=== PATIENT | female | born 1985 | race Caucasian/White ===

== ENCOUNTER 2023-04-14 07:24 | Emergency (ER) | payer OTHER, SELFPAY ==
[2023-04-14 07:25] VITALS: BP 137/91; PULSE 116; RESP 18; TEMP 36.6; O2SAT 97; BMI 34.7
[2023-04-14] MEDS: Acetaminophen 500 MG Tablet 1000 MG PO (07:58)
[2023-04-14] MEDS: dexAMETHasone 10 MG/ML Vial PO.IVFORM (07:58)
--- NOTE | 2023-04-14 15:05 | EDS_ITS ---
HPI HPI - URI History of Present Illness Chief Complaint: Sore Throat Narrative Narrative: 37-year-old female presenting with sore throat. She states that her children had sore throat since last week and she is developed one. She denies coughing. She has not a fever. Does not have congestion or shortness of breath. No abdominal pain. No nausea or vomiting. No urinary or vaginal complaints. ROS ROS ED Review of Systems ROS Unobtainable: Denies due to encephalopathy Constitutional Constitutional ED: Denies chills or fever(s) Eyes Eyes: Denies change in vision or diplopia ENT ENT ED: Reports sore throat; Denies rhinorrhea Cardiovascular Cardiovascular: Denies chest pain or palpitations Respiratory/Chest Respiratory/Chest: Denies cough or dyspnea Gastrointestinal Gastrointestinal: Denies abdominal pain Genitourinary Genitourinary ED: Denies dysuria or hematuria Musculoskeletal Musculoskeletal: Denies arthralgias or back pain Integumentary Denies abscess or Abrasions Neurologic Neurologic: Denies headache(s) or paresthesias PFSH PFSH Allergy/AdvReac Type Severity Reaction Status Date / Time Penicillins Allergy Hives Verified 04/14/23 07:27 Social History Smoking Status: Never smoker EXAM Physical Exam Const Vital Signs: 04/14/23 07:25 Temperature 97.8 F Temperature Source Temporal Pulse Rate 116 H Respiratory Rate 18 Blood Pressure 137/91 H Blood Pressure Mean 106 Pulse Ox 97 Oxygen Delivery Method Room Air Positive well nourished General Appearance ED: NAD and pallor HEENT Reports moist mucous membranes HEENT Narrative: Oropharynx with mild erythema. No tonsillar exudates. Airway patent without stridor. normocephalic and atraumatic Throat: posterior oropharynx normal Eyes PERRL and EOMs intact bilaterally Neck no lymphadenopathy and supple General: Negative for anterior neck swelling Resp normal respiratory effort Neuro oriented x3 Sensorium / Orientation: alert Motor Exam: strength 5/5 throughout Psych mental status grossly normal Skin General Skin Exam: jaundice and pallor MDM MDM MDM Narrative Medical decision making narrative: Patient presenting with sore throat. Other than the erythema in her throat her HEENT exam is unremarkable. Rapid strep was performed and was negative. She was given Decadron 10 mg p.o. and Tylenol 1 g. She was counseled this is likely viral. Return precautions discussed. Impression: 1. Pharyngitis Lab Data Attestation: I reviewed the patient's lab results. Discharge Plan Triage Chief Complaint: Sore Throat ED Provider: Luis Armando Keene Dx/Rx/DC Orders Instructions: ED Pharyngitis, Viral Stand Alone Forms: ED Work / School Excuse Primary Care Provider: Alisha Betancur ACCOUNT MAINTENANCE REPRESENTATIVE Referrals: Alisha Betancur ACCOUNT MAINTENANCE REPRESENTATIVE, ACCOUNT MAINTENANCE REPRESENTATIVE-C [Primary Care Provider] - Disposition Disposition: Home, Self Care Discharge Date/Time: 04/14/23 09:15
== END 2023-04-14 09:15 | disposition home or self-care (01) ==
PROVIDERS: Emergency Provider Student in an Organized Health Care Education/Training Program; PCP Nurse Practitioner Family; Visit Provider Student in an Organized Health Care Education/Training Program
DX: J02.9 Acute pharyngitis, unspecified (principal)
CPT/HCPCS: 87077; 87880; 99283

== ENCOUNTER 2025-05-03 00:17 | Emergency (ER) | payer SELFPAY ==
[2025-05-03 00:18] VITALS: BP 151/93; PULSE 74; RESP 16; TEMP 36.5; O2SAT 98; BMI 36.8
[2025-05-03 00:47] LABS: Mucous, Urine 0 SEEN /hpf (<or=2+); Squamous Epithelial Cells - UA 0 SEEN /hpf (5-10)
[2025-05-03 00:50] LABS: Color, Urine Yellow (Yellow); Glucose, Dipstick Normal (Normal); Ketone-Dipstick Negative (Negative); Leukocyte Esterase-Dipstick 25 /ul (Negative); Nitrite-Dipstick Negative (Negative); Occult Blood-Urine 10 /ul (Negative); Protein-Dipstick 30 mg/dl (Negative); Specific Gravity, Urine 1.015 (1.002-1.030); Urine Bilirubin Dipstick Negative (Negative)
--- NOTE | 2025-05-03 01:00 | ED.VIS.FEGU ---
HPI HPI - Female History of Present Illness Chief Complaint: Complaint Narrative Narrative: Chief complaint and HPI: Dysuria and urinary frequency. 40-year-old female with past medical history of tubal ligation presents for evaluation of dysuria and urinary frequency. The onset of symptoms approximately 1 hour. Associated symptom is suprapubic pressure and nausea. Denies any fever, chills, shortness of breath, chest pain, diarrhea, constipation, back pain. Review of systems: See HPI Medications: As listed on the chart Allergies: As listed on the chart PFSH: Per chart Vital signs: As listed on the chart. Reviewed. Physical exam: Gen: A&O x3, NAD Head: Normocephalic, atraumatic Eyes: No sclera icterus, conjunctiva clear ENT: Moist mucous membranes Neck: Trachea midline, No JVD CV: RRR, no murmurs, no peripheral edema Resp: Lungs CTA BL, no w/r/c GI: Abd soft, non-distended, non-tender, no r/r/g : No CVA tenderness Musc: Full ROM, no deformity Skin: Warm, dry Neuro: Alert, oriented, grossly intact, sensation intact Psych: Cooperative, appropriate mood and affect [facility] Medical History (Updated 05/03/25 @ 02:[address] Jean Hamilton, DO) Pancreatitis Home Medications ?Medication ?Instructions ?Recorded ?Last Taken ?Type cephalexin 500 mg capsule 500 mg PO Q12 7 days #14 CAPSULES 05/03/25 Unknown Rx Allergy/AdvReac Type Severity Reaction Status Date / Time Penicillins Allergy Hives Verified 05/03/25 00:18 Social History Smoking Status: Never smoker EXAM Physical Exam Const Vital Signs: 05/03/25 00:18 05/03/25 02:59 Temperature 97.7 F L 98.0 F Temperature Source Oral Pulse Rate 74 87 Respiratory Rate 16 18 Blood Pressure 151/93 H 137/93 H Blood Pressure Mean 112 107 Pulse Ox 98 97 MDM MDM MDM Narrative Medical decision making narrative: 40-year-old female with past medical history of tubal ligation presents for evaluation of dysuria and urinary frequency. The onset of symptoms approximately 1 hour. Associated symptom is suprapubic pressure and nausea. Protocol labs were placed in triage however I canceled this as I suspect UTI. I do not think any labs are needed at this time. Will get UA and urine . Although low suspicion for . UA positive for UTI. Urine culture sent. First dose of Keflex given here. Patient will be given a prescription for home. test negative. Follow-up with primary care physician. She confirmed understand the plan. Patient will discharge home. Impression: 1. UTI Lab Data Labs: Laboratory Results - last 24 hr 05/03/25 05/03/25 00:40 00:44 Urine Color Yellow Urine Clarity Sl. Cloudy Urine pH 7.0 Ur Specific [place] 1.015 Urine Protein 30 H Urine Glucose (UA) Normal Urine Ketones Negative Urine Occult Blood 10 H Urine Nitrite Negative Urine Bilirubin Negative Urine Urobilinogen Normal Ur Leukocyte Esterase 25 H Urine RBC 0-5 SEEN Urine WBC 5-10 SEEN Ur Squamous Epith Cells 0 SEEN Amorphous Sediment 1+ Urine Bacteria 2+ Urine Mucus 0 SEEN Urine Test Negative Discharge Plan Triage Chief Complaint: Complaint ED Provider: Jean Hamilton Dx/Rx/DC Orders Clinical Impression: UTI (urinary tract infection) Instructions: Urinary Tract Infections in Women Prescriptions: New cephalexin 500 mg capsule 500 mg PO Q12 7 Days Qty: 14 0RF Primary Care Provider: Alisha Betancur NP Referrals: Alisha Betancur NP, FLEET ADMINISTRATOR-C [Primary Care Provider] - 3-5 Days Activity Restrictions/Additional Instructions: Follow-up with your primary care physician. Return back to the ED if symptoms change or worsen. Take all of your antibiotics, you received your first dose here in the emergency department. Print Language: [place] Disposition Disposition: Home, Self Care Discharge Date/Time: 05/03/25 03:01
[2025-05-03 01:03] LABS: Red Blood Cells-Urine 0-5 SEEN /hpf (0-5)
[2025-05-03 01:43] LABS: Internal QC Validated? YES +Cl - CLEAR BKGD; Pregnancy, Urine Negative Negative; Record Kit Lot#,Urine Preg 0000947241
--- OUTSIDE RECORDS SUMMARY | 2025-05-03 01:43 | XMS RPT_ITS | CCD ---
Author Organization [facility] Care Team Providers Care Associate Professor Of Library Media Name Role Phone Unavailable Primary Care Provider UnavailDR RHIANNA Martines MD Primary Care Physician Unavailable Primary Care Provider Unavailabl e Pcp, No Primary Care Provider Unavailabl e Pcp, No Primary Care Provider Unavailabl e Queden ROOF FIXER.MATTHEW Alisha A Primary Care Provider Rhianna Cardenas Unavailable Luis Armando Keene Attending Unavailable Queden OUTPATIENT COORDINATOR, Alisha Primary Care Unavailable Rhianna Cardenas MD Unavailable [phone] VALLECILLO, RHONDA Referring Unavailable SOPHIA, GILES Attending Unavailable QUEDEN, ALISHA A Primary Care Unavailable QUEDEN, ALISHA A Primary Care Unavailable VALLECILLO, RHONDA Referring Unavailable OVIEDO, ANU Attending Unavailable VALLECILLO, RHONDA Attending Unavailable QUEDEN, ALISHA A Primary Care Unavailable VALLECILLO, RHONDA Referring Unavailable EL-KHIDER, ROSE Attending Unavailable QUEDEN, ALISHA A Primary Care Unavailable VALLECILLO, RHONDA Referring Unavailable VALLECILLO, RHONDA Attending Unavailable QUEDEN, ALISHA A Primary Care Unavailable Queden ROOF FIXER.MINUTE CLERK Alisha A Primary Care Provider Rhianna Cardenas MD Unavailable [phone] QUEDEN, ALISHA A Attending Unavailable QUEDEN, ALISHA A Primary Care Unavailable QUEDEN, ALISHA A Referring Unavailable QUEDEN, ALISHA A Primary Care Unavailable MIKULSKI, KHUSHI Attending Unavailable MIKULSKI, KHUSHI Referring Unavailable QUEDEN, ALISHA A Primary Care Unavailable QUEDEN, ALISHA A Referring Unavailable QUEDEN, ALISHA A Primary Care Unavailable QUEDEN, ALISHA A Attending Unavailable QUEDEN, ALISHA A Primary Care Unavailable ALISHA BETANCUR Referring Unavailable ALISHA BETANCUR Primary Care Unavailable Allergies Allergy Classification Reported Allergen(s) Allergy Type Date of Onset Reaction(s) Facility (3 sources) Penicillins; Translations: [PENICILLINS] Propensity to adverse reactions to drug 8 [place] (1 source) Penicillins Drug Allergy 2 [facility] (1 source) Penicillin; Translations: [penicillin] Drug Allergy [facility] (20 sources) Penicillins Drug Allergy 0 [facility] (1 source) Penicillins Allergy to substance 3 [facility] (1 source) Penicillins Drug allergy (disorder) 3 [facility] (2 sources) Penicillins Drug Allergy 2 [facility] Medications Current Medications Medication Drug Class(es) Dates Sig (Normalized) Sig (Original) Percocet (1 source) Opioid Agonist Start: 07-20-2020 Percocet 325/5 Dose = 1 tab(s), Oral, q4h, PRN Pain, scale 4-6, 0 Refill(s), 98 Start Date: 07/20/20 Status: Ordered cholecalciferol 0.05 mg oral tablet (2 sources) Vitamin D Start: 02-09-2025 End: 02-09-2026 take 1 tablet by mouth once daily cholecalciferol (VITAMIN D-3) 50 mcg (2,000 unit) tablet Take 1 tablet by mouth once daily. 90 tablet 3 02/09/2025 02/09/2026 Active ciprofloxacin 500 mg oral tablet (2 sources) Quinolone Antimicrobial Start: 06-22-2019 End: 07-02-2019 take 1 tablet by mouth twice daily ciprofloxacin (CIPRO) 500 MG tablet Take 1 tablet by mouth 2 times daily for 10 days 20 tablet 0 06/22/2019 07/02/2019 Active fluconazole 150 mg oral tablet (1 source) Azole Antifungal Start: 06-22-2019 End: 06-22-2019 take 1 tablet by mouth once fluconazole (DIFLUCAN) 150 MG tablet Take 1 tablet by mouth once for 1 dose Take after antibiotics finished 1 tablet 0 06/22/2019 06/22/2019 Active hydrocortisone 10 mg/ml / neomycin 3.5 mg/ml / polymyxin b 89420 unt/ml otic suspension (1 source) Aminoglycoside Antibacterial, Polymyxin-class Antibacterial, Corticosteroid Start: 03-08-2022 End: 03-15-2022 hydrocortisone/neom ycin/polymyxin B 1%-0.35%-10,000 units/mL otic suspension Dose = 4 drop(s), Ear, left, QID, X 7 day(s), # 10 mL, 0 Refill(s) Start Date: 03/08/22 Stop Date: 03/15/22 Status: Ordered ibuprofen 600 mg oral tablet (1 source) Nonsteroidal Anti-inflammatory Drug Start: 07-20-2020 Motrin Dose : 600 mg = 1 tab(s), Oral, q6h, PRN as needed for pain, 0 Refill(s) Start Date: 07/20/20 Status: Ordered iv contrast (will be provided with radiology test) (3 sources) Start: 12-06-2023 End: 12-07-2023 iv contrast (will be provided with radiology test) CT ABD/PEL -Inject, intravenously, once for 1 dose.No IV access, insert saline lock prior to the beginning of sedation, infusion, injection of imaging exam. Discontinue saline lock post exam. If Pt. has a central line or IVAD, may access for administration according to line specific nursing protocol. Once exam is complete flush line and de-access according to line specific nursing protocol in the CT contrast administration guidelines link. 1 Each 0 12/06/2023 12/07/2023 Active Start: 11-22-2022 End: 11-23-2022 iv contrast (will be provide d with radiology test) Indications: Pancreatitis, necrotizing CT ABD/PEL -Inject, intravenously, once for 1 dose.No IV access, insert saline lock prior to the beginning of sedation, infusion, injection of imaging exam. Discontinue saline lock post exam. If Pt. has a central line or IVAD, may access for administration according to line specific nursing protocol. Once exam is complete flush line and de-access according to line specific nursing protocol in the CT contrast administration guidelines link. 1 Each 0 11/22/2022 11/23/2022 Comment on above: CT ABD/PEL -Inject, intravenously, once for 1 dose.No IV access, insert saline lock prior to the beginning of sedation, infusion, injection of imaging exam. Discontinue saline lock post exam. If Pt. has a central line or IVAD, may access for administration according to line specific nursing protocol. Once exam is complete flush line and de-access according to line specific nursing protocol in the CT contrast administration guidelines link. phenazopyridine hydrochloride 200 mg oral tablet (1 source) Start: End: take 1 tablet by mouth three times daily as needed for pain phenazopyridine (PYRIDIUM) 200 MG tablet Take 1 tablet by mouth 3 times daily as needed for Pain 6 tablet 0 06/22/2019 06/25/2019 Active Completed/Discontinued Medications Medication Drug Class(es) Dates Sig (Normalized) Sig (Original) meclizine hydrochloride 12.5 mg oral tablet (9 sources) Antiemetic Start: 3 End: 4 take 1 tablet by mouth every six hours as needed for dizziness and dizziness meclizine (ANTIVERT) 12.5 mg tab Indications: Dizziness Take 1 tablet by mouth every 6 hours as needed (for dizziness). 30 tablet 0 05/10/2023 12/18/2023 Discontinued Comment on above: Take 1 tablet by shaq th every 6 hours as needed (for dizziness). methylPREDNISolone (8 sources) Corticosteroid Start: 5 End: 5 methylPREDNISolone (MEDROL, LILIANA,) 4 mg Dose-Pack Indications: Lateral epicondylitis of left elbow , Chronic elbow pain, left As Instructed per package 21 tablet 11/05/2024 02/06/2025 Discontinued (Course of therapy completed) Start: 11-05-2024 methylPREDNISo lone (MEDROL, LILIANA,) 4 mg Dose-Pack Indications: Lateral epicondylitis of left elbow , Chronic elbow pain, left As Instructed per package 21 tablet 11/05/2024 Active Start: 10-30-2024 End: 11-05-2024 methylPREDNISolone (MEDROL, LILIANA,) 4 mg Dose-Pack Indications: Chronic elbow pain, left As Instructed per package 21 tablet 10/30/2024 11/05/2024 Discontinued Start: 10-30-2024 methylPREDNISo lone (MEDROL, LILIANA,) 4 mg Dose-Pack Indications: Chronic elbow pain, left As Instructed per package 21 tablet 10/30/2024 Active pantoprazole 40 mg delayed release oral tablet (20 sources) Proton Pump Inhibitor Start: 06-01-2020 End: 02-06-2025 take 1 tablet by mouth once daily pantoprazole DR (PROTONIX) 40 mg tablet Indications: Left upper quadrant abdominal pain , Peptic ulcer disease Take 1 tablet by mouth once daily. 30 minutes before eating. 30 tablet 2 12/06/2023 02/06/2025 Discontinued (Discontinued by Patient) Comment on above: Take 1 tablet by shaq th once daily. 40 mg. Take 1 tablet by shaq th once daily. 30 minutes before eating. Problems Active Problems Problem Classification Problem Date Documented Da te Episodic/Chronic Abdominal pain (7 sources) Epigastric pain; Translations: [Epigastric pain] Onset: 3 Episodic Adjustment disorders (1 source) Grief finding; Translations: [Adjustment disorder with depressed mood] 02-06-2025 Chronic Anxiety disorders (1 source) Acute stress disorder; Translations: [Acute stress reaction] 02-06-2025 Chronic Conditions associated with dizziness or vertigo (2 sources) Dizziness; Translations: [Dizziness and giddiness] 05-10-2023 Episodic Esophageal disorders (3 sources) Gastroesophageal reflux disease; Translations: [Gastro-esophageal reflux disease without esophagitis] Onset: 3 Chronic Gastroduodenal ulcer (except hemorrhage) (4 sources) Peptic ulcer; Translations: [Peptic ulcer, site unspecified, unspecified as acute or chronic, without hemorrhage or perforation] Onset: 5 Chronic Headache; including migraine (1 source) Headache; Translations: [Headaches] 02-06-2025 Episodic Nutritional deficiencies (2 sources) Vitamin D deficiency; Translations: [Vitamin D deficiency, unspecified] Onset: 5 02-06-2025 Chronic Nutritional deficiencies (1 source) Serum vitamin B12 low; Translations: [Deficiency of other specified B group vitamins] 05-29-2023 Episodic Other connective tissue disease (1 source) Lateral epicondylitis of left humerus; Translations: [Lateral epicondylitis, left elbow] 11-05-2024 Episodic Other gastrointestinal disorders (2 sources) Abdominal distension, gaseous; Translations: [Abdominal distension (gaseous)] 12-06-2023 Episodic Other gastrointestinal disorders (2 sources) History of pancreatitis; Translations: [Personal history of other diseases of the digestive system] 12-06-2023 Episodic Other gastrointestinal disorders (1 source) Diarrhea; Translations: [Diarrhea, unspecified] 12-18-2023 Episodic Other gastrointestinal disorders (1 source) Diarrhea, unspecified; Translations: [Diarrhea, unspecified type] Onset: 4 Episodic Other gastrointestinal disorders (1 source) Personal history of other diseases of the digestive system; Translations: [History of pancreatitis] Onset: 5 Episodic Other nervous system disorders (1 source) Other chronic pain; Translations: [Chronic elbow pain, left] Onset: 5 Chronic Other nervous system disorders (1 source) Postoperative pain 07-19-2020 Episodic Other non-traumatic joint disorders (3 sources) Chronic pain of left upper limb; Translations: [Pain in left elbow] 10-30-2024 Episodic Other non-traumatic joint disorders (1 source) Pain in elbow; Translations: [Pain in left elbow] 11-10-2024 Episodic Other non-traumatic joint disorders (2 sources) Pain in left elbow; Translations: [Pain in left elbow] Onset: 5 Episodic Other nutritional; endocrine; and metabolic disorders (20 sources) Obese class II; Translations: [Obesity, unspecified] Onset: 2 12-15-2021 Chronic Other nutritional; endocrine; and metabolic disorders (20 sources) Obese class I; Translations: [Obesity, unspecified] Onset: 3 10-27-2022 Chronic Other nutritional; endocrine; and metabolic disorders (1 source) Obesity; Translations: [Obesity, unspecified] Chronic Other screening for suspected conditions (not mental disorders or infectious disease) (2 sources) Imaging of gastrointestinal tract abnormal; Translations: [Abnormal findings on diagnostic imaging of other parts of digestive tract] Onset: 4 12-18-2023 Episodic Other upper respiratory infections (1 source) Acute pharyngitis, unspecified; Translations: [Acute pharyngitis, unspecified] Onset: 3 Episodic Previous (1 source) Vaginal delivery following previous section 07-19-2020 Episodic Residual codes; unclassified (1 source) Early satiety; Translations: [Early satiety] Episodic Screening and history of mental health and substance abuse codes (1 source) Patient encounter status; Translations: [Encounter for screening for depression] Episodic Unclassified (1 source) Breast feeding (infant) (observable entity) 06-20-2017 Comment on above: System added from do cumentation. Breast feeding Status documented as Yes on Admission Unclassified (1 source) Headaches; Translations: [Headaches] Onset: Past or Other Problems Problem Classification Problem Date Documented Date Episodic/Chronic Biliary tract disease (20 sources) Biliary calculus; Translations: [Calculus of gallbladder without cholecystitis without obstruction] Onset: 12-14-2021 12-14-2021 Episodic Other connective tissue disease (1 source) Lateral epicondylitis, left elbow; Translations: [Lateral epicondylitis of left elbow] Onset: 11-05-2024 Episodic Pancreatic disorders (not diabetes) (20 sources) Acute pancreatitis; Translations: [Acute pancreatitis with uninfected necrosis, unspecified] Onset: 10-24-2022 10-24-2022 Episodic Urinary tract infections (1 source) Acute cystitis; Translations: [Acute cystitis without hematuria] Episodic Results Test Name Value Interpretation Reference Range Facility 25(OH)D3 [facility] 2024 25-hydroxyvitamin D3 [Mass/Vol] 22.1 ng/mL Low >=30.0 [facility] Comment on above: Order Comment: Speci men Type: BLOOD SPECIMEN Ordering Facility: [facility] Address: [address] [place] [address] Result Comment: Clas sification of 25 [place] Vitamin D status: Deficiency: <= 20.0 ng/ml. Insufficiency: 21.0-29.0 ng/ml. Sufficiency: >= 30.0 ng/ml. Performed By: #### 1 989-3 #### [facility] CLIA [id number] [address] [place] [address] [place] CBC W Auto Differential pane l (Bld)on 02-06-2025 Basophils (Bld) [#/Vol] 0.04 10*3/uL NINF [facility] Basophils/100 WBC (Bld) 0.7 % [facility] Differential cell count method Nom (Bld) Auto [facility] Eosinophils (Bld) [#/Vol] 0.12 10*3/uL [facility] Eosinophils/100 WBC (Bld) 2.1 % [facility] Erythrocyte distribution width (RBC) [Ratio] 13.1 % 11.5 - 15.0 % [facility] Hematocrit (Bld) [Volume fraction] 44.1 % 36.0 - 46.0 % [facility] Hemoglobin (Bld) [Mass/Vol] 14.4 g/dL 11.5 - 15.5 g/dL [facility] Immature granulocytes (Bld) [#/Vol] [facility] Immature granulocytes/100 WBC (Bld) 0.2 % [facility] Lymphocytes (Bld) [#/Vol] 1.54 10*3/uL [facility] Lymphocytes/100 WBC (Bld) 27.1 % [facility] MCH (RBC) [Entitic mass] 28.6 pg 26.0 - 34.0 pg [facility] MCHC (RBC) [Mass/Vol] 32.7 g/dL 30.5 - 36.0 g/dL [facility] MCV (RBC) [Entitic vol] 87.5 fL 80.0 - 100.0 fL [facility] Monocytes (Bld) [#/Vol] 0.43 10*3/uL [facility] Monocytes/100 WBC (Bld) 7.6 % [facility] Neutrophils (Bld) [#/Vol] 3.55 10*3/uL [facility] Neutrophils/100 WBC (Bld) 62.3 % [facility] Nucleated RBC (Bld) [#/Vol] [facility] Nucleated RBC/100 WBC (Bld) [Ratio] [facility] Platelet mean volume (Bld) [Entitic vol] 11.3 fL 9.0 - 12.7 fL [facility] Platelets (Bld) [#/Vol] 268 10*3/uL [facility] RBC (Bld) [#/Vol] 5.04 10*6/uL 3.90 - 5.2 0 m/uL [facility] WBC (Bld) [#/Vol] 5.69 10*3/uL [facility] Basophils (Bld) [#/Vol] 0.04 10*3/uL Normal <0.11 [facility] Comment on above: Order Comment: Speci men Type: BLOOD SPECIMENOrdering Facility: [facility] Address: [address] [place] [address] Performed By: #### 5 7021-8 ####[facility] [place] [facility] [id number] [facility] [place] [address] [place] [facility] Basophils/100 WBC (Bld) 0.7 % Normal [facility] Comment on above: Order Comment: Speci men Type: BLOOD SPECIMENOrdering Facility: [facility] Address: [address] [place] [address] Performed By: #### 5 7021-8 ####[facility] [place] [facility] [id number] [place] [address] [facility] Differential cell count method Nom (Bld) Auto Normal [facility] Comment on above: Order Comment: Speci men Type: BLOOD SPECIMENOrdering Facility: [facility] Address: [address] [place] [address] Performed By: #### 5 7021-8 ####[facility] [place] [facility] [id number] [place] [address] [place] Eosinophils (Bld) [#/Vol] 0.12 10*3/uL Normal <0.46 [facility] Comment on above: Order Comment: Speci men Type: BLOOD SPECIMENOrdering Facility: [facility] Address: [address] [place] [address] Performed By: #### 5 7021-8 ####[facility] [place] [facility] [id number] [place] [address] [place] [facility] Eosinophils/100 WBC (Bld) 2.1 % Normal [facility] Comment on above: Order Comment: Speci men Type: BLOOD SPECIMENOrdering Facility: [facility] Address: [address] [place] [address] Performed By: #### 5 7021-8 ####[facility] [place] [facility] [id number] [place] [address] [place] [facility] Erythrocyte distribution width (RBC) [Ratio] 13.1 % Normal 11.5-15.0 [facility] Comment on above: Order Comment: Speci men Type: BLOOD SPECIMENOrdering Facility: [facility] Address: [address] [place] [address] Performed By: #### 5 7021-8 ####[facility] [place] [facility] [id number] [place] [address] [place] Hematocrit (Bld) [Volume fraction] 44.1 % Normal 36.0-46.0 [facility] Comment on above: Order Comment: Speci men Type: BLOOD SPECIMENOrdering Facility: [facility] Address: [address] [place] [address] Performed By: #### 5 7021-8 ####[facility] [facility] [id number] [place] [address] [place] Hemoglobin (Bld) [Mass/Vol] 14.4 g/dL Normal 11.5-15.5 [facility] Comment on above: Order Comment: Speci men Type: BLOOD SPECIMENOrdering Facility: [facility] Address: [address] [place] [address] Performed By: #### 5 7021-8 ####[facility] [facility] [id number] [place] [address] [facility] [place] Immature granulocytes (Bld) [#/Vol] 10*3/uL Normal <0.10 [facility] Comment on above: Order Comment: Speci men Type: BLOOD SPECIMENOrdering Facility: [facility] Address: [address] [place] [address] Performed By: #### 5 7021-8 ####[facility] [facility] [id number] [place] [address] [facility] [place] Immature granulocytes/100 WBC (Bld) 0.2 % Normal [facility] Comment on above: Order Comment: Speci men Type: BLOOD SPECIMENOrdering Facility: [facility] Address: [address] [place] [address] Performed By: #### 5 7021-8 ####[facility] [facility]IA [id number] [facility] [address] [place] Lymphocytes (Bld) [#/Vol] 1.54 10*3/uL Normal 1.00-4.00 [facility] Comment on above: Order Comment: Speci men Type: BLOOD SPECIMENOrdering Facility: [facility] Address: [address] [place] [address] Performed By: #### 5 7021-8 ####[facility]CLIA [id number] [place] [address] [facility] Lymphocytes/100 WBC (Bld) 27.1 % Normal [facility] Comment on above: Order Comment: Speci men Type: BLOOD SPECIMENOrdering Facility: [facility] Address: [address] [place] [address] Performed By: #### 5 7021-8 ####[facility] LABCLIA [id number] [place] [address] [place] [facility] MCH (RBC) [Entitic mass] 28.6 pg Normal 26.0-34.0 [facility] Comment on above: Order Comment: Speci men Type: BLOOD SPECIMENOrdering Facility: [facility] Address: [address] [place] [address] Performed By: #### 5 7021-8 ####[facility]IA [id number] [place] [address] [place] MCHC (RBC) [Mass/Vol] 32.7 g/dL Normal 30.5-36.0 [facility] Comment on above: Order Comment: Speci men Type: BLOOD SPECIMENOrdering Facility: [facility] Address: [address] [place] [address] Performed By: #### 5 7021-8 ####[facility]CLIA [id number] [place] [address] [place] MCV (RBC) [Entitic vol] 87.5 fL Normal 80.0-100.0 [facility] Comment on above: Order Comment: Speci men Type: BLOOD SPECIMENOrdering Facility: [facility] Address: [address] [place] [address] Performed By: #### 5 7021-8 ####[facility] [place] LABCLIA [id number] [place] [address] [place] Monocytes (Bld) [#/Vol] 0.43 10*3/uL Normal <0.87 [facility] Comment on above: Order Comment: Speci men Type: BLOOD SPECIMENOrdering Facility: [facility] Address: [address] [place] [address] Performed By: #### 5 7021-8 ####[facility] [facility]CLIA [id number] [place] [address] [facility] [place] Monocytes/100 WBC (Bld) 7.6 % Normal [facility] Comment on above: Order Comment: Speci men Type: BLOOD SPECIMENOrdering Facility: [facility] Address: [address] [place] [address] Performed By: #### 5 7021-8 ####[facility] [facility]CLIA [id number] [place] [address] [place] Neutrophils (Bld) [#/Vol] 3.55 10*3/uL Normal 1.45-7.50 [facility] Comment on above: Order Comment: Speci men Type: BLOOD SPECIMENOrdering Facility: [facility] Address: [address] [place] [address] Performed By: #### 5 7021-8 ####[facility] [place] [facility]IA [id number] [place] [address] [place] Neutrophils/100 WBC (Bld) 62.3 % Normal [facility] Comment on above: Order Comment: Speci men Type: BLOOD SPECIMENOrdering Facility: [facility] Address: [address] [place] [address] Performed By: #### 5 7021-8 ####[facility] [place] LABCLIA [id number] [place] [address] [place] Nucleated RBC (Bld) [#/Vol] Normal [facility] Comment on above: Order Comment: Speci men Type: BLOOD SPECIMENOrdering Facility: [facility] Address: [address] [place] [address] Performed By: #### 5 7021-8 ####[facility] LABCLIA [id number] [place] [address] [facility] [place] Nucleated RBC/100 WBC (Bld) [Ratio] Normal [facility] Comment on above: Order Comment: Speci men Type: BLOOD SPECIMENOrdering Facility: [facility] Address: [address] [place] [address] Performed By: #### 5 7021-8 ####[facility] [id number] [place] [address] [place] Platelet mean volume (Bld) [Entitic vol] 11.3 fL Normal 9.0-12.7 [facility] Comment on above: Order Comment: Speci men Type: BLOOD SPECIMENOrdering Facility: [facility] Address: [address] [place] [address] Performed By: #### 5 7021-8 ####[facility] [id number] [place] [address] [place] Platelets (Bld) [#/Vol] 268 10*3/uL Normal 150-400 [facility] Comment on above: Order Comment: Speci men Type: BLOOD SPECIMENOrdering Facility: [facility] Address: [address] [place] [address] Performed By: #### 5 7021-8 ####[facility] LABCLIA [id number] [place] [address] [place] RBC (Bld) [#/Vol] 5.04 10*6/uL Normal 3.90-5.20 [facility] Comment on above: Order Comment: Speci men Type: BLOOD SPECIMENOrdering Facility: [facility] Address: [address] [place] [address] Performed By: #### 5 7021-8 ####[facility] LABCLIA [id number] [place] [address] [place] WBC (Bld) [#/Vol] 5.69 10*3/uL Normal 3.70-11.00 [facility] Comment on above: Order Comment: Speci men Type: BLOOD SPECIMENOrdering Facility: [facility] Address: [facility] [place] [address] Performed By: #### 5 7021-8 ####[facility] LABCLIA [id number] [place] [address] [facility] CNOVon 02-06-2025 CNOV Office Visit (AGFAMPLE) ARIELA BELL ([id number]) 1985 F T Date Time Provider Department 02/06/25 9:00 AM ALISHA BETANCUR During your visit today, we recorded the following information about you: Temperature Pulse Respiration Blood pressure 98.6 degrees 77/minute 16/minute 120/76 Weight Height 88.5 kg 1.6 m Alisha Betancur, ROOF FIXER.MINUTE CLERK 02/06/2025 10:57 AM Signed CHIEF COMPLAINT: Ariela is a 39-year-old female presenting with left-sided headaches and left-sided abdominal pain. I reviewed past medical, surgical, social, and family histories today and updated chart. Allergies, chronic medications, and supplements were also reviewed. Recording using [employer] software for draft documentation of the visit was discussed with the patient/authorized commercial sales representative; all questions welcomed and answered. Patient/authorized commercial sales representative agreed to proceed Headaches: - Onset: Approximately one week ago. - Timing: Occur upon waking and again in the late afternoon. - Location: Primarily on the left side, around the scientology area. - Alleviating Factors: Motrin provides relief. - Denies pain in the back of the head, vision changes, fever, sinus pain, nasal drainage, sore throat, or ear pain. - Reports normal sleep patterns, though going to bed later due to stress. Left-Sided Abdominal Pain: - Recent episode of left-sided abdominal pain radiating to the back and then downwards. - Describes pain as different from previous episodes that required hospitalization for pancreatitis - Associated with nausea and vomiting. - Pain lasted approximately three hours and was alleviated by laying down and using a heating pad/warm bath - Denies constipation or urinary symptoms. - History of non-obstructive kidney stones on the left side. Stress: - Reports significant stress due to family issues and the recent loss of her mother in August. - Mother had been battling frontotemporal dementia for four years before passing away. 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 - Expresses concerns about the impact of stress on her health, including fears about her pancreas. - Has not sought counseling but has considered it. Diet and Weight Changes: - Previously on a strict diet, lost weight from 200 lbs to 160 lbs. - Has since regained some weight and resumed drinking soda. - Concerned about dry skin and hair loss, wondering if it could be related to dehydration or other factors. - Does not take multivitamins or biotin currently. PAST MEDICAL HISTORY Diagnosis Date Left elbow pain Motion sickness When a passenger Pancreatitis (HCC) PAST SURGICAL HISTORY Procedure Laterality Date SECTION HX N/A 2016 Jean Pierre BroussardSvitlana Hope SECTION HX EGD W/O BRSH SPEC VARICIES INJ 04/09/2023 LAPAROSCOPIC CHOLECYSTECTOMY 2021 LIGATE FALLOPIAN TUBE TUBAL LIGATION HX Social History Tobacco Use Smoking status: Former Types: Cigarettes Smokeless tobacco: Never Vaping Use Vaping status: Never Used Substance Use Topics Alcohol use: Not Currently Drug use: Never ALLERGIES Allergen Reactions Penicillins Hives Plus throat swelling Family History Problem Relation Age of Onset Cancer Maternal Grandfather Diabetes Paternal Grandmother Glaucoma Paternal Grandfather Diabetes Paternal Grandfather Colon Cancer No Family History No current outpatient medications on file. No current facility-administered medications for this visit. Review of Systems Constitutional: Positive for fatigue. Negative for appetite change, chills, diaphoresis and fever. Head: (+) headaches (left-sided) Eyes: (-) blurred vision, (-) diplopia Ears/Nose/Mouth/Throat : (-) ear pain, (-) sore throat, (-) sinus pain, (-) nasal drainage Neck: (No specific current symptoms mentioned) Cardiovascular: (No specific current symptoms mentioned) Respiratory: (No specific current symptoms mentioned) Gastrointestinal: (+) left-sided abdominal pain radiating to the back, (+) nausea, (+) vomiting, (-) constipation Genitourinary: (-) dysuria, (-) hematuria Musculoskeletal: (No specific current symptoms mentioned) Skin: (+) dry skin on scalp, (+) hair loss Neurological: (+) headaches (left-sided) Psychiatric: (+) stress, (+) grief Endocrine: (No specific current symptoms mentioned) Hematologic/Lymphatic: (No specific current symptoms mentioned) BP 120/76 Pulse 77 Temp (Src) 98.6 (Oral) Resp 16 Ht 5' 3 (1.60m) Wt 195 lb (88.5kg) SpO2 98% LMP 10/09/2022 BMI 34.55 kg/(m2). Physical Exam GENERAL: NAD, alert and oriented. Tearful. SKIN: unremarkable, no rash or skin lesions. HEAD: normocephalic EYES: PERRLA, EOMI, conjunctiva clear EARS: external ears normal, canals clear, TM's normal. NOSE/SINUSES: Nares normal. Septum midline. OROPHARY (more content not included)... Normal [facility] Comprehensive metabolic 2000 panelon 02-06-2025 Albumin [Mass/Vol] 4.4 g/dL 3.9 - 4.9 g/dL [facility] ALP [Catalytic activity/Vol] 68 U/L 34 - 123 U/L [facility] ALT With P-5'-P [Catalytic activity/Vol] 17 U/L 7 - 38 U/L [facility] Anion gap [Moles/Vol] 10 mmol/L 8 - 15 mmol/L [facility] AST With P-5'-P [Catalytic activity/Vol] 18 U/L 13 - 35 U/L [facility] Bilirubin [Mass/Vol] 0.4 mg/dL 0.2 - 1 .3 mg/dL [facility] Calcium [Mass/Vol] 9.5 mg/dL 8.5 - 10. 2 mg/dL [facility] Chloride [Moles/Vol] 105 mmol/L 98 - 10 7 mmol/L [facility] CO2 [Moles/Vol] 25 mmol/L 22 - 30 mmol/L [facility] Creatinine [Mass/Vol] 0.79 mg/dL 0.58 - 0.96 mg/dL [facility] GFR/1.73 sq M.predicted among non-blacks MDRD (S/P/Bld) [Vol rate/Area] 98 mL/min/{1.73_m2} - PINF [facility] Comment on above: Estimated Glomerular Filtration Rate (eGFR) is calculated using the 2020 CKD-EPI creatinine equation. This equation utilizes serum creatinine, sex, and age as parameters. The creatinine assay has traceable calibration to isotope dilution-mass spectrometry. Refer to KDIGO guidelines for clinical interpretation. In patients with unstable renal function, e.g. those with acute kidney injury, the eGFR may not accurately reflect actual GFR. Glucose [Mass/Vol] 99 mg/dL 74 - 99 mg/dL [facility] Comment on above: The [place] Diabete s Association (ADA) provides guidance for cutoff values for fasting glucose and random glucose. The ADA defines fasting as no caloric intake for at least 8 hours. Fasting plasma glucose results between 100 to 125 mg/dL indicate increased risk for diabetes (prediabetes). Fasting plasma glucose results greater than or equal to 126 mg/dL meet the criteria for diagnosis of diabetes. In the absence of unequivocal hyperglycemia, results should be confirmed by repeat testing. In a patient with classic symptoms of hyperglycemia or hyperglycemic crisis, random plasma glucose results greater than or equal to 200 mg/dL meet the criteria for diagnosis of diabetes. Reference: Standards of Medical Care in Diabetes 2016, [place] Diabetes Association. Diabetes Care. 2016.39(Suppl 1). Potassium [Moles/Vol] 4.2 mmol/L 3.7 - 5.1 mmol/L [facility] Protein [Mass/Vol] 7.4 g/dL 6.3 - 8.0 g/dL [facility] Sodium [Moles/Vol] 140 mmol/L 136 - 144 mmol/L [facility] Urea nitrogen [Mass/Vol] 12 mg/dL 7 - 21 mg/dL [facility] Albumin [Mass/Vol] 4.4 g/dL Normal 3.9-4.9 [facility] Comment on above: Order Comment: Speci men Type: BLOOD SPECIMEN Ordering Facility: [facility] Address: [address] [place], [place] [address] Performed By: #### 3 040-3, 59408-1, , TSHRF #### [facility] CLIA [id number] [address] [place] [address] [place] ALP [Catalytic activity/Vol] 68 U/L Normal 34-123 [facility] Comment on above: Order Comment: Speci men Type: BLOOD SPECIMEN Ordering Facility: [facility] Address: [address] [place] [address] Performed By: #### 3 040-3, 30148-1, , TSHRF #### [facility] CLIA [id number] [address] [place] [address] [place] [facility] ALT With P-5'-P [Catalytic activity/Vol] 17 U/L Normal 7-38 [facility] Comment on above: Order Comment: Speci men Type: BLOOD SPECIMEN Ordering Facility: [facility] Address: [address] [place] [address] Performed By: #### 3 040-3, 72557-8, , TSHRF #### [facility] CLIA [id number] [address] [place] [address] [facility] Anion gap [Moles/Vol] 10 mmol/L Normal 8-15 [facility] Comment on above: Order Comment: Speci men Type: BLOOD SPECIMEN Ordering Facility: [facility] Address: [address] [place] [address] Performed By: #### 3 040-3, 73023-3, , TSHRF #### [facility] CLIA [id number] [address] [place] [address] [facility] AST With P-5'-P [Catalytic activity/Vol] 18 U/L Normal 13-35 [facility] Comment on above: Order Comment: Speci men Type: BLOOD SPECIMEN Ordering Facility: [facility] Address: [address] [place] [address] Performed By: #### 3 040-3, , , TSHRF #### [facility] CLIA [id number] [address] [place] [address] [place] Bilirubin [Mass/Vol] 0.4 mg/dL Normal 0.2-1.3 [facility] Comment on above: Order Comment: Speci men Type: BLOOD SPECIMEN Ordering Facility: [facility] Address: [address] [place] [address] Performed By: #### 3 040-3, , , TSHRF #### [facility] CLIA [id number] [address] [place] [address] [place] Calcium [Mass/Vol] 9.5 mg/dL Normal 8.5-10.2 [facility] Comment on above: Order Comment: Speci men Type: BLOOD SPECIMEN Ordering Facility: [facility] Address: [address] [place] [address] Performed By: #### 3 040-3, , , TSHRF #### [facility] CLIA [id number] [address] [place] [address] [place] Chloride [Moles/Vol] 105 mmol/L Normal 98-107 [facility] Comment on above: Order Comment: Speci men Type: BLOOD SPECIMEN Ordering Facility: [facility] Address: [address] [place] [address] Performed By: #### 3 040-3, , , TSHRF #### [facility] CLIA [id number] [address] [place] [address] [place] CO2 [Moles/Vol] 25 mmol/L Normal 22-30 [facility] Comment on above: Order Comment: Speci men Type: BLOOD SPECIMEN Ordering Facility: [facility] Address: [address] [place] [address] Performed By: #### 3 040-3, 69706-6, , TSHRF #### [facility] CLIA [id number] [address] [place] [address] [place] Creatinine [Mass/Vol] 0.79 mg/dL Normal 0.58-0.96 [facility] Comment on above: Order Comment: Yecenia machuca Type: BLOOD SPECIMEN Ordering Facility: [facility] Address: [address] [place] [address] Performed By: #### 3 040-3, 13520-9, , [facility] #### [facility] CLIA [id number] [address] [place] [address] [facility] [place] Creatinine and Glomerular filtration rate.predicted panel (S/P/Bld) 98 mL/min/1.73m??? Normal >=60 [facility] Comment on above: Order Comment: Yecenia machuca Type: BLOOD SPECIMEN Ordering Facility: [facility] Address: [address] [place] [address] Result Comment: Sue mated Glomerular Filtration Rate (eGFR) is calculated using the 2020 CKD-EPI creatinine equation. This equation utilizes serum creatinine, sex, and age as parameters. The creatinine assay has traceable calibration to isotope dilution-mass spectrometry. Refer to KDIGO guidelines for clinical interpretation. In patients with unstable renal function, e.g. those with acute kidney injury, the eGFR may not accurately reflect actual GFR. Performed By: #### 3 040-3, 22182-8, , [facility] #### [facility] CLIA [id number] [address] [place] [address] [place] Glucose [Mass/Vol] 99 mg/dL Normal 74-99 [facility] Comment on above: Order Comment: Yecenia machuca Type: BLOOD SPECIMEN Ordering Facility: [facility] Address: [address] [place] [address] Result Comment: The [place] Diabetes Association (ADA) provides guidance for cutoff values for fasting glucose and random glucose. The ADA defines fasting as no caloric intake for at least 8 hours. Fasting plasma glucose results between 100 to 125 mg/dL indicate increased risk for diabetes (prediabetes). Fasting plasma glucose results greater than or equal to 126 mg/dL meet the criteria for diagnosis of diabetes. In the absence of unequivocal hyperglycemia, results should be confirmed by repeat testing. In a patient with classic symptoms of hyperglycemia or hyperglycemic crisis, random plasma glucose results greater than or equal to 200 mg/dL meet the criteria for diagnosis of diabetes. Reference: Standards of Medical Care in Diabetes 2016, [place] Diabetes Association. Diabetes Care. 2016.39(Suppl 1). Performed By: #### 3 040-3, 62783-9, , TSHRF #### [facility] CLIA [id number] [address] [place] [address] [place] Potassium [Moles/Vol] 4.2 mmol/L Normal 3.7-5.1 [facility] Comment on above: Order Comment: Speci men Type: BLOOD SPECIMEN Ordering Facility: [facility] Address: [address] [place] [address] Performed By: #### 3 040-3, 77523-2, , TSHRF #### [facility] CLIA [id number] [address] [place] [address] [place] Protein [Mass/Vol] 7.4 g/dL Normal 6.3-8.0 [facility] Comment on above: Order Comment: Speci men Type: BLOOD SPECIMEN Ordering Facility: [facility] Address: [address] [place] [address] Performed By: #### 3 040-3, 81097-8, , TSHRF #### [facility] CLIA [id number] [address] [place] [address] [place] Sodium [Moles/Vol] 140 mmol/L Normal 136-144 [facility] Comment on above: Order Comment: Speci men Type: BLOOD SPECIMEN Ordering Facility: [facility] Address: [address] [place] [address] Performed By: #### 3 040-3, , , TSHRF #### [facility] CLIA [id number] [address] [place] [address] [place] Urea nitrogen [Mass/Vol] 12 mg/dL Normal 7-21 [facility] Comment on above: Order Comment: Speci men Type: BLOOD SPECIMEN Ordering Facility: [facility] Address: [address] [place], [place] [address] Performed By: #### 3 040-3, 19870-1, , TSHRF #### [facility] CLIA [id number] [address] [place] [address] [facility] LIPASEon 02-06-2025 Lipase [Catalytic activity/Vol] 47 U/L 16 - 61 U/L [facility] Lipase SerPl-cCncon 02-07-20 25 Lipase [Catalytic activity/Vol] 47 U/L Normal 16-61 [facility] Comment on above: Order Comment: Speci men Type: BLOOD SPECIMENOrdering Facility: [facility] Address: [address] [place] [address] Performed By: #### 3 040-3, 26584-7, , TSHRF ####[facility] LABCLIA [id number] [place] [address] [facility] MAGNESIUMon 02-06-2025 Magnesium [Mass/Vol] 2 mg/dL 1.7 - 2 .3 mg/dL [facility] Magnesium SerPl-mCncon 02-06 Magnesium [Mass/Vol] 2.0 mg/dL Normal 1.7-2.3 [facility] Comment on above: Order Comment: Speci men Type: BLOOD SPECIMENOrdering Facility: [facility] Address: [address] [place] [address] Performed By: #### 3 040-3, 11554-1, , TSHRF ####[facility] LABCLIA [id number] [place] [address] [facility] No Panel Informationon 02-06 Interpretation and review of laboratory results Normal [facility] TSH W/REFLEX FT4on 5 TSH Qn 1.93 m[IU]/L [facility] Comment on above: If the patient is pr egnant, TSH reference range varies by gestational period: First Trimester (weeks 9-12): 0.180-2.990 mIU/L Second Trimester: 0.110-3.980 mIU/L Third Trimester: 0.480-4.710 mIU/L Aubrey Cruz et al. A Practical Approach for the Verifications and Determination of Site- and Trimester-Specific Reference Intervals for Thyroid Function tests in . Thyroid, 2019:29:3:412-420. Noe Alvarado et al. 2017 Guidelines of the [place] Thyroid Association for the Diagnosis and Management of Thyroid Disease during and the . Thyroid, 2017:27:3:315-389. TSH Qn 1.930 m[IU]/L Normal 0.270-4.200 [facility] Comment on above: Order Comment: Speci men Type: BLOOD SPECIMENOrdering Facility: [facility] Address: [facility] [place] [address] Result Comment: If t he patient is , TSH reference range varies by gestational period: First Trimester (weeks 9-12): 0.180-2.990 mIU/L Second Trimester: 0.110-3.980 mIU/L Third Trimester: 0.480-4.710 mIU/L Aubrey Cruz et al. A Practical Approach for the Verifications and Determination of Site- and Trimester-Specific Reference Intervals for Thyroid Function tests in . Thyroid, 2019:29:3:412-420. Noe Alvarado et al. 2017 Guidelines of the [place] Thyroid Association for the Diagnosis and Management of Thyroid Disease during and the . Thyroid, 2017:27:3:315-389. Performed By: #### 3 040-3, 89607-1, 15133-5, [facility] ####[facility] [id number] [place] [address] [place] UA DIP, URINE (POC)on 2024 BILIRUBIN UA (POCT) Negative Negative [facility] CLARITY UA (POCT) Clear [facility] COLOR UA (POCT) Yellow [facility] GLUCOSE UA (POCT) Negative Negative mg/dL [facility] Hemoglobin Ql (U) Trace-intact Abnormal Negative [facility] Interpretation and review of laboratory results Abnormal [facility] KETONE UA (POCT) Negative Negative mg/dL [facility] LEUKOCYTES UA (POCT) Negative Negative [facility] NITRITE UA (POCT) Negative Negative [facility] PH UA (POCT) 6 4.5 - 8.0 [facility] Protein Ql (U) Negative Negative mg/dL [facility] SPECIFIC GRAVITY UA (POCT) 1.02 1.005 - 1.030 [facility] UROBILINOGEN UA (POCT) 0.2 Normal E.U./dL [facility] Location:[facility], [address] [place] [address], [address] [place] [address] POINT OF CARE [facility] [id number] 11-10-2024 [id number] HNO ID: [id number] Author: EDILBERTO MCNEAL OT/L Service: ? Author Type: Occupational Therapist Type: [id number] Filed: 11/10/2024 13:23 Note Text: [facility] Occupational Therapy Plan of Care Certification Patient Name: Ariela Bell : 1985 CCF #: [id number] Date: 11/10/2024 To: Khushi Buckley PA-C From Therapist: PITO Padilla RE: Patient Certification/ Recertification Your review, approval and electronic signature are required in order to comply with Payor: MEDICAID [place] / Plan: [place] MEDICAID / Product Type: Medicaid / regulations. The identified Occupational Therapy PLAN OF CARE for the patient is as follows: M25.522 Pain in left elbow (primary encounter diagnosis) PLAN OF CARE: Assessment: Ariela Bell presents with chief complaint of LUE elbow pain that interferes with lifting, physical activities, recreational activities . The patient presents with impairments in ADL's, overall function, and strength. PROMIS? (Patient-Reported Outcomes Measurement Information System) scores were reviewed and identified as a rehabilitation concern. Prognosis for therapy is Good due to: current objective clinical presentation, acuteness of condition . The patient will benefit from skilled therapy services to meet the goals established for this plan of care as noted below. Goals for Episode of Care: established 11/10/24 Patient reported outcome of pain Interference will decrease T -score by a minimum of 5 points. Patient will report a good understanding of diagnosis and OT recommendations for progression of program. Patient will demonstrate independence with ongoing home recommendations/exerci se program throughout therapy plan of care. Patient will improve function in Left elbow in order to be able to perform basic self-care tasks and prior functional tasks. Patient will report a decrease in pain in Left elbow to 0/10 with basic self-care tasks and prior functional tasks. Patient Goals: Increased functional hand use Time Frame for Goals and Treatment : 01/09/25 Planned Interventions, Frequency, and Duration: Current Frequency: 1x/week Duration: 12 weeks Total Number of Visits Planned: 12 Planned Treatment Interventions: Custom orthosis fabrication, Therapeutic exercise (68074), Self-penitentiary management (76303), Orthotics management and training ([id number],75931) PLAN FOR NEXT VISIT:Monitor pain Patient demonstrates good understanding of plan of care and treatment. The above goals and plan of care were discussed and agreed upon by patient/family. For further details regarding this patient refer to the Occupational Therapy electronically documented visit dated 11/10/2024. Provider Attestation I have reviewed the treatment plan for Ariela Bell, CC# [id number] for the period of 11/10/24 -- 01/09/25, established on 11/10/2024. Signature certifies the need for therapy services. Normal [facility] CNTHERAPYon 11-10-2024 CNTHERAPY OT/PT/Speech Visit (AKOTB) ARIELA BELL ([id number]) 1985 F CHT Date Time Provider Department 11/10/24 12:45 PM EDILBERTO MCNEAL Date Time Provider Department Center 11/10/2024 12:45 PM [id number] MCNEAL [facility] Reason for Visit: OT EVAL [748] OT Discharge [750] Primary Visit Diagnosis:Pain in left elbow [M25.522] Allergies As of Date: 11/10/2024 Noted Allergy Reaction PENICILLINS 12/14/2021 4 - Hives Comments: Plus throat swelling Date Reviewed: 11/05/2024 Reviewed by: Khushi Buckley PA-C - Fully Assessed Prescriptions as of 01/23/2025 - methylPREDNISolone (MEDROL, LILIANA,) 4 mg Dose-Pack As Instructed per package - pantoprazole DR (PROTONIX) 40 mg tablet Take 1 tablet by mouth once daily. 30 minutes before eating. Aquaculture Worker: Therapy (PT/OT/Speech/Resp) ID: [id number] 11/10/2024 1:07 PM Author: EDILBERTO MCNEAL Signed by EDILBERTO MCNEAL OTR/L on 11/10/2024 at 1:07 PM Document text: Program_ID:[id number] Access Code: [email or web address] URL: [email or web address] Date: 11-10-2024 Prepared By: Edilberto Mcneal Program Notes Exercises - Doorway Pec Stretch at 120 Elevation with Arm Straight - 1 x daily - 7 x weekly - 3 sets - 10 reps - Anterior Shoulder and Biceps Stretch - 1 x daily - 7 x weekly - 3 sets - 10 reps -- Normal [facility] THERAPY NTon 11-10-2024 THERAPY NT HNO ID: [id number] Author: EDILBERTO MCNEAL OT/Nancy Service: ? Author Type: Occupational Therapist Type: Therapy (PT/OT/Speech/Resp) Filed: 11/10/2024 13:07 Note Text: Program_ID:[id number] Access Code: [email or web address] URL: [email or web address] Date: 11-10-2024 Prepared By: Edilberto Mcneal Program Notes Exercises - Doorway Pec Stretch at 120 Elevation with Arm Straight - 1 x daily - 7 x weekly - 3 sets - 10 reps - Anterior Shoulder and Biceps Stretch - 1 x daily - 7 x weekly - 3 sets - 10 reps Normal [facility] CNOVon 11-05-2024 CNOV Office Visit (AGHWW1 ) ARIELA BELL ([id number]) [address] [facility] Date Time Provider Department 11/05/24 1:30 PM KHUSHI BUCKLEY AGHWW1 During your visit today, we recorded the following information about you: Respiration Weight Height 18/minute 86.2 kg 1.6 m Khushi Buckley PA-C 11/05/2024 1:53 PM Signed ORTHOPAEDIC OFFICE NOTE CHIEF COMPLAINT: New, Pain, and Swelling of the Left Elbow (Done with Prednisone therapy with slight improvement) HISTORY OF PRESENT ILLNESS Ariela Bell is a 39 year old female right hand dominant who presents for evaluation of left tennis elbow symptoms. Patient states that her symptoms have been significantly worsening over the past 3 weeks. She states she has decreased extension of her left elbow due to her pain. She localizes pain to the medial and lateral aspects of her left elbow. She admits pain will radiate from her elbow down into her forearm and wrist, and will also at times radiate proximally up into her upper arm and shoulder. Patient states she has been babying her arm and holding it in flexion because it is more comfortable, which she is unsure if this is also relating to some of the lack of extension she has in her elbow. Denies any history of injury, fall, or trauma. Denies having any numbness or tingling. States she recently completed a Medrol Dosepak which helped improve her symptoms by about 30%. Admits to taking ibuprofen only as needed. Patient states she has tried wearing a forearm brace without relief. Admits to wearing a compression sleeve at times with some mild relief. Location: left elbow Severity: 4 on a scale of 0-10 Duration of symptoms: >3 weeks Date of injury: None Symptoms have Worsened Previous treatment: Medrol Dosepak, forearm brace, compression sleeve, ibuprofen Numbness/tingling: No Nocturnal symptoms: Yes Radiating: Yes Injections: No Therapy: No Context worse with Activity/Motion and Gripping Smoking status: Tobacco Use: Types: Cigarettes Reviewed nursing note and current pain scale. PAIN EVALUATION 11/03/2024202711/05/2024 1320 Pain Level: 7 4 Pain Location: Elbow-Left Elbow-Left Description: Radiating;Sore;Stiffne ss Sharp;Radiating Duration Amount of Time: -- 1 Duration Units: -- Years Frequency: Continuous Continuous Intervention/Comfort measure: Medication;Relaxation; Cold;Heat;Massage;Spli nting Reposition;Relaxation; Positioning;Medication Comments: Cant open all fully without pain -- PAST MEDICAL HISTORY Past medical, surgical, family, and social histories have been reviewed and updated with the patient today and are located elsewhere in the medical record. Diabetes:No ALLERGIES ALLERGIES Allergen Reactions Penicillins Hives Plus throat swelling PHYSICAL EXAMINATION Resp 18 Ht 160 cm (5' 3) Wt 86.2 kg (190 lb) LMP 10/09/2022 (Approximate) BMI 33.66 kg/m? Body mass index is 33.66 kg/m?. General Appearance: Well appearing, alert, in no acute distress, well-hydrated, well nourished. Psyche: she is alert and oriented and cooperative to our examination. Neuro: she alert and oriented times: 3. Normal affect times: 3. Gait and station: normal. Pulmonary: she has non labored breathing. There is no evidence of cyanosis. There is no clubbing of fingernails. she has no pursed lips. Head: Normocephalic and atraumatic Neck: Supple with no JVD Lymph: There is no palpable epitrochlear Musculoskeletal- Left Hand/Wrist/Upper Extremity Exam: Skin: There is mild swelling noted to left lateral elbow. No ecchymosis. There are no skin lacerations or abrasions. Inspection: There are no Heberden's or Graciela's nodes. There is no boutonniere or swan-neck deformity of the fingers. There is no ulnar drift of the fingers. There is no intrinsic muscular atrophy. There is a negative shoulder sign over the thumb CMC joint. There is no dorsal subluxation of the ulnar head. Cardiovascular: <3 sec capillary refill, +2 radial pulse palpated. Tenderness to palpation: Significantly tender over lateral aspect of left elbow, common extensor origin, and antecubital fossa. Mild tenderness on palpation of lateral epicondyle. No TTP noted to medial epicondyle or common flexor origin. No TTP noted to ulnar nerve groove. No TTP noted to distal biceps tendon. ROM: Slightly decreased left elbow extension due to pain and stiffness. Full flexion of left elbow. Pain with supination and pronation of left elbow. Instability: none Sensation: Normal sensation Atrophy: None Special tests: - Pradip's test: Negative - Eichhoff's test: Negative - Tinel at elbow: Negative REVIEW OF STUDIES DATE OF EXAM: Oct 30 2024 10:50AM LDX 5322 - XR ELBOW 2V AP/LAT LT / PROCEDURE REASON: multiple diagnoses * * * * Physician Interpretation * * * * XR ELBOW 2V AP/LAT LT HISTORY: 39 years (more content not included)... Normal [facility] CNOVon 10-30-2024 CNOV Office Visit (AGFAMPLE) ARIELA BELL ([id number]) 1985 F T Date Time Provider Department 10/30/24 9:00 AM ALISHA BETANCUR During your visit today, we recorded the following information about you: Temperature Pulse Blood pressure Weight 98.6 degrees 78/minute 110/76 86.2 kg Height 1.6 m Alisha Betancur, ROOF FIXER.MINUTE CLERK 10/30/2024 12:55 PM Signed CHIEF COMPLAINT: Ariela Bell is a 39 year old female who presents for left elbow pain for the last year. Getting worse for the past 2 weeks. Pain is at a 1 when she doesn't move it and increases to a 9/10 when moving. Pain goes down arm. Can't bend elbow. Shooting pain. I reviewed past medical, surgical, social, and family histories today and updated chart. Allergies, chronic medications, and supplements were also reviewed. Tried a sling Pressure sleeve helped some Right or left elbow: left Location: medial and lateral Onset: 1 years Trauma or injury:No Repetitive actvity at work or home:No Recent unusual activity (raking leaves, moving boxes etc): No Numbness or tingling in arm (if so, state location): No Weakness in arm: Yes Better with: when not moving Worse with: with movement Has tried: Ice: Yes no relief Ibuprofen, Advil, Motrin, Aleve: Yes no relief Tylenol, acetaminophen: Yes no relief Tennis elbow band: Yes no relief Topical medication like ICY Hot , Bengay: Yes relief Previous problems: No Previous treatment (medication, injections): No Previous xrays / imaging: No The history is provided by the patient. PAST MEDICAL HISTORY Diagnosis Date Motion sickness When a passenger Pancreatitis PAST SURGICAL HISTORY Procedure Laterality Date SECTION HX N/A 2016 [facility]ardS[facility] SECTION HX EGD W/O [facility] SPEC VARICIES INJ 04/09/2023 LAPAROSCOPIC CHOLECYSTECTOMY 2021 LIGATE FALLOPIAN TUBE TUBAL LIGATION HX Social History Tobacco Use Smoking status: Former Types: Cigarettes Smokeless tobacco: Never Tobacco comments: socially Vaping Use Vaping status: Never Used Substance Use Topics Alcohol use: Not Currently Drug use: Never ALLERGIES Allergen Reactions Penicillins Hives Plus throat swelling Family History Problem Relation Age of Onset Cancer Maternal Grandfather Diabetes Paternal Grandmother Glaucoma Paternal Grandfather Diabetes Paternal Grandfather Colon Cancer No Family History Current Outpatient Medications Medication Sig Dispense Refill pantoprazole DR (PROTONIX) 40 mg tablet Take 1 tablet by mouth once daily. 30 minutes before eating. (Patient not taking: Reported on 10/30/2024) 30 tablet 2 No current facility-administered medications for this visit. Review of Systems Constitutional: Negative. Respiratory: Negative. Cardiovascular: Negative. Gastrointestinal: Negative. Musculoskeletal: Positive for arthralgias (left elbow). Negative for neck pain and neck stiffness. Skin: Negative. Neurological: Positive for weakness (left arm). Negative for numbness. BP 110/76 Pulse 78 Temp 98.6 Ht 5' 3 (1.60m) Wt 190 lb (86.2kg) SpO2 98% LMP 10/09/2022 BMI 33.67 kg/(m2). Physical Exam Vitals and nursing note reviewed. Cardiovascular: Pulses: Normal pulses. Pulmonary: Effort: Pulmonary effort is normal. Musculoskeletal: Left elbow: No swelling, deformity or effusion. Decreased range of motion (difficulty with flexion). Tenderness present in medial epicondyle and lateral epicondyle. No radial head or olecranon process tenderness. Cervical back: Neck supple. Skin: General: Skin is warm and dry. Findings: No erythema or rash. Neurological: Mental Status: She is alert and oriented to person, place, and time. Sensory: Sensation is intact. Motor: Motor function is intact. ASSESSMENT/PLAN: 1. Chronic elbow pain, left - ICD9: 719.42, 338.29, ICD10: M25.522, G89.29 - CONSULT TO ORTHOPAEDIC SURGERY - XR ELBOW GENERAL 2V AP/LAT LEFT - METHYLPREDNISOLONE 4 MG TABLETS IN A DOSE PACK New medication(s) prescribed today: Yes: Medrol dose liliana. Discussed new medication dosage, usage, goals of therapy, and side effects. Patient has been apprised of any potential drug interactions to be aware of. Patient expresses understanding. Counseling completed in adopting health behaviors such as avoiding excessive alcohol use, avoid tobacco use, improve nutrition, and engage in physical activities. Copy of written care plan, clinical summary, treatment plan, new medications, goals, and self management requirements were given to patient. Alisha Betancur APRN.[facility] Allergies As of Date: 10/30/2024 Noted Allergy Reaction PENICILLINS 12/14/2021 4 - Hives Comments: Plus throat swelling Date Reviewed: 10/30/2024 Reviewed by: Alisha Betancur APRN.MINUTE CLERK - Fully Assessed Reason for Visit: Pain (Elbow Pain) [1344] Cmt: Left elbow pain x (more content not included)... Normal [facility] CNPNon 10-30-2024 ABILIO Telephone (RAMAKRISHNA) ARIELA BELL ([id number]) 1985 F T Date Time Provider Department 10/30/24 ALISHA BETANCUR During your visit today, we recorded the following information about you: Marilin Gagnon MA 10/30/2024 5:00 PM Signed ----- Message from Alisha Betancur APRN.MINUTE CLERK sent at 10/30/2024 4:55 PM EST ----- Please let patient know their XR results are WNL. F/U with Dr. Dockery. Thank you. Marilin Gagnon MA 10/30/2024 5:01 PM Signed Lm on pt. Vm with all information. Marilin Gagnon MA Allergies As of Date: 10/30/2024 Noted Allergy Reaction PENICILLINS 12/14/2021 4 - Hives Comments: Plus throat swelling Date Reviewed: 10/30/2024 Reviewed by: Alisha Betancur APRN.MINUTE CLERK - Fully Assessed Reason for Visit: Results [95] Prescriptions as of 10/30/2024 - methylPREDNISolone (MEDROL, LILIANA,) 4 mg Dose-Pack As Instructed per package - pantoprazole DR (PROTONIX) 40 mg tablet Take 1 tablet by mouth once daily. 30 minutes before eating. Problem List As Of Date 10/30/2024 Noted Resolved Symptomatic cholelithiasis [K80.20] 12/14/2021 Obesity, Class II, BMI 35-39.9 [E66.812] 12/15/2021 Acute pancreatitis with uninfected necrosis, un*10/24/2022 Obesity, Class I, BMI 30-34.9 [E66.811] 10/27/2022 Encounter Status:Closed by MARILIN GAGNON on 10/30/24 [facility] XR ELBOW 2V AP/LAT LTon XR ELBOW 2V AP/LAT LT * * *Final Report* * * DATE OF EXAM: Oct 30 2024 10:50AM LDX 5322 - XR ELBOW 2V AP/LAT LT / PROCEDURE REASON: multiple diagnoses * * * * Physician Interpretation * * * * XR ELBOW 2V AP/LAT LT HISTORY: 39 years old Clinical information: . Chronic elbow pain, left no known injury. Left elbow pain x 1 year. Pt. states she can hardly pick things up anymore. TECHNIQUE: Images: XR ELBOW 2V AP/LAT LT Comparison: None. RESULT: No abnormal fat pad sign Joint space is well-preserved without abnormal narrowing. No pathologic calcifications No fractures or dislocations are seen. IMPRESSION: No acute osseous abnormality. Hop Farmer: [facility] Transcribe Date/Time: Oct 30 2024 3:51P Dictated by : FRANCISCO MORENO MD This examination was interpreted and the report reviewed and electronically signed by: FRANCISCO MORENO MD on Oct 30 2024 3:52PM EST [id number] Normal [facility] XR Elbow - left AP and Later yesi 10-30-2024 IMPRESSION: No acute osseous abnormality. Hop Farmer: [facility] Transcribe Date/Time: Oct 30 2024 3:51P Dictated by : FRANCISCO MORENO MD This examination was interpreted and the report reviewed and electronically signed by: FRANCISCO MORENO MD on Oct 30 2024 3:52PM EST [facility] * * *Final Report* * * DATE OF EXAM: Oct 30 2024 10:50AM LDX 5322 - XR ELBOW 2V AP/LAT LT / PROCEDURE REASON: multiple diagnoses * * * * Physician Interpretation * * * * XR ELBOW 2V AP/LAT LT HISTORY: 39 years old Clinical information: . Chronic elbow pain, left no known injury. Left elbow pain x 1 year. Pt. states she can hardly pick things up anymore. TECHNIQUE: Images: XR ELBOW 2V AP/LAT LT Comparison: None. RESULT: No abnormal fat pad sign Joint space is well-preserved without abnormal narrowing. No pathologic calcifications No fractures or dislocations are seen. [facility] Provider, [facility] - 10/30/2024 * * *Final Report* * * DATE OF EXAM: Oct 30 2024 10:50AM LDX 5322 - XR ELBOW 2V AP/LAT LT / PROCEDURE REASON: multiple diagnoses * * * * Physician Interpretation * * * * XR ELBOW 2V AP/LAT LT HISTORY: 39 years old Clinical information: . Chronic elbow pain, left no known injury. Left elbow pain x 1 year. Pt. states she can hardly pick things up anymore. TECHNIQUE: Images: XR ELBOW 2V AP/LAT LT Comparison: None. RESULT: No abnormal fat pad sign Joint space is well-preserved without abnormal narrowing. No pathologic calcifications No fractures or dislocations are seen. IMPRESSION IMPRESSION: No acute osseous abnormality. Hop Farmer: [facility] Transcribe Date/Time: Oct 30 2024 3:51P Dictated by : FRANCISCO MORENO MD This examination was interpreted and the report reviewed and electronically signed by: FRANCISCO MORENO MD on Oct 30 2024 3:52PM EST [facility] Radiology Study observation (narrative) [facility] XR Elbow - left AP and Later alOrdered By: [facility] Provider on 10-30-2024 [facility] SURGICAL PATHOLOGYOrdered By : Felicia Robles on 01-10-2024 Case Report Surgical Pathology Report Case: [id number] Authorizing Provider: Anu Oviedo MD Collected: 01/04/2024 02:39 PM Ordering Location: Ambulatory Surgery Received: 01/04/2024 11:20 PM Pathologist: Felicia Robles MD Specimen: RECTAL POLYP [facility] Work Phone: FINAL DIAGNOSIS e3wtqEFySQIzhYAwVGKn NV smvhGtHESozFMkX0Hldpcd APmxYM5aFW2iuGmigHJewL ZcRTWjKpFyu2eiz687aWXm s3srXRQKcgjujUm8eQffG3 0ll3C6SnrwJ80snURxYST2 PTVoGJLgyUWrQSNoDYH3YP GpiBUxM5abBUBmRV8tqxai EIacWGkmJHUlvIY9XKFupI GkI0AdXKRlFXndXBCbahw3 QvXoWf2fwFFdsWbeJNfsAY JkXHBsYWluXGZzMjAgUmVj kMGtVNNybAchUZHbyA1yp1 v2JEYzwqDpOGo9jDRznZic n7QlStZlq3a7bB5viEWqbG == [facility] Work Phone: Gross Description h3nanPJeTJHapBIZTDG0 YcWO9lzHbjwUw1cSibKGHn anO1mTVkRLdxd3cpVOJ5w4 fptcHWKusdIKFdAZ2nPFdw OMDhVE3dNvZgKCGhFaChPJ BhcGVydzEyMjQwXHBhcGVy oWK2LUFkFN6egffjJFubXE hfMDRgarP6KORmpBKmN4Nq PGNeAB7bluzmWSZ9RKZYCe gqLk2knXVvyElsMlTzGnVh JSCnBXKuDLFbw3rjrtMYtj kplLu7kL6FRXQxY8FpBP3G a7vmPXMoxCVwUZO1CWhox0 rsHIxhZTP0TXSkASVyGQPn GO9UYfXhETY8GSD7IlutLx M6WFg0ICFDMZGlKFIrSRLc GQroTYl8GJnnNTabtOVbQK BjTYQsFGGhQXyjjiR4c8ev DXJzlIFvYJY1MAdtu9vsKM ncGUJ0YARuYaGaXWXtRF8T MkKoDSW8ZNG7RuwgXtI1WF t7ENHDMkYfQeXvNWxlDfWs GbQnMNv1HWy1BWsZCyAyEv RhAZN4DQC2OdU7OGPbIdIa XHQgMiBcXHNzIDMgXFxmbC LzOD2zoQhsTHTsPR4YBLYz CSmhCYEcJrBjJF8dQvHXMN SLSMOXQQgWWPa5yhSsTWVi pqIKFtwuKPRzTP7BEJJeHC jpHBv8srFiVGOnIqPgIAGp A65rc5TLo4CnGN3PYIt3gu YnzpBCSldxzcCoFETtO0Kq wuEgLLoqCRDqah7ksRxlSL rlIB9lJAFzaITuAWYqUbZ3 VX2kIZLvKmCleYpub8RqGQ 7oSDK1lbmcApDvCdGeaYAw EaQgwCEeIuSlU35tBVEwdU ZluAdau5PwsVf2oEDpZPuu CY0mGUArPOTrYBJ8IE5tVZ BhciANClxwYXIgDQpEQiBN YXJjaCAxNiwgMjAyNCAxOj F9TOFVCTIqnvVNXytqMRWl NXqpi0RkKOummIaoLZAeEp ZbXHfXxu1ixhIwwUBrhS7y lPxqsuMjUANkp0BtTEAsUF UsO3prsoXjHY3hZUDphA2a YywgOTUwMCBFdWNsaWQgQX UxXrcqX1zcqkHwBE8hDCFW WNR7TAU6WQ9ERFOteENUZX B1DV8cKGllUPNeR2LpD0Ng fpS7u5vcnJisc9NdpGLoEO 1ikEGnKT7BAZRfdiQtHVfk ZnMyMiANCn0= [facility] Work Phone: Performing Lab x1nylCYlXNSqzCZoCnFu MD ZkTDAmt7jsHDPuiLHrWqRo MzNcZnRuYmpcdWMxXGRlZm Qgo0szo056qISmp6wrAQGc WcH1zXOwNKAtdNOdM529XP DdRHhqn3oqk1IxSBSawCNo h9P0HURGgremoEb7vFmbW2 9nc2Z8GxyxN3pgUMKpFCAe U3NxKF7bQJDqIvl8BJF1HY X8VGLfTXFhD0RhSK4jQMPa qUUhTRo1n8qmaRkhKGOpMP Z0a6mmYRlsbdUqPS1bnn0b eFi1h5hfxnYnHIKhVPEobC NKWTUnW6CwgWouHl2kpTa5 iIqfIdkkAVE8Dtt6PV5wfg 71xxn2fCmhIRVbctbvSiI9 HYixNINughdbKQe7RWelVV CtrXG2MWPiaWLuK1GiJTey PH2pzsf2KIF3MAawPZYrFe B8UXEhsOGnLZNthSnbDHmy n001GDV4JaOnOP8eS9Qoj9 J2hN0alBNcREDxcGXsPzRi NZEyey5idYMxRDmzz7OhJG O2bcO4dIBgjIXdTEMrVH35 Qaooz5VmTxqml2NmD19klO P0IKscv0poKX8gEmZ8rbWf ZQvog2agzW1wOcT2CHkfQV 3jMY5iCRRrxZ9ezqkxQCCd YnJkcmhlYWRccGdicmRyZm 2fgAloUDU8HYwzW9ddrF3p AhG7PQzkC9qfjR0cINi3YX abmUU8SHOfqO7hPM9xhncq q7ucFAyxJZzaBQErpfO9mq AeNMBhoQAfN6VynM6fQTBt HS0hzdieu3pmBSD5NUooUX QoXKT0CySaWRFhy3Ipcsp1 ZrWld7GcgMGgRHxtF88iw8 82MFVjrvFuH6gvsYOiztya zONvagzzLRuzniD8EWQdOB BsYWluXGYxXGZzMjJcbGFu ZzEwMzNcaGljaFxmMVxkYm IkWQKwJNuzQ1ebCaHqNrJh JdVRgTKfhs9rjLtuTGzpxU VwaVVhbOB1vT1vMRBcbuZk fc6dBOPcpPGTzIF2RLpxtd LqQ7oljvrhRUZ3NOXcZPT2 U6mqOYPYepPhXWOdZYAixN VwLBGDVMZ3GYW2DLYvCIXL BDTzZLI8AZX5DHXcDDKgdE FyXHBhclxwYXJkXHBsYWlu FDTcLHPsCcPczTioxB2dRy KnVsDiKasiRX6hNAMeQ5qs mAWvRANtAPDvY6vaKdLsbN 9jaFxmMVxjZjJcZnMyMlxs sGBbbBMMBVEdikX9q2D4FF xwbGFpblxmMVxmczIyXGxh ytsiAZYrFAmkJ4rgKkYeCV PqkLxlKLxwe4BzEFMlZPMb FaFrERhpNTU5e9W4EZtqnG EbtfLRPeVUBJ8kqLQsxcjb CP9PLlqjMOT5 [facility] Work Phone: [facility] Work Phone: [phone] 01-04-2024 [id number] HNO ID: [id number] Author: CELIA CUMMINS RN Service: ? Author Type: Registered Nurse Type: [id number] Filed: 01/04/2024 15:03 Note Text: The patient received a copy of Colonoscopy discharge instructions that contain information for how to contact the physician who performed the procedure and when to seek medical care. Normal [facility] ANES POSTPROC EVALon 024 ANES POSTPROC EVAL HNO ID: [id number] Author: VIRIDIANA COONEY APRN.CRNA Service: ? Author Type: Nurse Airborne Electronics Analyst Type: Anesthesia Postprocedure Evaluation Filed: 01/04/2024 14:53 Note Text: POST ANESTHESIA EVALUATION NOTE : 1985 Procedure Summary Date: 01/04/24 Room / Location: Ambulatory Surgery Anesthesia Start: 1423 Anesthesia Stop: 1453 Procedure: COLONOSCOPY DIAGNOSTIC Diagnosis: Diarrhea, unspecified type Abnormal CT scan, colon Scheduled Providers: Anu Oviedo MD Responsible Provider: Viridiana Cooney APRN.CRNA Anesthesia Type: MAC ASA Status: 2 Anesthesia Type: MAC Last Vitals Vitals Value Taken Time BP 103/66 01/04/24 1449 Temp 36.6 ?C (97.8 ?F) 01/04/24 1449 Pulse 98 01/04/24 1449 Resp 16 01/04/24 1449 SpO2 98 % 01/04/24 1449 Post Anesthesia Patient Status Patient Evaluation: PACU. PACU/ICU Patient Condition: stable. Anticipated Disposition: phase 2 then home. Neurological Status: aware and responsive. Pulmonary Status: breathing comfortably on room air Airway Control: returned to baseline unsupported. Cardiovascular Status: stable. Pain Management: clinically adequate - multimodal analgesia pain management approach Postoperative Hydration: acceptable. Intraoperative Events: no significant anesthesia events Post Operative Nausea/Vomiting Status: no significant post operative nausea or vomiting Recommendation: continue current plan of care. Anesthesia Observations No Documentation SIGNATURE: Viridiana Cooney APRN.CRNA PATIENT NAME: Ariela Bell DATE: January 04, 2024 TIME: 2:53 PM CSN: [id number] Normal [facility] Colonoscopyon 01-04-2024 Colonoscopy [facility] Patient Name: Ariela Bell Procedure Date: 01/04/2024 2:15 PM Date of : 1985 Admit Type: Outpatient Age: 38 Room: [place] [address] Gender: Female Note Status: Finalized Attending MD: Anu Oviedo MD, [id number] Procedure: Colonoscopy Indications: Abnormal CT of the GI tract Providers: Anu Oviedo MD Patient Profile: This is a 38 year old female. Refer to note in patient chart for documentation of history and physical. Last Colonoscopy: none. The patient's first colonoscopy is today. Referring Physician: Rhonda Bocanegra (Referring MD) Medicines: Monitored Anesthesia Care Complications: No immediate complications. Requesting Provider: Procedure: Pre-Anesthesia Assessment: - Prior to the procedure, a History and Physical was performed, and patient medications and allergies were reviewed. The patient's tolerance of previous anesthesia was also reviewed. The risks and benefits of the procedure and the sedation options and risks were discussed with the patient. All questions were answered, and informed consent was obtained. Prior Anticoagulants: The patient has taken no anticoagulant or antiplatelet agents. ASA Grade Assessment: II - A patient with mild systemic disease. After reviewing the risks and benefits, the patient was deemed in satisfactory condition to undergo the procedure. After I obtained informed consent, the scope was passed under direct vision. Throughout the procedure, the patient's blood pressure, pulse, and oxygen saturations were monitored continuously. The Colonoscope was introduced through the anus and advanced to the terminal ileum. I was present and participated during the entire procedure, including non-wolf portions, and during the administration and monitoring of Moderate Sedation. The colonoscopy was performed without difficulty. The patient tolerated the procedure well. The quality of the bowel preparation was good. The terminal ileum, ileocecal valve, appendiceal orifice, and rectum were photographed. Moderate Sedation: MAC anesthesia was administered by the anesthesia team. Findings: The perianal and digital rectal examinations were normal. A 7 mm polyp was found in the rectum. The polyp was sessile. The polyp was removed with a cold snare. Resection and retrieval were complete. Verification of patient identification for the specimen was done. Estimated blood loss was minimal. The exam was otherwise without abnormality on direct and retroflexion views. Impression: - One 7 mm polyp in the rectum, removed with a cold snare. Resected and retrieved. - The examination was otherwise normal on direct and retroflexion views. Recommendation: - Discharge patient to home. - Resume previous diet. - Continue present medications. - Await pathology results. - Repeat colonoscopy in 7-10 years for surveillance. - Patient has a contact number available for emergencies. The signs and symptoms of potential delayed complications were discussed with the patient. Return to normal activities tomorrow. Written discharge instructions were provided to the patient. Procedure Code(s): --- Professional --- 15298, Colonoscopy, flexible; with removal of tumor(s), polyp(s), or other lesion(s) by snare technique CPT copyright 2020 [employer]. All rights reserved. The codes documented in this report are preliminary and upon general operations manager review may be revised to meet current compliance requirements. Attending Participation: I personally performed the entire procedure. Scope In: 2:28:43 PM Scope Out: 2:42:52 PM MD Anu Johnson MD 01/04/2024 2:46:34 PM This report has been signed electronically by Anu Oviedo MD Number of Addenda: 0 Note Initiated On: 01/04/2024 2:15 PM Estimated Blood Loss: Estimated blood loss: none. Normal [facility] Colonoscopy studyon 01-04-20 [facility] Gastrointestinal Endoscopy Patient Name: Ariela Bell Procedure Date: 01/04/2024 2:15 PM Date of : 1985 Admit Type: Outpatient Age: 38 Room: [place] [address] Gender: Female Note Status: Finalized Attending MD: Anu Oviedo MD, [id number] Procedure: Colonoscopy Indications: Abnormal CT of the GI tract Providers: Anu Oviedo MD Patient Profile: This is a 38 year old female. Refer to note in patient chart for documentation of history and physical. Last Colonoscopy: none. The patient's first colonoscopy is today. Referring Physician: Rhonda Bocanegra (Referring MD) Medicines: Monitored Anesthesia Care Complications: No immediate complications. Requesting Provider: Procedure: Pre-Anesthesia Assessment: - Prior to the procedure, a History and Physical was performed, and patient medications and allergies were reviewed. The patient's tolerance of previous anesthesia was also reviewed. The risks and benefits of the procedure and the sedation options and risks were discussed with the patient. All questions were answered, and informed consent was obtained. Prior Anticoagulants: The patient has taken no anticoagulant or antiplatelet agents. ASA Grade Assessment: II - A patient with mild systemic disease. After reviewing the risks and benefits, the patient was deemed in satisfactory condition to undergo the procedure. After I obtained informed consent, the scope was passed under direct vision. Throughout the procedure, the patient's blood pressure, pulse, and oxygen saturations were monitored continuously. The Colonoscope was introduced through the anus and advanced to the terminal ileum. I was present and participated during the entire procedure, including non-wolf portions, and during the administration and monitoring of Moderate Sedation. The colonoscopy was performed without difficulty. The patient tolerated the procedure well. The quality of the bowel preparation was good. The terminal ileum, ileocecal valve, appendiceal orifice, and rectum were photographed. Moderate Sedation: MAC anesthesia was administered by the anesthesia team. Findings: The perianal and digital rectal examinations were normal. A 7 mm polyp was found in the rectum. The polyp was sessile. The polyp was removed with a cold snare. Resection and retrieval were complete. Verification of patient identification for the specimen was done. Estimated blood loss was minimal. The exam was otherwise without abnormality on direct and retroflexion views. Impression: - One 7 mm polyp in the rectum, removed with a cold snare. Resected and retrieved. - The examination was otherwise normal on direct and retroflexion views. Recommendation: - Discharge patient to home. - Resume previous diet. - Continue present medications. - Await pathology results. - Repeat colonoscopy in 7-10 years for surveillance. - Patient has a contact number available for emergencies. The signs and symptoms of potential delayed complications were discussed with the patient. Return to normal activities tomorrow. Written discharge instructions were provided to the patient. Procedure Code(s): --- Professional --- 18766, Colonoscopy, flexible; with removal of tumor(s), polyp(s), or other lesion(s) by snare technique CPT copyright 2020 [employer]. All rights reserved. The codes documented in this report are preliminary and upon general operations manager review may be revised to meet current compliance requirements. Attending Participation: I pers (more content not included)... PROVATION [facility] Radiology Study observation (narrative) [facility] SURGICAL PATHOLOGYon 024 CASE REPORT Normal [facility] Comment on above: Order Comment: Speci men Type: TISSUE SPECIMENOrdering Facility: [facility] Address: [address] [place] [address] Result Comment: [facility] Pathology Report Case: [id number] Authorizing Provider: Anu Oviedo MD Collected: 01/04/2024 02:39 PM Ordering Location: Ambulatory Surgery Received: 01/04/2024 11:20 PM Pathologist: Felicia Robles MD Specimen: RECTAL POLYP Performed By: #### S ####[facility] LABCLIA [id number] [place] [address] [place] FINAL DIAGNOSIS Normal [facility] Comment on above: Order Comment: Speci men Type: TISSUE SPECIMENOrdering Facility: [facility] Address: [address] [place] [address] Result Comment: Rect al polyp, biopsy: - Hyperplastic polyp. Performed By: #### S ####[facility] LABCLIA [id number] [place] [address] [place] FINAL PERFORMING LAB Normal [facility] Comment on above: Order Comment: Speci men Type: TISSUE SPECIMENOrdering Facility: [facility] Address: [address] [place] [address] Result Comment: Diag nostic interpretation performed at [facility], [address] [place] [address] CLIA# [id number] Telemarketing Manager: Marc Godwin M.D. Performed By: #### S ####[facility] LABCLIA [id number] [place] [address] [place] GROSS DESCRIPTION A. RECTAL POLYP Normal [facility] Comment on above: Order Comment: Speci men Type: TISSUE SPECIMENOrdering Facility: [facility] Address: [address] [place] [address] Result Comment: Rece ived in formalin is one piece of loya, soft tissue measuring 0.5 x 0.3 x 0.2 cm. Totally submitted in one cassette. DB January 05, 2024 1:57 [place] [address] Performed By: #### S ####[facility] LABCLIA [id number] [address] [place] ANES PRE-OPon 12-19-2023 ANES PRE-OP HNO ID: [id number] Author: VIRIDIANA COONEY APRN.HOUSEHOLD PERSONAL ASSISTANT Service: ? Author Type: Nurse Airborne Electronics Analyst Type: Anesthesia Preprocedure Evaluation Filed: 01/04/2024 14:18 Note Text: ANESTHESIOLOGY DAY OF SURGERY NOTE : 1985 Procedure Information Date/Time: 01/03/24 1030 Scheduled providers: Giles Koenig MD Procedure: COLONOSCOPY DIAGNOSTIC Location: Ambulatory Surgery Estimated body mass index is 35.04 kg/m? as calculated from the following: Height as of 12/18/23: 160 cm (5' 3). Weight as of 12/18/23: 89.7 kg (197 lb 12.8 oz). Most recent hematocrit and potassium results: Hematocrit 41.3 12/06/2023 Potassium 4.3 12/06/2023 Relevant Problems No relevant active problems I - PHYSICAL EVALUATION AIRWAY Patient intubated: No. Tracheostomy tube not present Mallampati: II. TM distance: >3 FB. Neck ROM: full ROM without neurological symptoms. Mouth opening: adequate. Short neck: no. Thick neck: no Schmid present: no Microretrognathia/Micr onagthia/Recessed Chin: No DENTAL Dental findings: teeth intact. Additional exam findings: no II - ANESTHESIA PLAN ASA Score: 2 Anesthetic Plan: MAC The patient is not a current smoker. NPO Status: adequate Beta Fiona Monitoring Plan Monitoring plan: standard ASA. Post Procedure Analgesic Plan Postoperative analgesic plan: parenteral or oral opioids and multimodal analgesia. Informed Consent Anesthetic risks, benefits, alternatives, personnel and consent discussed: yes. Patient / Responsible Democrat agrees to proceed: yes Patient / Surrogate agrees to blood products: blood products not planned Significant changes in the patient condition since the History and Physical, not otherwise documented in primary service progress note: no. No vitals data found for the desired time range. Outpatient Medications as of 01/03/2024 Medication Sig - pantoprazole DR (PROTONIX) 40 mg tablet Take 1 tablet by mouth once daily. 30 minutes before eating. Facility-Administered Medications as of 01/03/2024 Medication Dose Route Frequency - lidocaine (PF) 10 mg/mL (1 %) 1-2 mg injection (XYLOCAINE) 0.1-0.2 mL INTRADERMAL PRN - lactated ringers iv infusion 30 mL/hr INTRAVENOUS CONTINUOUS I have interviewed and examined the patient. I have reviewed the medical record and/or the pre-anesthesia evaluation, pertinent labs, and test results. This contains updated information obtained within 48 hours of Surgery/Procedure. SIGNATURE: Viridiana Cooney APRN.CRNA PATIENT NAME: Ariela Bell DATE: December 19, 2023 TIME: 3:39 PM CSN: [id number] Normal [facility] C diff Tox gens Stl Ql DEVYN+p robeon 12-18-2023 C. difficile toxin genes DEVYN+probe Ql (Stl) Negative Normal Negative for C. difficile toxin by PCR [facility] Comment on above: Order Comment: Speci men Type: STOOL SPECIMENOrdering Facility: [facility] Address: [address] [place] [address] Performed By: #### 5 4067-4 ####[facility] LABORATORYCLIA [id number] [place] [address] [place] CNOVon 12-18-2023 CNOV Office Visit (GSTNOR ) ARIELA BELL ([id number]) 1985 F CHT Date Time Provider Department 12/18/23 10:30 AM RHONDA VALLECILLO During your visit today, we recorded the following information about you: Pulse Blood pressure Weight Height 85/minute 114/80 89.7 kg 1.6 m Rhonda Vallecillo PA-C 12/18/2023 10:52 AM Signed CHIEF COMPLAINT: Patient presents with: Recent CT Scan- needs Colonoscopy : Was having abdominal pain, acid reflux. Went on a clear liquid diet and it helped. Then a few days later started having diarrhea. Tender on the left side HPI Ariela Bell is a 38 year old female here today for Recent CT Scan- needs Colonoscopy (Was having abdominal pain, acid reflux. Went on a clear liquid diet and it helped. Then a few days later started having diarrhea. Tender on the left side ) Patient tells me that she developed epigastric and left sided abdominal pain with bloat. Had a CT scan scan. Went on a clear diet that subsided her pain and bloat. She then developed diarrhea. She moving her bowels every 30 minutes at this time. It is waking her up at night time as well. Notes her stools are not formed but not water. Stools are yellow. No red blood in her stools. Appetite is poor. Weight is increased some. 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 Nonobstructive left nephrolithiasis. Subjective thickening ascending colon and hepatic flexure, correlate for infectious or inflammatory colitis. Component Latest Ref Rng AND Units 12/06/2023 WBC 3.70 - 11.00 k/uL 7.91 RBC 3.90 - 5.20 m/uL 4.71 Hemoglobin 11.5 - 15.5 g/dL 13.4 Hematocrit 36.0 - 46.0 % 41.3 MCV 80.0 - 100.0 fL 87.7 MCH 26.0 - 34.0 pg 28.5 MCHC 30.5 - 36.0 g/dL 32.4 RDW-CV 11.5 - 15.0 % 13.2 Platelet Count 150 - 400 k/uL 245 MPV 9.0 - 12.7 fL 11.5 Neut% % 61.9 Abs Neut (ANC) 1.45 - 7.50 k/uL 4.90 Lymph% % 26.7 Abs Lymph 1.00 - 4.00 k/uL 2.11 Curry% % 8.5 Abs Curry <0.87 k/uL 0.67 Eosin% % 2.1 Abs Eosin <0.46 k/uL 0.17 Baso% % 0.5 Abs Baso <0.11 k/uL 0.04 Immature Gran % % 0.3 IMMATURE GRANS (ABS) <0.10 k/uL <0.03 DTYPE Auto Protein, Total 6.3 - 8.0 g/dL 6.8 Albumin 3.9 - 4.9 g/dL 4.2 Calcium 8.5 - 10.2 mg/dL 9.3 Bilirubin, Total 0.2 - 1.3 mg/dL 0.3 Alkaline Phosphatase 34 - 123 U/L 62 AST 13 - 35 U/L 17 ALT 7 - 38 U/L 15 Glucose 74 - 99 mg/dL 87 BUN 7 - 21 mg/dL 11 Creatinine 0.58 - 0.96 mg/dL 0.78 Sodium 136 - 144 mmol/L 142 Potassium 3.7 - 5.1 mmol/L 4.3 Chloride 97 - 105 mmol/L 108 (H) CO2 22 - 30 mmol/L 25 Anion Gap 9 - 18 mmol/L 9 eGFR >=60 mL/min/1.73mA? 100 Lipase 16 - 61 U/L 48 CRP <0.9 mg/dL <0.3 Current Outpatient Medications Medication Sig pantoprazole DR (PROTONIX) 40 mg tablet Take 1 tablet by mouth once daily. 30 minutes before eating. No current facility-administered medications for this visit. Facility-Administered Medications Ordered in Other Visits Medication Dose Route Frequency lidocaine (PF) 10 mg/mL (1 %) 1-2 mg injection (XYLOCAINE) 0.1-0.2 mL INTRADERMAL PRN lactated ringers iv infusion 30 mL/hr INTRAVENOUS CONTINUOUS ALLERGIES Allergen Reactions Penicillins Hives Plus throat swelling Social History Tobacco Use Smoking status: Never Smokeless tobacco: Never Vaping Use Vaping Use: Never used Substance Use Topics Alcohol use: Not Currently Drug use: Never PAST MEDICAL HISTORY Diagnosis Date Motion sickness When a passenger Pancreatitis PAST SURGICAL HISTORY Procedure Laterality Date SECTION HX N/A 2016 [place] SECTION HX EGD W/O BRSH SPEC VARICIES INJ 04/09/2023 LAPAROSCOPIC CHOLECYSTECTOMY 2021 LIGATE FALLOPIAN TUBE TUBAL LIGATION HX FAMILY HISTORY Problem Relation Age of Onset Cancer Maternal Grandfather Diabetes Paternal Grandmother Glaucoma Paternal Grandfather Diabetes Paternal Grandfather Colon Cancer No Family History REVIEW OF SYSTEMS Review of Systems Constitutional: Positive for appetite change and fatigue. Gastrointestinal: Positive for abdominal distention, abdominal pain and diarrhea. Gas, Change in Bowel Habits All other systems reviewed and are negative. PHYSICAL EXAM BP 114/80 Pulse 85 Ht 5' 3 (1.60m) Wt 197 lb 12.8 oz (89.7kg) LMP 10/09/2022 BMI 35.05 kg/(m2). Physical Exam Constitutional: Appearance: Normal appearance. She is obese. HENT: Head: Normocephalic and atraumatic. Eyes: General: No scleral icterus. Extraocular Movements: Extraocular movements intact. Conjunctiva/sclera: Conjunctivae normal. Pupils: Pupils are equal, round, and reactive to light. Cardiovascular: Rate and Rhythm: Normal rate and regular rhythm. Pulses: Normal pulses. Heart sounds: Normal heart sounds. Pulmonary: Effort: Pulmonary effort (more content not included)... Normal [facility] Calprotectin (Stl) [Mass/Mas s]on 12-18-2023 CALPROTECTIN, FECAL INTERP Normal Normal Normal [facility] Comment on above: Order Comment: Speci men Type: STOOL SPECIMENOrdering Facility: [facility] Address: [address] [place] [address] Result Comment: On 2022, [facility] implemented a new fecal calprotectin method, the D[employer] Liaison Calprotectin assay. For assistance with interpretation of results in patients undergoing serial monitoring, contact Client Services at [phone] or [phone] to discuss options, preferably within 7 days of issuing this report. Interpretation: <50.0 ug/g: Normal 50.0 ug/g - 120.0 ug/g: Borderline elevated. Re-evaluation in 4-6 weeks is recommended if clinically indicated. >120.0 ug/g: Elevated Performed By: #### 3 8445-3 ####[facility] LABIA [id number] [place] [address] [place] CALPROTECTIN, FECAL QUANTITATIVE 23.5 ug/g Normal <50 [facility] Comment on above: Order Comment: Speci men Type: STOOL SPECIMENOrdering Facility: [facility] Address: [address] [place] [address] Performed By: #### 3 8445-3 ####[facility] LABIA [id number] [place] [address] [place] G lamblia+Cryptosp Ag Stl Ql IAon 12-18-2023 G. lamblia+Cryptosporidi um sp Ag IA Ql (Stl) CRYPTOSPORIDIUM ANTIGEN BY EIA: Negative for Cryptosporidium by EIA. GIARDIA ANTIGEN BY EIA: Negative for Giardia lamblia by EIA. Normal [facility] Comment on above: Performed By: #### 4 8059-0 ####[facility] [id number] [place] [address] [place] Gastrointestinal pathogens i dentified DEVYN+probe Nom (Stl)on 12-18-2023 Campylobacter sp DNA DEVYN+probe Nom (Unsp spec) Not detected Normal Not Detected [facility] Comment on above: Order Comment: Speci men Type: STOOL SPECIMENOrdering Facility: [facility] Address: [address] [place] [address] Performed By: #### 7 9390-1 ####[facility] [id number] [place] [address] [place] Salmonella sp DNA DEVYN+probe Ql (Unsp spec) Not detected Normal Not Detected [facility] Comment on above: Order Comment: Speci men Type: STOOL SPECIMENOrdering Facility: [facility] Address: [address] [place] [address] Performed By: #### 7 9390-1 ####[facility] LABCLIA [id number] [place] [address] [place] Shiga toxin stx gene DEVYN+probe Nom (Unsp spec) Not detected Normal Not Detected [facility] Comment on above: Order Comment: Speci men Type: STOOL SPECIMENOrdering Facility: [facility] Address: [address] [place] [address] Performed By: #### 7 9390-1 ####[facility] LABCLIA [id number] [place] [address] [place] Shigella sp DNA DEVYN+probe Ql (Unsp spec) Not detected Normal Not Detected [facility] Comment on above: Order Comment: Speci men Type: STOOL SPECIMENOrdering Facility: [facility] Address: [address] [place] [address] Performed By: #### 7 9390-1 ####[facility] LABCLIA [id number] [place] [address] [place] C-REACTIVE PROTEIN (CRP)on 0 12-06-2023 CRP [Mass/Vol] <0.9 mg/dL [facility] CBC W Auto Differential pane l (Bld)on 12-06-2023 Basophils (Bld) [#/Vol] 0.04 10*3/uL <0.11 k/uL [facility] Basophils/100 WBC (Bld) 0.5 % [facility] Differential cell count method Nom (Bld) Auto [facility] Eosinophils (Bld) [#/Vol] 0.17 10*3/uL <0.46 k/uL [facility] Eosinophils/100 WBC (Bld) 2.1 % [facility] Erythrocyte distribution width (RBC) [Ratio] 13.2 % 11.5 - 15.0 % [facility] Hematocrit (Bld) [Volume fraction] 41.3 % 36.0 - 46.0 % [facility] Hemoglobin (Bld) [Mass/Vol] 13.4 g/dL 11.5 - 15.5 g/dL [facility] Immature granulocytes (Bld) [#/Vol] <0.10 k/uL [facility] Immature granulocytes/100 WBC (Bld) 0.3 % [facility] Lymphocytes (Bld) [#/Vol] 2.11 10*3/uL 1.00 - 4.00 k/uL [facility] Lymphocytes/100 WBC (Bld) 26.7 % [facility] MCH (RBC) [Entitic mass] 28.5 pg 26.0 - 34.0 pg [facility] MCHC (RBC) [Mass/Vol] 32.4 g/dL 30.5 - 36.0 g/dL [facility] MCV (RBC) [Entitic vol] 87.7 fL 80.0 - 100.0 fL [facility] Monocytes (Bld) [#/Vol] 0.67 10*3/uL <0.87 k/uL [facility] Monocytes/100 WBC (Bld) 8.5 % [facility] Neutrophils (Bld) [#/Vol] 4.90 10*3/uL 1.45 - 7.50 k/uL [facility] Neutrophils/100 WBC (Bld) 61.9 % [facility] Nucleated RBC (Bld) [#/Vol] [facility] Nucleated RBC/100 WBC (Bld) [Ratio] [facility] Platelet mean volume (Bld) [Entitic vol] 11.5 fL 9.0 - 12.7 fL [facility] Platelets (Bld) [#/Vol] 245 10*3/uL 150 - 400 k/uL [facility] RBC (Bld) [#/Vol] 4.71 10*6/uL 3.90 - 5.2 0 m/uL [facility] WBC (Bld) [#/Vol] 7.91 10*3/uL 3.70 - 11. 00 k/uL [facility] CT Abdomen and Pelvis W cont rast Margaux 12-06-2023 [facility] Comprehensive metabolic 2000 panelon 12-06-2023 Albumin [Mass/Vol] 4.2 g/dL 3.9 - 4.9 g/dL [facility] ALP [Catalytic activity/Vol] 62 U/L 34 - 123 U/L [facility] ALT With P-5'-P [Catalytic activity/Vol] 15 U/L 7 - 38 U/L [facility] Anion gap [Moles/Vol] 9 mmol/L 9 - 18 mmol/L [facility] AST With P-5'-P [Catalytic activity/Vol] 17 U/L 13 - 35 U/L [facility] Bilirubin [Mass/Vol] 0.3 mg/dL 0.2 - 1 .3 mg/dL [facility] Calcium [Mass/Vol] 9.3 mg/dL 8.5 - 10. 2 mg/dL [facility] Chloride [Moles/Vol] 108 mmol/L High 97 - 10 5 mmol/L [facility] CO2 [Moles/Vol] 25 mmol/L 22 - 30 mmol/L [facility] Creatinine [Mass/Vol] 0.78 mg/dL 0.58 - 0.96 mg/dL [facility] Estimated Glomerular Filtration Rate 100 mL/min/1.73m >=60 mL/min/1.73m [facility] Glucose [Mass/Vol] 87 mg/dL 74 - 99 mg/dL [facility] Potassium [Moles/Vol] 4.3 mmol/L 3.7 - 5.1 mmol/L [facility] Protein [Mass/Vol] 6.8 g/dL 6.3 - 8.0 g/dL [facility] Sodium [Moles/Vol] 142 mmol/L 136 - 144 mmol/L [facility] Urea nitrogen [Mass/Vol] 11 mg/dL 7 - 21 mg/dL [facility] LIPASE BLDon 12-06-2023 Lipase [Catalytic activity/Vol] 48 U/L 16 - 61 U/L [facility] Strep A (Throat Rapid OZZY)on 04-16-2023 S. pyogenes Ag IA Ql (Unsp spec) All negative screens will be confirmed with a culture. S pyo Ag Throat Ql IF Normal Reference Range: Negative Loly, OZZY method A Disk (Conf. Cult) Beta Hemolytic Strep NOT Group A Rapid Strep A Screen NEGATIVE Streptococcus group F Normal [facility] Comment on above: Performed By: #### M 100.676 #### [facility] [address] [facility] [place], [place], [id number] Emergency Department Summary on 04-14-2023 Emergency Department Summary [facility] Records Department [address] [place] [address] Emergency Department Summary 04/14/23 MR#: [id number] Acct: [id number] Name: ARIELA BELL Rep #: [id number] : 1985 37 From: Luis Armando Keene DO PCP: JACLYN OwensC Status:DEP ER Location: ED HPI HPI - URI History of Present Illness Chief Complaint: Sore Throat Narrative Narrative: 37-year-old female presenting with sore throat. She states that her children had sore throat since last week and she is developed one. She denies coughing. She has not a fever. Does not have congestion or shortness of breath. No abdominal pain. No nausea or vomiting. No urinary or vaginal complaints. ROS ROS ED Review of Systems ROS Unobtainable: Denies due to encephalopathy Constitutional Constitutional ED: Denies chills or fever(s) Eyes Eyes: Denies change in vision or diplopia ENT ENT ED: Reports sore throat; Denies rhinorrhea Cardiovascular Cardiovascular: Denies chest pain or palpitations Respiratory/Chest Respiratory/Chest: Denies cough or dyspnea Gastrointestinal Gastrointestinal: Denies abdominal pain Genitourinary Genitourinary ED: Denies dysuria or hematuria Musculoskeletal Musculoskeletal: Denies arthralgias or back pain Integumentary Denies abscess or Abrasions Neurologic Neurologic: Denies headache(s) or paresthesias PFSH PFSH Allergy/AdvReac Type Severity Reaction Status Date / Time Penicillins Allergy Hives Verified 04/14/23 07:27 Social History Smoking Status: Never smoker EXAM Physical Exam Const Vital Signs: 04/14/23 07:25 Temperature 97.8 F Temperature Source Temporal Pulse Rate 116 H Respiratory Rate 18 Blood Pressure 137/91 H Blood Pressure Mean 106 Pulse Ox 97 Oxygen Delivery Method Room Air Positive well nourished General Appearance ED: NAD and pallor HEENT Reports moist mucous membranes HEENT Narrative: Oropharynx with mild erythema. No tonsillar exudates. Airway patent without stridor. normocephalic and atraumatic Throat: posterior oropharynx normal Eyes PERRL and EOMs intact bilaterally Neck no lymphadenopathy and supple General: Negative for anterior neck swelling Resp normal respiratory effort Neuro oriented x3 Sensorium / Orientation: alert Motor Exam: strength 5/5 throughout Psych mental status grossly normal Skin General Skin Exam: jaundice and pallor MDM MDM MDM Narrative Medical decision making narrative: Patient presenting with sore throat. Other than the erythema in her throat her HEENT exam is unremarkable. Rapid strep was performed and was negative. She was given Decadron 10 mg p.o. and Tylenol 1 g. She was counseled this is likely viral. Return precautions discussed. Impression: 1. Pharyngitis Lab Data Attestation: I reviewed the patient's lab results. Discharge Plan Triage Chief Complaint: Sore Throat ED Provider: Luis Armando Keene Dx/Rx/DC Orders Instructions: ED Pharyngitis, Viral Stand Alone Forms: ED Work / School Excuse Primary Care Provider: Alisha Betancur NP Referrals: Alisha Betancur OUTPATIENT COORDINATOR, OUTPATIENT COORDINATOR-C [Primary Care Provider] - Disposition Disposition: Home, Self Care Discharge Date/Time: 04/14/23 09:15 What to do if you have Problems For any increased pain, shortness of breath, bleeding, nausea or vomiting, chest pain, or any unexpected problems, contact your Primary Care Provider. Call [facility] ([phone]) or report to the closest Emergency Room. Call 911 if necessary. 04/14/23 1508 Cosigner Signature (if applicable): CC: OUTPATIENT COORDINATOR-C Alisha Betancur Signed Normal [facility] ANES POSTPROC EVALon 023 ANES POSTPROC EVAL HNO ID: [id number] Author: Miladys Weinstein APRN.J CARLOS Service: Anesthesiology Author Type: Nurse Airborne Electronics Analyst Type: Anesthesia Postprocedure Evaluation Filed: 04/09/2023 11:39 AM Note Text: POST ANESTHESIA EVALUATION NOTE : 1985 Procedure Summary Date: 04/09/23 Room / Location: Ambulatory Surgery Anesthesia Start: 1126 Anesthesia Stop: 1138 Procedure: EGD DIAGNOSTIC Diagnosis: Gastroesophageal reflux disease, unspecified whether esophagitis present Epigastric pain (Established esophageal reflux) Scheduled Providers: Rose Douglas MD Responsible Provider: Miladys Weinstein APRN.HOUSEHOLD PERSONAL ASSISTANT Anesthesia Type: MAC ASA Status: 2 Anesthesia Type: MAC Last Vitals Vitals Value Taken Time BP 102/64 04/09/23 1138 Temp 97.9 04/09/23 1138 Pulse 83 04/09/23 1131 Resp 9 04/09/23 1131 SpO2 91 % 04/09/23 1131 Post Anesthesia Patient Status Patient Evaluation: PACU. PACU/ICU Patient Condition: stable. Anticipated Disposition: phase 2 then home. Neurological Status: aware and responsive. Pulmonary Status: breathing comfortably on room air Airway Control: returned to baseline unsupported. Cardiovascular Status: stable. Pain Management: clinically adequate - multimodal analgesia pain management approach Postoperative Hydration: acceptable. Intraoperative Events: no significant anesthesia events Post Operative Nausea/Vomiting Status: no significant post operative nausea or vomiting Recommendation: continue current plan of care. Anesthesia Observations No Documentation SIGNATURE: Miladys Weinstein APRN.CRNA PATIENT NAME: Ariela Bell DATE: April 09, 2023 TIME: 11:38 AM CSN: [id number] Normal [facility] ANES PRE-OPon 04-09-2023 ANES PRE-OP HNO ID: [id number] Author: Miladys Weinstein APRN.CRNA Service: Anesthesiology Author Type: Nurse Airborne Electronics Analyst Type: Anesthesia Preprocedure Evaluation Filed: 04/09/2023 11:26 AM Note Text: ANESTHESIOLOGY DAY OF SURGERY NOTE : 1985 Procedure Information Date/Time: 04/09/23 1015 Scheduled providers: Rose Douglas MD Procedure: EGD DIAGNOSTIC Location: Ambulatory Surgery Estimated body mass index is 33.83 kg/m? as calculated from the following: Height as of this encounter: 160 cm (5' 3). Weight as of this encounter: 86.6 kg (191 lb). Most recent hematocrit and potassium results: Hematocrit 41.5 01/26/2023 Potassium 4.2 01/26/2023 Relevant Problems No relevant active problems I - PHYSICAL EVALUATION AIRWAY Patient intubated: No. Tracheostomy tube not present Mallampati: II. TM distance: >3 FB. Neck ROM: full ROM without neurological symptoms. Mouth opening: adequate. Short neck: no. Thick neck: no DENTAL Dental findings: teeth intact. Additional exam findings: no II - ANESTHESIA PLAN ASA Score: 2 Anesthetic Plan: MAC The patient is not a current smoker. NPO Status: adequate Beta Fiona Monitoring Plan Monitoring plan: standard ASA. Post Procedure Analgesic Plan Postoperative analgesic plan: parenteral or oral opioids and multimodal analgesia. Informed Consent Anesthetic risks, benefits, alternatives, personnel and consent discussed: yes. Patient / Responsible Democrat agrees to proceed: yes Patient / Surrogate agrees to blood products: blood products not planned Significant changes in the patient condition since the History and Physical, not otherwise documented in primary service progress note: no. Potential Anesthesia issues that may suggest increased risk of complications or contraindication to planned procedure: none. Vitals Value Taken Time BP 117/89 04/09/23 1025 Pulse 74 04/09/23 1025 Resp 16 04/09/23 1025 Temp 36.9 ?C (98.4 ?F) 04/09/23 1025 SpO2 96 % 04/09/23 1025 Outpatient Medications as of 04/09/2023 Medication Sig - pantoprazole DR (PROTONIX) 40 mg tablet Take 1 tablet by mouth once daily. Facility-Administered Medications as of 04/09/2023 Medication Dose Route Frequency - lidocaine (PF) 10 mg/mL (1 %) 1-2 mg injection (XYLOCAINE) 0.1-0.2 mL INTRADERMAL PRN - lactated ringers iv infusion 30 mL/hr INTRAVENOUS CONTINUOUS I have interviewed and examined the patient. I have reviewed the medical record and/or the pre-anesthesia evaluation, pertinent labs, and test results. This contains updated information obtained within 48 hours of Surgery/Procedure. SIGNATURE: Miladys Weinstein APRN.CRNA PATIENT NAME: Ariela Bell DATE: April 09, 2023 TIME: 11:25 AM CSN: [id number] Normal [facility] EGD Study observation Narrkarina hitchcock 04-09-2023 [facility] Gastrointestinal Endoscopy Patient Name: Ariela Bell Procedure Date: 04/09/2023 11:19 AM Date of : 1985 Admit Type: Outpatient Age: 37 Room: [place] [address] Gender: Female Note Status: Finalized Attending MD: Rose Douglas MD Procedure: Upper GI endoscopy Indications: Esophageal reflux Providers: Rose Douglas MD Patient Profile: Refer to note in patient chart for documentation of history and physical. Referring Physician: Rhonda Bocanegra (Referring MD) Medicines: Monitored Anesthesia Care Complications: No immediate complications. Estimated blood loss: Minimal. Requesting Provider: Procedure: Pre-Anesthesia Assessment: - Prior to the procedure, a History and Physical was performed, and patient medications and allergies were reviewed. The patient's tolerance of previous anesthesia was also reviewed. The risks and benefits of the procedure and the sedation options and risks were discussed with the patient. All questions were answered, and informed consent was obtained. Prior Anticoagulants: The patient has taken no anticoagulant or antiplatelet agents. ASA Grade Assessment: II - A patient with mild systemic disease. After reviewing the risks and benefits, the patient was deemed in satisfactory condition to undergo the procedure. After obtaining informed consent, the endoscope was passed under direct vision. Throughout the procedure, the patient's blood pressure, pulse, and oxygen saturations were monitored continuously. The Endoscope was introduced through the mouth, and advanced to the second part of duodenum. I was present and participated during the entire procedure, including non-wolf portions, and during the administration and monitoring of Moderate Sedation. The upper GI endoscopy was accomplished without difficulty. The patient tolerated the procedure well. Moderate Sedation: MAC anesthesia was administered by the anesthesia team. Findings: The Z-line was regular and was found 35 cm from the incisors. The examined esophagus was normal. The entire examined stomach was normal. The examined duodenum was normal. Impression: - Z-line regular, 35 cm from the incisors. - Normal esophagus. - Normal stomach. - Normal examined duodenum. - No specimens collected. Recommendation: - Patient has a contact number available for emergencies. The signs and symptoms of potential delayed complications were discussed with the patient. Return to normal activities tomorrow. Written discharge instructions were provided to the patient. - Resume previous diet. - Continue present medications. Procedure Code(s): --- Professional --- 02417, Esophagogastroduodenos copy, flexible, transoral; diagnostic, including collection of specimen(s) by brushing or washing, when performed (separate procedure) CPT copyright 2020 [employer]. All rights reserved. The codes documented in this report are preliminary and upon general operations manager review may be revised to meet current compliance requirements. Attending Participation: I was present and participated during the entire procedure from insertion to removal of the endoscope. Scope In: 11:28:55 AM Scope Out: 11:30:32 AM MD Rose Mccarthy MD 04/09/2023 11:32:08 AM This report has been signed electronically by Rose Douglas MD Number of Addenda: 0 Note Initiated On: 04/09/2023 11:19 AM Estimated Blood Loss: Estimated blood loss: none. PROVATION [facility] Radiology Study observation (narrative) [facility] HISTORY PHYSICALon HISTORY PHYSICAL HNO ID: [id number] Author: Rose Douglas MD Service: Gastroenterology Author Type: Physician Type: HANDP Filed: 04/09/2023 11:17 AM Note Text: Endoscopy pre-operative HANDP IMPRESSION AND PLAN Ok to proceed with endoscopy HPI: This is a 37 year old female. GERD for EGD. Pertinent Review of Systems: GI: See HPI All other reviewed and negative other than HPI. PAST MEDICAL HISTORY: PAST MEDICAL HISTORY Diagnosis Date Motion sickness When a passenger Pancreatitis PAST SURGICAL HISTORY: PAST SURGICAL HISTORY Procedure Laterality Date SECTION HX N/A 2016 Jean Pierre Coffey Claudia SECTION HX LAPAROSCOPIC CHOLECYSTECTOMY 2021 LIGATE FALLOPIAN TUBE TUBAL LIGATION HX OBJECTIVE: PHYSICAL EXAM: VITALS: BP 117/89 Pulse 74 Temp 36.9 ?C (98.4 ?F) Resp 16 Ht 160 cm (5' 3) Wt 86.6 kg (191 lb) LMP 10/09/2022 (Approximate) SpO2 96% BMI 33.83 kg/m? General appearance: AANDOx3 Abdomen: Soft, non-tender. Not distended. SIGNATURE: Rose Douglas MD PATIENT NAME: Ariela Bell Pager: Normal [facility] Upper GI endoscopyon 023 Upper GI endoscopy [facility] Gastrointestinal Endoscopy Patient Name: Ariela Bell Procedure Date: 04/09/2023 11:19 AM Date of : 1985 Admit Type: Outpatient Age: 37 Room: [facility] 1 Gender: Female Note Status: Finalized Attending MD: Rose Douglas MD Procedure: Upper GI endoscopy Indications: Esophageal reflux Providers: Rose Douglas MD Patient Profile: Refer to note in patient chart for documentation of history and physical. Referring Physician: Rhonda Bocanegra (Referring MD) Medicines: Monitored Anesthesia Care Complications: No immediate complications. Estimated blood loss: Minimal. Requesting Provider: Procedure: Pre-Anesthesia Assessment: - Prior to the procedure, a History and Physical was performed, and patient medications and allergies were reviewed. The patient's tolerance of previous anesthesia was also reviewed. The risks and benefits of the procedure and the sedation options and risks were discussed with the patient. All questions were answered, and informed consent was obtained. Prior Anticoagulants: The patient has taken no anticoagulant or antiplatelet agents. ASA Grade Assessment: II - A patient with mild systemic disease. After reviewing the risks and benefits, the patient was deemed in satisfactory condition to undergo the procedure. After obtaining informed consent, the endoscope was passed under direct vision. Throughout the procedure, the patient's blood pressure, pulse, and oxygen saturations were monitored continuously. The Endoscope was introduced through the mouth, and advanced to the second part of duodenum. I was present and participated during the entire procedure, including non-wolf portions, and during the administration and monitoring of Moderate Sedation. The upper GI endoscopy was accomplished without difficulty. The patient tolerated the procedure well. Moderate Sedation: MAC anesthesia was administered by the anesthesia team. Findings: The Z-line was regular and was found 35 cm from the incisors. The examined esophagus was normal. The entire examined stomach was normal. The examined duodenum was normal. Impression: - Z-line regular, 35 cm from the incisors. - Normal esophagus. - Normal stomach. - Normal examined duodenum. - No specimens collected. Recommendation: - Patient has a contact number available for emergencies. The signs and symptoms of potential delayed complications were discussed with the patient. Return to normal activities tomorrow. Written discharge instructions were provided to the patient. - Resume previous diet. - Continue present medications. Procedure Code(s): --- Professional --- 60420, Esophagogastroduodenos copy, flexible, transoral; diagnostic, including collection of specimen(s) by brushing or washing, when performed (separate procedure) CPT copyright 2020 [employer]. All rights reserved. The codes documented in this report are preliminary and upon general operations manager review may be revised to meet current compliance requirements. Attending Participation: I was present and participated during the entire procedure from insertion to removal of the endoscope. Scope In: 11:28:55 AM Scope Out: 11:30:32 AM MD Rose Mccarthy MD 04/09/2023 11:32:08 AM This report has been signed electronically by Rose Douglas MD Number of Addenda: 0 Note Initiated On: 04/09/2023 11:19 AM Estimated Blood Loss: Estimated blood loss: none. Normal [facility] CNCOon 02-20-2023 CNCO Letter Text Normal [facility] CNOVon 02-20-2023 CNOV Office Visit (GSTNOR ) ARIELA BELL ([id number]) [address] [facility] Date Time Provider Department 02/20/23 11:00 AM RHONDA BOCANEGRA During your visit today, we recorded the following information about you: Pulse Blood pressure Weight Height 84/minute 112/70 86.8 kg 1.6 m Rhonda Bocanegra PA-C 02/20/2023 11:20 AM Signed CHIEF COMPLAINT: Patient presents with: Hospital F/U: Pancreatitis This consult was requested by No ref. provider found for an opinion regarding pancreatitis. My final recommendations will be communicated to the requesting health care provider by way of the shared medical record for internal providers or letter via the [employer] for external providers. HPI: Ariela Bell is a 37 year old female who presents for Hospital F/U (Pancreatitis ). Patient tells me that she is feeling well today. Denies any residual abdominal pain. Notes GERD, has been on Protonix for a while. Denies nausea, vomiting. Appetite is good. Weight is stable. Bowel movements are regular. No rectal bleeding. No smoking or alcohol. Unsure of family hx. Record Review: [facility] / Outside records reviewed. PAST MEDICAL HISTORY Diagnosis Date Motion sickness When a passenger Pancreatitis PAST SURGICAL HISTORY Procedure Laterality Date SECTION HX N/A 2016 Jean Pierre Hope SECTION HX LAPAROSCOPIC CHOLECYSTECTOMY 2021 LIGATE FALLOPIAN TUBE TUBAL LIGATION HX Allergies: ALLERGIES Allergen Reactions Penicillins Hives Plus throat swelling Penicillins Hives Medications: pantoprazole DR (PROTONIX) 40 mg tablet Take 1 tablet by mouth once daily. FAMILY HISTORY Problem Relation Age of Onset Cancer Maternal Grandfather Diabetes Paternal Grandmother Glaucoma Paternal Grandfather Diabetes Paternal Grandfather Colon Cancer No Family History Employer And Job Title: None on file Years Of Education Completed: Not specified Marital Status: Social History Tobacco Use Smoking status: Never Smokeless tobacco: Never Vaping Use Vaping Use: Never used Substance Use Topics Alcohol use: Not Currently Drug use: Never Review of Systems: Review of Systems Constitutional: Positive for fatigue. All other systems reviewed and are negative. Are you taking any blood thinners? No Physical Examination: BP 112/70 Pulse 84 Ht 5' 3 (1.60m) Wt 191 lb 4.8 oz (86.8kg) LMP 10/09/2022 BMI 33.90 kg/(m2). Physical Exam Constitutional: Appearance: Normal appearance. She is obese. HENT: Head: Normocephalic and atraumatic. Eyes: General: No scleral icterus. Extraocular Movements: Extraocular movements intact. Conjunctiva/sclera: Conjunctivae normal. Pupils: Pupils are equal, round, and reactive to light. Cardiovascular: Rate and Rhythm: Normal rate and regular rhythm. Pulses: Normal pulses. Heart sounds: Normal heart sounds. Pulmonary: Effort: Pulmonary effort is normal. Breath sounds: Normal breath sounds. Abdominal: General: Abdomen is flat. Bowel sounds are normal. Palpations: Abdomen is soft. Tenderness: There is no abdominal tenderness. Musculoskeletal: General: Normal range of motion. Cervical back: Normal range of motion and neck supple. Skin: General: Skin is warm and dry. Coloration: Skin is not jaundiced. Neurological: General: No focal deficit present. Mental Status: She is alert and oriented to person, place, and time. Psychiatric: Mood and Affect: Mood normal. Behavior: Behavior normal. Thought Content: Thought content normal. Judgment: Judgment normal. Assessment/Plan (K85.91) Acute pancreatitis with uninfected necrosis, unspecified pancreatitis type (primary encounter diagnosis) (K21.9) Gastroesophageal reflux disease, unspecified whether esophagitis present (R10.13) Epigastric pain 1. Acute pancreatitis with uninfected necrosis, unspecified pancreatitis type -- Patient overall recovering well. Denies any residual abdominal pain today. -- She is going to reach out to Dr. Gill in regards to updated imaging. 2. Gastroesophageal reflux disease, unspecified whether esophagitis present -- Notes long hx of GERD, on Protonix 40 mg daily with some break through. -- Can add OTC Pepcid PRN -- EGD for further evaluation - EGD DIAGNOSTIC; Future 3. Epigastric pain -- This has improved since her hospital stay -- Continue on Protonix as prescribed. -- EGD for further evaluation - EGD DIAGNOSTIC; Future Follow up in office PRN. Recommended to please call office/go to ER if fever, chills, chest pain, SOB, diarrhea, nausea, emesis, worsening abdominal pain, dehydration occurs I spent a total of 20 minutes on the date of the service which included preparing to see the patient, [id number] patient care, completing clinical documentation, obtaining and/or reviewing separately obtained history, (more content not included)... Normal [facility] CT ABD/PEL W IVCONon 023 [facility] CNOVon 12-08-2021 CNOV Office Visit (EAMNUEL 7) WALTARIELA Aden ([id number]) 1985 F Date Time Provider Department 12/08/21 3:30 PM JEAN PIERRE HOPE During your visit today, we recorded the following information about you: Weight Height 90.7 kg 1.6 m Jean Pierre Hope MD 12/08/2021 4:52 PM Signed Ariela Bell is a 36 year old, White female who presents with complaints of Epigastric abdominal pain. Patient states that about a year and a half ago she had had occasional episodes of epigastric pain that would last for about 2 or 3 minutes. It would occasionally go through to her back as well as the right side of her abdomen. She was placed on a proton pump inhibitor and the pain improved. She got off the proton pump inhibitor and was doing well until about the last 2 weeks when she had a recurrence of her abdominal pain. Once again the pain is in the epigastric region as well as the right upper quadrant. She did have one episode of vomiting but denies significant nausea. The pain became progressive and she was seen in the emergency room. At that time she did have an ultrasound that showed gallstones. Her laboratory work was normal except for a mildly elevated lipase of 74 with a top maximum being 61. Her ultrasound did not show any wall thickening or pericholecystic fluid. Her common duct was 3 mm in size. She is here for evaluation of her gallstones. Since she left the emergency room she is back on a proton pump inhibitor and her symptoms have appeared to resolve. No past medical history on file. PAST SURGICAL HISTORY Procedure Laterality Date - TUBAL LIGATION HX Social History Tobacco Use - Smoking status: Not on file - Smokeless tobacco: Not on file Substance Use Topics - Alcohol use: Not on file - Drug use: Not on file No family history on file. ALLERGIES Allergen Reactions - Penicillins Hives Current Outpatient Medications Medication Sig - pantoprazole DR (PROTONIX) 40 mg tablet 40 mg. No current facility-administered medications for this visit. REVIEW OF SYSTEMS PAIN ASSESSMENT: Negative for pain, history of chronic pain, or current treatment for a chronic pain condition. GENERAL: No weight loss, malaise or fevers NECK: Negative for lumps, goiter, pain and significant neck swelling RESPIRATORY: Negative for cough, hemoptysis, wheezing, COPD, dyspnea or shortness of breath CARDIOVASCULAR: Negative for chest pain, leg swelling, hypertension, CHF or palpitations GI: No nausea, vomiting, or diarrhea : No history of dysuria, frequency or incontinence MUSCULOSKELETAL: back pain HEMATOLOGY/LYMPHOLOGY: Negative for prolonged bleeding, bruising easily or swollen nodes ENDOCRINE: Negative for cold or heat intolerance, polyuria, polydipsia and goiter PHYSICAL EXAM: There were no vitals taken for this visit. General Appearance: Well appearing, alert, in no acute distress, well-hydrated, well nourished.. Eyes: Normal sclera Skin: Skin texture and turgor normal, no suspicious rashes or lesions, Negative for jaundice or pallor. Neck: Supple, trachea midline Lungs: Lungs clear to auscultation. No wheezing, rhonchi, rales.. Heart: RRR without murmur, gallop, or rubs. No ectopy. Abdomen: Normal abdominal exam, Abdomen soft, non-tender. Bowel sounds normal. No masses, organomegaly. Musculoskeletal: No joint swelling, deformity, or tenderness. Lymph Nodes: No cervical lymphadenopathy and No supraclavicular lymphadenopathy. I spent a total of 34 minutes on the date of the service which included preparing to see the patient, [id number] patient care, completing clinical documentation, obtaining and/or reviewing separately obtained history, performing a medically appropriate examination, counseling and educating the patient/family/caregiv er, ordering medications, tests, or procedures and communicating with other HCPs (not separately reported). Assessment and plan: The patient does have multiple gallstones. It is difficult to tell if she is having symptoms from her gallstones or it may be gastric irritation or ulceration. The fact that her symptoms have completely resolved on a proton pump inhibitor suggest that it is not her gallstones bladder. However the mildly elevated lipase may suggest it came from gallstones. I did discuss the significance against of gallstones and the difference between a symptomatic and asymptomatic patient. We talked about dissolution therapy versus surgery and I talked about surgical procedures risk complications and need for conversion. I did give him an information sheet in regards to gallstones as well as the surgery. Because she has improved on the PPH I would recommend just holding off on surgery at the present time. If she develops symptoms on the PPH then I think we need to revisit the possibility of symptoms from her gallstones. She may also need (more content not included)... Normal [facility] US KIDNEY/BLADDERon 09-14-20 US KIDNEY/BLADDER Final Report DATE OF EXAM: Sep 14 2020 11:11AM [facility] 1055 - KIDNEY/BLADDER / PROCEDURE REASON: Flank pain, stone disease suspected Physician Interpretation EXAMINATION: RENAL ULTRASOUND CLINICAL HISTORY: Nephrolithiasis. Abdominal pain TECHNIQUE: Sonography of the kidneys and urinary bladder was performed. Images were obtained and stored in a permanent archive. MQ: UR_1 COMPARISON: None RESULT: Right Kidney: -Renal length: 14.3 cm -Parenchyma: Normal parenchymal echogenicity. Normal parenchymal thickness. The average thickness is 1.2 cm. -Collecting system: Moderate hydronephrosis -Calculus: No echogenic, shadowing calculus. -Lesion: None. Left Kidney: -Renal length: 12.6 cm -Parenchyma: Normal parenchymal echogenicity. Normal parenchymal thickness. The average thickness is 1 cm. -Collecting system: No hydronephrosis. -Calculus: No echogenic, shadowing calculus. -Lesion: There are 2 cysts which measure 1 cm and 1.9 cm respectively. Bladder: Normal sonographic appearance. The prevoid bladder volume is 31 cc. IMPRESSION: Right-sided moderate hydronephrosis. Left renal cysts. Hop Farmer: MARION Transcribe Date/Time: Sep 14 2020 11:15A Dictated by : ARCHANA ELISE MD This examination was interpreted and the report reviewed and electronically signed by: ARCHANA ELISE MD on Sep 14 2020 11:17AM EST Normal [facility] XR ABDOMEN 1V SUPINEon 09-14 XR ABDOMEN 1V SUPINE Final Report DATE OF EXAM: Sep 14 2020 10:39AM [id number] [id number] - XR ABDOMEN 1V SUPINE / PROCEDURE REASON: Abd pain, unspecified Physician Interpretation EXAM TITLE: XR ABDOMEN 1V SUPINE DATE: 09/14/2020 10:55 AM INDICATION: Right-sided abdominal pain COMPARISON: None. FINDINGS: The bowel gas pattern is normal. There are no abnormal calcifications. No masses are seen. Bony structures are intact. IMPRESSION: Within normal limits. Hop Farmer: MARION Transcribe Date/Time: Sep 14 2020 10:55A Dictated by : ARCHANA ELISE MD This examination was interpreted and the report reviewed and electronically signed by: ARCHANA ELISE MD on Sep 14 2020 10:56AM EST Normal [facility] Final Surgical Pathology Rep royer 07-21-2020 Final Surgical Pathology Report . Pathology Reports Accession: Collected Date/Time: Received Date/Time: Pathologist: [id number] 07/19/2020 13:07 EDT 07/20/2020 09:45 EDT DO ZEKE BADILLO Final Surgical Pathology Report DIAGNOSIS: TWO TRANSECTED SEGMENTS OF FALLOPIAN TUBE, CLINICALLY BILATERAL SALPINGECTOMY. COMMENT: [facility] - D# [id number] CLINICAL INFORMATION: Procedure: BILATERAL SALPINGECTOMY Preoperative diagnosis: UNDESIRED FERTILITY Postoperative diagnosis: SAME SPECIMEN: BILATERAL FALLOPIAN TUBES GROSS DESCRIPTION: Received in formalin, labeled with the patients name, Case #[id number], and bilateral fallopian tubes are 2 fimbriated designated fallopian tube segments. The right tube is designated with a suture and measures 2.6 cm in length, 0.5 cm in diameter and is inked black. The longer segment of fallopian tube measures 4.1 cm in length, 0.6 cm in diameter. RS-1. Dictated by JEAN PIERRE BUTLER MICROSCOPIC DESCRIPTION: Slides reviewed. Electronically Signed by Pathology Report verified by [facility] Electronically signed by ZEKE BADILLO DO Sign out Date: 07/21/2020 13:21 Performing Lab: [facility], [address] [place] [address] Normal [facility] ([place]) Comment on above: Performed By: #### ROCIO Frausto #### [place] [id number] HHon 07-20-2020 Hematocrit (Bld) [Volume fraction] 32.7 % Low 37.0-47.0 [facility] ([place]) Comment on above: Performed By: #### ROCIO Frausto #### [place] [address] Hemoglobin (Bld) [Mass/Vol] 11.0 G/dL Low 12.0-16.0 [facility] ([place]) Comment on above: Performed By: #### ROCIO Frausto #### [place] [address] Gel ABOon 07-19-2020 ABO/Rh Interp Positive [facility] ([place]) Comment on above: Performed By: #### ROCIO Frausto #### [place] [address] Gel ABSon 07-19-2020 Antibody Screen Gel Negative Normal [facility] ([place]) Comment on above: Performed By: #### ROCIO Frausto #### [place] [address] .Auto Diffon 07-18-2020 Ammonia (P) [Mass/Vol] 0.70 10 3/mcL Normal 0.15-1.00 [facility] ([place]) Comment on above: Performed By: #### ROCIO Frausto #### [place] [id number] Basophils (Bld) [#/Vol] 0.00 10 3/mcL Normal 0.00-0.19 [facility] ([place]) Comment on above: Performed By: #### U A, UAMICAO #### [address] [address] Basophils/100 WBC (Bld) 0.3 % Normal 0.0-2.5 [facility] ([place]) Comment on above: Performed By: #### U A UAMICAO #### [address] [address] Eosinophils (Bld) [#/Vol] 0.10 10 3/mcL Normal 0.00-0.40 [facility] ([place]) Comment on above: Performed By: #### U A UAMICAO #### [address] [address] Eosinophils/100 WBC (Bld) 1.2 % Normal 0.0-7.0 [facility] ([place]) Comment on above: Performed By: #### U Aarti UAMICAO #### [address] [address] Lymphocytes (Bld) [#/Vol] 1.60 10 3/mcL Normal 0.77-3.85 [facility] ([place]) Comment on above: Performed By: #### U Aarti UAMICAO #### [address] [address] Lymphocytes/100 WBC (Bld) 16.0 % Normal 10.0-50.0 [facility] ([place]) Comment on above: Performed By: #### U A UAMICAO #### [address] [address] Monocytes/100 WBC (Bld) 7.6 % Normal 1.7-13.0 [facility] ([place]) Comment on above: Performed By: #### U A UAMICAO #### [address] [address] Neutrophils/100 WBC (Bld) 74.9 % Normal 37.0-80.0 [facility] ([place]) Comment on above: Performed By: #### U A UAMICAO #### [address] [address] .NEUABSon 07-18-2020 Neutrophils (Bld) [#/Vol] 7.30 10 3/mcL High 2.85-6.16 [facility] ([place]) Comment on above: Performed By: #### ROCIO Frausto #### [address] [address] CBCon 07-18-2020 Erythrocyte distribution width (RBC) [Ratio] 15.9 % High 11.5-14.5 [facility] ([place]) Comment on above: Performed By: #### ROCIO Frausto #### [place] [id number] Hematocrit (Bld) [Volume fraction] 35.9 % Low 37.0-47.0 [facility] ([place]) Comment on above: Performed By: #### ROCIO Frausto #### [place] [id number] Hemoglobin (Bld) [Mass/Vol] 12.2 G/dL Normal 12.0-16.0 [facility] ([place]) Comment on above: Performed By: #### ROCIO Frausto #### [place] [id number] MCH (RBC) [Entitic mass] 29.0 pg Normal 27.0-31.2 [facility] ([place]) Comment on above: Performed By: #### ROCIO Frausto #### [place] [id number] MCHC (RBC) [Mass/Vol] 34.0 G/dL Normal 33.0-37.0 [facility] ([place]) Comment on above: Performed By: #### ROCIO Frausto #### [place] [id number] MCV (RBC) [Entitic vol] 85.3 fL Normal 80.0-94.0 [facility] ([place]) Comment on above: Performed By: #### ROCIO Frausto #### [place] [id number] Platelet mean volume (Bld) [Entitic vol] 11.0 fL High 7.4-10.4 [facility] ([place]) Comment on above: Performed By: #### U A, UAMICAO #### [address] [address] Platelets (Bld) [#/Vol] 147 10 3/mcL Normal 130-400 [facility] ([place]) Comment on above: Performed By: #### U A, UAMICAO #### [address] [address] RBC (Bld) [#/Vol] 4.21 10 6/mcL Normal 4.20-5.40 [facility] ([place]) Comment on above: Performed By: #### U A, UAMICAO #### [address] [address] WBC (Bld) [#/Vol] 9.70 10 3/mcL Normal 4.60-10.80 [facility] ([place]) Comment on above: Performed By: #### U A, UAMICAO #### [place] [id number] AMNIon 07-12-2020 Amnisure Negative Normal Negative [facility] ([place]) Comment on above: Performed By: #### U A, UAMICAO #### [address] [address] CURon 07-08-2020 CUR . MICRO - Microbiology PROCEDURE: Urine Culture [*1] SOURCE: Urine BODY SITE: COLLECTED DATE/TIME: 07/06/2020 15:14 EDT RECEIVED DATE/TIME: 07/06/2020 20:51 EDT START DATE/TIME: 07/06/2020 20:51 EDT FREE TEXT SOURCE: FINAL REPORTS Final Report [] Verified Date/Time/Personnel: 07/08/2020 08:20 EDT 10,000 - 50,000 cfu/ml Multiple bacterial morphotypes present. Probable Contamination. Suggest recollection if clinically indicated. PRELIMINARY REPORTS Preliminary Report [] Verified Date/Time/Personnel: 07/07/2020 12:04 EDT Culture results pending. Performing Locations *1: This test was performed at: [address], [address] , [facility] ([place]) Comment on above: Performed By: #### U A, UAMICAO #### [address] [address] .GFRon 07-06-2020 GFR 126 ml/min/1.73sqm Normal [facility] ([place]) Comment on above: Result Comment: GFR Population mean for , Non- Americans Ages 20-29 = 116 mL/min/1.73 sq.m. Ages 30-39 = 107 mL/min/1.73 sq.m. Ages 40-49 = 99 mL/min/1.73 sq.m. Ages 50-59 = 93 mL/min/1.73 sq.m. Ages 60-69 = 85 mL/min/1.73 sq.m. Ages 70+ = 75 mL/min/1.73 sq.m. Chronic Kidney Disease: Less than 60 mL/min/1.73 square meters End Stage Renal Disease: Less than 15 mL/min/1.73 square meters Performed By: #### C UR #### [place] [address] GFR Non- 104 ml/min/1.73sqm Normal [facility] ([place]) Comment on above: Result Comment: GFR Population mean for , Non- Americans Ages 20-29 = 116 mL/min/1.73 sq.m. Ages 30-39 = 107 mL/min/1.73 sq.m. Ages 40-49 = 99 mL/min/1.73 sq.m. Ages 50-59 = 93 mL/min/1.73 sq.m. Ages 60-69 = 85 mL/min/1.73 sq.m. Ages 70+ = 75 mL/min/1.73 sq.m. Chronic Kidney Disease: Less than 60 mL/min/1.73 square meters End Stage Renal Disease: Less than 15 mL/min/1.73 square meters Performed By: #### C UR #### [address] [address] CMPon 07-06-2020 Albumin [Mass/Vol] 2.8 G/dL Low 3.5-5.0 [facility] ([place]) Comment on above: Performed By: #### C UR #### [address] [address] Albumin/Globulin [Mass ratio] 0.8 {ratio} Low 1.1-2.5 [facility] ([place]) Comment on above: Performed By: #### C UR #### [address] [address] ALP [Catalytic activity/Vol] 201 U/L High 40-135 [facility] ([place]) Comment on above: Performed By: #### C UR #### [address] [address] ALT [Catalytic activity/Vol] 38 U/L Normal 14-59 [facility] ([place]) Comment on above: Performed By: #### C UR #### [address] [address] AST [Catalytic activity/Vol] 21 U/L Normal 10-40 [facility] ([place]) Comment on above: Performed By: #### C UR #### [address] [address] Bili Total 0.2 mg/dL Normal 0.2-1.0 [facility] ([place]) Comment on above: Result Comment: Use of this assay is not recommended for patients undergoing treatment with eltrombopag due to the potential for falsely elevated results. Performed By: #### C UR #### [address] [address] Calcium [Mass/Vol] 8.9 mg/dL Normal 8.4-10.2 [facility] ([place]) Comment on above: Performed By: #### C UR #### [address] [address] Chloride [Moles/Vol] 104 mmol/L Normal 98-107 [facility] ([place]) Comment on above: Performed By: #### C UR #### [address] [address] CO2 [Moles/Vol] 25 mmol/L Normal 22-29 [facility] ([place]) Comment on above: Performed By: #### C UR #### [address] [address] Creatinine [Mass/Vol] 0.65 mg/dL Normal 0.55-1.02 [facility] ([place]) Comment on above: Performed By: #### C UR #### [address] [address] Electrolyte Balance 9.0 mEq/L Normal [facility] ([place]) Comment on above: Performed By: #### C UR #### [address] [address] Globulin (S) [Mass/Vol] 3.5 G/dL Normal [facility] ([place]) Comment on above: Performed By: #### C UR #### [address] [address] Glucose [Mass/Vol] 83 mg/dL Normal 70-105 [facility] ([place]) Comment on above: Performed By: #### C UR #### [address] [address] Potassium [Moles/Vol] 4.0 mmol/L Normal 3.5-5.1 [facility] ([place]) Comment on above: Performed By: #### C UR #### [address] [address] Protein [Mass/Vol] 6.3 G/dL Low 6.4-8.2 [facility] ([place]) Comment on above: Performed By: #### C UR #### [address] [address] Sodium [Moles/Vol] 138 mmol/L Normal 136-145 [facility] ([place]) Comment on above: Performed By: #### C UR #### [address] [address] Urea nitrogen [Mass/Vol] 8 mg/dL Normal 7-18 [facility] ([place]) Comment on above: Performed By: #### C UR #### [address] [address] Urea nitrogen/Creatinine [Mass ratio] 12 ratio Normal 7-27 [facility] ([place]) Comment on above: Performed By: #### C UR #### [address] [address] CRURon 07-06-2020 U Creatinine 117.5 mg/dL High 28.0-117.0 [facility] ([place]) Comment on above: Performed By: #### C UR #### [address] [address] HGMPon 07-06-2020 Erythrocyte distribution width (RBC) [Ratio] 15.9 % High 11.5-14.5 [facility] ([place]) Comment on above: Performed By: #### C UR #### [address] [address] Hematocrit (Bld) [Volume fraction] 35.7 % Low 37.0-47.0 [facility] ([place]) Comment on above: Performed By: #### C UR #### [place] [id number] Hemoglobin (Bld) [Mass/Vol] 12.2 G/dL Normal 12.0-16.0 [facility] ([place]) Comment on above: Performed By: #### C UR #### [place] [id number] MCH (RBC) [Entitic mass] 29.1 pg Normal 27.0-31.2 [facility] ([place]) Comment on above: Performed By: #### C UR #### [address] [address] MCHC (RBC) [Mass/Vol] 34.1 G/dL Normal 33.0-37.0 [facility] ([place]) Comment on above: Performed By: #### C UR #### [address] [address] MCV (RBC) [Entitic vol] 85.3 fL Normal 80.0-94.0 [facility] ([place]) Comment on above: Performed By: #### C UR #### [address] [address] Platelet mean volume (Bld) [Entitic vol] 11.2 fL High 7.4-10.4 [facility] ([place]) Comment on above: Performed By: #### C UR #### [address] [address] Platelets (Bld) [#/Vol] 162 10 3/mcL Normal 130-400 [facility] ([place]) Comment on above: Performed By: #### C UR #### [address] [address] RBC (Bld) [#/Vol] 4.19 10 6/mcL Low 4.20-5.40 [facility] ([place]) Comment on above: Performed By: #### C UR #### [address] [address] WBC (Bld) [#/Vol] 9.10 10 3/mcL Normal 4.60-10.80 [facility] ([place]) Comment on above: Performed By: #### C UR #### [address] [address] PRURon 07-06-2020 Protein [Mass/Vol] 23 mg/dL High 0-11 [facility] ([place]) Comment on above: Performed By: #### C UR #### [address] [address] HGMPon 06-22-2020 Erythrocyte distribution width (RBC) [Ratio] 15.4 % High 11.5-14.5 [facility] ([place]) Comment on above: Performed By: #### C UR #### [address] [address] Hematocrit (Bld) [Volume fraction] 36.0 % Low 37.0-47.0 [facility] ([place]) Comment on above: Performed By: #### C UR #### [address] [address] Hemoglobin (Bld) [Mass/Vol] 12.1 G/dL Normal 12.0-16.0 [facility] ([place]) Comment on above: Performed By: #### C UR #### [address] [address] MCH (RBC) [Entitic mass] 28.7 pg Normal 27.0-31.2 [facility] ([place]) Comment on above: Performed By: #### C UR #### [address] [address] MCHC (RBC) [Mass/Vol] 33.6 G/dL Normal 33.0-37.0 [facility] ([place]) Comment on above: Performed By: #### C UR #### [address] [address] MCV (RBC) [Entitic vol] 85.4 fL Normal 80.0-94.0 [facility] ([place]) Comment on above: Performed By: #### C UR #### [address] [address] Platelet mean volume (Bld) [Entitic vol] 11.4 fL High 7.4-10.4 [facility] ([place]) Comment on above: Performed By: #### C UR #### [address] [address] Platelets (Bld) [#/Vol] 165 10 3/mcL Normal 130-400 [facility] ([place]) Comment on above: Performed By: #### C UR #### [address] [address] RBC (Bld) [#/Vol] 4.22 10 6/mcL Normal 4.20-5.40 [facility] ([place]) Comment on above: Performed By: #### C UR #### [address] [address] WBC (Bld) [#/Vol] 8.60 10 3/mcL Normal 4.60-10.80 [facility] ([place]) Comment on above: Performed By: #### C UR #### [address] [address] GBPCRon 06-16-2020 GBPCR . MICRO - Microbiology PROCEDURE: Group B Strep PCR [*1] SOURCE: Vaginal Rectal BODY SITE: COLLECTED DATE/TIME: 06/14/2020 12:31 EDT RECEIVED DATE/TIME: 06/14/2020 20:15 EDT START DATE/TIME: 06/14/2020 20:15 EDT FREE TEXT SOURCE: FINAL REPORTS Final Report [] Verified Date/Time/Personnel: 06/16/2020 12:02 EDT GBS NEGATIVE. Group B Streptococcus DNA not detected by Real-Time. Polymerase Chain Reaction (PCR). A negative result does not rule out the possibility of Group B Streptococcus False negative results may occur when Group B Streptococcus concentration is below the level of detection of 200 CFU/mL of sample preparation reagent. If the patient has signs or symptoms of infection, other laboratory tests and clinical information should be used to confirm the negative result. This test is not intended to differentiate carriers of Group B Streptococcus from those with Streptococcus disease. Performing Locations *1: This test was performed at: [address], [address] [place] [address] ([place]) Comment on above: Performed By: #### C UR #### [place] [address] .Auto Diffon 06-01-2020 Ammonia (P) [Mass/Vol] 0.60 10 3/mcL Normal 0.15-1.00 [facility] ([place]) Comment on above: Performed By: #### H CGQ #### [address] [address] Basophils (Bld) [#/Vol] 0.00 10 3/mcL Normal 0.00-0.19 [facility] ([place]) Comment on above: Performed By: #### H CGQ #### [address] [address] Basophils/100 WBC (Bld) 0.4 % Normal 0.0-2.5 [facility] ([place]) Comment on above: Performed By: #### H CGQ #### [address] [address] Eosinophils (Bld) [#/Vol] 0.10 10 3/mcL Normal 0.00-0.40 [facility] ([place]) Comment on above: Performed By: #### H CGQ #### [address] [address] Eosinophils/100 WBC (Bld) 1.1 % Normal 0.0-7.0 [facility] ([place]) Comment on above: Performed By: #### H CGQ #### [address] [address] Lymphocytes (Bld) [#/Vol] 0.90 10 3/mcL Normal 0.77-3.85 [facility] ([place]) Comment on above: Performed By: #### H CGQ #### [address] [address] Lymphocytes/100 WBC (Bld) 9.7 % Low 10.0-50.0 [facility] ([place]) Comment on above: Performed By: #### H CGQ #### [address] [address] Monocytes/100 WBC (Bld) 6.3 % Normal 1.7-13.0 [facility] ([place]) Comment on above: Performed By: #### H CGQ #### [address] [address] Neutrophils/100 WBC (Bld) 82.5 % High 37.0-80.0 [facility] ([place]) Comment on above: Performed By: #### H CGQ #### [address] [address] .GFRon 06-01-2020 GFR Non- 99 ml/min/1.73sqm Normal [facility] ([place]) Comment on above: Result Comment: GFR Population mean for , Non- Americans Ages 20-29 = 116 mL/min/1.73 sq.m. Ages 30-39 = 107 mL/min/1.73 sq.m. Ages 40-49 = 99 mL/min/1.73 sq.m. Ages 50-59 = 93 mL/min/1.73 sq.m. Ages 60-69 = 85 mL/min/1.73 sq.m. Ages 70+ = 75 mL/min/1.73 sq.m. Chronic Kidney Disease: Less than 60 mL/min/1.73 square meters End Stage Renal Disease: Less than 15 mL/min/1.73 square meters Performed By: #### H CGQ #### [place] [address] GFR 120 ml/min/1.73sqm Normal [facility] ([place]) Comment on above: Result Comment: GFR Population mean for , Non- Americans Ages 20-29 = 116 mL/min/1.73 sq.m. Ages 30-39 = 107 mL/min/1.73 sq.m. Ages 40-49 = 99 mL/min/1.73 sq.m. Ages 50-59 = 93 mL/min/1.73 sq.m. Ages 60-69 = 85 mL/min/1.73 sq.m. Ages 70+ = 75 mL/min/1.73 sq.m. Chronic Kidney Disease: Less than 60 mL/min/1.73 square meters End Stage Renal Disease: Less than 15 mL/min/1.73 square meters Performed By: #### H CGQ #### [place] [address] .NEUABSon 06-01-2020 Neutrophils (Bld) [#/Vol] 7.60 10 3/mcL High 2.85-6.16 [facility] ([place]) Comment on above: Performed By: #### H CGQ #### [place] [address] .Urinalysis Microscopic (AO) on 06-01-2020 RBC (U) [#/Vol] 0-5 Abnormal None Seen [facility] ([place]) Comment on above: Performed By: #### C UR #### [place] [address] UA Amorphus 1+ /hpf Normal [facility] ([place]) Comment on above: Performed By: #### C UR #### [place] [address] UA Bacteria 1+ /hpf Abnormal [facility] ([place]) Comment on above: Performed By: #### C UR #### [place] [address] UA CA Ox Crystal 2+ /hpf Normal [facility] ([place]) Comment on above: Performed By: #### C UR #### [address] [address] UA Squam Epithelial LOADED Abnormal None Seen [facility] ([place]) Comment on above: Performed By: #### C UR #### [place] [id number] UA WBC 10-15 Abnormal None Seen [facility] ([place]) Comment on above: Performed By: #### C UR #### [place] [id number] CBCon 06-01-2020 Erythrocyte distribution width (RBC) [Ratio] 14.6 % High 11.5-14.5 [facility] ([place]) Comment on above: Performed By: #### H CGQ #### [place] [id number] Hematocrit (Bld) [Volume fraction] 33.9 % Low 37.0-47.0 [facility] ([place]) Comment on above: Performed By: #### H CGQ #### [place] [id number] Hemoglobin (Bld) [Mass/Vol] 11.5 G/dL Low 12.0-16.0 [facility] ([place]) Comment on above: Performed By: #### H CGQ #### [place] [id number] MCH (RBC) [Entitic mass] 28.5 pg Normal 27.0-31.2 [facility] ([place]) Comment on above: Performed By: #### H CGQ #### [place] [id number] MCHC (RBC) [Mass/Vol] 33.8 G/dL Normal 33.0-37.0 [facility] ([place]) Comment on above: Performed By: #### H CGQ #### [place] [id number] MCV (RBC) [Entitic vol] 84.3 fL Normal 80.0-94.0 [facility] ([place]) Comment on above: Performed By: #### H CGQ #### [place] [id number] Platelet mean volume (Bld) [Entitic vol] 11.0 fL High 7.4-10.4 [facility] ([place]) Comment on above: Performed By: #### H CGQ #### [place] [id number] Platelets (Bld) [#/Vol] 170 10 3/mcL Normal 130-400 [facility] ([place]) Comment on above: Performed By: #### H CGQ #### [place] [id number] RBC (Bld) [#/Vol] 4.02 10 6/mcL Low 4.20-5.40 [facility] ([place]) Comment on above: Performed By: #### H CGQ #### [place] [id number] WBC (Bld) [#/Vol] 9.20 10 3/mcL Normal 4.60-10.80 [facility] ([place]) Comment on above: Performed By: #### H CGQ #### [place] [id number] CMPon 06-01-2020 Albumin [Mass/Vol] 2.7 G/dL Low 3.5-5.0 [facility] ([place]) Comment on above: Performed By: #### H CGQ #### [place] [id number] Albumin/Globulin [Mass ratio] 0.8 {ratio} Low 1.1-2.5 [facility] ([place]) Comment on above: Performed By: #### H CGQ #### [place] [id number] ALP [Catalytic activity/Vol] 136 U/L High 40-135 [facility] ([place]) Comment on above: Performed By: #### H CGQ #### [place] [id number] ALT [Catalytic activity/Vol] 19 U/L Normal 10-35 [facility] ([place]) Comment on above: Performed By: #### H CGQ #### [place] [id number] AST [Catalytic activity/Vol] 33 U/L Normal 10-40 [facility] ([place]) Comment on above: Performed By: #### H CGQ #### [address] [address] Bili Total 0.5 mg/dL Normal 0.2-1.0 [facility] ([place]) Comment on above: Result Comment: Use of this assay is not recommended for patients undergoing treatment with eltrombopag due to the potential for falsely elevated results. Performed By: #### H CGQ #### [place] [id number] Calcium [Mass/Vol] 8.9 mg/dL Normal 8.4-10.2 [facility] ([place]) Comment on above: Performed By: #### H CGQ #### [place] [id number] Chloride [Moles/Vol] 106 mmol/L Normal 98-107 [facility] ([place]) Comment on above: Performed By: #### H CGQ #### [place] [id number] CO2 [Moles/Vol] 23 mmol/L Normal 22-29 [facility] ([place]) Comment on above: Performed By: #### H CGQ #### [place] [id number] Creatinine [Mass/Vol] 0.68 mg/dL Normal 0.55-1.02 [facility] ([place]) Comment on above: Performed By: #### H CGQ #### [place] [id number] Electrolyte Balance 11.0 mEq/L Normal [facility] ([place]) Comment on above: Performed By: #### H CGQ #### [address] [address] Globulin (S) [Mass/Vol] 3.2 G/dL Normal [facility] ([place]) Comment on above: Performed By: #### H CGQ #### [place] [id number] Glucose [Mass/Vol] 95 mg/dL Normal 70-105 [facility] ([place]) Comment on above: Performed By: #### H CGQ #### [address] [address] Potassium [Moles/Vol] 3.6 mmol/L Normal 3.5-5.1 [facility] ([place]) Comment on above: Performed By: #### H CGQ #### [address] [address] Protein [Mass/Vol] 5.9 G/dL Low 6.4-8.2 [facility] ([place]) Comment on above: Performed By: #### H CGQ #### [address] [address] Sodium [Moles/Vol] 140 mmol/L Normal 136-145 [facility] ([place]) Comment on above: Performed By: #### H CGQ #### [address] [address] Urea nitrogen [Mass/Vol] 8 mg/dL Normal 7-18 [facility] ([place]) Comment on above: Performed By: #### H CGQ #### [address] [address] Urea nitrogen/Creatinine [Mass ratio] 12 ratio Normal 7-27 [facility] ([place]) Comment on above: Performed By: #### H CGQ #### [address] [address] RPCURon 06-01-2020 Protein [Mass/Vol] 44 mg/dL High 0-11 [facility] [facility] ([place] Comment on above: Performed By: #### C UR #### [address] [address] U Creatinine 179.4 mg/dL High 28.0-117.0 [facility] ([place]) Comment on above: Performed By: #### C UR #### [address] [address] U Ratio Prot/Creat 0.2 ratio Normal [facility] ([place]) Comment on above: Result Comment: resu lt calculated by rule GL_UR_PROT_NOTCALC_OLD (U Protein/U Creatinine) Performed By: #### C UR #### [address] [address] UAon 06-01-2020 Color (U) Dark yellow Normal [facility] ([place]) Comment on above: Performed By: #### C UR #### [address] [address] Glucose (U) [Mass/Vol] Negative Normal Negative [facility] ([place]) Comment on above: Performed By: #### C UR #### [address] [address] Ketones Ql (U) Negative Normal Negative [facility] ([place]) Comment on above: Performed By: #### C UR #### [address] [address] UA Appear Cloudy Abnormal Clear [facility] ([place]) Comment on above: Performed By: #### C UR #### [address] [address] UA Blood Trace Abnormal Negative [facility] ([place]) Comment on above: Performed By: #### C UR #### [address] [address] UA Leuk Est Moderate Abnormal Negative [facility] ([place]) Comment on above: Performed By: #### C UR #### [address] [address] UA Nitrite Negative Normal Negative [facility] ([place]) Comment on above: Performed By: #### C UR #### [address] [address] UA pH 6.5 Normal 5.0 - 8.0 [facility] ([place]) Comment on above: Performed By: #### C UR #### [address] [address] UA Protein Trace Normal Negative [facility] ([place]) Comment on above: Performed By: #### C UR #### [address] [address] UA Spec Grav 1.025 Normal 1.015-1.025 [facility] ([place]) Comment on above: Performed By: #### C UR #### [place] [address] UA Specimen Type Clean Catch Normal [facility] ([place]) Comment on above: Performed By: #### C UR #### [place] [address] UA Urobilinogen 0.2 E.U./dL Normal 0.2-1.0 [facility] ([place]) Comment on above: Performed By: #### C UR #### [place] [address] Urobilinogen Qn (U) Negative Normal Negative [facility] ([place]) Comment on above: Performed By: #### C UR #### [place] [address] URICon 06-01-2020 Uric Acid Lvl 3.7 mg/dL Normal 2.6-6.2 [facility] ([place]) Comment on above: Performed By: #### H CGQ #### [place] [address] .Auto Diffon 05-11-2020 Ammonia (P) [Mass/Vol] 0.40 10 3/mcL Normal 0.15-1.00 [facility] ([place]) Comment on above: Performed By: #### H CGQ #### [place] [address] Basophils (Bld) [#/Vol] 0.00 10 3/mcL Normal 0.00-0.19 [facility] ([place]) Comment on above: Performed By: #### H CGQ #### [place] [address] Basophils/100 WBC (Bld) 0.4 % Normal 0.0-2.5 [facility] ([place]) Comment on above: Performed By: #### H CGQ #### [place] [id number] Eosinophils (Bld) [#/Vol] 0.10 10 3/mcL Normal 0.00-0.40 [facility] ([place]) Comment on above: Performed By: #### H CGQ #### [address] [address] Eosinophils/100 WBC (Bld) 1.4 % Normal 0.0-7.0 [facility] ([place]) Comment on above: Performed By: #### H CGQ #### [address] [address] Lymphocytes (Bld) [#/Vol] 1.20 10 3/mcL Normal 0.77-3.85 [facility] ([place]) Comment on above: Performed By: #### H CGQ #### [address] [address] Lymphocytes/100 WBC (Bld) 17.5 % Normal 10.0-50.0 [facility] ([place]) Comment on above: Performed By: #### H CGQ #### [address] [address] Monocytes/100 WBC (Bld) 6.3 % Normal 1.7-13.0 [facility] ([place]) Comment on above: Performed By: #### H CGQ #### [address] [address] Neutrophils/100 WBC (Bld) 74.4 % Normal 37.0-80.0 [facility] ([place]) Comment on above: Performed By: #### H CGQ #### [address] [address] .NEUABSon 05-11-2020 Neutrophils (Bld) [#/Vol] 4.90 10 3/mcL Normal 2.85-6.16 [facility] ([place]) Comment on above: Performed By: #### H CGQ #### [address] [address] CBCon 05-11-2020 Erythrocyte distribution width (RBC) [Ratio] 14.1 % Normal 11.5-14.5 [facility] ([place]) Comment on above: Performed By: #### H CGQ #### [address] [address] Hematocrit (Bld) [Volume fraction] 32.8 % Low 37.0-47.0 [facility] ([place]) Comment on above: Performed By: #### H CGQ #### [address] [address] Hemoglobin (Bld) [Mass/Vol] 11.3 G/dL Low 12.0-16.0 [facility] ([place]) Comment on above: Performed By: #### H CGQ #### [address] [address] MCH (RBC) [Entitic mass] 29.2 pg Normal 27.0-31.2 [facility] ([place]) Comment on above: Performed By: #### H CGQ #### [address] [address] MCHC (RBC) [Mass/Vol] 34.5 G/dL Normal 33.0-37.0 [facility] ([place]) Comment on above: Performed By: #### H CGQ #### [place] [id number] MCV (RBC) [Entitic vol] 84.5 fL Normal 80.0-94.0 [facility] ([place]) Comment on above: Performed By: #### H CGQ #### [address] [address] Platelet mean volume (Bld) [Entitic vol] 11.4 fL High 7.4-10.4 [facility] ([place]) Comment on above: Performed By: #### H CGQ #### [address] [address] Platelets (Bld) [#/Vol] 158 10 3/mcL Normal 130-400 [facility] ([place]) Comment on above: Performed By: #### H CGQ #### [address] [address] RBC (Bld) [#/Vol] 3.88 10 6/mcL Low 4.20-5.40 [facility] ([place]) Comment on above: Performed By: #### H CGQ #### [address] [address] WBC (Bld) [#/Vol] 6.60 10 3/mcL Normal 4.60-10.80 [facility] ([place]) Comment on above: Performed By: #### H CGQ #### [address] [address] IGD2Vzb 05-11-2020 Glucose [Mass/Vol] 127 mg/dL Normal 70-140 [facility] ([place]) Comment on above: Performed By: #### H CGQ #### [address] [address] CFVARon 01-01-2020 Cystic Fibrosis Variant Report (NOTE) Normal [facility] ([place]) Comment on above: Result Comment: Perf orming Pathologist: Paddy Akbar, PhD, [facility] Interpretation: Cystic Fibrosis Variant Testing Analysis RESULT: Negative INTERPRETATION: This individual is negative for all 142 pathogenic variants analyzed in the CFTR gene. A negative test result reduces the possibility that this individual has cystic fibrosis (CF) and also reduces the CF carrier risk. This test does not detect all variants in the CFTR gene and it is possible that this individual could have a CFTR variant not included in this test. Residual CF carrier risk is based on ethnicity and personal/family history (see table below). For questions about this result, genetic consultation and clinical correlation are recommended. Residual Cystic Fibrosis Carrier Risk after Negative Carrier Screen and with Negative Family History (Residual risk for unlisted ethnicities is unknown) Ethnicity: Carrier rate (Detection rate), Residual carrier risk : 1 in 61 (74%), Residual risk = 1 in 231 Ashkenazi Judaism: 1 in 24 (97%), Residual risk = 1 in 768 : 1 in 94 (49%), Residual risk = 1 in 183 : 1 in 25 (91%), Residual risk = 1 in 267 : 1 in 58 (77%), Residual risk = 1 in 248 LIMITATIONS: DNA studies do not provide a definitive genetic risk in all individuals. While results of this testing are highly accurate, infrequent errors may be due to unusual DNA sequences in the DNA analyzed. Rare polymorphisms or large deletions may affect primer binding resulting in a false negative result. A negative cystic fibrosis carrier screening test result does not remove all risk of having a child with one of these disorders because rare variants may influence the risk of developing disease. METHODOLOGY: Purified genomic DNA is subjected to polymerase chain reaction-based amplification. The CFTR gene is interrogated for known clinically relevant variants (see list below). Primer extension products are analyzed using matrix-assisted laser desorption/ionization mass spectrometry, and specific genotypes assigned. The reference genome used is GRCh38/hg38. Cystic fibrosis (CFTR, RefSeq# [id number]) Legacy names of 142 pathogenic variants: 1078delT,1154insTC, 1213delT, 1248+1G>A, 1259insA, 1341+1G>A, 7082zpf2, 1525-1G>A, 1548delG, 1677delTA, 1717-1G>A, 1717-8G>A, 1811+1.6kbA>G, 1812-1G>A, 1898+1G>A, 1898+3A>G, 1898+5G>A, 1898+5G>T, 0481tst6>A, 2143delT, 2183AAtoG, 2184delA, 2184insA, 2307insA, 2347delG, 2585delT, 2622+1G>A, 2711delT, 2789+5G>A, 394delTT, 3007delG, 3120+1G>A, 3120G>A, 3121-1G>A, 9410zcb0, 3272-26A>G, 3659delC, 3791delC, 3849+10KbC>T, 3876delA, 3905insT, 405+1G>A, 406-1G>A, 4005+1G>A, 4016insT, 4209TGTT>AA, 4382delA, 457TAT>G, 574delA, 621+1G>T, 663delT, 711+1G>T, 711+3A>G, 711+5G>A, 712-1G>T, 625wzz19, 935delA, A455E, A559T, CFTRdele2,3, ZYQQvfrg15,23, D110H, A8290D, npdogZ986, tvjkkW239, Z8087C, E585X, E60X, E822X, E831X, E92K, E92X, F508C, L1728V, O4841D, G178R, G330X, G542X, G551D, G85E, G970R, H199Y, I336K, K710X, B9887A, Q9710B, L206W, L467P, L732X, L927P, A4044Y, M1V, E0479U, P205S, P67L, K7935D, Q220X, Q39X, Q493X, Q525X, Q552X, Q890X, Q98X, D3182S, B2063Q, W1036G, D9222N, R117C, R117H, R334W, R347H, R347P, R352Q, R553X, R560K, R560T, R709X, R75X, R764X, R851X, M9148V, K3741R, E9163B, S341P, S466X, S489X, S492F, S549N, S793A-NAI, N136T-IMB, S945L, T338I, V520F, Q7606S, L9503W, F8608Q, N3033Q, W401X, W846X, X7924Y, L5630V, Y122X (conditionally reported variants: Poly T, I506V, I507V). This test was developed and its performance characteristics determined by [facility]'s [facility] [place] ([facility]). It has not been cleared or approved by the FDA. [facility] is regulated under CLIA as qualified to perform high-complexity testing. This test is used for clinical purposes. It should not be regarded as investigational or for research. REFERENCES 1. Carrier screening for genetic conditions. Committee Opinion No. 691. [place] [employer]. Obstet Gynecol. 2017;129:e41???55. 2. The Clinical and Functional Translation of CFTR (CFTR2); available at http://[email or web address].org. 3. Matt KING, Niurka EM, Awa GROVES, et al. CFTR mutation distribution among [place] and individuals: Evaluation in cystic fibrosis patient and carrier screening populations. Tuyet Med. 2004;6(5):392-99. 4. For more information about CF consult [email or web address]. Performed By: [facility] [address] [place] [address] Dairy Equipment Mechanic: Gregory Augustin III#: [id number] Phone#: Performed By: #### U A, UAMICAO #### [place] [address] Dietary Aide Cytology Reporton 2019 Dietary Aide Cytology Report . Pathology Reports Accession: Collected Date/Time: Received Date/Time: Pathologist: [id number] 12/16/2019 11:05 EST 12/16/2019 18:00 EST Dietary Aide Cytology Report SPECIMEN: Specimen Description: Liquid Prep Reflex ASCUS Specimen: Cervical Screening or Diagnostic: Screening RELEVANT HISTORY: LMP: 10-08-19 [id number] SPECIMEN ADEQUACY: SATISFACTORY FOR EVALUATION ENDOCERVICAL/TRANSFORM ATIONAL ZONE COMPONENT ABSENT/INSUFFICIENT INTERPRETATION/RESULTS : NEGATIVE FOR INTRAEPITHELIAL LESION OR MALIGNANCY COMMENT: This Pap Test was successfully processed and evaluated with the assistance of the [employer] ThinPrep Test Imaging System. Electronically Signed by Pathology report verified by [facility] Screened by: KK Electronically signed by Tammy LOPEZ (ASCP) Sign-Out Date: 12/19/2019 11:13 Performing Lab: [address] States Disclaimer The Pap test is a screening test for cervical cancer. As evidenced by published data, it is subject to both inherent false negative and false positive results. Your patient's results should be interpreted in context with pertinent clinical history including gynecological examination. Normal [facility] ([place]) Comment on above: Performed By: #### U A, UAMICAO #### [place] [address] CTPCRon 12-17-2019 C. trachomatis Interp Normal See CT Interp N [facility] ([place]) Comment on above: Result Comment: C. t rachomatis DNA not detected. Specimen is presumptive negative for C. trachomatis. A negative result does not preclude C. trachomatis infection because results depend on adequate specimen collection, absence of inhibitors, and sufficient DNA to be detected. See CT Interp N Performed By: #### Zain Broussard UAMICAO #### [address] [address] C.trachomatis PCR Negative Normal Negative [facility] ([place]) Comment on above: Result Comment: Mole cular (PCR) assay performed on the [place] [employer]00 system. Performed By: #### Zain Broussard UAMICAO #### [address] [address] Chlam Source Cervix Normal [facility] ([place]) Comment on above: Performed By: #### U Aarti UAMICAO #### [place] [address] CURon 12-17-2019 CUR . MICRO - Microbiology PROCEDURE: Urine Culture [*1] SOURCE: Urine, Clean Catch BODY SITE: COLLECTED DATE/TIME: 12/16/2019 11:19 EST RECEIVED DATE/TIME: 12/16/2019 20:25 EST START DATE/TIME: 12/16/2019 20:26 EST FREE TEXT SOURCE: FINAL REPORTS Final Report [] Verified Date/Time/Personnel: 12/17/2019 13:31 EST 10,000 - 50,000 cfu/ml Multiple bacterial morphotypes present. Probable Contamination. Suggest recollection if clinically indicated. Performing Locations *1: This test was performed at: [address], [facility] , [facility] ([place]) Comment on above: Performed By: #### Zain Broussard UAMICAO #### [place] [address] HBSAGon 12-17-2019 Hep B Surf Ag Negative Normal Negative [facility] ([place]) Comment on above: Performed By: #### Zain Broussard UAMICAO #### [address] [address] NGPCRon 12-17-2019 GC PCR Source Cervix Normal [facility] ([place]) Comment on above: Performed By: #### U Aarti UAMICAO #### [place] [address] N. gonorrhoeae (PCR) Negative Normal Negative [facility] ([place]) Comment on above: Result Comment: Janna de los santos (PCR) assay performed on the [place] 4800 System. Performed By: #### ROCIO Frausto #### [place] [address] N. gonorrhoeae Interp Normal See NG Interp N [facility] ([place]) Comment on above: Result Comment: N. g onorrhoeae DNA not detected. Specimen is presumptive negative for N. gonorrhoeae. A negative result does not preclude Neisseria gonorrhoeae infection because results depend on adequate specimen collection, absence of inhibitors, and sufficient DNA to be detected. See NG Interp N Performed By: #### U ROCIO Broussard #### [place] [address] RPRon 12-17-2019 Reagin Ab RPR Ql (S) Non-Reactive Normal Non-Reactive [facility] ([place]) Comment on above: Result Comment: The RPR test is a non-treponemal assay useful as an aid in the diagnosis of primary and secondary syphilis. It converts to positive generally within 2 weeks after the appearance of a lesion. This test is also useful for monitoring response to antibiotic therapy. A positive RPR screening test will be followed by the FTA ABS test. False positive RPR tests may occur in 1) patients with underlying autoimmune disorders, 2) elderly patients, 3) , and 4) other conditions with abnormal serum globulins. Performed By: #### ROCIO Frausto #### [place] [address] RUBISon 12-17-[address] Positive Normal Positive [facility] ([place]) Comment on above: Result Comment: This immune status assay detects IgM and/or IgG antibody to Rubella. Interpret results in conjunction with clinical history. POS: Antibody detected; exposure at undetermined recent or distant time. If clinically indicated, order Rubella IGM to rule out recent infection. NEG: No antibody detected. Performed By: #### U Aarti, ROCIO #### [address] [address] .Auto Diffon 12-16-2019 Ammonia (P) [Mass/Vol] 0.50 10 3/mcL Normal 0.15-1.00 [facility] ([place]) Comment on above: Performed By: #### ROCIO Frausto #### [address] [address] Basophils (Bld) [#/Vol] 0.00 10 3/mcL Normal 0.00-0.19 [facility] ([place]) Comment on above: Performed By: #### ROCIO Frausto #### [address] [address] Basophils/100 WBC (Bld) 0.5 % Normal 0.0-2.5 [facility] ([place]) Comment on above: Performed By: #### ROCIO Frausto #### [address] [address] Eosinophils (Bld) [#/Vol] 0.20 10 3/mcL Normal 0.00-0.40 [facility] ([place]) Comment on above: Performed By: #### ROCIO Frausto #### [address] [address] Eosinophils/100 WBC (Bld) 2.1 % Normal 0.0-7.0 [facility] ([place]) Comment on above: Performed By: #### ROCIO Frausto #### [address] [address] Lymphocytes (Bld) [#/Vol] 1.90 10 3/mcL Normal 0.77-3.85 [facility] ([place]) Comment on above: Performed By: #### ROCIO Frausto #### [address] [address] Lymphocytes/100 WBC (Bld) 22.7 % Normal 10.0-50.0 [facility] ([place]) Comment on above: Performed By: #### ROCIO Frausto #### [address] [address] Monocytes/100 WBC (Bld) 6.3 % Normal 1.7-13.0 [facility] ([place]) Comment on above: Performed By: #### ROCIO Frausto #### [place] [address] Neutrophils/100 WBC (Bld) 68.4 % Normal 37.0-80.0 [facility] ([place]) Comment on above: Performed By: #### U A, UAMICAO #### [place] [address] .NEUABSon 12-16-2019 Neutrophils (Bld) [#/Vol] 5.70 10 3/mcL Normal 2.85-6.16 [facility] ([place]) Comment on above: Performed By: #### U A, UAMICAO #### [place] [address] .Urinalysis Microscopic (AO) on 12-16-2019 RBC (U) [#/Vol] 0-5 Abnormal None Seen [facility] ([place]) Comment on above: Performed By: #### U A, UAMICAO #### [place] [address] UA Bacteria 2+ /hpf Abnormal [facility] ([place]) Comment on above: Performed By: #### U A, UAMICAO #### [place] [address] UA Squam Epithelial 5-10 Abnormal None Seen [facility] ([place]) Comment on above: Performed By: #### U A, UAMICAO #### [place] [address] UA WBC 0-5 Abnormal None Seen [facility] ([place]) Comment on above: Performed By: #### U A, UAMICAO #### [place] [address] UA Yeast Trace Abnormal [facility] ([place]) Comment on above: Performed By: #### U A, UAMICAO #### [place] [address] CBCon 12-16-2019 Erythrocyte distribution width (RBC) [Ratio] 14.1 % Normal 11.5-14.5 [facility] ([place]) Comment on above: Performed By: #### C BC, ADIFF, ANEU, CFMDX, HIVRP, ABOG, ANSG #### [place] [address] #### HBSAG, RUBIS, RPR #### [address] [address] Hematocrit (Bld) [Volume fraction] 38.6 % Normal 37.0-47.0 [facility] ([place]) Comment on above: Performed By: #### C BC, ADIFF, ANEU, CFMDX, HIVRP, ABOG, ANSG #### [place] [address] #### HBSAG, RUBIS, RPR #### [place] [id number] Hemoglobin (Bld) [Mass/Vol] 13.1 G/dL Normal 12.0-16.0 [facility] ([place]) Comment on above: Performed By: #### C BC, ADIFF, ANEU, CFMDX, HIVRP, ABOG, ANSG #### [place] [address] #### HBSAG, RUBIS, RPR #### [address] [address] MCH (RBC) [Entitic mass] 28.7 pg Normal 27.0-31.2 [facility] ([place]) Comment on above: Performed By: #### C BC, ADIFF, ANEU, CFMDX, HIVRP, ABOG, ANSG #### [place] [address] #### HBSAG, RUBIS, RPR #### [place] [address] MCHC (RBC) [Mass/Vol] 33.8 G/dL Normal 33.0-37.0 [facility] ([place]) Comment on above: Performed By: #### C BC, ADIFF, ANEU, CFMDX, HIVRP, ABOG, ANSG #### [place] [address] #### HBSAG, RUBIS, RPR #### [address] [address] MCV (RBC) [Entitic vol] 84.9 fL Normal 80.0-94.0 [facility] ([place]) Comment on above: Performed By: #### C BC, ADIFF, ANEU, CFMDX, HIVRP, ABOG, ANSG #### [address] [address] #### HBSAG, RUBIS, RPR #### [address] [address] Platelet mean volume (Bld) [Entitic vol] 10.4 fL Normal 7.4-10.4 [facility] ([place]) Comment on above: Performed By: #### C BC, ADIFF, ANEU, CFMDX, HIVRP, ABOG, ANSG #### [address] [address] #### HBSAG, RUBIS, RPR #### [address] [address] Platelets (Bld) [#/Vol] 205 10 3/mcL Normal 130-400 [facility] ([place]) Comment on above: Performed By: #### C BC, ADIFF, ANEU, CFMDX, HIVRP, ABOG, ANSG #### [address] [address] #### HBSAG, RUBIS, RPR #### [address] [address] RBC (Bld) [#/Vol] 4.55 10 6/mcL Normal 4.20-5.40 [facility] ([place]) Comment on above: Performed By: #### C BC, ADIFF, ANEU, CFMDX, HIVRP, ABOG, ANSG #### [place] [address] #### HBSAG, RUBIS, RPR #### [address] [address] WBC (Bld) [#/Vol] 8.50 10 3/mcL Normal 4.60-10.80 [facility] ([place]) Comment on above: Performed By: #### C BC, ADIFF, ANEU, CFMDX, HIVRP, ABOG, ANSG #### [address] [address] #### HBSAG, RUBIS, RPR #### [address] [address] Gel ABOon 12-16-2019 ABO/Rh Interp Positive [facility] ([place]) Comment on above: Performed By: #### C BC, ADIFF, ANEU, CFMDX, HIVRP, ABOG, ANSG #### [place] [address] #### HBSAG, RUBIS, RPR #### [place] [address] Gel ABSon 12-16-2019 Antibody Screen Gel Negative Normal [facility] ([place]) Comment on above: Performed By: #### C BC, ADIFF, ANEU, CFMDX, HIVRP, ABOG, ANSG #### [place] [address] #### HBSAG, RUBIS, RPR #### [place] [address] HIVRPon 12-16-2019 HIV p24 Antigen Non-Reactive Normal Non-Reactive [facility] ([place]) Comment on above: Performed By: #### C BC, ADIFF, ANEU, CFMDX, HIVRP, ABOG, ANSG #### [place] [address] #### HBSAG, RUBIS, RPR #### [place] [address] HIV P24 Int Non-reactive [facility] ([place]) Comment on above: Performed By: #### C BC, ADIFF, ANEU, CFMDX, HIVRP, ABOG, ANSG #### [place] [address] #### HBSAG, RUBIS, RPR #### [place] [address] Rapid HIV 1/2 Antibody Non-Reactive Normal Non-Reactive [facility] ([place]) Comment on above: Performed By: #### C BC, ADIFF, ANEU, CFMDX, HIVRP, ABOG, ANSG #### [address] [address] #### HBSAG, RUBIS, RPR #### [place] [address] RHIV 1/2 Ab Int Non-Reactive [facility] ([place]) Comment on above: Performed By: #### C BC, ADIFF, ANEU, CFMDX, HIVRP, ABOG, ANSG #### [place] [address] #### HBSAG, RUBIS, RPR #### [place] [address] UAon 12-16-2019 Color (U) Yellow Normal [facility] ([place]) Comment on above: Performed By: #### U A, UAMICAO #### [place] [address] Glucose (U) [Mass/Vol] Negative Normal Negative [facility] ([place]) Comment on above: Performed By: #### U A, UAMICAO #### [place] [address] Ketones Ql (U) Negative Normal Negative [facility] ([place]) Comment on above: Performed By: #### U A, UAMICAO #### [place] [address] UA Appear Slightly Cloudy Abnormal Clear [facility] ([place]) Comment on above: Performed By: #### U A, UAMICAO #### [place] [address] UA Blood Moderate Abnormal Negative [facility] ([place]) Comment on above: Performed By: #### U A, UAMICAO #### [place] [address] UA Leuk Est Negative Normal Negative [facility] ([place]) Comment on above: Performed By: #### U A, UAMICAO #### [facility] [address] [place], [place] [address] UA Nitrite Negative Normal Negative [facility] ([place]) Comment on above: Performed By: #### U A, UAMICAO #### [place] [address] UA pH 6.0 Normal 5.0 - 8.0 [facility] ([place]) Comment on above: Performed By: #### U A, UAMICAO #### [place] [address] UA Protein Negative Normal Negative [facility] ([place]) Comment on above: Performed By: #### U A, UAMICAO #### [place] [address] UA Spec Grav 1.025 Normal 1.015-1.025 [facility] ([place]) Comment on above: Performed By: #### U A, UAMICAO #### [place] [address] UA Specimen Type Clean Catch Normal [facility] ([place]) Comment on above: Performed By: #### U A, UAMICAO #### [place] [address] UA Urobilinogen 0.2 E.U./dL Normal 0.2-1.0 [facility] ([place]) Comment on above: Performed By: #### U A, UAMICAO #### [place] [address] Urobilinogen Qn (U) Negative Normal Negative [facility] ([place]) Comment on above: Performed By: #### U A, UAMICAO #### [place] [address] CURon 11-21-2019 CUR . MICRO - Microbiology PROCEDURE: Urine Culture [*1] SOURCE: Urine BODY SITE: COLLECTED DATE/TIME: 11/19/2019 10:54 EST RECEIVED DATE/TIME: 11/19/2019 20:47 EST START DATE/TIME: 11/19/2019 20:47 EST FREE TEXT SOURCE: FINAL REPORTS Final Report [] Verified Date/Time/Personnel: 11/21/2019 07:25 EST 50,000 - 100,000 cfu/ml Multiple bacterial morphotypes present. Probable Contamination. Suggest recollection if clinically indicated. PRELIMINARY REPORTS Preliminary Report [] Verified Date/Time/Personnel: 11/20/2019 11:42 EST Culture results pending. Performing Locations *1: This test was performed at: [facility], [address] [place] [address], [address] [place] [address] ([place]) Comment on above: Performed By: #### C UR #### [address] [address] .Urinalysis Microscopic (AO) on 11-19-2019 RBC (U) [#/Vol] 15-25 Abnormal None Seen [facility] ([place]) Comment on above: Performed By: #### U A, UAMICAO #### [place] [address] UA Bacteria 1+ /hpf Abnormal [facility] ([place]) Comment on above: Performed By: #### U A, UAMICAO #### [address] [address] UA Squam Epithelial 5-10 Abnormal None Seen [facility] ([place]) Comment on above: Performed By: #### U A, UAMICAO #### [place] [address] UA WBC 0-5 Abnormal None Seen [facility] ([place]) Comment on above: Performed By: #### U A, UAMICAO #### [address] [address] HCGQon 11-19-2019 hCG, quantitative [address]2853.0 mIU/mL Normal [facility] ([place]) Comment on above: Result Comment: HCG Quantitative 3 Weeks Gestation mIU/mL 5.0 to 12.0 HCG Quantitative 4 Weeks Gestation mIU/mL 10.0 to 708.0 HCG Quantitative 5 Weeks Gestation mIU/mL 217.0 to 8245.0 HCG Quantitative 6 Weeks Gestation mIU/mL 152.0 to 32,177.0 HCG Quantitative 7 Weeks Gestation mIU/mL 4059.0 to 153,767.0 HCG Quantitative 8 Weeks Gestation mIU/mL 31,366.0 to 149,094.0 HCG Quantitative 9 Weeks Gestation mIU/mL 59,109.0 to 135,901.0 HCG Quantitative 10 Weeks Gestation mIU/mL 44,186.0 to 170,409.0 HCG Quantitative 12 Weeks Gestation mIU/mL 27,107.0 to 201,615.0 HCG Quantitative 14 Weeks Gestation mIU/mL 24,302.0 to 93,646.0 Performed By: #### H CGQ #### [address] [address] UAon 11-19-2019 Color (U) Yellow Normal [facility] ([place]) Comment on above: Performed By: #### U A, UAMICAO #### [place] [id number] Glucose (U) [Mass/Vol] Negative Normal Negative [facility] ([place]) Comment on above: Performed By: #### U A, UAMICAO #### [place] [address] Ketones Ql (U) Negative Normal Negative [facility] ([place]) Comment on above: Performed By: #### U A, UAMICAO #### [place] [address] UA Appear Clear Normal Clear [facility] ([place]) Comment on above: Performed By: #### U A, UAMICAO #### [place] [id number] UA Blood Large Abnormal Negative [facility] ([place]) Comment on above: Performed By: #### U A, UAMICAO #### [address] [address] UA Leuk Est Negative Normal Negative [facility] ([place]) Comment on above: Performed By: #### U A, UAMICAO #### [address] [address] UA Nitrite Negative Normal Negative [facility] ([place]) Comment on above: Performed By: #### U A, UAMICAO #### [address] [address] UA pH 6.0 Normal 5.0 - 8.0 [facility] ([place]) Comment on above: Performed By: #### U A, UAMICAO #### [address] [address] UA Protein Negative Normal Negative [facility] ([place]) Comment on above: Performed By: #### U A, UAMICAO #### [place] [address] UA Spec Grav >=1.030 Abnormal 1.015-1.025 [facility] ([place]) Comment on above: Performed By: #### U A, UAMICAO #### [place] [address] UA Specimen Type Not Given Normal [facility] ([place]) Comment on above: Performed By: #### U A, UAMICAO #### [place] [address] UA Urobilinogen 0.2 E.U./dL Normal 0.2-1.0 [facility] ([place]) Comment on above: Performed By: #### U A, UAMICAO #### [place] [address] Urobilinogen Qn (U) Negative Normal Negative [facility] ([place]) Comment on above: Performed By: #### U A, UAMICAO #### [place] [address] CULTURE URINEon 06-24-2019 CULTURE URINE CULTURE URINE --> Status: F Normal urogenital cory present. 1 Organism Staphylococcus aureus 10,000-50,000 CFU/ml 1 Organism Antibiotic Result Intrp Daptomycin(REYNALDO) = 0.25 S Gentamicin(REYNALDO) <= 0.5 S Linezolid(REYNALDO) = 2 S Nafcillin/Oxacillin(NH C) <= 0.25 S Nitrofurantoin(REYNALDO) <= 16 S Rifampin(REYNALDO) <= 0.5 S Tigecycline(REYNALDO) <= 0.12 S Trimeth/Sulfa(REYNALDO) <= 10 S Vancomycin(REYNALDO) = 1 S Normal [facility] Comment on above: Order Comment: Speci men Source Comment:Urine, clean catch Performed By: #### C /UR #### [address] [id number] [id number] Basic Metabolic Panelon 09-0 Anion gap [Moles/Vol] 7 Normal [facility] Comment on above: Performed By: #### B MP3, HEMDF, LIPA4, QWAL #### [facility] [address] [place] [address] Calcium [Mass/Vol] 9.5 mg/dL Normal 8.4-10.4 [facility] Comment on above: Performed By: #### B MP3, HEMDF, LIPA4, QWAL #### [facility] [address] [place] [address] CO2 [Moles/Vol] 25 mmol/L Normal 22-30 [facility] Comment on above: Performed By: #### B MP3, HEMDF, LIPA4, QWAL #### [facility] [address] [place] [address] Creatinine [Mass/Vol] 0.75 mg/dL Normal 0.52-1.25 [facility] Comment on above: Performed By: #### B MP3, HEMDF, LIPA4, QWAL #### [facility] [address] [place] [address] GFR/1.73 sq M predicted among blacks MDRD (S/P/Bld) [Vol rate/Area] mL/min/{1.73_m2} Normal >60 [facility] Comment on above: Performed By: #### B MP3, HEMDF, LIPA4, QWAL #### [facility] [address] [place] [address] GFR/1.73 sq M predicted among non-blacks MDRD (S/P/Bld) [Vol rate/Area] mL/min/{1.73_m2} Normal >60 [facility] Comment on above: Result Comment: Sour ce- MDRD equation with creatinine calibration to IDMS(NKDEP) eGFR not recommended for drug dose adjustment Performed By: #### B MP3, HEMDF, LIPA4, QWAL #### [facility] [address] [place] [address] Glucose [Mass/Vol] 96 mg/dL Normal 70-100 [facility] Comment on above: Performed By: #### B MP3, HEMDF, LIPA4, QWAL #### [facility] [address] [place] [address] Urea nitrogen [Mass/Vol] 12 mg/dL Normal 7-20 [facility] Comment on above: Performed By: #### B MP3, HEMDF, LIPA4, QWAL #### [facility] [address] [place] [address] Chloride [Moles/Vol] 106 mmol/L Normal 98-107 [facility] Comment on above: Performed By: #### B MP3, HEMDF, LIPA4, QWAL #### [facility] [address] [place] [address] Potassium [Moles/Vol] 4.0 mmol/L Normal 3.5-5.1 [facility] Comment on above: Performed By: #### B MP3, HEMDF, LIPA4, QWAL #### [facility] [address] [place] [address] Sodium [Moles/Vol] 138 mmol/L Normal 135-145 [facility] Comment on above: Performed By: #### B MP3, HEMDF, LIPA4, QWAL #### [facility] [address] [place] [address] Anion gap [Moles/Vol] 7 mmol/L [place] Calcium [Mass/Vol] 9.5 mg/dL 8.4 - 10. 4 mg/dL [place] Chloride [Moles/Vol] 106 mmol/L 98 - 10 7 mmol/L [place] CO2 [Moles/Vol] 25 mmol/L 22 - 30 mmol/L [place] Creatinine [Mass/Vol] 0.75 mg/dL 0.52 - 1.25 mg/dL [place] EGFR IF NonAfrican [place] >60.0 >60 mL/min [place] Comment on above: Source- MDRD equatio n with creatinine calibration to IDMS(NKDEP) eGFR not recommended for drug dose adjustment GFR/1.73 sq M predicted among blacks MDRD (S/P/Bld) [Vol rate/Area] mL/min/{1.73_m2} >60 mL/min [place] Glucose [Mass/Vol] 96 mg/dL 70 - 100 mg/dL [place] Potassium [Moles/Vol] 4.0 mmol/L 3.5 - 5.1 mmol/L [place] Sodium [Moles/Vol] 138 mmol/L 135 - 145 mmol/L [place] Urea nitrogen [Mass/Vol] 12 mg/dL 7 - 20 mg/dL [place] Complete Urinalysison 2018 Appearance (U) Ex.Turbid Normal [facility] Comment on above: Result Comment: Refe rence Range: Clear Performed By: #### C UA2 #### [facility] [address] [place] [address] Bilirubin,Urine Negative Normal [facility] Comment on above: Result Comment: Refe rence Range: Negative Performed By: #### C UA2 #### [facility] [address] [place] [address] Color (U) Yellow Normal [facility] Comment on above: Result Comment: Refe rence Range: Lt. Yellow Performed By: #### C UA2 #### [facility] [address] [place] [address] Glucose Ql (U) Normal Normal [facility] Comment on above: Result Comment: Refe rence Range: Normal (<70) Performed By: #### C UA2 #### [facility] [address] [place] [address] Ketone,Urine Negative Normal [facility] Comment on above: Result Comment: Refe rence Range: Negative Performed By: #### C UA2 #### [facility] [address] [place] [address] Leukocytes,Urine 500 Jose/uL Normal [facility] Comment on above: Result Comment: Refe rence Range: Negative Performed By: #### C UA2 #### [facility] [address] [place] [address] Mucous Threads Few Normal [facility] Comment on above: Result Comment: Refe rence Range: Negative Performed By: #### C UA2 #### [facility] [address] [place] [address] Nitrites,Urine Negative Normal [facility] Comment on above: Result Comment: Refe rence Range: Negative Performed By: #### C UA2 #### [facility] [address] [place] [address] Non-Squamous Epithelial 4 /[HPF] Normal [facility] Comment on above: Result Comment: Refe rence Range: Negative Performed By: #### C UA2 #### [facility] [address] [place] [address] Occult Blood,Urine 0.5 mg/dL Normal [facility] Comment on above: Result Comment: Refe rence Range: Negative Performed By: #### C UA2 #### [facility] [address] [place] [address] pH (U) 6.0 Normal 5.0-8.0 [facility] Comment on above: Performed By: #### C UA2 #### [facility] [address] [place] [address] Protein (U) [Mass/Vol] 300 mg/dL Normal [facility] Comment on above: Result Comment: Refe rence Range: Negative Performed By: #### C UA2 #### [facility] [address] [place] [address] RBC LM.HPF (Urine sed) [#/Area] /[HPF] Normal [facility] Comment on above: Result Comment: Refe rence Range: 0-2 Performed By: #### C UA2 #### [facility] [address] [place] [address] Specific [place],Urine 1.020 Normal 1.005-1.030 [facility] Comment on above: Performed By: #### C UA2 #### [facility] [address] [place] [address] Squamous Epithelial 11 - 25 Normal [facility] Comment on above: Result Comment: Refe rence Range: 3-5 Performed By: #### C UA2 #### [facility] [address] [place] [address] Urobilinogen,Urine Normal Normal [facility] Comment on above: Result Comment: Refe rence Range: Normal (0-1) Performed By: #### C UA2 #### [facility] [address] [place] [address] WBC LM.HPF (Urine sed) [#/Area] /[HPF] Normal [facility] Comment on above: Result Comment: Refe rence Range: 0-5 Performed By: #### C UA2 #### [facility] [address] [place] [address] White Blood Cell Clump Many Normal [facility] Comment on above: Result Comment: Refe rence Range: Negative Performed By: #### C UA2 #### [facility] [address] [place] [address] HCG Qualitative, Serumon hCG Qual Negative m[IU]/mL [place] Comment on above: REF RANGE: Negative .... < 3 Questionable Rpt 48-72 Hr Positive ..... > 10 Test Performed by [facility], [facility] [address] [place] [address] [place] Hemogram (CBC) w/Auto Diffon 06-22-2019 Absolute Baso # 0.0 10*3/uL 0 - 0.2 10*3/uL [place] Absolute Neut # 7.9 10*3/uL High 1.8 - 7 10*3/uL [place] Basophils/100 WBC (Bld) 0.5 % 0 - 2 % [place] Eosinophils (Bld) [#/Vol] 0.2 10*3/uL 0 - 0.5 10*3/uL [place] Eosinophils/100 WBC (Bld) 2.0 % 1 - 6 % [place] Erythrocyte distribution width (RBC) [Ratio] 14.0 % 11.5 - 14.5 % [place] Granulocytes/100 WBC (Bld) 74.9 % 40 - 80 % [place] Hematocrit (Bld) [Volume fraction] 44.8 % 35 - 47 % [place] Hemoglobin (Bld) [Mass/Vol] 14.9 g/dL 11.7 - 16 g/dL [place] Interpretation and review of laboratory results Abnormal [place] Lymphocytes (Bld) [#/Vol] 1.7 10*3/uL 1 - 4.3 10*3/uL [place] Lymphocytes/100 WBC (Bld) 16.2 % Low 20 - 40 % [place] MCH (RBC) [Entitic mass] 28.3 pg 26 - 34 pg [place] MCHC (RBC) [Mass/Vol] 33.3 % 32 - 36 % [place] MCV (RBC) [Entitic vol] 85.0 fL 79 - 98 fL [place] Monocytes (Bld) [#/Vol] 0.7 10*3/uL 0 - 0.8 10*3/uL [place] Monocytes/100 WBC (Bld) 6.4 % 2 - 10 % [place] Platelet mean volume (Bld) [Entitic vol] 9.7 fL 7.4 - 10.4 fL [place] Platelets (Bld) [#/Vol] 227 10*3/uL 140 - 440 10*3/uL [place] RBC (Bld) [#/Vol] 5.27 10*6/uL High 3.8 - 5.2 10*6/uL [place] WBC (Bld) [#/Vol] 10.5 10*3/uL 3.6 - 10.7 10*3/uL [place] Test Performed by [facility], [address] [place] [address] [place] Hemogram w/ Autodiffon 06-22 Abs Baso Cnt 0.0 10*3/uL Normal 0.0-0.2 [facility] Comment on above: Performed By: #### B MP3, HEMDF, LIPA4, QWAL #### [facility] [address] [place] [address] Abs Neutrophile Cnt 7.9 10*3/uL High 1.8-7.0 [facility] Comment on above: Performed By: #### B MP3, HEMDF, LIPA4, QWAL #### [facility] [address] [place] [address] Basophils/100 WBC (Bld) 0.5 % Normal 0.0-2.0 [facility] Comment on above: Performed By: #### B MP3, HEMDF, LIPA4, QWAL #### [facility] [address] [place] [address] Eosinophils (Bld) [#/Vol] 0.2 10*3/uL Normal 0.0-0.5 [facility] Comment on above: Performed By: #### B MP3, HEMDF, LIPA4, QWAL #### [facility] [address] [place] [address] Eosinophils/100 WBC (Bld) 2.0 % Normal 1.0-6.0 [facility] Comment on above: Performed By: #### B MP3, HEMDF, LIPA4, QWAL #### [facility] [address] [place] [address] Erythrocyte distribution width (RBC) [Ratio] 14.0 % Normal 11.5-14.5 [facility] Comment on above: Performed By: #### B MP3, HEMDF, LIPA4, QWAL #### [facility] [address] [place] [address] Granulocytes/100 WBC (Bld) 74.9 % Normal 40.0-80.0 [facility] Comment on above: Performed By: #### B MP3, HEMDF, LIPA4, QWAL #### [facility] [address] [place] [address] Hematocrit (Bld) [Volume fraction] 44.8 % Normal 35.0-47.0 [facility] Comment on above: Performed By: #### B MP3, HEMDF, LIPA4, QWAL #### [facility] [address] [place] [address] Hemoglobin (Bld) [Mass/Vol] 14.9 g/dL Normal 11.7-16.0 [facility] Comment on above: Performed By: #### B MP3, HEMDF, LIPA4, QWAL #### [facility] [address] [place] [address] Lymphocytes (Bld) [#/Vol] 1.7 10*3/uL Normal 1.0-4.3 [facility] Comment on above: Performed By: #### B MP3, HEMDF, LIPA4, QWAL #### [facility] [address] [place] [address] Lymphocytes/100 WBC (Bld) 16.2 % Low 20.0-40.0 [facility] Comment on above: Performed By: #### B MP3, HEMDF, LIPA4, QWAL #### [facility] [address] [place] [address] MCH (RBC) [Entitic mass] 28.3 pg Normal 26.0-34.0 [facility] Comment on above: Performed By: #### B MP3, HEMDF, LIPA4, QWAL #### [facility] [address] [place] [address] MCHC (RBC) [Mass/Vol] 33.3 % Normal 32.0-36.0 [facility] Comment on above: Performed By: #### B MP3, HEMDF, LIPA4, QWAL #### [facility] [address] [place] [address] MCV (RBC) [Entitic vol] 85.0 fL Normal 79.0-98.0 [facility] Comment on above: Performed By: #### B MP3, HEMDF, LIPA4, QWAL #### [facility] [address] [place] [address] Monocytes (Bld) [#/Vol] 0.7 10*3/uL Normal 0.0-0.8 [facility] Comment on above: Performed By: #### B MP3, HEMDF, LIPA4, QWAL #### [facility] [address] [place] [address] Monocytes/100 WBC (Bld) 6.4 % Normal 2.0-10.0 [facility] Comment on above: Performed By: #### B MP3, HEMDF, LIPA4, QWAL #### [facility] [address] [place] [address] Platelet mean volume (Bld) [Entitic vol] 9.7 fL Normal 7.4-10.4 [facility] Comment on above: Performed By: #### B MP3, HEMDF, LIPA4, QWAL #### [facility] [address] [place] [address] Platelets (Bld) [#/Vol] 227 10*3/uL Normal 140-440 [facility] Comment on above: Performed By: #### B MP3, HEMDF, LIPA4, QWAL #### [facility] [address] [place] [address] RBC (Bld) [#/Vol] 5.27 10*6/uL High 3.80-5.20 [facility] Comment on above: Performed By: #### B MP3, HEMDF, LIPA4, QWAL #### [facility] [address] [place] [address] WBC (Bld) [#/Vol] 10.5 10*3/uL Normal 3.6-10.7 [facility] Comment on above: Performed By: #### B MP3, HEMDF, LIPA4, QWAL #### [facility] [address] [place] [address] Lipaseon 06-22-2019 Lipase [Catalytic activity/Vol] 166 U/L Normal 23-300 [facility] Comment on above: Performed By: #### B MP3, HEMDF, LIPA4, QWAL #### [facility] [address] [place] [address] Lipase [Catalytic activity/Vol] 166 U/L 23 - 300 U/L [place] Otheron 06-22-2019 Test Performed by [facility], [address] [place] [address] [place] Urinalysison 06-22-2019 Appearance (U) Ex.Turbid [place], [place] Comment on above: Reference Range: Gregor ar Bilirubin Urine Negative mg/dL [place], [place] Comment on above: Reference Range: Neg ative Color (U) Yellow [place] Comment on above: Reference Range: Lt. Yellow Glucose, Ur Normal mg/dL [place] Comment on above: Reference Range: Nor mal (<70) Ketones Ql (U) Negative mg/dL [place] Comment on above: Reference Range: Neg ative LEUKOCYTES, UA 500 Jose/uL [place] Comment on above: Reference Range: Neg ative Mucous Threads Few /[LPF] [place] Comment on above: Reference Range: Neg ative Nitrite, Urine Negative [place] Comment on above: Reference Range: Neg ative Non-Squamous Epithelial 4 /[HPF] [place] Comment on above: Reference Range: Neg ative Occult Blood,Urine 0.5 mg/dL [place] Comment on above: Reference Range: Neg ative pH (U) 6.0 [pH] [place] Protein (U) [Mass/Vol] 300 mg/dL [place] Comment on above: Reference Range: Neg ative RBC (U) [#/Vol] /uL /[HPF] [place] Comment on above: Reference Range: 0-2 Specific [place], Urine 1.020 [place] Squam Epithel, UA 11-25 /[HPF] [place], [place] Comment on above: Reference Range: 3-5 Urobilinogen, Urine Normal mg/dL [place] Comment on above: Reference Range: Nor mal (0-1) WBC Clumps, Urine Many /[HPF] [place] Comment on above: Reference Range: Neg ative WBC, UA >100 /[HPF] [place] Comment on above: Reference Range: 0-5 Test Performed by [facility], [address], [place], [place] [address] [place] hCG Qual Pregon 06-22-2019 hCG Qual Preg Negative Normal [facility] Comment on above: Result Comment: REF RANGE: Negative .... < 3 Questionable Rpt 48-72 Hr Positive ..... > 10 Performed By: #### B MP3, HEMDF, LIPA4, QWAL #### [facility] [address] [place] [address] Vital Signs Date Time Vital Sign Value Performing Clinician Facility 02-06-2025 09:33-0400 Body height 160 cm Alisha Betancur APRN.MINUTE CLERK Work Phone: [facility] 02-06-2025 09:33-0400 Body mass index (BMI) [Ratio] 34.54 kg/m2 Alisha Betancur APRN.MINUTE CLERK Work Phone: [facility] 02-06-2025 09:33-0400 Body temperature 98.6 [degF] Alisha Betancur ROOF FIXER.MINUTE CLERK Work Phone: [facility] 02-06-2025 09:33-0400 Body weight 88.45 kg Alisha Betancur ROOF FIXER.MINUTE CLERK Work Phone: [facility] 02-06-2025 09:33-0400 Diastolic blood pressure 76 mm[Hg] Alisha Betancur ROOF FIXER.MINUTE CLERK Work Phone: [facility] 02-06-2025 09:33-0400 Heart rate 77 /min Alisha Betancur APRN.MINUTE CLERK Work Phone: [facility] 02-06-2025 09:33-0400 Respiratory rate 16 /min Alisha Queden ROOF FIXER.MINUTE CLERK Work Phone: [facility] 02-06-2025 09:33-0400 SaO2% (BldA) [Mass fraction] 98 % Alisha Queden ROOF FIXER.MINUTE CLERK Work Phone: [facility] 02-06-2025 09:33-0400 Systolic blood pressure 120 mm[Hg] Alisha Queden ROOF FIXER.MINUTE CLERK Work Phone: [facility] 11-05-2024 13:21-0500 Body height 160 cm Khushi [employer]and[employer]ski PA-C Work Phone: [facility] 11-05-2024 13:21-0500 Body mass index (BMI) [Ratio] 33.66 kg/m2 Khushi [employer]andMeulski PA-C Work Phone: [facility] 11-05-2024 13:21-0500 Body weight 86.18 kg Khushi Mikulski PA-C Work Phone: [facility] 11-05-2024 13:21-0500 Respiratory rate 18 /min Khushi Mikulski PA-C Work Phone: [facility] 10-30-2024 09:07-0500 Body height 160 cm Alisha Queden ROOF FIXER.MINUTE CLERK Work Phone: [facility] 10-30-2024 09:07-0500 Body mass index (BMI) [Ratio] 33.66 kg/m2 Alisha Queden ROOF FIXER.MINUTE CLERK Work Phone: [facility] 10-30-2024 09:07-0500 Body temperature 98.6 [degF] Alisha Queden ROOF FIXER.MINUTE CLERK Work Phone: [facility] 10-30-2024 09:07-0500 Body weight 86.18 kg Alisha Queden ROOF FIXER.MINUTE CLERK Work Phone: [facility] 10-30-2024 09:07-0500 Diastolic blood pressure 76 mm[Hg] Alisha Queden ROOF FIXER.MINUTE CLERK Work Phone: [facility] 10-30-2024 09:07-0500 Heart rate 78 /min Alisha Queden ROOF FIXER.MINUTE CLERK Work Phone: [facility] 10-30-2024 09:07-0500 SaO2% (BldA) [Mass fraction] 98 % Alisha Queden ROOF FIXER.MINUTE CLERK Work Phone: [facility] 10-30-2024 09:07-0500 Systolic blood pressure 110 mm[Hg] Alisha Queden ROOF FIXER.MINUTE CLERK Work Phone: [facility] 01-04-2024 15:06-0400 Diastolic blood pressure 67 mm[Hg] Anu Oviedo MD Work Phone: [facility] 01-04-2024 15:06-0400 Heart rate 83 /min Anu Oviedo MD Work Phone: [facility] 01-04-2024 15:06-0400 Respiratory rate 16 /min Anu Oviedo MD Work Phone: [facility] 01-04-2024 15:06-0400 SaO2% (BldA) [Mass fraction] 100 % Anu Oviedo MD Work Phone: [facility] 01-04-2024 15:06-0400 Systolic blood pressure 107 mm[Hg] Anu Oviedo MD Work Phone: [facility] 01-04-2024 14:49-0400 Body temperature 97.81 [degF] Anu Oviedo MD Work Phone: [facility] 01-04-2024 13:47-0400 Body height 160.7 cm Anu Oviedo MD Work Phone: [facility] 01-04-2024 13:47-0400 Body mass index (BMI) [Ratio] 34.09 kg/m2 Anu Oviedo MD Work Phone: [facility] 01-04-2024 13:47-0400 Body weight 88 kg Anu Oviedo MD Work Phone: [facility] [facility] 12-18-2023 10:23-0500 Body height 160 cm Rhonda Vallecillo PA-C Work Phone: [facility] 12-18-2023 10:23-0500 Body weight 89.72 kg Rhonda Vallecillo PA-C Work Phone: [facility] 12-18-2023 10:23-0500 Diastolic blood pressure 80 mm[Hg] Rhonda Vallecillo PA-C Work Phone: [facility] 12-18-2023 10:23-0500 Heart rate 85 /min Rhonda Vallecillo PA-C Work Phone: [facility] 12-18-2023 10:23-0500 Systolic blood pressure 114 mm[Hg] Rhonda Vallecillo PA-C Work Phone: [facility] 12-06-2023 09:08-0500 Body height 160 cm Alisha Queden ROOF FIXER.MINUTE CLERK Work Phone: [facility] 12-06-2023 09:08-0500 Body temperature 97.59 [degF] Alisha Queden ROOF FIXER.MINUTE CLERK Work Phone: [facility] 12-06-2023 09:08-0500 Body weight 89.36 kg Alisha Queden ROOF FIXER.MINUTE CLERK Work Phone: [facility] 12-06-2023 09:08-0500 Diastolic blood pressure 74 mm[Hg] Alisha Queden ROOF FIXER.MINUTE CLERK Work Phone: [facility] 12-06-2023 09:08-0500 Heart rate 77 /min Alisha Queden ROOF FIXER.MINUTE CLERK Work Phone: [facility] 12-06-2023 09:08-0500 Respiratory rate 16 /min Alisha Queden ROOF FIXER.MINUTE CLERK Work Phone: [facility] 12-06-2023 09:08-0500 SaO2% (BldA) [Mass fraction] 97 % Alisha Queden ROOF FIXER.MINUTE CLERK Work Phone: [facility] 12-06-2023 09:08-0500 Systolic blood pressure 122 mm[Hg] Alisha Queden ROOF FIXER.MINUTE CLERK Work Phone: [facility] 05-29-2023 08:32-0400 Body height 160 cm Alisha Queden ROOF FIXER.MINUTE CLERK Work Phone: [facility] 05-29-2023 08:32-0400 Body temperature 98.1 [degF] Alisha Queden ROOF FIXER.MINUTE CLERK Work Phone: [facility] 05-29-2023 08:32-0400 Body weight 85.73 kg Alisha Queden ROOF FIXER.MINUTE CLERK Work Phone: [facility] 05-29-2023 08:32-0400 Diastolic blood pressure 66 mm[Hg] Alisha Queden ROOF FIXER.MINUTE CLERK Work Phone: [facility] 05-29-2023 08:32-0400 Heart rate 69 /min Alisha Queden ROOF FIXER.MINUTE CLERK Work Phone: [facility] 05-29-2023 08:32-0400 Respiratory rate 19 /min Alisha Queden ROOF FIXER.MINUTE CLERK Work Phone: [facility] 05-29-2023 08:32-0400 SaO2% (BldA) [Mass fraction] 97 % Alisha Queden ROOF FIXER.MINUTE CLERK Work Phone: [facility] 05-29-2023 08:32-0400 Systolic blood pressure 110 mm[Hg] Alisha Queden ROOF FIXER.MINUTE CLERK Work Phone: [facility] 05-10-2023 10:21-0400 Body height 160 cm Alisha Queden ROOF FIXER.MINUTE CLERK Work Phone: [facility] 05-10-2023 10:21-0400 Body temperature 98.1 [degF] Alisha Queden ROOF FIXER.MINUTE CLERK Work Phone: [facility] 05-10-2023 10:21-0400 Body weight 86.18 kg Alisha Betancur ROOF FIXER.MINUTE CLERK Work Phone: [facility] 05-10-2023 10:21-0400 Respiratory rate 18 /min Alisha Betancur ROOF FIXER.MINUTE CLERK Work Phone: [facility] 05-10-2023 10:21-0400 SaO2% (BldA) [Mass fraction] 98 % Alisha Betancur ROOF FIXER.MINUTE CLERK Work Phone: [facility] 04-14-2023 07:25-0400 Body height 160.02 cm [facility] 04-14-2023 07:25-0400 Body mass index (BMI) [Ratio] 34.7 kg/m2 [facility] 04-14-2023 07:25-0400 Body temperature 97.8 [degF] [facility] 04-14-2023 07:25-0400 Body weight 88.9 kg [facility] 04-14-2023 07:25-0400 Diastolic blood pressure 91 mm[Hg] [facility] 04-14-2023 07:25-0400 Heart rate 116 /min [facility] 04-14-2023 07:25-0400 Respiratory rate 18 /min [facility] 04-14-2023 07:25-0400 SaO2% (BldA) [Mass fraction] 97 % [facility] 04-14-2023 07:25-0400 Systolic blood pressure 137 mm[Hg] [facility] 04-09-2023 11:36-0400 Body temperature 97.7 [degF] Rose Douglas MD Work Phone: [facility] 04-09-2023 11:36-0400 Diastolic blood pressure 64 mm[Hg] Rose Douglas MD Work Phone: [facility] 04-09-2023 11:36-0400 Heart rate 77 /min Rose Douglas MD Work Phone: [facility] 04-09-2023 11:36-0400 Respiratory rate 16 /min Rose Douglas MD Work Phone: [facility] 04-09-2023 11:36-0400 SaO2% (BldA) [Mass fraction] 95 % Rose Douglas MD Work Phone: [facility] 04-09-2023 11:36-0400 Systolic blood pressure 102 mm[Hg] Rose Douglas MD Work Phone: [facility] 04-09-2023 10:25-0400 Body height 160 cm Rose Douglas MD Work Phone: [facility] 04-09-2023 10:25-0400 Body mass index (BMI) [Ratio] 33.83 kg/m2 Rose Douglas MD Work Phone: [facility] 04-09-2023 10:25-0400 Body weight 86.64 kg Rose Douglas MD Work Phone: [facility] 02-20-2023 11:04-0400 Body height 160 cm Rhonda Daljit PA-C Work Phone: [facility] 02-20-2023 11:04-0400 Body weight 86.77 kg Rhonda Daljit PA-C Work Phone: [facility] 02-20-2023 11:04-0400 Diastolic blood pressure 70 mm[Hg] Rhonda Daljit PA-C Work Phone: [facility] 02-20-2023 11:04-0400 Heart rate 84 /min Rhonda Daljit PA-C Work Phone: [facility] 02-20-2023 11:04-0400 Systolic blood pressure 112 mm[Hg] Rhonda Daljit PA-C Work Phone: [facility] 01-08-2023 13:21-0400 Body height 160 cm Alisha Betancur APRN.CNP Work Phone: [facility] 01-08-2023 13:21-0400 Body temperature 98.71 [degF] Alisha Queden ROOF FIXER.MINUTE CLERK Work Phone: [facility] 01-08-2023 13:21-0400 Body weight 85.73 kg Alisha Queden ROOF FIXER.MINUTE CLERK Work Phone: [facility] 01-08-2023 13:21-0400 Diastolic blood pressure 68 mm[Hg] Alisha Queden ROOF FIXER.MINUTE CLERK Work Phone: [facility] 01-08-2023 13:21-0400 Heart rate 76 /min Alisha Queden ROOF FIXER.MINUTE CLERK Work Phone: [facility] 01-08-2023 13:21-0400 Respiratory rate 18 /min Alisha Queden ROOF FIXER.MINUTE CLERK Work Phone: [facility] 01-08-2023 13:21-0400 SaO2% (BldA) [Mass fraction] 98 % Alisha Queden ROOF FIXER.MINUTE CLERK Work Phone: [facility] 01-08-2023 13:21-0400 Systolic blood pressure 118 mm[Hg] Alisha Queden ROOF FIXER.MINUTE CLERK Work Phone: [facility] 11-22-2022 10:58-0500 Body height 160 cm Dylan Gill MD Work Phone: [facility] 11-22-2022 10:58-0500 Body weight 86.18 kg Dylan Gill MD Work Phone: [facility] 03-08-2022 19:58-0400 Body temperature 98.42 [degF] RYLEY ISABEL DO [facility] 03-08-2022 19:58-0400 Diastolic blood pressure 100 mm[Hg] RYLEY ISABEL DO [facility] 03-08-2022 19:58-0400 Heart rate 85 /min RYLEY ISABEL DO [facility] 03-08-2022 19:58-0400 Respiratory rate 16 /min RYLEY ISABEL DO [facility] 03-08-2022 19:58-0400 Systolic blood pressure 147 mm[Hg] RYLEY ISABEL DO [facility] 06-22-2019 09:18-0400 BMI (Body Mass Index) 33.47 kg/m2 Stephen Schmitz [employer] [facility], [place] 06-22-2019 09:18-0400 Body Temperature 97.39 [degF] [facility] [place] [place] 06-22-2019 09:18-0400 Body [facility] 88[facility]45 [facility] [place] 06-22-2019 09:18-0400 BP Diastolic 91 mm[Hg] [facility] [place] 06-22-2019 09:18-0400 BP Systolic 121 mm[Hg] [facility] [place] 06-22-2019 09:18-0400 Pulse (Heart Rate) 94 /min [facility] [place] 06-22-2019 09:18-0400 Pulse Oximetry 97 % [facility] [place] 06-22-2019 09:18-0400 Respiratory Rate 18 /min [facility] [place] [place] Encounters Encounter Date Encounter Type Care Provider Facility Start: 02-06-2025 End: 02-09-2025 Follow-up encounter Alisha Betancur APRN.MINUTE CLERK Work Phone: [facility] Comment on above: Results Start: 02-06-2025 End: 02-06-2025 ambulatory ALISHA BETANCUR Facility:[facility] Start: 02-06-2025 End: 02-06-2025 Patient encounter procedure Alisha Betancur ROOF FIXER.MINUTE CLERK Work Phone: [facility] Comment on above: Headaches (Primary D x); Left upper quadrant abdominal pain; History of pancreatitis; Stress reaction; Feeling grief; Vitamin D deficiency Start: 11-13-2024 End: 11-14-2024 E-mail encounter from caregiver Dann Dockery MD Work Phone: [facility] Start: 11-13-2024 End: 11-14-2024 Patient encounter procedure Dann Dockery MD Work Phone: [facility] Comment on above: Appointment Cancella tion Request Start: 11-10-2024 End: 11-10-2024 ambulatory Edilberto Mcneal OT/L [facility] Comment on above: Pain in left elbow ( Primary Dx) Start: 11-05-2024 End: 11-05-2024 Patient encounter procedure Khushi Buckley PA-C Work Phone: [facility] Comment on above: Lateral epicondyliti s of left elbow (Primary Dx); Chronic elbow pain, left Start: 11-05-2024 End: 11-05-2024 ambulatory ALISHA BETANCUR [facility] Start: 10-30-2024 End: 10-30-2024 Telephone encounter Alisha Betancur APRN.MINUTE CLERK Work Phone: [facility] Comment on above: Results Start: 10-30-2024 ambulatory ALISHA BETANCUR Facili ty:[facility] Start: 10-30-2024 End: 10-30-2024 Subsequent hospital visit by physician [facility] Comment on above: Chronic elbow pain, left [M25.522, G89.29] Start: 10-30-2024 End: 10-30-2024 ambulatory [facility] Start: 10-30-2024 End: 10-30-2024 Patient encounter procedure Alisha Betancur ROOF FIXER.MINUTE CLERK Work Phone: [facility] Comment on above: Chronic elbow pain, left (Primary Dx) Start: 01-04-2024 End: 01-04-2024 ambulatory ALISHA BETANCUR Facility:[facility] Start: 01-04-2024 End: 01-04-2024 Subsequent hospital visit by physician Anu Oviedo MD Work Phone: [facility] Comment on above: Diarrhea, unspecifie d type [R19.7] Start: 01-03-2024 ambulatory RHONDA VALLECILLO Facili ty:[facility] Start: 12-27-2023 ambulatory Giles Koenig MD Work Phone: [facility] Start: 12-18-2023 End: 12-18-2023 ambulatory RHONDA VALLECILLO Facility:[facility] Start: 12-18-2023 End: 12-18-2023 Patient encounter procedure Rhonda Gregorio PA-C Work Phone: [facility] [place] Comment on above: Diarrhea, unspecifie d type (Primary Dx); Abnormal CT scan, colon Start: 12-12-2023 Telephone encounter Alisha Betancur ROOF FIXER.MINUTE CLERK Work Phone: [facility] Comment on above: Results Start: 12-10-2023 Telephone encounter Alisha Betancur ROOF FIXER.MINUTE CLERK Work Phone: [facility] Comment on above: Results Start: 12-06-2023 End: 12-06-2023 Subsequent hospital visit by physician [facility] Work Phone: [facility] Comment on above: Abdominal distension (gaseous) [R14.0] Start: 12-06-2023 End: 12-06-2023 Patient encounter procedure Alisha Betancur ROOF FIXER.MINUTE CLERK Work Phone: [facility] Comment on above: Left upper quadrant abdominal pain (Primary Dx); Peptic ulcer disease; Acute pancreatitis, unspecified complication status, unspecified pancreatitis type; Abdominal distension (gaseous); History of pancreatitis Start: 05-29-2023 End: 05-29-2023 Patient encounter procedure Alisha Betancur ROOF FIXER.MINUTE CLERK Work Phone: [facility] Comment on above: Dizziness (Primary D x); Low serum vitamin B12 Start: 05-25-2023 Telephone encounter Alisha Betancur ROOF FIXER.MINUTE CLERK Work Phone: [facility] Comment on above: Appointment (The pat ient has rescheduled.) Start: 05-18-2023 Telephone encounter Alisha Betancur ROOF FIXER.MINUTE CLERK Work Phone: [facility] Comment on above: Results Start: 05-10-2023 End: 05-10-2023 Patient encounter procedure Alisha Betancur ROOF FIXER.MINUTE CLERK Work Phone: [facility] Comment on above: Dizziness (Primary D x) Start: 04-17-2023 [facility] Comment on above: ED OUTREACH (ED OUTR EACH/) Start: 04-14-2023 End: 04-14-2023 Emergency department patient visit [facility] Facility:[facility] Start: 04-14-2023 End: 04-14-2023 Emergency department patient visit [facility] Start: 04-13-2023 Telephone encounter Alisha Ramirezangela ROOF FIXER.MINUTE CLERK Work Phone: [facility] Comment on above: No Show (First no sh ow in 365 days.) Start: 04-09-2023 End: 04-09-2023 ambulatory RHONDAANSON VALLECILLO Facility:[facility] Start: 04-09-2023 End: 04-09-2023 Subsequent hospital visit by physician Rose Douglas MD Work Phone: [facility] Surgery Comment on above: Gastroesophageal ref lux disease, unspecified whether esophagitis present [K21.9] Start: 02-20-2023 End: 02-20-2023 ambulatory RHONDA DECATUR Facility:[facility] Start: 02-20-2023 End: 02-20-2023 Patient encounter procedure Rhonda Bocanegra PA-C Work Phone: [facility] Comment on above: Acute pancreatitis w ith uninfected necrosis, unspecified pancreatitis type (Primary Dx); Gastroesophageal reflux disease, unspecified whether esophagitis present; Epigastric pain Start: 01-26-2023 Telephone encounter Alisha Betancur GERTRUDE.MINUTE CLERK Work Phone: [facility] Comment on above: Results Start: 01-08-2023 End: 01-08-2023 Patient encounter procedure Alisha Betancur APRN.MINUTE CLERK Work Phone: [facility] Comment on above: Acute pancreatitis w ith uninfected necrosis, unspecified pancreatitis type (Primary Dx); Peptic ulcer disease; History of cholecystectomy; Class 1 obesity without serious comorbidity with body mass index (BMI) of 33.0 to 33.9 in adult, unspecified obesity type; Screening for depression Start: 12-19-2022 End: 12-19-2022 ambulatory Dylan Gill MD Work Phone: [facility] Comment on above: Pancreatitis, necrot izing (Primary Dx); Obesity, Class I, BMI 30-34.9; S/P cholecystectomy; Peptic ulcer disease Start: 12-19-2022 End: 12-19-2022 Telemedicine consultation with patient Dylan Gill MD Work Phone: [facility] Start: 12-06-2022 End: 12-06-2022 Subsequent hospital visit by physician [facility] Work Phone: [facility] Comment on above: Pancreatitis, necrot izing [K85.91] Start: 11-22-2022 End: 11-22-2022 Patient encounter procedure Dylan Gill MD Work Phone: [facility] Comment on above: Pancreatitis, necrot izing (Primary Dx); Early satiety; Obesity, Class I, BMI 30-34.9 Start: 11-20-2022 Refill Suki alvarado DO Work Phone: [facility] Comment on above: Refill Request Start: 03-08-2022 End: 03-08-2022 Emergency department patient visit RYLEY ISABEL DO [facility] Start: 01-02-2022 End: 01-02-2022 ambulatory Acute 359 Work Phone: [facility] Comment on above: S/P cholecystectomy (Primary Dx) Start: 01-02-2022 End: 01-02-2022 Telemedicine consultation with patient [facility] Work Phone: [facility] Start: 06-22-2019 End: 06-22-2019 Emergency department patient visit Stephen Nadir Work Phone: [facility] Comment on above: Acute cystitis witho ut hematuria (Primary Dx) Procedures Date Procedure Procedure Detail Performing Clinician Start: 02-06-2025 Urnls dip stick/tablet rgnt auto w/o microscopy Alisha A Queden ROOF FIXER.MINUTE CLERK Work Phone: Start: 10-30-2024 Radex elbow 2 views Alisha A Queden ROOF FIXER.MINUTE CLERK Work Phone: Start: 01-04-2024 Level iv surg pathology gross&microscopic exam Anu Oviedo MD Work Phone: Start: 01-04-2024 Colonoscopy flx dx w/collj spec when pfrmd Rhonda Vallecillo PA-C Work Phone: Start: 12-06-2023 Ct abdomen & pelvis w/contrast material Alisha Aarti Ramirezden ROOF FIXER.MINUTE CLERK Work Phone: Start: 04-09-2023 Esophagogastroduodenoscopy transoral diagnostic Rhonda Vallecillo PA-C Work Phone: Start: 12-06-2022 Ct abdomen & pelvis w/contrast material Dylan Gill MD Work Phone: Start: 06-22-2019 Assay of lipase Stephen Schmitz Work Phone: Start: 06-22-2019 Basic metabolic panel calcium total Stephen Schmitz Work Phone: Start: 06-22-2019 Blood count complete auto&auto difrntl wbc Stephen Schmitz Work Phone: Start: 06-22-2019 Gonadotropin chorionic qualitative Dominic manoj Schmitz Work Phone: Start: 06-22-2019 Urnls dip stick/tablet rgnt auto w/o microscopy Stephen Schmitz Work Phone: Start: 06-19-2017 delivery only RYLEY ISABEL DO H/O: tubal ligation Status post tubal ligation at time of delivery, current hospitalization( Confirmed ) RYLEY ISABEL DO History of cholecystectomy S/P cholecyste ctomy Acute 359 Work Phone: History of cholecystectomy S/P cholecyste ctomy Dylan Gill MD Work Phone: History of cholecystectomy Histo ry of cholecystectomy Alisha Betancur APRN.MINUTE CLERK Work Phone: Plan of Treatment Date Care Activity Detail Author Start: 07-19-2030 Urine microalbumin profile [facility] Start: 10-30-2025 Anxiety Screening Anxiety Screening [facility] Comment on above: Postponed from 2004 (Declined at t his time) Start: 04-20-2025 Influenza vaccination Influenza Vaccine (#1) [facility] Comment on above: Postponed from 06/22/2024 (Declined at t his time) Start: 03-06-2025 End: 03-06-2025 Patient encounter procedure 03/06/2025 1:20 PM EDT Office Visit [facility] [address] [place] [address] Alisha Betancur APRN.MINUTE CLERK [address] [place] [address] 4 wk follow up [facility] Comment on above: 4 wk follow up Start: 02-06-2025 End: 05-08-2025 25-hydroxyvitamin D3 [Mass/volume] in Serum or Plasma [facility] Work Phone: Comment on above: Expected: 02/06/2025, Expires: Start: 12-17-2024 End: 12-17-2024 Patient encounter procedure 12/17/2024 1:15 PM EST Office Visit [facility] [address] [place] [address] Dann Dockery MD [address] [place] [address] Left elbow Pain [facility] Comment on above: Left elbow Pain Start: 12-01-2024 End: 12-01-2024 ambulatory 12/01/2024 10:30 AM EST OT/PT/Speech Visit [facility] [address] [place] [address] Edilberto Mcneal, OT/L Lateral epicondylitis of left elbow [M77.12] [facility] Comment on above: Lateral epicondylitis of left elbow [M77 .12] Start: 11-10-2024 End: 11-10-2024 ambulatory 11/10/2024 12:45 PM EST OT/PT/Speech Visit [facility] [address] [place] [address] Edilberto Mcneal, OT/L Lateral epicondylitis of left elbow [M77.12] [facility] Comment on above: Lateral epicondylitis of left elbow [M77 .12] Start: 11-05-2024 End: 11-05-2024 Patient encounter procedure 11/05/2024 1:30 PM EST Office Visit [facility] [address] [place] [address] Dann Dockery MD [address] [place] [address] New Patient, Left elbow Pain [facility] Comment on above: New Patient, Left elbow Pain Start: 10-30-2024 Depression Screening Depression Screening [facility] Comment on above: Postponed from 2004 (Declined at t his time) Start: 06-22-2024 Influenza vaccination Influenza Vaccine (#1) [facility] Start: 05-29-2024 HEPATITIS C SCREENING HEPATITIS C SCREENING [facility] Comment on above: Postponed from 2004 (Declined at t his time) Start: 05-29-2024 Hepatitis C screening Hepatitis C Screening [facility] Comment on above: Postponed from 2004 (Declined at t his time) Start: 10-22-2023 Depression Assessment Depression Assessment [facility] Start: 06-22-2023 Influenza vaccination [facility] Start: 05-10-2023 End: 07-10-2023 CBC W Auto Differential panel - Blood CBC + DIFF Lab Routine Dizziness Expected: 05/10/2023, Expires: 07/10/2023 [facility] Work Phone: Comment on above: Expected: 05/10/2023, Expires: 3 Start: 05-10-2023 End: 05-10-2024 Cobalamin (Vitamin B12) [Mass/volume] in Serum or Plasma VITAMIN B12 BLOOD Lab Routine Dizziness Expected: 05/10/2023, Expires: 05/10/2024 [facility] Work Phone: Comment on above: Expected: 05/10/2023, Expires: 4 Start: 05-10-2023 End: 07-10-2023 Comprehensive metabolic 2000 panel - Serum or Plasma COMP METABOLIC PANEL Lab Routine Dizziness Expected: 05/10/2023, Expires: 07/10/2023 [facility] Work Phone: Comment on above: Expected: 05/10/2023, Expires: 3 Start: 05-10-2023 End: 05-10-2024 Ferritin [Mass/volume] in Serum or Plasma FERRITIN BLD Lab Routine Dizziness Expected: 05/10/2023, Expires: 05/10/2024 [facility] Work Phone: Comment on above: Expected: 05/10/2023, Expires: 4 Start: 05-10-2023 End: 05-10-2024 Folate [Mass/volume] in Serum or Plasma FOLATE SERUM Lab Routine Dizziness Expected: 05/10/2023, Expires: 05/10/2024 [facility] Work Phone: Comment on above: Expected: 05/10/2023, Expires: 4 Start: 05-10-2023 End: 07-10-2023 Hemoglobin A1c in Blood HGB A1C Lab Routine Dizziness Expected: 05/10/2023, Expires: 07/10/2023 [facility] Work Phone: Comment on above: Expected: 05/10/2023, Expires: 3 Start: 05-10-2023 End: 05-10-2024 Iron and Iron binding capacity panel - Serum or Plasma IRON + TIBC Lab Routine Dizziness Expected: 05/10/2023, Expires: 05/10/2024 [facility] Work Phone: Comment on above: Expected: 05/10/2023, Expires: 4 Start: 05-10-2023 End: 07-10-2023 Thyrotropin [Units/volume] in Serum or Plasma TSH BLD Lab Routine Dizziness Expected: 05/10/2023, Expires: 07/10/2023 [facility] Work Phone: Comment on above: Expected: 05/10/2023, Expires: 3 Start: 01-08-2023 End: 03-10-2023 CBC panel - Blood by Automated count CBC Lab Routine Acute pancreatitis with uninfected necrosis, unspecified pancreatitis type Expected: 01/08/2023, Expires: 03/10/2023 [facility] Work Phone: Comment on above: Expected: 01/08/2023, Expires: 3 Start: 01-08-2023 End: 03-10-2023 Comprehensive metabolic 2000 panel - Serum or Plasma COMP METABOLIC PANEL Lab Routine Acute pancreatitis with uninfected necrosis, unspecified pancreatitis type Expected: 01/08/2023, Expires: 03/10/2023 [facility] Work Phone: Comment on above: Expected: 01/08/2023, Expires: 3 Start: 01-08-2023 End: 03-10-2023 Lipase [Enzymatic activity/volume] in Serum or Plasma LIPASE BLD Lab Routine Acute pancreatitis with uninfected necrosis, unspecified pancreatitis type Expected: 01/08/2023, Expires: 03/10/2023 [facility] Work Phone: Comment on above: Expected: 01/08/2023, Expires: 3 Start: 01-08-2023 End: 03-10-2023 Thyrotropin [Units/volume] in Serum or Plasma TSH BLD Lab Routine Acute pancreatitis with uninfected necrosis, unspecified pancreatitis type Expected: 01/08/2023, Expires: 03/10/2023 [facility] Work Phone: Comment on above: Expected: 01/08/2023, Expires: 3 Start: 10-22-2022 DEPRESSION ASSESSMENT DEPRESSION ASSESSMENT [facility] Start: 06-22-2022 Influenza vaccination INFLUENZA (#1) [facility] Start: 06-22-2021 Influenza vaccination INFLUENZA (#1) [facility] Start: 06-22-2019 Influenza vaccination Flu vaccine (#1) [place], [place] Start: 2016 HPV TESTING HPV TESTING [facility] Start: 2016 Screening for malignant neoplasm of cervix HPV Testing [facility] Start: 2007 PAP TESTING PAP TESTING [facility] Start: 2007 Screening for malignant neoplasm of cervix [facility] Start: 2005 Hepatitis B Vaccine (1 of 3 - 19+ 3-dose series) Hepatitis B Vaccine (1 of 3 - 19+ 3-dose series) [facility] Start: 2005 Urine microalbumin profile DTAP,TDAP,TD (1 - Tdap) [facility] Start: 2004 Anxiety Screening Anxiety Screening [facility] Start: 2004 Depression Screening Depression Screening [facility] Start: 2004 HEPATITIS C SCREENING HEPATITIS C SCREENING [facility] Start: 2004 Hepatitis C screening Hepatitis C Screening [facility] Start: 2004 HIV SCREENING HIV SCREENING [facility] Start: 1998 Adult depression screening assessment DEPRESSION SCREENING [facility] Start: 1991 COVID-19 VACCINE (1) COVID-19 VACCINE (1) [facility] Start: 1986 COVID-19 VACCINE (#1) COVID-19 VACCINE (#1) [facility] Start: 1986 HEPATITIS B (1 of 3 - 3-dose series) HEPATITIS B (1 of 3 - 3-dose series) [facility] Start: 1986 Hepatitis B Vaccine (1 of 3 - 3-dose series) Hepatitis B Vaccine (1 of 3 - 3-dose series) [facility] End: 06-22-2019 Bacteria identified Cx Nom (U) Urine Culture Microbiology STAT One Time for 1 Occurrences starting 06/22/2019 until 06/22/2019 [facility]: One Time for 1 Occurrences starting 10/2018 until 06/22/2019 Bacteria identified Cx Nom (U) Urine Culture Microbiology STAT 06/22/2019 9:54 AM EDT [facility] Calprotectin [Mass/mass] in Stool CALPROTECTIN,FECAL Lab Routine Diarrhea, unspecified type Abnormal CT scan, colon 12/18/2023 4:03 PM EST [facility] Work Phone: Clostridioides difficile toxin genes [Presence] in Stool by DEVYN with probe detection C. DIFFICILE PCR Lab Routine Diarrhea, unspecified type Abnormal CT scan, colon 12/18/2023 4:03 PM [employer]mates [facility] Work Phone: End: 12-22-2023 Ct abdomen & pelvis w/contrast material CT ABD/PEL W IVCON Radiology FANNIE Pancreatitis, necrotizing 1 Occurrences starting 11/22/2022 until 12/22/2023 [facility] Work Phone: Comment on above: 1 Occurrences starting 11/22/2022 until 12/22/2023 End: 02-21-2024 EGD DIAGNOSTIC EGD DIAGNOSTIC Endoscopy Routine Gastroesophageal reflux disease, unspecified whether esophagitis present Epigastric pain 1 Occurrences starting 02/20/2023 until 02/21/2024 [facility] Work Phone: Comment on above: 1 Occurrences starting 02/20/2023 until 02/21/2024 ENTERIC BACTERIAL PA SANDRO BY PCR ENTERIC BACTERIAL PANEL BY PCR Lab Routine Diarrhea, unspecified type Abnormal CT scan, colon 12/18/2023 4:03 PM EST [facility] Work Phone: End: 12-18-2024 Flexible sigmoidoscopy study COLONOSCOPY DIAGNOSTIC Endoscopy Routine Diarrhea, unspecified type Abnormal CT scan, colon 1 Occurrences starting 12/18/2023 until 12/18/2024 [facility] Work Phone: Comment on above: 1 Occurrences starting 12/18/2023 until 12/18/2024 Giardia lamblia+Cryptosporidium sp Ag [Presence] in Stool by Immunoassay CRYPTOSPORIDIUM AND GIARDIA ANTIGENS BY EIA Microbiology Routine Diarrhea, unspecified type Abnormal CT scan, colon 12/18/2023 4:03 PM EST [facility] Work Phone: Patient Education ED Pharyngitis, Viral [facility] Work Phone: Patient referral [facility] Work Phone: Streptococcus pyogen es antigen assay Group A Streptococcus Rapid Screen [facility] UA DIP B/O UA DIP B/O Lab R outine Left upper quadrant abdominal pain Ordered: 02/06/2025 [facility] Comment on above: Ordered: 02/06/2025 [facility] Immunizations Immunization Date Immunization Notes Care Provider Nicolás salvador 07-19-2020 tetanus toxoid, redu jonathan diphtheria toxoid, and acellular pertussis vaccine, adsorbed [facility] 06-22-2017 tetanus toxoid, redu jonathan diphtheria toxoid, and acellular pertussis vaccine, adsorbed [facility] Payers Date Payer Category Payer Self-pay 2022 Medicaid [id number] 2022 Private Health Insurance [id number] 2022 Private Health Insurance 999 [id number] 2022 Unknown [id number] 2022 Private Health Insurance 999 [id number] 2020 Medicaid [place] [employer] [facility] MEDICAID [id number] 2020-Present [phone] [address] [place] [address] Medicaid [id number] 2020 Medicaid [id number] Unknown [id number] Social History Date Type Detail Facility Start: 06-22-2019 End: 11-22-2022 Tobacco smoking status NJIS Never smoker [facility] Start: 06-22-2019 End: 04-13-2023 Alcohol intake No [facility] Work Phone: Start: 1985 Sex Assigned At Not on file [facility] [place] Start: 04-14-2023 Tobacco smoking stat [facility] Tobacco smoking consumption unknown [facility] Start: 11-20-2021 End: 12-20-2021 Exposure to SARS-CoV-2 (event) Not sure [facility] Start: 06-01-2020 End: 02-06-2025 Tobacco smoking status Ex-smoker (finding) [facility] Start: 1985 Sex Assigned At Female A [facility] Start: 11-22-2022 End: 02-06-2025 Tobacco use and exposure Smokeless tobacco non-user [facility] Start: 11-22-2022 End: 02-06-2025 Alcohol intake Ex-drinker (finding) [facility] Start: 12-08-2021 History SDOH Alcohol Frequency 1 [facility] Start: 04-13-2023 End: 05-10-2023 History of Social function [facility] Work Phone: Adult Depression Screening Assessment 1 [facility] Work Phone: Start: 01-08-2023 Gender identity Identifies as female gender (finding) [facility] Start: 01-08-2023 Sexual orientation Choose not to dis close [facility] History of tobacco use Current smoker [facility] History of tobacco use Cigarette Smoker [facility] Start: 01-04-2024 Tobacco Comment [facility] NEGATED: Highlighted row [facility] Functional Status Date Assessment Result Facility 11-02-2022 Are you deaf, or do you have serious difficulty hearing No 11/02/2022 1:40 PM Yuli Alicia, JAIMIE No [facility] 11-02-2022 Are you blind, or do you have serious difficulty seeing, even when wearing glasses No 11/02/2022 1:40 PM Yuli Alicia, JAIMIE No [facility] 11-02-2022 Do you have serious difficulty walking or climbing stairs No 11/02/2022 1:40 PM Yuli Alicia, JAIMIE No [facility] 11-02-2022 Do you have difficul ty dressing or bathing No 11/02/2022 1:40 PM Yuli Alicia, JAIMIE No [facility] 11-02-2022 Because of a physica l, mental, or emotional condition, do you have difficulty doing errands alone such as visiting a physician's office or shopping No 11/02/2022 1:40 PM Yuli Alicia, JAIMIE No [facility] 03-08-2022 [facility] Mental Status Date Assessment Result Facility 11-02-2022 Because of a physica l, mental, or emotional condition, do you have serious difficulty concentrating, remembering, or making decisions No 11/02/2022 1:40 PM Yuli Alicia, JAIMIE No [facility] 03-08-2022 Mental Status Tad castro [facility] Clinical Notes 12-08-2021 to 02-10-2025 Telephone Encounter - Marilin Gagnon MA - 02/10/2025 8:52 AM EDTTelephone Encounter - Marilin Gagnon MA - 02/10/2025 8:52 AM EDTTelephone Encounter - Marilin Gagnon MA - 02/10/2025 8:51 AM EDT Note Date & Type Note [facility] 02-10-2025 Telephone encounter Note Patient notified. Marilin VidagarcíaELVIN [facility] 02-10-2025 Miscellaneous Notes Patient notified. Marilin Lowetolugarcía ELVIN ----- Message from Alisha Betancur APRN.CNP sent at 02/09/2025 5:49 PM EDT ----- ----- Message from Jenn Clemente MA sent at 02/09/2025 4:52 PM EDT ----- UA had a trace amount of blood but not a significant amount. How is she feeling? Vitamin D level was low at 22. I want her to start taking 2,000 international unit(s) daily replacement. The rest of her labs were normal. Patient informed of results and states she is feeling okay today. Wanted to know about the rest of the labs because she saw some were flagged. Please advise. Jenn Clemente MA ----- Message from Alisha Betancur APRN.CNP sent at 02/09/2025 9:03 AM EDT ----- UA had a trace amount of blood but not a significant amount. How is she feeling? documented in this encounter [facility] 02-10-2025 Telephone encounter Note ----- Message from Alisha Betancur APRN.CNP sent at 02/09/2025 5:49 PM EDT ----- ----- Message from Jenn Clemente MA sent at 02/09/2025 4:52 PM EDT ----- UA had a trace amount of blood but not a significant amount. How is she feeling? [facility] 02-09-2025 Telephone encounter Note Vitamin D level was low at 22. I want her to start taking 2,000 international unit(s) daily replacement. The rest of her labs were normal. [facility] 02-09-2025 Telephone encounter Note Patient informed of results and states she is feeling okay today. Wanted to know about the rest of the labs because she saw some were flagged. Please advise. Jenn Clemente MA [facility] 02-09-2025 Telephone encounter Note ----- Message from Alisha Betancur APRN.CNP sent at 02/09/2025 9:03 AM EDT ----- UA had a trace amount of blood but not a significant amount. How is she feeling? [facility] 02-06-2025 Note HNO ID: [id number] Author: ALISHA BETANCUR APRN.CNP Service: ? Author Type: Nurse Practitioner Type: Progress Notes Filed: 02/06/2025 10:57 Note Text: CHIEF COMPLAINT: Ariela is a 39-year-old female presenting with left-sided headaches and left-sided abdominal pain. I reviewed past medical, surgical, social, and family histories today and updated chart. Allergies, chronic medications, and supplements were also reviewed. Recording using [employer] software for draft documentation of the visit was discussed with the patient/authorized commercial sales representative; all questions welcomed and answered. Patient/authorized commercial sales representative agreed to proceed Headaches: - Onset: Approximately one week ago. - Timing: Occur upon waking and again in the late afternoon. - Location: Primarily on the left side, around the scientology area. - Alleviating Factors: Motrin provides relief. - Denies pain in the back of the head, vision changes, fever, sinus pain, nasal drainage, sore throat, or ear pain. - Reports normal sleep patterns, though going to bed later due to stress. Left-Sided Abdominal Pain: - Recent episode of left-sided abdominal pain radiating to the back and then downwards. - Describes pain as different from previous episodes that required hospitalization for pancreatitis - Associated with nausea and vomiting. - Pain lasted approximately three hours and was alleviated by laying down and using a heating pad/warm bath - Denies constipation or urinary symptoms. - History of non-obstructive kidney stones on the left side. Stress: - Reports significant stress due to family issues and the recent loss of her mother in August. - Mother had been battling frontotemporal dementia for four years before passing away. 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 - Expresses concerns about the impact of stress on her health, including fears about her pancreas. - Has not sought counseling but has considered it. Diet and Weight Changes: - Previously on a strict diet, lost weight from 200 lbs to 160 lbs. - Has since regained some weight and resumed drinking soda. - Concerned about dry skin and hair loss, wondering if it could be related to dehydration or other factors. - Does not take multivitamins or biotin currently. PAST MEDICAL HISTORY Diagnosis Date Left elbow pain Motion sickness When a passenger Pancreatitis (HCC) PAST SURGICAL HISTORY Procedure Laterality Date SECTION HX N/A 2016 [place] SECTION HX EGD W/O BRSH SPEC VARICIES INJ 04/09/2023 LAPAROSCOPIC CHOLECYSTECTOMY 2021 LIGATE FALLOPIAN TUBE TUBAL LIGATION HX Social History Tobacco Use Smoking status: Former Types: Cigarettes Smokeless tobacco: Never Vaping Use Vaping status: Never Used Substance Use Topics Alcohol use: Not Currently Drug use: Never ALLERGIES Allergen Reactions Penicillins Hives Plus throat swelling Family History Problem Relation Age of Onset Cancer Maternal Grandfather Diabetes Paternal Grandmother Glaucoma Paternal Grandfather Diabetes Paternal Grandfather Colon Cancer No Family History No current outpatient medications on file. No current facility-administered medications for this visit. Review of Systems Constitutional: Positive for fatigue. Negative for appetite change, chills, diaphoresis and fever. Head: (+) headaches (left-sided) Eyes: (-) blurred vision, (-) diplopia Ears/Nose/Mouth/Throat: (-) ear pain, (-) sore throat, (-) sinus pain, (-) nasal drainage Neck: (No specific current symptoms mentioned) Cardiovascular: (No specific current symptoms mentioned) Respiratory: (No specific current symptoms mentioned) Gastrointestinal: (+) left-sided abdominal pain radiating to the back, (+) nausea, (+) vomiting, (-) constipation Genitourinary: (-) dysuria, (-) hematuria Musculoskeletal: (No specific current symptoms mentioned) Skin: (+) dry skin on scalp, (+) hair loss Neurological: (+) headaches (left-sided) Psychiatric: (+) stress, (+) grief Endocrine: (No specific current symptoms mentioned) Hematologic/Lymphatic: (No specific current symptoms mentioned) BP 120/76 Pulse 77 Temp (Src) 98.6 (Oral) Resp 16 Ht 5' 3 (1.60m) Wt 195 lb (88.5kg) SpO2 98% LMP 10/09/2022 BMI 34.55 kg/(m2). Physical Exam GENERAL: NAD, alert and oriented. Tearful. SKIN: unremarkable, no rash or skin lesions. HEAD: normocephalic EYES: PERRLA, EOMI, conjunctiva clear EARS: external ears normal, canals clear, TM's normal. NOSE/SINUSES: Nares normal. Septum midline. OROPHARYNX: lips, mucosa, and tongue normal, good dentition. No oral lesions noted. NECK: Supple, no lymphadenopathy, normal thyroid, no carotid bruits. LUNGS: Clear to auscultation bilaterally, no wheezes/rhonchi/rales. HEART: Regular rate and rhythm, no murmurs. No ectopy. EXTREMITIES: Normal, No deformities, No s (more content not included)... [facility] 02-06-2025 History of Present illness Narrative CHIEF COMPLAINT: Ariela is a 39-year-old female presenting with left-sided headaches and left-sided abdominal pain. I reviewed past medical, surgical, social, and family histories today and updated chart. Allergies, chronic medications, and supplements were also reviewed. Recording using [employer] software for draft documentation of the visit was discussed with the patient/authorized commercial sales representative; all questions welcomed and answered. Patient/authorized commercial sales representative agreed to proceed Headaches: - Onset: Approximately one week ago. - Timing: Occur upon waking and again in the late afternoon. - Location: Primarily on the left side, around the scientology area. - Alleviating Factors: Motrin provides relief. - Denies pain in the back of the head, vision changes, fever, sinus pain, nasal drainage, sore throat, or ear pain. - Reports normal sleep patterns, though going to bed later due to stress. Left-Sided Abdominal Pain: - Recent episode of left-sided abdominal pain radiating to the back and then downwards. - Describes pain as different from previous episodes that required hospitalization for pancreatitis - Associated with nausea and vomiting. - Pain lasted approximately three hours and was alleviated by laying down and using a heating pad/warm bath - Denies constipation or urinary symptoms. - History of non-obstructive kidney stones on the left side. Stress: - Reports significant stress due to family issues and the recent loss of her mother in August. - Mother had been battling frontotemporal dementia for four years before passing away. 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 - Expresses concerns about the impact of stress on her health, including fears about her pancreas. - Has not sought counseling but has considered it. Diet and Weight Changes: - Previously on a strict diet, lost weight from 200 lbs to 160 lbs. - Has since regained some weight and resumed drinking soda. - Concerned about dry skin and hair loss, wondering if it could be related to dehydration or other factors. - Does not take multivitamins or biotin currently. PAST MEDICAL HISTORY Diagnosis Date Left elbow pain Motion sickness When a passenger Pancreatitis (HCC) PAST SURGICAL HISTORY Procedure Laterality Date SECTION HX N/A 2016 [place] SECTION HX EGD W/O BRSH SPEC VARICIES INJ 04/09/2023 LAPAROSCOPIC CHOLECYSTECTOMY 2021 LIGATE FALLOPIAN TUBE TUBAL LIGATION HX Social History Tobacco Use Smoking status: Former Types: Cigarettes Smokeless tobacco: Never Vaping Use Vaping status: Never Used Substance Use Topics Alcohol use: Not Currently Drug use: Never ALLERGIES Allergen Reactions Penicillins Hives Plus throat swelling Family History Problem Relation Age of Onset Cancer Maternal Grandfather Diabetes Paternal Grandmother Glaucoma Paternal Grandfather Diabetes Paternal Grandfather Colon Cancer No Family History No current outpatient medications on file. No current facility-administered medications for this visit. Review of Systems Constitutional: Positive for fatigue. Negative for appetite change, chills, diaphoresis and fever. Head: (+) headaches (left-sided) Eyes: (-) blurred vision, (-) diplopia Ears/Nose/Mouth/Throat: (-) ear pain, (-) sore throat, (-) sinus pain, (-) nasal drainage Neck: (No specific current symptoms mentioned) Cardiovascular: (No specific current symptoms mentioned) Respiratory: (No specific current symptoms mentioned) Gastrointestinal: (+) left-sided abdominal pain radiating to the back, (+) nausea, (+) vomiting, (-) constipation Genitourinary: (-) dysuria, (-) hematuria Musculoskeletal: (No specific current symptoms mentioned) Skin: (+) dry skin on scalp, (+) hair loss Neurological: (+) headaches (left-sided) Psychiatric: (+) stress, (+) grief Endocrine: (No specific current symptoms mentioned) Hematologic/Lymphatic: (No specific current symptoms mentioned) BP 120/76 Pulse 77 Temp (Src) 98.6 (Oral) Resp 16 Ht 5' 3 (1.60m) Wt 195 lb (88.5kg) SpO2 98% LMP 10/09/2022 BMI 34.55 kg/(m^2). Physical Exam GENERAL: NAD, alert and oriented. Tearful. SKIN: unremarkable, no rash or skin lesions. HEAD: normocephalic EYES: PERRLA, EOMI, conjunctiva clear EARS: external ears normal, canals clear, TM's normal. NOSE/SINUSES: Nares normal. Septum midline. OROPHARYNX: lips, mucosa, and tongue normal, good dentition. No oral lesions noted. NECK: Supple, no lymphadenopathy, normal thyroid, no carotid bruits. LUNGS: Clear to auscultation bilaterally, no wheezes/rhonchi/rales. HEART: Regular rate and rhythm, no murmurs. No ectopy. EXTREMITIES: Normal, No deformities, No skin discoloration, No edema. ABDOMEN: Soft, mild tenderness in the upper quadrants, non-tender in the lower quadrants. Normal bowel sounds. NEURO: Awake, alert and oriented x 3 Labs Imaging - Imaging study: Non-obstructive left-sided kidney stones measuring up to 4 mm ASSESSMENT/PLAN: 1. Headaches (R51.9) - Primarily in the left temporal region, occurring daily upon waking and recurring in the late afternoon; relieved by Motrin. - No associated visual changes, sinus pain, nasal drainage, sore throat, or otalgia. - Advised hydration, balanced diet, stress reduction, and monitoring for any worsening symptoms. - Ordered comprehensive lab work including magnesium levels to rule out deficiencies contributing to headaches. - Follow-up in one month or sooner if symptoms worsen. 2. Left upper quadrant abdominal pain (R10.12) 3. History of pancreatitis (Z87.19) - Recent episode of LUQ abdominal pain radiating to the back, accompanied by nausea and vomiting; resolved after 3 hours with heat application. - Mild tenderness noted on palpation of the LUQ; no tenderness over the bladder. - Ordered lipase levels to assess pancreatic function. - Ordered CMP, CBC, and urinalysis to evaluate renal function and rule out nephrolithiasis. - Advised to monitor fatty food intake. - Follow-up in one month or sooner if symptoms worsen. 4. Stress reaction (F43.0) 5. Feeling grief (F43.21) - Significant stress due to recent family bereavement and ongoing legal issues. - Discussed the impact of stress on physical health, including potential exacerbation of headaches and abdominal pain. - Strongly recommended counseling and support groups for grief management. - Encouraged self-care and seeking support from family and friends. 6. Vitamin D deficiency (E55.9) - Ordered vitamin D levels as part of comprehensive lab work. - Discussed potential supplementation based on lab results. New medication(s) prescribed today: None. Counseling completed in adopting health behaviors such as avoiding excessive alcohol use, avoid tobacco use, improve nutrition, and engage in physical activities. Copy of written care plan, clinical summary, treatment plan, new medications, goals, and self management requirements were given to patient. Alisha Betancur APRN.CNP documented in this encounter [facility] 01-23-2025 Note HNO ID: [id number] Author: EDILBERTO MCNEAL OT/L Service: ? Author Type: Occupational Therapist Type: Progress Notes Filed: 01/23/2025 10:44 Note Text: 01/23/2025 REHABILITATION AND SPORTS THERAPY OCCUPATIONAL THERAPY DISCONTINUANCE OF CARE Plan of Care Period: Start of Care Date: 11/10/24 Last Visit Date: 11/10/2024 Therapy Program: Patient did not return for follow up care as planned. Please refer to last visit note for interventions provided for this episode of care. Assessment: Unable to formally assess goal achievement. Reason for Discontinuation of Care: Patient has not returned to therapy or scheduled additional follow-up appointments. PITO Padilla [facility] 11-10-2024 Note HNO ID: [id number] Author: EDILBERTO MCNEAL OT/L Service: ? Author Type: Occupational Therapist Type: Progress Notes Filed: 11/10/2024 13:23 Note Text: Episode Visit Count: 1 Therapist That Will Accept/Oversee The Plan Of Care: BANDAR Padilla, T Start of Care Date: 11/10/24 Onset Date: 10/23/23 Plan of Care Certification Date: 11/10/24 Next Certification Due Date: 01/09/25 Patient Identified by Name and Date of : Yes [facility] REHABILITATION AND SPORTS THERAPY OCCUPATIONAL THERAPY EVALUATION PLAN OF CARE: Assessment: Ariela Bell presents with chief complaint of LUE elbow pain that interferes with lifting, physical activities, recreational activities . The patient presents with impairments in ADL's, overall function, and strength. PROMIS? (Patient-Reported Outcomes Measurement Information System) scores were reviewed and identified as a rehabilitation concern. Prognosis for therapy is Good due to: current objective clinical presentation, acuteness of condition . The patient will benefit from skilled therapy services to meet the goals established for this plan of care as noted below. Goals for Episode of Care: established 11/10/24 Patient reported outcome of pain Interference will decrease T -score by a minimum of 5 points. Patient will report a good understanding of diagnosis and OT recommendations for progression of program. Patient will demonstrate independence with ongoing home recommendations/exercise program throughout therapy plan of care. Patient will improve function in Left elbow in order to be able to perform basic self-care tasks and prior functional tasks. Patient will report a decrease in pain in Left elbow to 0/10 with basic self-care tasks and prior functional tasks. Patient Goals: Increased functional hand use Time Frame for Goals and Treatment : 01/09/25 Planned Interventions, Frequency, and Duration: Current Frequency: 1x/week Duration: 12 weeks Total Number of Visits Planned: 12 Planned Treatment Interventions: Custom orthosis fabrication, Therapeutic exercise (13219), Self-penitentiary management ([id number]), Orthotics management and training ([id number]) PLAN FOR NEXT VISIT:Monitor pain Patient demonstrates good understanding of plan of care and treatment. The above goals and plan of care were discussed and agreed upon by patient/family. SUBJECTIVE: Reports the, brace they gave me last visit has been super helpful. Functional Limitations: lifting, physical activities, recreational activities Prior Level of Function: Independent without limitations Patient Goals: Increased functional hand use Intake Information: Prescription present Previous Treatment: None Falls Interview: No positive findings with falls interview Relevant History Right or Left Handed: Right Employment: Homemaker Recreation / Current Exercise: Walking Hobbies / Interests: Family, TV Home Environment Patient Lives With: Family Pain: Pain Pain Level: 1 Pain Location: Elbow - Left Description: Stiffness, Radiating Post Treatment Pain Post Treatment Pain Level: No Change Post Treatment Pain Location: Elbow - Left PROMIS Scales 11/10/2024 11/04/2024 Higher is Better Phys Func - T Score 55 (within normal limits) Phys Func - Percentile 69 Self-Eff Symptom - T Score 52 (Average) Self-Eff Symptom - Percentile 58 Upper Extremity - T Score 40 (mild dysfunction) Upper Extremity - Percentile 16 T-scores: mean of general population = 50. 5 points is clinically meaningfully difference Percentiles provide an indication of how the patient's score ranks in relation to the general population. Higher percentile rankings indicate better function/quality of life. 50th percentile is the average of the general population and indicates half of respondents had a worse score. OBJECTIVE MEASURES WITH LEVEL OF FUNCTION: Hand Elbow AROM: Left Limitation Wrist AROM: WFL Right Hand AROM: WFL Left Hand AROM: WFL Thumb AROM: WFL Strength: Director Of Rooms Position 2, Pinch Meter Sensation: Denies tingling or numbness Dexterity/Coordination: Observed to be functional Provocative Testing: Lateral Epicondylitis, Medial Epicondylitis Clinical Presentation: Other: See Comment Clinical Presentation Comments: TTP antecubital fossa just lateral to distal biceps tendon insertion pain with resisted elbow flexion with FA in pronation vs neutral/supinated UE AROM Right Hand AROM: WFL Left Hand AROM: WFL Thumb AROM: WFL Special Tests - Elbow/Wrist/Hand Cozen's Test: Left negative Lateral Epicondylitis: Cozen's Medial Epicondylitis: Medial Epicondylitits Test Medial Epicondylitits Test: Left negative Education: Education Learning Preferences: Demonstration, Explanation, Performance, Printed Materials Barriers: None Learning/educational needs: Safety, Home exercise program, Plan of Care, Brace Fit Education Provided: Yes, see treatment interve (more content not included)... [facility] 11-10-2024 History of Present illness Narrative Episode Visit Count: 1 Therapist That Will Accept/Oversee The Plan Of Care: NURY Padilla/JUANITA Cruz Start of Care Date: 11/10/24 Onset Date: 10/23/23 Plan of Care Certification Date: 11/10/24 Next Certification Due Date: 01/09/25 Patient Identified by Name and Date of : Yes [facility] OCCUPATIONAL THERAPY EVALUATION PLAN OF CARE: Assessment: Ariela Bell presents with chief complaint of LUE elbow pain that interferes with lifting, physical activities, recreational activities . The patient presents with impairments in ADL's, overall function, and strength. PROMIS (Patient-Reported Outcomes Measurement Information System) scores were reviewed and identified as a rehabilitation concern. Prognosis for therapy is Good due to: current objective clinical presentation, acuteness of condition . The patient will benefit from skilled therapy services to meet the goals established for this plan of care as noted below. Goals for Episode of Care: established 11/10/24 Patient reported outcome of pain Interference will decrease T -score by a minimum of 5 points. Patient will report a good understanding of diagnosis and OT recommendations for progression of program. Patient will demonstrate independence with ongoing home recommendations/exercise program throughout therapy plan of care. Patient will improve function in Left elbow in order to be able to perform basic self-care tasks and prior functional tasks. Patient will report a decrease in pain in Left elbow to 0/10 with basic self-care tasks and prior functional tasks. Patient Goals: Increased functional hand use Time Frame for Goals and Treatment : 01/09/25 Planned Interventions, Frequency, and Duration: Current Frequency: 1x/week Duration: 12 weeks Total Number of Visits Planned: 12 Planned Treatment Interventions: Custom orthosis fabrication, Therapeutic exercise ([id number]), Self-penitentiary management ([id number]), Orthotics management and training ([id number]) PLAN FOR NEXT VISIT:Monitor pain Patient demonstrates good understanding of plan of care and treatment. The above goals and plan of care were discussed and agreed upon by patient/family. SUBJECTIVE: Reports the, brace they gave me last visit has been super helpful. Functional Limitations: lifting, physical activities, recreational activities Prior Level of Function: Independent without limitations Patient Goals: Increased functional hand use Intake Information: Prescription present Previous Treatment: None Falls Interview: No positive findings with falls interview Relevant History Right or Left Handed: Right Employment: Homemaker Recreation / Current Exercise: Walking Hobbies / Interests: Family, TV Home Environment Patient Lives With: Family Pain: Pain Pain Level: 1 Pain Location: Elbow - Left Description: Stiffness, Radiating Post Treatment Pain Post Treatment Pain Level: No Change Post Treatment Pain Location: Elbow - Left PROMIS Scales 11/10/2024 11/04/2024 Higher is Better Phys Func - T Score 55 (within normal limits) Phys Func - Percentile 69 Self-Eff Symptom - T Score 52 (Average) Self-Eff Symptom - Percentile 58 Upper Extremity - T Score 40 (mild dysfunction) Upper Extremity - Percentile 16 T-scores: mean of general population = 50. 5 points is clinically meaningfully difference Percentiles provide an indication of how the patient's score ranks in relation to the general population. Higher percentile rankings indicate better function/quality of life. 50th percentile is the average of the general population and indicates half of respondents had a worse score. OBJECTIVE MEASURES WITH LEVEL OF FUNCTION: Hand Elbow AROM: Left Limitation Wrist AROM: WFL Right Hand AROM: WFL Left Hand AROM: WFL Thumb AROM: WFL Strength: Director Of Rooms Position 2, Pinch Meter Sensation: Denies tingling or numbness Dexterity/Coordination: Observed to be functional Provocative Testing: Lateral Epicondylitis, Medial Epicondylitis Clinical Presentation: Other: See Comment Clinical Presentation Comments: TTP antecubital fossa just lateral to distal biceps tendon insertion pain with resisted elbow flexion with FA in pronation vs neutral/supinated UE AROM Right Hand AROM: WFL Left Hand AROM: WFL Thumb AROM: WFL Special Tests - Elbow/Wrist/Hand Cozen's Test: Left negative Lateral Epicondylitis: Cozen's Medial Epicondylitis: Medial Epicondylitits Test Medial Epicondylitits Test: Left negative Education: Education Learning Preferences: Demonstration, Explanation, Performance, Printed Materials Barriers: None Learning/educational needs: Safety, Home exercise program, Plan of Care, Brace Fit Education Provided: Yes, see treatment interventions for education provided Education Provided To: Patient Education Mode/Type: Demonstration, Explanation/Discussion, Literature/Printed Materials, Performance Response to Education/Teach Back: States/Identifies, Return Demonstration TREATMENT: OT Treatment Interventions : Therapeutic Exercise, Self-Fpc Management, Custom Orthosis/Splint Fabrication, Orthotic/Prosthetic Adjust/Train (Subsequent) Evaluation Therapeutic Exercise: 1: Patietn taught muscular rebalancing exercies with doorway stretch and isolated biceps stretching - hold for 30 seconds. Skilled Intervention: Patient was educated in proper exercise technique and purpose for exercises. Skilled judgment was used in selection of appropriate interventions. Provided written instruction for home exercise program to facilitate proper performance and compliance. Patient education as noted. Billing * Evaluation Low Complexity: 1 Unit Therapeutic Exercise Treatment Minutes: 23 Skilled Treatment Time Minutes (timed and untimed codes): 32 Total Session Time (minutes): 32 Session Start Time : 1247 Session Stop Time : 1319 PITO Padilla Program_ID:[id number] Access Code: [email or web address] URL: [email or web address] Date: 11-10-2024 Prepared By: Edilberto Mcneal Program Notes Exercises - Doorway Pec Stretch at 120 Elevation with Arm Straight - 1 x daily - 7 x weekly - 3 sets - 10 reps - Anterior Shoulder and Biceps Stretch - 1 x daily - 7 x weekly - 3 sets - 10 reps documented in this encounter [facility] 11-05-2024 Note HNO ID: [id number] Author: AMEYA ENNIS LPN Service: ? Author Type: LICENSED NURSE Type: Progress Notes Filed: 11/05/2024 13:53 Note Text: Patient provided with left wrist cockup, and instructed/educated on its application, wear, and care. All questions were answered, and patient was able to demonstrate competence with the necessary skills to utilize the above equipment. Ameya Ennis LPN [facility] 11-05-2024 History of Present illness Narrative Patient provided with left wrist cockup, and instructed/educated on its application, wear, and care. All questions were answered, and patient was able to demonstrate competence with the necessary skills to utilize the above equipment. Ameya Ennis LPN Images from the original note were not included. ORTHOPAEDIC OFFICE NOTE CHIEF COMPLAINT: New, Pain, and Swelling of the Left Elbow (Done with Prednisone therapy with slight improvement) HISTORY OF PRESENT ILLNESS Ariela Bell is a 39 year old female right hand dominant who presents for evaluation of left tennis elbow symptoms. Patient states that her symptoms have been significantly worsening over the past 3 weeks. She states she has decreased extension of her left elbow due to her pain. She localizes pain to the medial and lateral aspects of her left elbow. She admits pain will radiate from her elbow down into her forearm and wrist, and will also at times radiate proximally up into her upper arm and shoulder. Patient states she has been babying her arm and holding it in flexion because it is more comfortable, which she is unsure if this is also relating to some of the lack of extension she has in her elbow. Denies any history of injury, fall, or trauma. Denies having any numbness or tingling. States she recently completed a Medrol Dosepak which helped improve her symptoms by about 30%. Admits to taking ibuprofen only as needed. Patient states she has tried wearing a forearm brace without relief. Admits to wearing a compression sleeve at times with some mild relief. Location: left elbow Severity: 4 on a scale of 0-10 Duration of symptoms: >3 weeks Date of injury: None Symptoms have Worsened Previous treatment: Medrol Dosepak, forearm brace, compression sleeve, ibuprofen Numbness/tingling: No Nocturnal symptoms: Yes Radiating: Yes Injections: No Therapy: No Context worse with Activity/Motion and Gripping Smoking status: Tobacco Use: Types: Cigarettes Reviewed nursing note and current pain scale. PAIN EVALUATION 11/03/2024202711/05/2024 1320 Pain Level: 7 4 Pain Location: Elbow-Left Elbow-Left Description: Radiating;Sore;Stiffness Sharp;Radiating Duration Amount of Time: -- 1 Duration Units: -- Years Frequency: Continuous Continuous Intervention/Comfort measure: Medication;Relaxation;Cold;Heat;M assage;Splinting Reposition;Relaxation;Positioning ;Medication Comments: Cant open all fully without pain -- PAST MEDICAL HISTORY Past medical, surgical, family, and social histories have been reviewed and updated with the patient today and are located elsewhere in the medical record. Diabetes:No ALLERGIES ALLERGIES Allergen Reactions Penicillins Hives Plus throat swelling PHYSICAL EXAMINATION Resp 18 Ht 160 cm (5' 3) Wt 86.2 kg (190 lb) LMP 10/09/2022 (Approximate) BMI 33.66 kg/m Body mass index is 33.66 kg/m . General Appearance: Well appearing, alert, in no acute distress, well-hydrated, well nourished. Psyche: she is alert and oriented and cooperative to our examination. Neuro: she alert and oriented times: 3. Normal affect times: 3. Gait and station: normal. Pulmonary: she has non labored breathing. There is no evidence of cyanosis. There is no clubbing of fingernails. she has no pursed lips. Head: Normocephalic and atraumatic Neck: Supple with no JVD Lymph: There is no palpable epitrochlear Musculoskeletal- Left Hand/Wrist/Upper Extremity Exam: Skin: There is mild swelling noted to left lateral elbow. No ecchymosis. There are no skin lacerations or abrasions. Inspection: There are no Heberden's or Graciela's nodes. There is no boutonniere or swan-neck deformity of the fingers. There is no ulnar drift of the fingers. There is no intrinsic muscular atrophy. There is a negative shoulder sign over the thumb CMC joint. There is no dorsal subluxation of the ulnar head. Cardiovascular: <3 sec capillary refill, +2 radial pulse palpated. Tenderness to palpation: Significantly tender over lateral aspect of left elbow, common extensor origin, and antecubital fossa. Mild tenderness on palpation of lateral epicondyle. No TTP noted to medial epicondyle or common flexor origin. No TTP noted to ulnar nerve groove. No TTP noted to distal biceps tendon. ROM: Slightly decreased left elbow extension due to pain and stiffness. Full flexion of left elbow. Pain with supination and pronation of left elbow. Instability: none Sensation: Normal sensation Atrophy: None Special tests: - Pradip's test: Negative - Eichhoff's test: Negative - Tinel at elbow: Negative REVIEW OF STUDIES DATE OF EXAM: Oct 30 2024 10:50AM LDX 5322 - XR ELBOW 2V AP/LAT LT / PROCEDURE REASON: multiple diagnoses * * * * Physician Interpretation * * * * XR ELBOW 2V AP/LAT LT HISTORY: 39 years old Clinical information: . Chronic elbow pain, left no known injury. Left elbow pain x 1 year. Pt. states she can hardly pick things up anymore. TECHNIQUE: Images: XR ELBOW 2V AP/LAT LT Comparison: None. RESULT: No abnormal fat pad sign Joint space is well-preserved without abnormal narrowing. No pathologic calcifications No fractures or dislocations are seen. IMPRESSION IMPRESSION: No acute osseous abnormality. Hop Farmer[facility] Transcribe Date/Time: Oct 30 2024 3:51P Dictated by : FRANCISCO MORENO MD This examination was interpreted and the report reviewed and electronically signed by: FRANCISCO MORENO MD on Oct 30 2024 3:52PM EST ASSESSMENT AND PLAN 1. Lateral epicondylitis of left elbow - ICD9: 726.32, ICD10: M77.12 (primary diagnosis) - WHFO WRIST EXTENSION CONTROL - METHYLPREDNISOLONE 4 MG TABLETS IN A DOSE PACK - CONSULT TO OCCUPATIONAL THERAPY/HAND THERAPY (AG) 2. Chronic elbow pain, left - ICD9: 719.42, 338.29, ICD10: M25.522, G89.29 - WHFO WRIST EXTENSION CONTROL - METHYLPREDNISOLONE 4 MG TABLETS IN A DOSE PACK - CONSULT TO OCCUPATIONAL THERAPY/HAND THERAPY (AG) Patient educated on clinical and exam findings, radiographic findings, suspected diagnosis, and treatment options. -Dispensed wrist cock-up splint for patient to wear at all times except for hygiene purposes over the next 3 to 4 weeks or until symptoms resolve -OT order placed today for patient begin formal therapy for suspected tennis elbow symptoms. We discussed how sometimes therapy needs to be done for several months before she has complete resolution of symptoms. -Medrol Dosepak refilled today for her to start taking as directed if needed for additional pain and swelling relief -Offered to provide Mobic for pain and swelling relief, but patient declined at this time. -May continue compression sleeve at her discretion -Ice/elevate as needed -NSAIDs/Tylenol as needed Follow up in 6-8 weeks - Patient instructed to call office with questions or concerns. Medical Decision Making: Problems: Moderate: Acute complicated injury Data: Unique source(s) for external note(s) reviewed: 1 Unique test result(s) reviewed: 1 Risk: Moderate: Drug management Medical Decision Making Level: 4 - Moderate This note was generated via [employer] voice dictation and may contain errors related to that system such as spelling, grammar, punctuation, gender, words, and phrases that may be inappropriate. All reasonable efforts were made to correct dictation errors, however, they still may occur given the software used. ANUSHA Aragon PA-C [facility] documented in this encounter [facility] 11-05-2024 Note HNO ID: [id number] Author: KHUSHI BUCKLEY PA-C Service: ? Author Type: Physician Latin American Studies Director Type: Progress Notes Filed: 11/05/2024 13:53 Note Text: ORTHOPAEDIC OFFICE NOTE CHIEF COMPLAINT: New, Pain, and Swelling of the Left Elbow (Done with Prednisone therapy with slight improvement) HISTORY OF PRESENT ILLNESS Ariela Bell is a 39 year old female right hand dominant who presents for evaluation of left tennis elbow symptoms. Patient states that her symptoms have been significantly worsening over the past 3 weeks. She states she has decreased extension of her left elbow due to her pain. She localizes pain to the medial and lateral aspects of her left elbow. She admits pain will radiate from her elbow down into her forearm and wrist, and will also at times radiate proximally up into her upper arm and shoulder. Patient states she has been babying her arm and holding it in flexion because it is more comfortable, which she is unsure if this is also relating to some of the lack of extension she has in her elbow. Denies any history of injury, fall, or trauma. Denies having any numbness or tingling. States she recently completed a Medrol Dosepak which helped improve her symptoms by about 30%. Admits to taking ibuprofen only as needed. Patient states she has tried wearing a forearm brace without relief. Admits to wearing a compression sleeve at times with some mild relief. Location: left elbow Severity: 4 on a scale of 0-10 Duration of symptoms: >3 weeks Date of injury: None Symptoms have Worsened Previous treatment: Medrol Dosepak, forearm brace, compression sleeve, ibuprofen Numbness/tingling: No Nocturnal symptoms: Yes Radiating: Yes Injections: No Therapy: No Context worse with Activity/Motion and Gripping Smoking status: Tobacco Use: Types: Cigarettes Reviewed nursing note and current pain scale. PAIN EVALUATION 11/03/2024202711/05/2024 1320 Pain Level: 7 4 Pain Location: Elbow-Left Elbow-Left Description: Radiating;Sore;Stiffness Sharp;Radiating Duration Amount of Time: -- 1 Duration Units: -- Years Frequency: Continuous Continuous Intervention/Comfort measure: Medication;Relaxation;Cold;Heat;M assage;SplintingReposition;Relaxa tion;Positioni ng;Medication Comments: Cant open all fully without pain -- PAST MEDICAL HISTORY Past medical, surgical, family, and social histories have been reviewed and updated with the patient today and are located elsewhere in the medical record. Diabetes:No ALLERGIES ALLERGIES Allergen Reactions Penicillins Hives Plus throat swelling PHYSICAL EXAMINATION Resp 18 Ht 160 cm (5' 3) Wt 86.2 kg (190 lb) LMP 10/09/2022 (Approximate) BMI 33.66 kg/m? Body mass index is 33.66 kg/m?. General Appearance: Well appearing, alert, in no acute distress, well-hydrated, well nourished. Psyche: she is alert and oriented and cooperative to our examination. Neuro: she alert and oriented times: 3. Normal affect times: 3. Gait and station: normal. Pulmonary: she has non labored breathing. There is no evidence of cyanosis. There is no clubbing of fingernails. she has no pursed lips. Head: Normocephalic and atraumatic Neck: Supple with no JVD Lymph: There is no palpable epitrochlear Musculoskeletal- Left Hand/Wrist/Upper Extremity Exam: Skin: There is mild swelling noted to left lateral elbow. No ecchymosis. There are no skin lacerations or abrasions. Inspection: There are no Heberden's or Graciela's nodes. There is no boutonniere or swan-neck deformity of the fingers. There is no ulnar drift of the fingers. There is no intrinsic muscular atrophy. There is a negative shoulder sign over the thumb CMC joint. There is no dorsal subluxation of the ulnar head. Cardiovascular: <3 sec capillary refill, +2 radial pulse palpated. Tenderness to palpation: Significantly tender over lateral aspect of left elbow, common extensor origin, and antecubital fossa. Mild tenderness on palpation of lateral epicondyle. No TTP noted to medial epicondyle or common flexor origin. No TTP noted to ulnar nerve groove. No TTP noted to distal biceps tendon. ROM: Slightly decreased left elbow extension due to pain and stiffness. Full flexion of left elbow. Pain with supination and pronation of left elbow. Instability: none Sensation: Normal sensation Atrophy: None Special tests: - Pradip's test: Negative - Eichhoff's test: Negative - Tinel at elbow: Negative REVIEW OF STUDIES DATE OF EXAM: Oct 30 2024 10:50AM LDX 5322 - XR ELBOW 2V AP/LAT LT / PROCEDURE REASON: multiple diagnoses * * * * Physician Interpretation * * * * XR ELBOW 2V AP/LAT LT HISTORY: 39 years old Clinical information: . Chronic elbow pain, left no known injury. Left elbow pain x 1 year. Pt. states she can hardly pick things up anymore. TECHNIQUE: Images: XR ELBOW 2V AP/LAT LT Comparison: None. RESULT: No abnormal (more content not included)... [facility] 10-30-2024 Telephone encounter Note Lm on pt. Vm with all information. Marilin Gagnon MA [facility] 10-30-2024 Telephone encounter Note ----- Message from Alisha Betancur APRN.MINUTE CLERK sent at 10/30/2024 4:55 PM EST ----- Please let patient know their XR results are WNL. F/U with Dr. Dockery. Thank you. [facility] 10-30-2024 Miscellaneous Notes Lm on pt. Vm with all information. Marilin Gagnon MA ----- Message from Alisha Betancur APRN.MINUTE CLERK sent at 10/30/2024 4:55 PM EST ----- Please let patient know their XR results are WNL. F/U with Dr. Dockery. Thank you. documented in this encounter [facility] 10-30-2024 History of Present illness Narrative Radiology Service Progress Note PATIENT NAME: Ariela Bell DATE OF SERVICE: October 30, 2024 TIME: 10:50 AM PATIENT IDENTITY VERIFICATION COMPLETED USING TWO (2) IDENTIFIERS: Name and Date of confirmed by patient verbally. FALL SCREENING: Has the patient had 2 falls in the last year or 1 fall with injury or currently using an Ambulatory Assistive Device (Walker, Cane, Wheelchair, Crutches, etc.)? No PATIENT GENDER DATA: Female. status: : No status: NO. PATIENT RELEVANT IMPLANT DATA REVIEWED: Yes PATIENT PRESENTS WITH AN IMPLANTABLE OR ATTACHED HORTICULTURALIST: No RADIOLOGY DEPARTMENT: General X-ray: Exam(s) Completed: Upper Extremity X-Ray(s): Elbow, left PERIPHERAL IV DATA: Not applicable SIGNED BY: RT Ariel(Sam) October 30, 2024 10:50 AM documented in this encounter [facility] 10-30-2024 Note HNO ID: [id number] Author: EMA HOBSON RT(R) Service: Radiology Author Type: Bottle Gauger Type: Progress Notes Filed: 10/30/2024 10:51 Note Text: Radiology Service Progress Note PATIENT NAME: Ariela Bell DATE OF SERVICE: October 30, 2024 TIME: 10:50 AM PATIENT IDENTITY VERIFICATION COMPLETED USING TWO (2) IDENTIFIERS: Name and Date of confirmed by patient verbally. FALL SCREENING: Has the patient had 2 falls in the last year or 1 fall with injury or currently using an Ambulatory Assistive Device (Walker, Cane, Wheelchair, Crutches, etc.)? No PATIENT GENDER DATA: Female. status: : No status: NO. PATIENT RELEVANT IMPLANT DATA REVIEWED: Yes PATIENT PRESENTS WITH AN IMPLANTABLE OR ATTACHED HORTICULTURALIST: No RADIOLOGY DEPARTMENT: General X-ray: Exam(s) Completed: Upper Extremity X-Ray(s): Elbow, left PERIPHERAL IV DATA: Not applicable SIGNED BY: CHEN George) October 30, 2024 10:50 AM [facility] 10-30-2024 Note HNO ID: [id number] Author: ALISHA BETANCUR APRN.MINUTE CLERK Service: ? Author Type: Nurse Practitioner Type: Progress Notes Filed: 10/30/2024 12:55 Note Text: CHIEF COMPLAINT: Ariela Bell is a 39 year old female who presents for left elbow pain for the last year. Getting worse for the past 2 weeks. Pain is at a 1 when she doesn't move it and increases to a 9/10 when moving. Pain goes down arm. Can't bend elbow. Shooting pain. I reviewed past medical, surgical, social, and family histories today and updated chart. Allergies, chronic medications, and supplements were also reviewed. Tried a sling Pressure sleeve helped some Right or left elbow: left Location: medial and lateral Onset: 1 years Trauma or injury:No Repetitive actvity at work or home:No Recent unusual activity (raking leaves, moving boxes etc): No Numbness or tingling in arm (if so, state location): No Weakness in arm: Yes Better with: when not moving Worse with: with movement Has tried: Ice: Yes no relief Ibuprofen, Advil, Motrin, Aleve: Yes no relief Tylenol, acetaminophen: Yes no relief Tennis elbow band: Yes no relief Topical medication like ICY Hot , Bengay: Yes relief Previous problems: No Previous treatment (medication, injections): No Previous xrays / imaging: No The history is provided by the patient. PAST MEDICAL HISTORY Diagnosis Date Motion sickness When a passenger Pancreatitis PAST SURGICAL HISTORY Procedure Laterality Date SECTION HX N/A 2016 [place] SECTION HX EGD W/O BRSH SPEC VARICIES INJ 04/09/2023 LAPAROSCOPIC CHOLECYSTECTOMY 2021 LIGATE FALL[place] TUBE TUBAL LIGATION HX Social History Tobacco Use Smoking status: Former Types: Cigarettes Smokeless tobacco: Never Tobacco comments: socially Vaping Use Vaping status: Never Used Substance Use Topics Alcohol use: Not Currently Drug use: Never ALLERGIES Allergen Reactions Penicillins Hives Plus throat swelling Family History Problem Relation Age of Onset Cancer Maternal Grandfather Diabetes Paternal Grandmother Glaucoma Paternal Grandfather Diabetes Paternal Grandfather Colon Cancer No Family History Current Outpatient Medications Medication Sig Dispense Refill pantoprazole DR (PROTONIX) 40 mg tablet Take 1 tablet by mouth once daily. 30 minutes before eating. (Patient not taking: Reported on 10/30/2024) 30 tablet 2 No current facility-administered medications for this visit. Review of Systems Constitutional: Negative. Respiratory: Negative. Cardiovascular: Negative. Gastrointestinal: Negative. Musculoskeletal: Positive for arthralgias (left elbow). Negative for neck pain and neck stiffness. Skin: Negative. Neurological: Positive for weakness (left arm). Negative for numbness. BP 110/76 Pulse 78 Temp 98.6 Ht 5' 3 (1.60m) Wt 190 lb (86.2kg) SpO2 98% LMP 10/09/2022 BMI 33.67 kg/(m2). Physical Exam Vitals and nursing note reviewed. Cardiovascular: Pulses: Normal pulses. Pulmonary: Effort: Pulmonary effort is normal. Musculoskeletal: Left elbow: No swelling, deformity or effusion. Decreased range of motion (difficulty with flexion). Tenderness present in medial epicondyle and lateral epicondyle. No radial head or olecranon process tenderness. Cervical back: Neck supple. Skin: General: Skin is warm and dry. Findings: No erythema or rash. Neurological: Mental Status: She is alert and oriented to person, place, and time. Sensory: Sensation is intact. Motor: Motor function is intact. ASSESSMENT/PLAN: 1. Chronic elbow pain, left - ICD9: 719.42, 338.29, ICD10: M25.522, G89.29 - CONSULT TO ORTHOPAEDIC SURGERY - XR ELBOW GENERAL 2V AP/LAT LEFT - METHYLPREDNISOLONE 4 MG TABLETS IN A DOSE PACK New medication(s) prescribed today: Yes: Medrol dose liliana. Discussed new medication dosage, usage, goals of therapy, and side effects. Patient has been apprised of any potential drug interactions to be aware of. Patient expresses understanding. Counseling completed in adopting health behaviors such as avoiding excessive alcohol use, avoid tobacco use, improve nutrition, and engage in physical activities. Copy of written care plan, clinical summary, treatment plan, new medications, goals, and self management requirements were given to patient. Alisha Betancur APRN.[facility] 10-30-2024 History of Present illness Narrative CHIEF COMPLAINT: Ariela Bell is a 39 year old female who presents for left elbow pain for the last year. Getting worse for the past 2 weeks. Pain is at a 1 when she doesn't move it and increases to a 9/10 when moving. Pain goes down arm. Can't bend elbow. Shooting pain. I reviewed past medical, surgical, social, and family histories today and updated chart. Allergies, chronic medications, and supplements were also reviewed. Tried a sling Pressure sleeve helped some Right or left elbow: left Location: medial and lateral Onset: 1 years Trauma or injury:No Repetitive actvity at work or home:No Recent unusual activity (raking leaves, moving boxes etc): No Numbness or tingling in arm (if so, state location): No Weakness in arm: Yes Better with: when not moving Worse with: with movement Has tried: Ice: Yes no relief Ibuprofen, Advil, Motrin, Aleve: Yes no relief Tylenol, acetaminophen: Yes no relief Tennis elbow band: Yes no relief Topical medication like ICY Hot , Bengay: Yes relief Previous problems: No Previous treatment (medication, injections): No Previous xrays / imaging: No The history is provided by the patient. PAST MEDICAL HISTORY Diagnosis Date Motion sickness When a passenger Pancreatitis PAST SURGICAL HISTORY Procedure Laterality Date SECTION HX N/A 2016 [place] SECTION HX EGD W/O BRSH SPEC VARICIES INJ 04/09/2023 LAPAROSCOPIC CHOLECYSTECTOMY 2021 LIGATE [place] TUBE TUBAL LIGATION HX Social History Tobacco Use Smoking status: Former Types: Cigarettes Smokeless tobacco: Never Tobacco comments: socially Vaping Use Vaping status: Never Used Substance Use Topics Alcohol use: Not Currently Drug use: Never ALLERGIES Allergen Reactions Penicillins Hives Plus throat swelling Family History Problem Relation Age of Onset Cancer Maternal Grandfather Diabetes Paternal Grandmother Glaucoma Paternal Grandfather Diabetes Paternal Grandfather Colon Cancer No Family History Current Outpatient Medications Medication Sig Dispense Refill pantoprazole DR (PROTONIX) 40 mg tablet Take 1 tablet by mouth once daily. 30 minutes before eating. (Patient not taking: Reported on 10/30/2024) 30 tablet 2 No current facility-administered medications for this visit. Review of Systems Constitutional: Negative. Respiratory: Negative. Cardiovascular: Negative. Gastrointestinal: Negative. Musculoskeletal: Positive for arthralgias (left elbow). Negative for neck pain and neck stiffness. Skin: Negative. Neurological: Positive for weakness (left arm). Negative for numbness. BP 110/76 Pulse 78 Temp 98.6 Ht 5' 3 (1.60m) Wt 190 lb (86.2kg) SpO2 98% LMP 10/09/2022 BMI 33.67 kg/(m^2). Physical Exam Vitals and nursing note reviewed. Cardiovascular: Pulses: Normal pulses. Pulmonary: Effort: Pulmonary effort is normal. Musculoskeletal: Left elbow: No swelling, deformity or effusion. Decreased range of motion (difficulty with flexion). Tenderness present in medial epicondyle and lateral epicondyle. No radial head or olecranon process tenderness. Cervical back: Neck supple. Skin: General: Skin is warm and dry. Findings: No erythema or rash. Neurological: Mental Status: She is alert and oriented to person, place, and time. Sensory: Sensation is intact. Motor: Motor function is intact. ASSESSMENT/PLAN: 1. Chronic elbow pain, left - ICD9: 719.42, 338.29, ICD10: M25.522, G89.29 - CONSULT TO ORTHOPAEDIC SURGERY - XR ELBOW GENERAL 2V AP/LAT LEFT - METHYLPREDNISOLONE 4 MG TABLETS IN A DOSE PACK New medication(s) prescribed today: Yes: Medrol dose liliana. Discussed new medication dosage, usage, goals of therapy, and side effects. Patient has been apprised of any potential drug interactions to be aware of. Patient expresses understanding. Counseling completed in adopting health behaviors such as avoiding excessive alcohol use, avoid tobacco use, improve nutrition, and engage in physical activities. Copy of written care plan, clinical summary, treatment plan, new medications, goals, and self management requirements were given to patient. Alisha Betancur APRN.MINUTE CLERK documented in this encounter [facility] 01-04-2024 Note HNO ID: [id number] Author: CELIA CUMMINS RN Service: ? Author Type: Registered Nurse Type: Nursing Progress Note Filed: 01/04/2024 15:08 Note Text: Pt states readiness for discharge. Assisted with dressing. [facility] 01-04-2024 Note HNO ID: [id number] Author: CELIA CUMMINS RN Service: ? Author Type: Registered Nurse Type: Nursing Progress Note Filed: 01/04/2024 14:54 Note Text: Physician at bedside to disucss procedure/findngs with patient. [facility] 01-04-2024 Nurse Note Pt states readiness for discharge. Assisted with dressing. [facility] 01-04-2024 Nurse Note Pt states readiness for discharge. Assisted with dressing. Physician at bedside to disucss procedure/findngs with patient. documented in this encounter [facility] 01-04-2024 Note Formatting of this n ote might be different from the original. The patient received a copy of Colonoscopy discharge instructions that contain information for how to contact the physician who performed the procedure and when to seek medical care. [facility] 01-04-2024 Miscellaneous Notes The patient received a copy of Colonoscopy discharge instructions that contain information for how to contact the physician who performed the procedure and when to seek medical care. documented in this encounter [facility] 01-04-2024 Nurse Note Physician at bedside to disucss procedure/findngs with patient. [facility] 12-18-2023 Note HNO ID: [id number] Author: RHONDA VALLECILLO PA-C Service: ? Author Type: Physician Latin American Studies Director Type: Progress Notes Filed: 12/18/2023 10:52 Note Text: CHIEF COMPLAINT: Patient presents with: Recent CT Scan- needs Colonoscopy : Was having abdominal pain, acid reflux. Went on a clear liquid diet and it helped. Then a few days later started having diarrhea. Tender on the left side HPI Ariela Bell is a 38 year old female here today for Recent CT Scan- needs Colonoscopy (Was having abdominal pain, acid reflux. Went on a clear liquid diet and it helped. Then a few days later started having diarrhea. Tender on the left side ) Patient tells me that she developed epigastric and left sided abdominal pain with bloat. Had a CT scan scan. Went on a clear diet that subsided her pain and bloat. She then developed diarrhea. She moving her bowels every 30 minutes at this time. It is waking her up at night time as well. Notes her stools are not formed but not water. Stools are yellow. No red blood in her stools. Appetite is poor. Weight is increased some. 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 Nonobstructive left nephrolithiasis. Subjective thickening ascending colon and hepatic flexure, correlate for infectious or inflammatory colitis. Component Latest Ref Rng AND Units 12/06/2023 WBC 3.70 - 11.00 k/uL 7.91 RBC 3.90 - 5.20 m/uL 4.71 Hemoglobin 11.5 - 15.5 g/dL 13.4 Hematocrit 36.0 - 46.0 % 41.3 MCV 80.0 - 100.0 fL 87.7 MCH 26.0 - 34.0 pg 28.5 MCHC 30.5 - 36.0 g/dL 32.4 RDW-CV 11.5 - 15.0 % 13.2 Platelet Count 150 - 400 k/uL 245 MPV 9.0 - 12.7 fL 11.5 Neut% % 61.9 Abs Neut (ANC) 1.45 - 7.50 k/uL 4.90 Lymph% % 26.7 Abs Lymph 1.00 - 4.00 k/uL 2.11 Curry% % 8.5 Abs Curry <0.87 k/uL 0.67 Eosin% % 2.1 Abs Eosin <0.46 k/uL 0.17 Baso% % 0.5 Abs Baso <0.11 k/uL 0.04 Immature Gran % % 0.3 IMMATURE GRANS (ABS) <0.10 k/uL <0.03 DTYPE Auto Protein, Total 6.3 - 8.0 g/dL 6.8 Albumin 3.9 - 4.9 g/dL 4.2 Calcium 8.5 - 10.2 mg/dL 9.3 Bilirubin, Total 0.2 - 1.3 mg/dL 0.3 Alkaline Phosphatase 34 - 123 U/L 62 AST 13 - 35 U/L 17 ALT 7 - 38 U/L 15 Glucose 74 - 99 mg/dL 87 BUN 7 - 21 mg/dL 11 Creatinine 0.58 - 0.96 mg/dL 0.78 Sodium 136 - 144 mmol/L 142 Potassium 3.7 - 5.1 mmol/L 4.3 Chloride 97 - 105 mmol/L 108 (H) CO2 22 - 30 mmol/L 25 Anion Gap 9 - 18 mmol/L 9 eGFR >=60 mL/min/1.73mA? 100 Lipase 16 - 61 U/L 48 CRP <0.9 mg/dL <0.3 Current Outpatient Medications Medication Sig pantoprazole DR (PROTONIX) 40 mg tablet Take 1 tablet by mouth once daily. 30 minutes before eating. No current facility-administered medications for this visit. Facility-Administered Medications Ordered in Other Visits Medication Dose Route Frequency lidocaine (PF) 10 mg/mL (1 %) 1-2 mg injection (XYLOCAINE) 0.1-0.2 mL INTRADERMAL PRN lactated ringers iv infusion 30 mL/hr INTRAVENOUS CONTINUOUS ALLERGIES Allergen Reactions Penicillins Hives Plus throat swelling Social History Tobacco Use Smoking status: Never Smokeless tobacco: Never Vaping Use Vaping Use: Never used Substance Use Topics Alcohol use: Not Currently Drug use: Never PAST MEDICAL HISTORY Diagnosis Date Motion sickness When a passenger Pancreatitis PAST SURGICAL HISTORY Procedure Laterality Date SECTION HX N/A 2016 [place] SECTION HX EGD W/O BRSH SPEC VARICIES INJ 04/09/2023 LAPAROSCOPIC CHOLECYSTECTOMY 2021 LIGATE [place]ALLOP[place] TUBE TUBAL LIGATION HX FAMILY HISTORY Problem Relation Age of Onset Cancer Maternal Grandfather Diabetes Paternal Grandmother Glaucoma Paternal Grandfather Diabetes Paternal Grandfather Colon Cancer No Family History REVIEW OF SYSTEMS Review of Systems Constitutional: Positive for appetite change and fatigue. Gastrointestinal: Positive for abdominal distention, abdominal pain and diarrhea. Gas, Change in Bowel Habits All other systems reviewed and are negative. PHYSICAL EXAM BP 114/80 Pulse 85 Ht 5' 3 (1.60m) Wt 197 lb 12.8 oz (89.7kg) LMP 10/09/2022 BMI 35.05 kg/(m2). Physical Exam Constitutional: Appearance: Normal appearance. She is obese. HENT: Head: Normocephalic and atraumatic. Eyes: General: No scleral icterus. Extraocular Movements: Extraocular movements intact. Conjunctiva/sclera: Conjunctivae normal. Pupils: Pupils are equal, round, and reactive to light. Cardiovascular: Rate and Rhythm: Normal rate and regular rhythm. Pulses: Normal pulses. Heart sounds: Normal heart sounds. Pulmonary: Effort: Pulmonary effort is normal. Breath sounds: Normal breath sounds. Abdominal: General: Abdomen is flat. Bowel sounds are normal. Palpations: Abdomen is soft. Tenderness: There is no abdominal tenderness. Musculoskeletal: General: Normal range of motion. Cervical (more content not included)... [facility] 12-18-2023 Instructions Rhonda Vallecillo PA-C - 12/18/2023 10:46 AM EST Images from the original note were not included. Bowel Preparation Instructions for: Miralax-Gatorade Preparations IF YOU DO NOT FOLLOW THESE DIRECTIONS, YOUR COLONOSCOPY WILL BE CANCELLED. Wolf Instructions: Your bowel must be empty so that your doctor can clearly view your colon. Follow all of the instructions in this handout EXACTLY as they are written. Do NOT eat any solid food the ENTIRE day before your colonoscopy. Buy your bowel preparation at least 5 days before your colonoscopy. Four (4) Dulcolax laxative tablets containing 5mg of bisacodyl each (NOT Dulcolax stool softener) One (1) 8.3oz. bottle Miralax (238 grams) or generic equivalent 2 x 32oz. Bottles of Gatorade (NOT RED) Diabetic Patients: Use G2 (Gatorade 2) TRANSPORTATION on the Day of Your Exam A responsible adult MUST be present with you at Check In prior to your colonoscopy and REMAIN in the endoscopy area until you are discharged. You are NOT ALLOWED to drive, take a taxi or bus, or leave the Endoscopy Center ALONE. If you do not have a responsible shuttle driver (family member or friend) with you to take you home, your exam cannot be done with sedation and will be cancelled. Please bring a list of all of your current medications, including any Vkka-fbb-Gzdfqzh medications with you. Medications If you take insulin, diabetic medications or blood thinners such as Coumadin (warfarin), Plavix (clopidogrel), Ticlid (ticlopidine hydrochloride), Agrylin (anagrelide), Xarelto (Rivaroxaban), Pradaxa (Dabigatran), Eliquis (Apixaban), and Effient (Prasugrel). You MUST call the doctors who orders those medicines for instructions on altering the dosage before your colonoscopy. All other medications should be taken the day of the exam with a sip of water including ASPIRIN. Five (5) Days Before Your Colonoscopy Do NOT take medicines that stop diarrhea - such as Imodium, Kaopectate, or Pepto Bismol. Do NOT take fiber supplements - such as Metamucil, Citrucel, or Perdiem. Do NOT take products that contain iron - such as multi-vitamins (the label lists what is in the products). Three (3) Days Before Your Colonoscopy Do NOT eat high-fiber foods - such as popcorn, beans, seeds (flax, sunflower, quinoa), multigrain bread, nuts, salad/vegetables, or fresh and dried fruit. 1 Bowel Preparation Instructions for: Miralax-Gatorade Preparations One (1) Day Before Your Colonoscopy Only drink clear liquids the ENTIRE DAY before your colonoscopy. Do NOT eat any solid foods. Drink at least 8 ounces of clear liquids every hour after waking up. The clear liquids you can drink include: Clear Liquid (NO RED LIQUIDS) DO NOT DRINK Gatorade, Pedialyte or Powerade Clear broth or bouillon Coffee or tea (no milk or non-dairy creamer) Carbonated and non-carbonated soft drinks Chris-Aid or other fruit flavored drinks Strained fruit juices (no pulp) Jell-O, popsicles, hard candy Water Alcohol Milk or non-dairy creamers Noodles or vegetables in soup Juice with pulp Liquid you cannot see through Do not use tobacco/vaping products Mix 1/2 of Miralax bottle (119 grams) in each 32 ounces of Gatorade bottle until dissolved. Keep cool in the refrigerator. DO NOT ADD ICE. The bowel preparation solution will be consumed in two parts. Part 1 5:00 PM - Evening before your colonoscopy Take 4 Dulcolax tablets. 6 PM - Evening before your colonoscopy Drink 32 oz. of the mixed solution. Drink an 8 oz. glass of bowel preparation every 15 minutes for a total of 4 glasses. Fifteen (15) minutes later, drink an 8 oz. glass of of clear liquids every 15 minutes for a total of 2 glasses. You may continue to drink clear liquids till midnight. Part 2 On the day of your colonoscopy you may drink clear liquids up to (three) 3 hours prior to procedure. 4 1/2 hours before your colonoscopy Take another 32 oz. bottle of mixed solution. Drink an 8 oz. glass of bowel prep every 15 minutes for a total of 4 glasses. Fifteen (15) minutes later, drink an 8 oz. glass of clear liquids every 15 minutes for a total of 2 glasses. You may continue to drink clear liquids up to (three) 3 hours before your exam. 2 09/2019 documented in this encounter [facility] 12-18-2023 History of Present illness Narrative CHIEF COMPLAINT: Patient presents with: Recent CT Scan- needs Colonoscopy : Was having abdominal pain, acid reflux. Went on a clear liquid diet and it helped. Then a few days later started having diarrhea. Tender on the left side HPI Ariela Bell is a 38 year old female here today for Recent CT Scan- needs Colonoscopy (Was having abdominal pain, acid reflux. Went on a clear liquid diet and it helped. Then a few days later started having diarrhea. Tender on the left side ) Patient tells me that she developed epigastric and left sided abdominal pain with bloat. Had a CT scan scan. Went on a clear diet that subsided her pain and bloat. She then developed diarrhea. She moving her bowels every 30 minutes at this time. It is waking her up at night time as well. Notes her stools are not formed but not water. Stools are yellow. No red blood in her stools. Appetite is poor. Weight is increased some. 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 Nonobstructive left nephrolithiasis. Subjective thickening ascending colon and hepatic flexure, correlate for infectious or inflammatory colitis. Component Latest Ref Rng & Units 12/06/2023 WBC 3.70 - 11.00 k/uL 7.91 RBC 3.90 - 5.20 m/uL 4.71 Hemoglobin 11.5 - 15.5 g/dL 13.4 Hematocrit 36.0 - 46.0 % 41.3 MCV 80.0 - 100.0 fL 87.7 MCH 26.0 - 34.0 pg 28.5 MCHC 30.5 - 36.0 g/dL 32.4 RDW-CV 11.5 - 15.0 % 13.2 Platelet Count 150 - 400 k/uL 245 MPV 9.0 - 12.7 fL 11.5 Neut% % 61.9 Abs Neut (ANC) 1.45 - 7.50 k/uL 4.90 Lymph% % 26.7 Abs Lymph 1.00 - 4.00 k/uL 2.11 Curry% % 8.5 Abs Curry <0.87 k/uL 0.67 Eosin% % 2.1 Abs Eosin <0.46 k/uL 0.17 Baso% % 0.5 Abs Baso <0.11 k/uL 0.04 Immature Gran % % 0.3 IMMATURE GRANS (ABS) <0.10 k/uL <0.03 DTYPE Auto Protein, Total 6.3 - 8.0 g/dL 6.8 Albumin 3.9 - 4.9 g/dL 4.2 Calcium 8.5 - 10.2 mg/dL 9.3 Bilirubin, Total 0.2 - 1.3 mg/dL 0.3 Alkaline Phosphatase 34 - 123 U/L 62 AST 13 - 35 U/L 17 ALT 7 - 38 U/L 15 Glucose 74 - 99 mg/dL 87 BUN 7 - 21 mg/dL 11 Creatinine 0.58 - 0.96 mg/dL 0.78 Sodium 136 - 144 mmol/L 142 Potassium 3.7 - 5.1 mmol/L 4.3 Chloride 97 - 105 mmol/L 108 (H) CO2 22 - 30 mmol/L 25 Anion Gap 9 - 18 mmol/L 9 eGFR >=60 mL/min/1.73m 100 Lipase 16 - 61 U/L 48 CRP <0.9 mg/dL <0.3 Current Outpatient Medications Medication Sig pantoprazole DR (PROTONIX) 40 mg tablet Take 1 tablet by mouth once daily. 30 minutes before eating. No current facility-administered medications for this visit. Facility-Administered Medications Ordered in Other Visits Medication Dose Route Frequency lidocaine (PF) 10 mg/mL (1 %) 1-2 mg injection (XYLOCAINE) 0.1-0.2 mL INTRADERMAL PRN lactated ringers iv infusion 30 mL/hr INTRAVENOUS CONTINUOUS ALLERGIES Allergen Reactions Penicillins Hives Plus throat swelling Social History Tobacco Use Smoking status: Never Smokeless tobacco: Never Vaping Use Vaping Use: Never used Substance Use Topics Alcohol use: Not Currently Drug use: Never PAST MEDICAL HISTORY Diagnosis Date Motion sickness When a passenger Pancreatitis PAST SURGICAL HISTORY Procedure Laterality Date SECTION HX N/A 2016 [place] SECTION HX EGD W/O [facility] SPEC VARICIES INJ 04/09/2023 LAPAROSCOPIC CHOLECYSTECTOMY 2021 LIGATE FALLOP[place] TUBE TUBAL LIGATION HX FAMILY HISTORY Problem Relation Age of Onset Cancer Maternal Grandfather Diabetes Paternal Grandmother Glaucoma Paternal Grandfather Diabetes Paternal Grandfather Colon Cancer No Family History REVIEW OF SYSTEMS Review of Systems Constitutional: Positive for appetite change and fatigue. Gastrointestinal: Positive for abdominal distention, abdominal pain and diarrhea. Gas, Change in Bowel Habits All other systems reviewed and are negative. PHYSICAL EXAM BP 114/80 Pulse 85 Ht 5' 3 (1.60m) Wt 197 lb 12.8 oz (89.7kg) LMP 10/09/2022 BMI 35.05 kg/(m^2). Physical Exam Constitutional: Appearance: Normal appearance. She is obese. HENT: Head: Normocephalic and atraumatic. Eyes: General: No scleral icterus. Extraocular Movements: Extraocular movements intact. Conjunctiva/sclera: Conjunctivae normal. Pupils: Pupils are equal, round, and reactive to light. Cardiovascular: Rate and Rhythm: Normal rate and regular rhythm. Pulses: Normal pulses. Heart sounds: Normal heart sounds. Pulmonary: Effort: Pulmonary effort is normal. Breath sounds: Normal breath sounds. Abdominal: General: Abdomen is flat. Bowel sounds are normal. Palpations: Abdomen is soft. Tenderness: There is no abdominal tenderness. Musculoskeletal: General: Normal range of motion. Cervical back: Normal range of motion and neck supple. Skin: General: Skin is warm and dry. Coloration: Skin is not jaundiced. Neurological: General: No focal deficit present. Mental Status: She is alert and oriented to person, place, and time. Psychiatric: Mood and Affect: Mood normal. Behavior: Behavior normal. Thought Content: Thought content normal. Judgment: Judgment normal. Assessment/Plan (R19.7) Diarrhea, unspecified type (primary encounter diagnosis) (R93.3) Abnormal CT scan, colon 1. Diarrhea, unspecified type -- Patient with diarrhea, moving bowels about every 30 minutes. Waking her up several times a night. -- Will full infectious panel plus fecal calprotectin -- Colonoscopy ordered to be completed if stool testing is negative - C. DIFFICILE PCR - ENTERIC BACTERIAL PANEL BY PCR - CRYPTOSPORIDIUM AND GIARDIA ANTIGENS BY EIA - CALPROTECTIN,FECAL - COLONOSCOPY DIAGNOSTIC; Future 2. Abnormal CT scan, colon -- CT scan is showing R sided colitis -- Will full infectious panel plus fecal calprotectin -- Colonoscopy ordered to be completed if stool testing is negative - C. DIFFICILE PCR - ENTERIC BACTERIAL PANEL BY PCR - CRYPTOSPORIDIUM AND GIARDIA ANTIGENS BY EIA - CALPROTECTIN,FECAL - COLONOSCOPY DIAGNOSTIC; Future Follow up in office PRN. Recommended to please call office/go to ER if fever, chills, chest pain, SOB, diarrhea, nausea, emesis, worsening abdominal pain, dehydration occurs I spent a total of 20 minutes on the date of the service which included preparing to see the patient, [id number] patient care, completing clinical documentation, obtaining and/or reviewing separately obtained history, performing a medically appropriate examination, counseling and educating the patient/family/caregiver, and ordering medications, tests, or procedures. Rhonda Vallecillo PA-C December 18, 2023 10:46 AM documented in this encounter [facility] 12-12-2023 Miscellaneous Notes Attempted to reach patient but no answer. Ema Murray MA ----- Message from Alisha Betancur APRN.CNP sent at 12/12/2023 1:51 PM EST ----- CT abd showed improvement of previous necrosis of pancreas. No fluid collection. There is some thickening of her colon indicating possible inflammation or infectious colitis. Is she still having any abdominal pain and/or diarrhea? I would recommend she makes an appointment with GI. documented in this encounter [facility] 12-10-2023 Miscellaneous Notes ----- Message from Alisha Betancur APRN.CNP sent at 12/10/2023 5:18 PM EST ----- All labs were WNL (chloride test was not concerning) documented in this encounter [facility] 12-06-2023 History of Present illness Narrative Radiology Service Progress Note DATE OF SERVICE: December 06, 2023 TIME: 2:16 PM PATIENT IDENTITY VERIFICATION COMPLETED USING TWO (2) STANDARD IDENTIFIERS: Name and Date of confirmed by patient verbally and Name and Date of confirmed by identification band. FALL SCREENING: Has the patient had 2 falls in the last year or 1 fall with injury or currently using an Ambulatory Assistive Device (Walker, Cane, Wheelchair, Crutches, etc.)? No PATIENT GENDER DATA: Female. status: : No status: NO. PATIENT RELEVANT IMPLANT DATA REVIEWED: Not Applicable PATIENT PRESENTS WITH AN IMPLANTABLE OR ATTACHED HORTICULTURALIST: No ALLERGIES: Reviewed and unchanged CONTRAST ALLERGY: NO. EXAM: CT -CONTRAST INDUCED NEPHROPATHY RISK FACTORS: Not applicable CREATININE: Creatinine Date Value Ref Range Status 05/15/2023 0.82 0.58 - 0.96 mg/dL Final 01/26/2023 0.76 0.58 - 0.96 mg/dL Final 11/02/2022 0.32 (L) 0.58 - 0.96 mg/dL Final Estimated Glomerular Filtration Rate Date Value Ref Range Status 05/15/2023 95 >=60 mL/min/1.73m Final Comment: Estimated Glomerular Filtration Rate (eGFR) is calculated using the 2020 CKD-EPI creatinine equation. This equation utilizes serum creatinine, sex, and age as parameters. The creatinine assay has traceable calibration to isotope dilution-mass spectrometry. Refer to KDIGO guidelines for clinical interpretation. In patients with unstable renal function, e.g. those with acute kidney injury, the eGFR may not accurately reflect actual GFR. eGFR- Date Value Ref Range Status 12/15/2021 >60 Final P.O.C.T. RESULTS: N/A December 06, 2023 TREATMENT: N/A PERIPHERAL IV DATA: Ambulatory: A peripheral IV was started in the Right upper extremity antecubital site with a Angio cath: 22 gauge. RADIOLOGY DEPARTMENT: CT; Exam(s) Completed: Abdomen/Pelvis SIGNATURE: JESSICA Casarez PATIENT NAME: Ariela Bell DATE: December 06, 2023 TIME: 2:16 PM documented in this encounter [facility] 12-06-2023 Instructions Alisha Betancur APRN.MINUTE CLERK - 12/06/2023 9:17 AM EST Colace- stool softener documented in this encounter [facility] 12-06-2023 History of Present illness Narrative CHIEF COMPLAINT: Ariela Bell is a 38 year old female who presents for abdominal pain in the left upper and middle quadrants. It started around a month ago but has increased in pain. She currently rates her pain a 3/10 but can increase to a 6-7. She describes it as a sharp pain especially after eating and it doesn't matter what she eats. She is having acid reflex and has been taking OTC Tums and Pepto with temporary relief. Was on Protonix last year but hasn't been on for the last few months because she was feeling better. 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 She is also have abdominal bloating. No N/V, diarrhea, or fevers. Denies any urinary symptoms. I reviewed past medical, surgical, social, and family histories today and updated chart. Allergies, chronic medications, and supplements were also reviewed. The history is provided by the patient. No english language learner teacher was used. Abdominal Pain This is a new problem. The current episode started more than 1 week ago. The problem occurs constantly. The problem has been gradually worsening. The pain is associated with eating. The pain is located in the LUQ and epigastric region. The quality of the pain is sharp. The pain is at a severity of 3/10. The pain is mild. Pertinent negatives include anorexia, fever, belching, diarrhea, flatus, hematochezia, melena, nausea, vomiting, constipation, dysuria, frequency, hematuria, headaches, arthralgias and myalgias. The symptoms are aggravated by eating. The symptoms are relieved by OTC medications. Past workup includes GI consult, CT scan and ultrasound. Past workup does not include surgery or barium enema. Her past medical history is significant for GERD. Her past medical history does not include ulcerative colitis or Crohn's disease. PAST MEDICAL HISTORY Diagnosis Date Motion sickness When a passenger Pancreatitis PAST SURGICAL HISTORY Procedure Laterality Date SECTION HX N/A 2016 [place] SECTION HX EGD W/O BRSH SPEC VARICIES INJ 04/09/2023 LAPAROSCOPIC CHOLECYSTECTOMY 2022 LIGATE [place] TUBE TUBAL LIGATION HX Social History Tobacco Use Smoking status: Never Smokeless tobacco: Never Vaping Use Vaping Use: Never used Substance Use Topics Alcohol use: Not Currently Drug use: Never ALLERGIES Allergen Reactions Penicillins Hives Plus throat swelling Family History Problem Relation Age of Onset Cancer Maternal Grandfather Diabetes Paternal Grandmother Glaucoma Paternal Grandfather Diabetes Paternal Grandfather Colon Cancer No Family History Current Outpatient Medications Medication Sig Dispense Refill meclizine (ANTIVERT) 12.5 mg tab Take 1 tablet by mouth every 6 hours as needed (for dizziness). 30 tablet 0 No current facility-administered medications for this visit. Facility-Administered Medications Ordered in Other Visits Medication Dose Route Frequency Provider Last Rate Last Admin lidocaine (PF) 10 mg/mL (1 %) 1-2 mg injection (XYLOCAINE) 0.1-0.2 mL INTRADERMAL PRN Rose Douglas MD lactated ringers iv infusion 30 mL/hr INTRAVENOUS CONTINUOUS Rose Douglas MD Review of Systems Constitutional: Negative for appetite change, chills, diaphoresis, fatigue, fever and unexpected weight change. Respiratory: Negative. Cardiovascular: Negative. Gastrointestinal: Positive for abdominal distention and abdominal pain. Negative for anorexia, blood in stool, constipation, diarrhea, flatus, hematochezia, melena, nausea and vomiting. Genitourinary: Negative for dysuria, frequency and hematuria. Musculoskeletal: Negative for arthralgias and myalgias. Skin: Negative. Neurological: Negative for dizziness, light-headedness and headaches. BP 122/74 Pulse 77 Temp 97.6 Resp 16 Ht 5' 3 (1.60m) Wt 197 lb (89.4kg) SpO2 97% LMP 10/09/2022 BMI 34.91 kg/(m^2). Physical Exam Vitals and nursing note reviewed. Constitutional: Appearance: She is obese. Comments: Appears uncomfortable HENT: Mouth/Throat: Mouth: Mucous membranes are moist. Pharynx: Oropharynx is clear. Eyes: Pupils: Pupils are equal, round, and reactive to light. Cardiovascular: Rate and Rhythm: Normal rate and regular rhythm. Heart sounds: Normal heart sounds. Pulmonary: Effort: Pulmonary effort is normal. Breath sounds: Normal breath sounds. Abdominal: General: Bowel sounds are normal. Palpations: Abdomen is soft. There is no mass. Tenderness: There is abdominal tenderness in the epigastric area, left upper quadrant and left lower quadrant. There is no right CVA tenderness, left CVA tenderness or guarding. Hernia: No hernia is present. Musculoskeletal: Cervical back: Neck supple. Skin: General: Skin is warm and dry. Findings: No rash. Neurological: Mental Status: She is alert and oriented to person, place, and time. Psychiatric: Mood and Affect: Mood normal. Affect is tearful. Speech: Speech normal. Behavior: Behavior is cooperative. Thought Content: Thought content normal. Cognition and Memory: Cognition normal. No visits with results within 1 Day(s) from this visit. Latest known visit with results is: Appointment on 05/15/2023 Component Date Value Ref Range Status Hemoglobin A1C 05/15/2023 5.5 4.3 - 5.6 % Final [place] [employer] guidelines indicate that patients with HgbA1c in the range 5.7-6.4% are at increased risk for development of diabetes, and intervention by lifestyle modification may be beneficial. HgbA1c greater or equal to 6.5% is considered diagnostic of diabetes. Estimated Average Glucose 05/15/2023 111 mg/dL Final eAG: (Estimated average glucose) is a calculated value from HgbA1c and is commercial sales representative of the average blood glucose level in the last 2-3 month period. Iron 05/15/2023 96 41 - 186 ug/dL Final TIBC 05/15/2023 284 232 - 386 ug/dL Final Transferrin Saturation 05/15/2023 33.8 15.0 - 57.0 % Final Ferritin 05/15/2023 71.9 14.7 - 205.1 ng/mL Final Folate 05/15/2023 19.3 >4.7 ng/mL Final Vitamin B12 05/15/2023 307 232 - 1,245 pg/mL Final WBC 05/15/2023 5.33 3.70 - 11.00 k/uL Final RBC 05/15/2023 4.81 3.90 - 5.20 m/uL Final Hemoglobin 05/15/2023 13.4 11.5 - 15.5 g/dL Final Hematocrit 05/15/2023 41.4 36.0 - 46.0 % Final MCV 05/15/2023 86.1 80.0 - 100.0 fL Final MCH 05/15/2023 27.9 26.0 - 34.0 pg Final MCHC 05/15/2023 32.4 30.5 - 36.0 g/dL Final RDW-CV 05/15/2023 13.9 11.5 - 15.0 % Final Platelet Count 05/15/2023 223 150 - 400 k/uL Final MPV 05/15/2023 12.4 9.0 - 12.7 fL Final Neutrophils % 05/15/2023 56.1 % Final Abs Neut 05/15/2023 2.99 1.45 - 7.50 k/uL Final Lymphocytes % 05/15/2023 31.5 % Final Abs Lymph 05/15/2023 1.68 1.00 - 4.00 k/uL Final Monocytes % 05/15/2023 8.8 % Final Abs Curry 05/15/2023 0.47 <0.87 k/uL Final Eosinophils % 05/15/2023 2.8 % Final Abs Eosin 05/15/2023 0.15 <0.46 k/uL Final Basophils % 05/15/2023 0.4 % Final Abs Baso 05/15/2023 <0.03 <0.11 k/uL Final Immature Granulocytes % 05/15/2023 0.4 % Final Abs Immature Gran 05/15/2023 <0.03 <0.10 k/uL Final Diff Type 05/15/2023 Auto Final Protein, Total 05/15/2023 7.4 6.3 - 8.0 g/dL Final Albumin 05/15/2023 4.4 3.9 - 4.9 g/dL Final Calcium, Total 05/15/2023 9.4 8.5 - 10.2 mg/dL Final Bilirubin, Total 05/15/2023 0.5 0.2 - 1.3 mg/dL Final Alkaline Phosphatase 05/15/2023 71 34 - 123 U/L Final AST 05/15/2023 17 13 - 35 U/L Final ALT 05/15/2023 15 7 - 38 U/L Final Glucose 05/15/2023 91 74 - 99 mg/dL Final The [place] [employer] (ADA) provides guidance for cutoff values for fasting glucose and random glucose. The ADA defines fasting as no caloric intake for at least 8 hours. Fasting plasma glucose results between 100 to 125 mg/dL indicate increased risk for diabetes (prediabetes). Fasting plasma glucose results greater than or equal to 126 mg/dL meet the criteria for diagnosis of diabetes. In the absence of unequivocal hyperglycemia, results should be confirmed by repeat testing. In a patient with classic symptoms of hyperglycemia or hyperglycemic crisis, random plasma glucose results greater than or equal to 200 mg/dL meet the criteria for diagnosis of diabetes. Reference: Standards of Medical Care in Diabetes 2016, [place] [employer]. Diabetes Care. 2016.39(Suppl 1). BUN 05/15/2023 11 7 - 21 mg/dL Final Creatinine 05/15/2023 0.82 0.58 - 0.96 mg/dL Final Sodium 05/15/2023 139 136 - 144 mmol/L Final Potassium 05/15/2023 4.3 3.7 - 5.1 mmol/L Final Chloride 05/15/2023 106 (H) 97 - 105 mmol/L Final CO2 05/15/2023 22 22 - 30 mmol/L Final Anion Gap 05/15/2023 11 9 - 18 mmol/L Final Estimated Glomerular Filtration Ra* 05/15/2023 95 >=60 mL/min/1.73m Final Estimated Glomerular Filtration Rate (eGFR) is calculated using the 2020 CKD-EPI creatinine equation. This equation utilizes serum creatinine, sex, and age as parameters. The creatinine assay has traceable calibration to isotope dilution-mass spectrometry. Refer to KDIGO guidelines for clinical interpretation. In patients with unstable renal function, e.g. those with acute kidney injury, the eGFR may not accurately reflect actual GFR. TSH 05/15/2023 2.040 0.270 - 4.200 mIU/L Final If the patient is , TSH reference range varies by gestational period: First Trimester (weeks 9-12): 0.180-2.990 mIU/L Second Trimester: 0.110-3.980 mIU/L Third Trimester: 0.480-4.710 mIU/L Aubrey Cruz et al. A Practical Approach for the Verifications and Determination of Site- and Trimester-Specific Reference Intervals for Thyroid Function tests in . Thyroid, 2019:29:3:412-420. Noe Alvarado, et al. 2017 Guidelines of the [place] [employer] Association for the Diagnosis and Management of Thyroid Disease during and the . Thyroid, 2017:27:3:315-389. ASSESSMENT/PLAN: 1. Left upper quadrant abdominal pain - ICD9: 789.02, ICD10: R10.12 (primary diagnosis) Etiology unclear Differential Diagnosis includes GERD, PUD, Gastritis, Constipation, Gall bladder colic/cholelithiasis, and pancreatitis - Begin treatment with Protonix 40 mg QD - Labs of CBC with Diff, CMP, Lipase, and CRP - Work up with CT Abdomen/Pelvis to rule out pancreatitis - Follow up in 2 weeks or sooner if worsening of symptoms - COMP METABOLIC PANEL - CBC + DIFF - LIPASE BLD - C-REACTIVE PROTEIN (CRP) - PANTOPRAZOLE 40 MG TABLET,DELAYED RELEASE 2. Peptic ulcer disease - ICD9: 533.90, ICD10: K27.9 - PANTOPRAZOLE 40 MG TABLET,DELAYED RELEASE 3. Acute pancreatitis, unspecified complication status, unspecified pancreatitis type - ICD9: 577.0, ICD10: K85.90 - CT ABD/PEL W IVCON 4. Abdominal distension (gaseous) - ICD9: 787.3, ICD10: R14.0 - CT ABD/PEL W IVCON 5. History of pancreatitis - ICD9: V12.79, ICD10: Z87.19 New medication(s) prescribed today: Yes: Protonix. Discussed new medication dosage, usage, goals of therapy, and side effects. Patient has been apprised of any potential drug interactions to be aware of. Patient expresses understanding. Counseling completed in adopting health behaviors such as avoiding excessive alcohol use, avoid tobacco use, improve nutrition, and engage in physical activities. Copy of written care plan, clinical summary, treatment plan, new medications, goals, and self management requirements were given to patient. Alisha Betancur APRN.CNP documented in this encounter [facility] 05-29-2023 History of Present illness Narrative CHIEF COMPLAINT: Ariela Bell is a 38 year old female who presents for 2 follow up for dizziness. I reviewed past medical, surgical, social, and family histories today and updated chart. Allergies, chronic medications, and supplements were also reviewed. Reports she is feeling much better and the dizziness has improved. She has taken the Meclizine once when she was going to bed and felt like everything was spinning. It did help with her symptoms and hasn't had any since. Denies any HASSAN, N/V, fevers, ear pain. The history is provided by the patient. No english language learner teacher was used. PAST MEDICAL HISTORY Diagnosis Date Motion sickness When a passenger Pancreatitis PAST SURGICAL HISTORY Procedure Laterality Date SECTION HX N/A 2016 [place] SECTION HX EGD W/O BRSH SPEC VARICIES INJ 04/09/2023 LAPAROSCOPIC CHOLECYSTECTOMY 2021 LIG[place] TUBE TUBAL LIGATION HX Social History Tobacco Use Smoking status: Never Smokeless tobacco: Never Vaping Use Vaping Use: Never used Substance Use Topics Alcohol use: Not Currently Drug use: Never ALLERGIES Allergen Reactions Penicillins Hives Plus throat swelling Family History Problem Relation Age of Onset Cancer Maternal Grandfather Diabetes Paternal Grandmother Glaucoma Paternal Grandfather Diabetes Paternal Grandfather Colon Cancer No Family History Current Outpatient Medications Medication Sig Dispense Refill meclizine (ANTIVERT) 12.5 mg tab Take 1 tablet by mouth every 6 hours as needed (for dizziness). 30 tablet 0 No current facility-administered medications for this visit. Facility-Administered Medications Ordered in Other Visits Medication Dose Route Frequency Provider Last Rate Last Admin lidocaine (PF) 10 mg/mL (1 %) 1-2 mg injection (XYLOCAINE) 0.1-0.2 mL INTRADERMAL PRN Rose Douglas MD lactated ringers iv infusion 30 mL/hr INTRAVENOUS CONTINUOUS Rose Douglas MD Review of Systems Constitutional: Positive for fatigue. Negative for appetite change, chills, diaphoresis, fever and unexpected weight change. HENT: Negative. Eyes: Negative for visual disturbance. Respiratory: Negative for cough, chest tightness, shortness of breath and wheezing. Cardiovascular: Negative for chest pain and palpitations. Gastrointestinal: Negative for abdominal pain, diarrhea, nausea and vomiting. Genitourinary: Negative. Musculoskeletal: Negative for back pain and neck pain. Skin: Negative. Allergic/Immunologic: Negative. Neurological: Negative for dizziness (improved), seizures, syncope, weakness, numbness and headaches. Psychiatric/Behavioral: Positive for sleep disturbance. Negative for confusion and dysphoric mood. The patient is not nervous/anxious. BP 110/66 Pulse 69 Temp 98.1 Resp 19 Ht 5' 3 (1.60m) Wt 189 lb (85.7kg) SpO2 97% LMP 10/09/2022 BMI 33.49 kg/(m^2). Physical Exam Vitals and nursing note reviewed. Constitutional: General: She is not in acute distress. Appearance: Normal appearance. She is not ill-appearing. HENT: Head: Normocephalic. Nose: Nose normal. Mouth/Throat: Mouth: Mucous membranes are moist. Pharynx: Oropharynx is clear. Eyes: Pupils: Pupils are equal, round, and reactive to light. Cardiovascular: Rate and Rhythm: Normal rate and regular rhythm. Heart sounds: Normal heart sounds, S1 normal and S2 normal. Pulmonary: Effort: Pulmonary effort is normal. Breath sounds: Normal breath sounds. Skin: General: Skin is warm and dry. Neurological: Mental Status: She is alert and oriented to person, place, and time. Cranial Nerves: Cranial nerves 2-12 are intact. Psychiatric: Mood and Affect: Mood and affect normal. Speech: Speech normal. Behavior: Behavior is cooperative. Cognition and Memory: Cognition normal. Some elements of above documentation were copied from my progress note of 05/10/23 and have been reexamined and updated where appropriate. All elements reflect the current assessment and medical decision making today. No visits with results within 1 Day(s) from this visit. Latest known visit with results is: Appointment on 05/15/2023 Component Date Value Ref Range Status Hemoglobin A1C 05/15/2023 5.5 4.3 - 5.6 % Final [place] [employer] guidelines indicate that patients with HgbA1c in the range 5.7-6.4% are at increased risk for development of diabetes, and intervention by lifestyle modification may be beneficial. HgbA1c greater or equal to 6.5% is considered diagnostic of diabetes. Estimated Average Glucose 05/15/2023 111 mg/dL Final eAG: (Estimated average glucose) is a calculated value from HgbA1c and is commercial sales representative of the average blood glucose level in the last 2-3 month period. Iron 05/15/2023 96 41 - 186 ug/dL Final TIBC 05/15/2023 284 232 - 386 ug/dL Final Transferrin Saturation 05/15/2023 33.8 15.0 - 57.0 % Final Ferritin 05/15/2023 71.9 14.7 - 205.1 ng/mL Final Folate 05/15/2023 19.3 >4.7 ng/mL Final Vitamin B12 05/15/2023 307 232 - 1,245 pg/mL Final WBC 05/15/2023 5.33 3.70 - 11.00 k/uL Final RBC 05/15/2023 4.81 3.90 - 5.20 m/uL Final Hemoglobin 05/15/2023 13.4 11.5 - 15.5 g/dL Final Hematocrit 05/15/2023 41.4 36.0 - 46.0 % Final MCV 05/15/2023 86.1 80.0 - 100.0 fL Final MCH 05/15/2023 27.9 26.0 - 34.0 pg Final MCHC 05/15/2023 32.4 30.5 - 36.0 g/dL Final RDW-CV 05/15/2023 13.9 11.5 - 15.0 % Final Platelet Count 05/15/2023 223 150 - 400 k/uL Final MPV 05/15/2023 12.4 9.0 - 12.7 fL Final Neutrophils % 05/15/2023 56.1 % Final Abs Neut 05/15/2023 2.99 1.45 - 7.50 k/uL Final Lymphocytes % 05/15/2023 31.5 % Final Abs Lymph 05/15/2023 1.68 1.00 - 4.00 k/uL Final Monocytes % 05/15/2023 8.8 % Final Abs Curry 05/15/2023 0.47 <0.87 k/uL Final Eosinophils % 05/15/2023 2.8 % Final Abs Eosin 05/15/2023 0.15 <0.46 k/uL Final Basophils % 05/15/2023 0.4 % Final Abs Baso 05/15/2023 <0.03 <0.11 k/uL Final Immature Granulocytes % 05/15/2023 0.4 % Final Abs Immature Gran 05/15/2023 <0.03 <0.10 k/uL Final Diff Type 05/15/2023 Auto Final Protein, Total 05/15/2023 7.4 6.3 - 8.0 g/dL Final Albumin 05/15/2023 4.4 3.9 - 4.9 g/dL Final Calcium, Total 05/15/2023 9.4 8.5 - 10.2 mg/dL Final Bilirubin, Total 05/15/2023 0.5 0.2 - 1.3 mg/dL Final Alkaline Phosphatase 05/15/2023 71 34 - 123 U/L Final AST 05/15/2023 17 13 - 35 U/L Final ALT 05/15/2023 15 7 - 38 U/L Final Glucose 05/15/2023 91 74 - 99 mg/dL Final The [place] [employer] (ADA) provides guidance for cutoff values for fasting glucose and random glucose. The ADA defines fasting as no caloric intake for at least 8 hours. Fasting plasma glucose results between 100 to 125 mg/dL indicate increased risk for diabetes (prediabetes). Fasting plasma glucose results greater than or equal to 126 mg/dL meet the criteria for diagnosis of diabetes. In the absence of unequivocal hyperglycemia, results should be confirmed by repeat testing. In a patient with classic symptoms of hyperglycemia or hyperglycemic crisis, random plasma glucose results greater than or equal to 200 mg/dL meet the criteria for diagnosis of diabetes. Reference: Standards of Medical Care in Diabetes 2016, [place] [employer]. Diabetes Care. 2016.39(Suppl 1). BUN 05/15/2023 11 7 - 21 mg/dL Final Creatinine 05/15/2023 0.82 0.58 - 0.96 mg/dL Final Sodium 05/15/2023 139 136 - 144 mmol/L Final Potassium 05/15/2023 4.3 3.7 - 5.1 mmol/L Final Chloride 05/15/2023 106 (H) 97 - 105 mmol/L Final CO2 05/15/2023 22 22 - 30 mmol/L Final Anion Gap 05/15/2023 11 9 - 18 mmol/L Final Estimated Glomerular Filtration Ra* 05/15/2023 95 >=60 mL/min/1.73m Final Estimated Glomerular Filtration Rate (eGFR) is calculated using the 2020 CKD-EPI creatinine equation. This equation utilizes serum creatinine, sex, and age as parameters. The creatinine assay has traceable calibration to isotope dilution-mass spectrometry. Refer to KDIGO guidelines for clinical interpretation. In patients with unstable renal function, e.g. those with acute kidney injury, the eGFR may not accurately reflect actual GFR. TSH 05/15/2023 2.040 0.270 - 4.200 mIU/L Final If the patient is , TSH reference range varies by gestational period: First Trimester (weeks 9-12): 0.180-2.990 mIU/L Second Trimester: 0.110-3.980 mIU/L Third Trimester: 0.480-4.710 mIU/L Aubrey Cruz et al. A Practical Approach for the Verifications and Determination of Site- and Trimester-Specific Reference Intervals for Thyroid Function tests in . Thyroid, 2019:29:3:412-420. Noe E, et al. 2017 Guidelines of the [place] [employer] for the Diagnosis and Management of Thyroid Disease during and the . Thyroid, 2017:27:3:315-389. ASSESSMENT/PLAN: 1. Dizziness - ICD9: 780.4, ICD10: R42 - Reviewed her labs with her today. Symptoms have improved. Has only had one episode since her last appointment and the medication helped. She has Meclizine at home to take as needed. Advised to follow up if her symptoms worsen. 2. Low serum vitamin B12 - ICD9: 266.2, ICD10: E53.8 - Advised to take an OTC replacement,1,000 mg daily. New medication(s) prescribed today: None. Counseling completed in adopting health behaviors such as avoiding excessive alcohol use, avoid tobacco use, improve nutrition, and engage in physical activities. Copy of written care plan, clinical summary, treatment plan, new medications, goals, and self management requirements were given to patient. Alisha Betancur APRN.CNP documented in this encounter [facility] 05-25-2023 Miscellaneous Notes No Show Documentation Ariela Bell no showed for an appointment on 05/25/23 with Alisha Betancur APRN.CNP at 11:20 am. She was scheduled for a 2 week follow up. I called and spoke with the patient regarding her missed appointment. Ariela stated the reason that she missed her appointment was because she had another appointment that ran longer than expected . Resources discussed/offered to patient: she had already called at 11:26 and rescheduled for Sunday of this next week. No show determined to be fault of patient: N/A This is the patients first no show in the last 12 months. Patient was rescheduled for yes. Letter mailed : N/A Is this the Third or Fourth No Show? No Rhonda Hinson May 25, 2023 11:36 AM documented in this encounter [facility] 05-18-2023 Miscellaneous Notes Left message informing patient, phone number to reach the office was left for any questions or concerns. Ema Murray MA ----- Message from Alisha Betancur APRN.MINUTE CLERK sent at 05/17/2023 5:32 PM EDT ----- Please let patient know their results are WNL. Thank you. documented in this encounter [facility] 05-10-2023 Alisha Arrington APRN.MINUTE CLERK - 05/10/2023 10:41 AM EDT Images from the original note were not included. Benign Paroxysmal Positional Vertigo (BPPV) What is BPPV? Benign Paroxysmal Positional Vertigo (BPPV) is an inner ear disorder in which changes to the position of the head, such as tipping the head backward, lead to sudden vertigo -- a feeling that the room is spinning. Vertigo can vary in intensity from mild to severe and usually lasts only a few minutes. It may be accompanied by other symptoms, including dizziness lightheadedness a sense of imbalance nausea vomiting Anatomy of the right inner ear. Particle repositioning therapy moves the otoconia out of the semicircular canals and into the utricle where they dissolve naturally. BPPV is not a sign of a serious problem, and it usually disappears on its own within 6 weeks of the first episode. However, the symptoms of BPPV can be very frightening and may be dangerous, especially in older individuals. The unsteadiness associated with BPPV can lead to falls. About half of all people over age 65 experience an episode of BPPV, and falls are a leading cause of fractures in this age-range. What causes BPPV? BPPV develops when calcium carbonate crystals, which are known as otoconia, shift into and become trapped within the semicircular canals (one of the vestibular organs of the inner ear that controls balance). The otoconia make up a normal part of the structure of the utricle, a vestibular organ next to the semicircular canals. (see illustration to the right.) In the utricle, the otoconia may be loosened as a result of injury, infection, or age, and they land in a sac -- the utricle -- where they are naturally dissolved. However, otoconia in the semicircular canals will not dissolve. As a person s head position changes, the otoconia begin to roll around and push on the tiny hairs that line the semicircular canals. Those hairs act as sensors to give the brain information about balance. Vertigo develops when the hairs are stimulated by the rolling otoconia. What head positions trigger BPPV? Movements that can trigger an episode of BPPV include rolling over or sitting up in bed, bending the head forward to look down, or tipping the head backward. In most people, only a single ear is affected by BPPV, although both ears may be involved on occasion. How is BPPV diagnosed and treated? With advances in medical technology, BPPV can easily be diagnosed and treated. The diagnosis can usually be made in the office based on medical history and a physical exam. Treatment also involves a short, simple in-office procedure known as the particle repositioning maneuver. (See addendum below.) How can I identify the affected side? Steps to determine affected side: Sit on bed so that if you lie down, your head hangs slightly over the end of the bed. Turn head to the right and lie back quickly. Wait 1 minute. If you feel dizzy, then the right ear is your affected ear. If no dizziness occurs, sit up. Wait 1 minute. Turn head to the left and lie back quickly. Wait 1 minute. If you feel dizzy, then the left ear is your affected ear. Right position Left position How successful is the treatment? A single particle repositioning procedure is effective in treating about 80% to 90% of cases of BPPV. Additional exercise or repositioning maneuvers may be needed if symptoms persist. Can BPPV recur? If so, what can I do? A new episode of BPPV can develop after successful treatment -- on average there is a 15 percent rate of recurrence each year. However, it may be possible to treat recurrent BPPV at home by performing a series of movements at the time an episode occurs. Patients will receive information on ways to handle recurrences on their own or they can work with a physical therapist to develop a plan. In general, if you wake up with positional vertigo, slowly move into the [id number] position and wait for a minute. Next, slowly move into a face-down position and slide to the foot of the bed. Keep your head down until you reach the end of the bed and are kneeling or standing on the floor. Slowly bring your head backward into an upright position. Hold on to the bed at all times. Another method is to sit toward the foot of the bed, leaving enough room to lay back with your head resting comfortably at the end of the bed, slightly extended. Be careful not to overextend your neck, as this may aggravate existing neck problems. If your symptoms are severe, you may need assistance to complete the maneuver. Follow the same steps as described in the boxed instructions on the next page. Without treatment, the symptoms of BPPV may worsen. However, with time, the otoconia dissolve on their own, which is usually within 6 weeks. Until the time the otoconia dissolve on their own, the number and severity of episodes may be reduced simply by paying careful attention to head position. In addition, anti-motion sickness drugs can be given to control nausea. However, before drugs are taken, it is usually best to try the particle repositioning procedure first. It is a very safe and rapid way to relieve symptoms and reduce the chance for falls. Medications should not be taken for a long period of time. ADDENDUM Particle repositioning procedure: [id number] instructions The particle repositioning procedure takes about 15 minutes to complete and involves a series of physical movements that change the position of the head and body. These actions shift the otoconia out of the semicircular canals and back into their proper location in the utricle. The particle repositioning procedure begins with the patient is sitting up and then lying down on a treatment table. The procedure is very easy to perform. Patients should wear comfortable clothing that will allow them to move freely. Hold each of the following positions for 1 to 2 minutes. Step 1: Turn your head toward your affected ear. Step 2: Lay back quickly. Hold. Step 3: Keep your head back against the bed and turn it toward the good ear. Hold. Step 4: Roll onto your side with your good ear down. Your nose should be turned toward the floor. Hold. Step 5: Sit up, keeping your chin tucked in toward your shoulder. Hold. When you end, you should be sitting over the side of your bed so your feet touch the floor. Step 6: Follow your post-particle repositioning instructions. BPPV: Glossary of Terms Semicircular canals: These structures act like a gyroscope, with canals positioned in three dimensions -- upward, downward, and horizontal. Together, the canals send signals to the brain about the rotation/positioning of the head (for example, when you bend over or spin around.) Cupula: Detects the flow of fluid within the semicircular canals. The flow of fluid gives the body a sense of motion. Utricle: An organ located in the inner ear that helps control balance. The utricle contains hair cells, which are covered with otoconia. The otoconia sway with gravity, sending signals to the brain about the position of the head and body (upright, tilted, etc). Otoconia: The tiny calcium crystal particles that become dislodged from within the utricle (where they can dissolve) and move into the semicircular canals (where they can t dissolve). Cochlea: The 'snail-shell' sense organ of the inner ear that translates sound into nerve impulses and sent to the brain. References Sania BT, Mainor LB. Jose Angel OCONNOR. Peripheral Vestibular Disorders. In: [facility], 3-Volume Set. [place]; 2014. Adrianna Quijano. Benign Paroxysmal Positional Vertigo (BPPV): History, Pathophysiology, Office Treatment and Future Directions. International Journal of Otolaryngology. 2011;2011:369896. Fina JS, Alva RAY. Clinical practice. Benign paroxysmal positional vertigo. N Engl J Med. 2013Jan 08;370(12):1138-47. Jeff Roman DD, Kina Slaughter. The Head and Neck. In: Jeff Roman DD, Kina Slaughter. eds. [place] s Diagnostic Examination, 10e. [place], [place]: [facility]; 2015. Copyright 5551-8191 The [facility]. All rights reserved This information is provided by the [facility] and is not intended to replace the medical advice of your doctor or health care provider. Please consult your health care provider for advice about a specific medical condition. For additional health information, please contact the [facility] at the [facility] or toll-free extension [phone]. If you prefer, you may visit [email or web address] or [email or web address]. This document was last reviewed on: 2015 documented in this encounter [facility] 05-10-2023 History of Present illness Narrative CHIEF COMPLAINT: Ariela Bell is a 38 year old female who presents for dizziness. She reports having a episodes 2-3 times this last week. She also feels fatigue but denies any nausea, vomiting, numbness, and tingling. I reviewed past medical, surgical, social, and family histories today and updated chart. Allergies, chronic medications, and supplements were also reviewed. Room was spinning when she was laying down Feeling drained Sick a couple weeks ago Went to an urgent care and was tested for strep and it was negative. Most likely viral, given a steroid and then started feeling dizzy shortly after. Episode can last up to 10 minutes The history is provided by the patient. No english language learner teacher was used. Dizziness The patient's pertinent negatives include no altered mental status, clumsiness, focal sensory loss, focal weakness, loss of balance, memory loss, near-syncope, slurred speech, syncope, visual change or weakness. This is a new problem. The current episode started 1 to 4 weeks ago. The neurological problem developed insidiously. The problem is unchanged. There was no focality noted. Associated symptoms include dizziness, fatigue and vertigo. Pertinent negatives include no abdominal pain, auditory change, aura, back pain, bladder incontinence, bowel incontinence, chest pain, confusion, diaphoresis, fever, headaches, nausea, neck pain, palpitations, shortness of breath or vomiting. Past treatments include drinking and eating. There is no history of a clotting disorder, a CVA, head trauma, liver disease, mood changes or seizures. PAST MEDICAL HISTORY Diagnosis Date Motion sickness When a passenger Pancreatitis PAST SURGICAL HISTORY Procedure Laterality Date SECTION HX N/A 2016 [place] SECTION HX EGD W/O BRSH SPEC VARICIES INJ 04/09/2023 LAPAROSCOPIC CHOLECYSTECTOMY 2021 LIGATE FALLOPIAN TUBE TUBAL LIGATION HX Social History Tobacco Use Smoking status: Never Smokeless tobacco: Never Vaping Use Vaping Use: Never used Substance Use Topics Alcohol use: Not Currently Drug use: Never ALLERGIES Allergen Reactions Penicillins Hives Plus throat swelling Penicillins Hives Family History Problem Relation Age of Onset Cancer Maternal Grandfather Diabetes Paternal Grandmother Glaucoma Paternal Grandfather Diabetes Paternal Grandfather Colon Cancer No Family History Current Outpatient Medications Medication Sig Dispense Refill pantoprazole DR (PROTONIX) 40 mg tablet Take 1 tablet by mouth once daily. 30 tablet 11 No current facility-administered medications for this visit. Facility-Administered Medications Ordered in Other Visits Medication Dose Route Frequency Provider Last Rate Last Admin lidocaine (PF) 10 mg/mL (1 %) 1-2 mg injection (XYLOCAINE) 0.1-0.2 mL INTRADERMAL PRN Rose Douglas MD lactated ringers iv infusion 30 mL/hr INTRAVENOUS CONTINUOUS Rose Douglas MD Review of Systems Constitutional: Positive for fatigue. Negative for appetite change, chills, diaphoresis, fever and unexpected weight change. Respiratory: Negative for cough, chest tightness, shortness of breath and wheezing. Cardiovascular: Negative for chest pain, palpitations and near-syncope. Gastrointestinal: Negative for abdominal pain, bowel incontinence, diarrhea, nausea and vomiting. Genitourinary: Negative for bladder incontinence. Musculoskeletal: Negative for back pain and neck pain. Neurological: Positive for dizziness and vertigo. Negative for focal weakness, seizures, syncope, weakness, numbness, headaches and loss of balance. Psychiatric/Behavioral: Negative for confusion and memory loss. Temp 98.1 Resp 18 Ht 5' 3 (1.60m) Wt 190 lb (86.2kg) SpO2 98% LMP 10/09/2022 BMI 33.67 kg/(m^2). Physical Exam Vitals and nursing note reviewed. Constitutional: General: She is not in acute distress. Appearance: Normal appearance. She is not ill-appearing. HENT: Head: Normocephalic and atraumatic. Right Ear: Tympanic membrane, ear canal and external ear normal. Left Ear: Tympanic membrane, ear canal and external ear normal. Nose: Nose normal. Mouth/Throat: Mouth: Mucous membranes are moist. Pharynx: Oropharynx is clear. Eyes: Extraocular Movements: Extraocular movements intact. Pupils: Pupils are equal, round, and reactive to light. Cardiovascular: Rate and Rhythm: Normal rate and regular rhythm. Heart sounds: Normal heart sounds, S1 normal and S2 normal. Pulmonary: Effort: Pulmonary effort is normal. Breath sounds: Normal breath sounds. Musculoskeletal: Cervical back: Normal range of motion and neck supple. Skin: General: Skin is warm and dry. Neurological: Mental Status: She is alert and oriented to person, place, and time. Cranial Nerves: Cranial nerves 2-12 are intact. Psychiatric: Mood and Affect: Mood normal. Affect is tearful. Speech: Speech normal. Behavior: Behavior is cooperative. Cognition and Memory: Cognition normal. ASSESSMENT/PLAN: 1. Dizziness - ICD9: 780.4, ICD10: R42 - Suspect BPPV, discussed treatment with Ariadna maneuver at home and will send in Meclizine - Check labs to rule out any other causes - Eat and drink on a regular schedule - Adequate sleep - If symptoms persist, may need referral to PT for vestibular therapy - HGB A1C - IRON + TIBC - FERRITIN BLD - FOLATE SERUM - VITAMIN B12 BLOOD - CBC + DIFF - COMP METABOLIC PANEL - MECLIZINE 12.5 MG TABLET - TSH BLD New medication(s) prescribed today: Yes: Meclizine. Discussed new medication dosage, usage, goals of therapy, and side effects. Patient has been apprised of any potential drug interactions to be aware of. Patient expresses understanding. Counseling completed in adopting health behaviors such as avoiding excessive alcohol use, avoid tobacco use, improve nutrition, and engage in physical activities. Copy of written care plan, clinical summary, treatment plan, new medications, goals, and self management requirements were given to patient. Alisha Betancur APRN.MATTHEW documented in this encounter [facility] 04-17-2023 History of Present illness Narrative ED Follow Up: Patient discharged from [facility] ED on 04/14/2023. 1. How are you feeling since your ED visit? NA Have your symptoms improved or resolved? Not applicable 2. Were you prescribed any medications while in the ED or advised to stop any medication? Not applicable - If yes, were you able to fill your prescriptions? Not applicable -if stopped medication, what was the medication? NA 3. Were you advised to schedule a follow up appointment with your provider? Not applicable - If no, Do you feel like you need an appointment scheduled? Not applicable - If yes, Do you need this scheduled now or has this already been scheduled? Not applicable 4. Were you able to contact the office or photovoltaic subcontractor provider prior to your ED visit? Not applicable 5. Is there anything else I can do for you today? Not applicable Called left message on patients vm to contact office if she needs anything or would like to make a follow up apt. Marilin Gagnon MA documented in this encounter [facility] 04-13-2023 Miscellaneous Notes No Show Documentation Ariela Bell no showed for an appointment on 04/13/23 with Alisha Betancur APRN.CNP at 9:40 am. She was scheduled for a well adult exam. I called and left a message for the patient regarding her missed appointment. Resources discussed/offered to patient: to return our call to reschedule. No show determined to be fault of patient: Yes This is the patients first no show in the last 12 months. Patient was rescheduled for n/a. Letter mailed : Yes Is this the Third or Fourth No Show? No Rhonda Hinson April 13, 2023 10:11 AM documented in this encounter [facility] 04-09-2023 History and physical note Endoscopy pre-operative H&P IMPRESSION AND PLAN Ok to proceed with endoscopy HPI: This is a 37 year old female. GERD for EGD. Pertinent Review of Systems: GI: See HPI All other reviewed and negative other than HPI. PAST MEDICAL HISTORY: PAST MEDICAL HISTORY Diagnosis Date Motion sickness When a passenger Pancreatitis PAST SURGICAL HISTORY: PAST SURGICAL HISTORY Procedure Laterality Date SECTION HX N/A 2016 [place] SECTION HX LAPAROSCOPIC CHOLECYSTECTOMY 2021 LIGATE FALLOPIAN TUBE TUBAL LIGATION HX OBJECTIVE: PHYSICAL EXAM: VITALS: BP 117/89 Pulse 74 Temp 36.9 C (98.4 F) Resp 16 Ht 160 cm (5' 3) Wt 86.6 kg (191 lb) LMP 10/09/2022 (Approximate) SpO2 96% BMI 33.83 kg/m General appearance: A&Ox3 Abdomen: Soft, non-tender. Not distended. SIGNATURE: Rose Douglas MD PATIENT NAME: Ariela Bell Pager: [facility] Work Phone: 04-09-2023 History and physical note Endoscopy pre-operative H&P IMPRESSION AND PLAN Ok to proceed with endoscopy HPI: This is a 37 year old female. GERD for EGD. Pertinent Review of Systems: GI: See HPI All other reviewed and negative other than HPI. PAST MEDICAL HISTORY: PAST MEDICAL HISTORY Diagnosis Date Motion sickness When a passenger Pancreatitis PAST SURGICAL HISTORY: PAST SURGICAL HISTORY Procedure Laterality Date SECTION HX N/A 2016 [place] SECTION HX LAPAROSCOPIC CHOLECYSTECTOMY 2021 LIGATE FALLOPIAN TUBE TUBAL LIGATION HX OBJECTIVE: PHYSICAL EXAM: VITALS: BP 117/89 Pulse 74 Temp 36.9 C (98.4 F) Resp 16 Ht 160 cm (5' 3) Wt 86.6 kg (191 lb) LMP 10/09/2022 (Approximate) SpO2 96% BMI 33.83 kg/m General appearance: A&Ox3 Abdomen: Soft, non-tender. Not distended. SIGNATURE: Rose Douglas MD PATIENT NAME: Ariela Bell Pager: documented in this encounter [facility] 02-20-2023 Note HNO ID: [id number] Author: Rhonda Bocanegra PA-C Service: ? Author Type: Physician Latin American Studies Director Type: Progress Notes Filed: 02/20/2023 11:20 AM Note Text: CHIEF COMPLAINT: Patient presents with: Hospital F/U: Pancreatitis This consult was requested by No ref. provider found for an opinion regarding pancreatitis. My final recommendations will be communicated to the requesting health care provider by way of the shared medical record for internal providers or letter via the [employer] for external providers. HPI: Ariela Bell is a 37 year old female who presents for Hospital F/U (Pancreatitis ). Patient tells me that she is feeling well today. Denies any residual abdominal pain. Notes GERD, has been on Protonix for a while. Denies nausea, vomiting. Appetite is good. Weight is stable. Bowel movements are regular. No rectal bleeding. No smoking or alcohol. Unsure of family hx. Record Review: [facility] / Outside records reviewed. PAST MEDICAL HISTORY Diagnosis Date Motion sickness When a passenger Pancreatitis PAST SURGICAL HISTORY Procedure Laterality Date SECTION HX N/A 2016 [place] SECTION HX LAPAROSCOPIC CHOLECYSTECTOMY 2021 LIGATE FALLOPIAN TUBE TUBAL LIGATION HX Allergies: ALLERGIES Allergen Reactions Penicillins Hives Plus throat swelling Penicillins Hives Medications: pantoprazole DR (PROTONIX) 40 mg tablet Take 1 tablet by mouth once daily. FAMILY HISTORY Problem Relation Age of Onset Cancer Maternal Grandfather Diabetes Paternal Grandmother Glaucoma Paternal Grandfather Diabetes Paternal Grandfather Colon Cancer No Family History Employer And Job Title: None on file Years Of Education Completed: Not specified Marital Status: Social History Tobacco Use Smoking status: Never Smokeless tobacco: Never Vaping Use Vaping Use: Never used Substance Use Topics Alcohol use: Not Currently Drug use: Never Review of Systems: Review of Systems Constitutional: Positive for fatigue. All other systems reviewed and are negative. Are you taking any blood thinners? No Physical Examination: BP 112/70 Pulse 84 Ht 5' 3 (1.60m) Wt 191 lb 4.8 oz (86.8kg) LMP 10/09/2022 BMI 33.90 kg/(m2). Physical Exam Constitutional: Appearance: Normal appearance. She is obese. HENT: Head: Normocephalic and atraumatic. Eyes: General: No scleral icterus. Extraocular Movements: Extraocular movements intact. Conjunctiva/sclera: Conjunctivae normal. Pupils: Pupils are equal, round, and reactive to light. Cardiovascular: Rate and Rhythm: Normal rate and regular rhythm. Pulses: Normal pulses. Heart sounds: Normal heart sounds. Pulmonary: Effort: Pulmonary effort is normal. Breath sounds: Normal breath sounds. Abdominal: General: Abdomen is flat. Bowel sounds are normal. Palpations: Abdomen is soft. Tenderness: There is no abdominal tenderness. Musculoskeletal: General: Normal range of motion. Cervical back: Normal range of motion and neck supple. Skin: General: Skin is warm and dry. Coloration: Skin is not jaundiced. Neurological: General: No focal deficit present. Mental Status: She is alert and oriented to person, place, and time. Psychiatric: Mood and Affect: Mood normal. Behavior: Behavior normal. Thought Content: Thought content normal. Judgment: Judgment normal. Assessment/Plan (K85.91) Acute pancreatitis with uninfected necrosis, unspecified pancreatitis type (primary encounter diagnosis) (K21.9) Gastroesophageal reflux disease, unspecified whether esophagitis present (R10.13) Epigastric pain 1. Acute pancreatitis with uninfected necrosis, unspecified pancreatitis type -- Patient overall recovering well. Denies any residual abdominal pain today. -- She is going to reach out to Dr. Gill in regards to updated imaging. 2. Gastroesophageal reflux disease, unspecified whether esophagitis present -- Notes long hx of GERD, on Protonix 40 mg daily with some break through. -- Can add OTC Pepcid PRN -- EGD for further evaluation - EGD DIAGNOSTIC; Future 3. Epigastric pain -- This has improved since her hospital stay -- Continue on Protonix as prescribed. -- EGD for further evaluation - EGD DIAGNOSTIC; Future Follow up in office PRN. Recommended to please call office/go to ER if fever, chills, chest pain, SOB, diarrhea, nausea, emesis, worsening abdominal pain, dehydration occurs I spent a total of 20 minutes on the date of the service which included preparing to see the patient, [id number] patient care, completing clinical documentation, obtaining and/or reviewing separately obtained history, performing a medically appropriate examination, counseling and educating the patient/family/caregiver, and ordering medications, tests, or procedures. Rhonda Bocanegra PA-C February 20, 2023 11:15 AM [facility] 02-20-2023 History of Present illness Narrative CHIEF COMPLAINT: Patient presents with: Hospital F/U: Pancreatitis This consult was requested by No ref. provider found for an opinion regarding pancreatitis. My final recommendations will be communicated to the requesting health care provider by way of the shared medical record for internal providers or letter via the [employer] for external providers. HPI: Ariela Bell is a 37 year old female who presents for Hospital F/U (Pancreatitis ). Patient tells me that she is feeling well today. Denies any residual abdominal pain. Notes GERD, has been on Protonix for a while. Denies nausea, vomiting. Appetite is good. Weight is stable. Bowel movements are regular. No rectal bleeding. No smoking or alcohol. Unsure of family hx. Record Review: [facility] / Outside records reviewed. PAST MEDICAL HISTORY Diagnosis Date Motion sickness When a passenger Pancreatitis PAST SURGICAL HISTORY Procedure Laterality Date SECTION HX N/A 2016 [place] SECTION HX LAPAROSCOPIC CHOLECYSTECTOMY 2021 LIGATE FALLOPIAN TUBE TUBAL LIGATION HX Allergies: ALLERGIES Allergen Reactions Penicillins Hives Plus throat swelling Penicillins Hives Medications: pantoprazole DR (PROTONIX) 40 mg tablet Take 1 tablet by mouth once daily. FAMILY HISTORY Problem Relation Age of Onset Cancer Maternal Grandfather Diabetes Paternal Grandmother Glaucoma Paternal Grandfather Diabetes Paternal Grandfather Colon Cancer No Family History Employer And Job Title: None on file Years Of Education Completed: Not specified Marital Status: Social History Tobacco Use Smoking status: Never Smokeless tobacco: Never Vaping Use Vaping Use: Never used Substance Use Topics Alcohol use: Not Currently Drug use: Never Review of Systems: Review of Systems Constitutional: Positive for fatigue. All other systems reviewed and are negative. Are you taking any blood thinners? No Physical Examination: BP 112/70 Pulse 84 Ht 5' 3 (1.60m) Wt 191 lb 4.8 oz (86.8kg) LMP 10/09/2022 BMI 33.90 kg/(m^2). Physical Exam Constitutional: Appearance: Normal appearance. She is obese. HENT: Head: Normocephalic and atraumatic. Eyes: General: No scleral icterus. Extraocular Movements: Extraocular movements intact. Conjunctiva/sclera: Conjunctivae normal. Pupils: Pupils are equal, round, and reactive to light. Cardiovascular: Rate and Rhythm: Normal rate and regular rhythm. Pulses: Normal pulses. Heart sounds: Normal heart sounds. Pulmonary: Effort: Pulmonary effort is normal. Breath sounds: Normal breath sounds. Abdominal: General: Abdomen is flat. Bowel sounds are normal. Palpations: Abdomen is soft. Tenderness: There is no abdominal tenderness. Musculoskeletal: General: Normal range of motion. Cervical back: Normal range of motion and neck supple. Skin: General: Skin is warm and dry. Coloration: Skin is not jaundiced. Neurological: General: No focal deficit present. Mental Status: She is alert and oriented to person, place, and time. Psychiatric: Mood and Affect: Mood normal. Behavior: Behavior normal. Thought Content: Thought content normal. Judgment: Judgment normal. Assessment/Plan (K85.91) Acute pancreatitis with uninfected necrosis, unspecified pancreatitis type (primary encounter diagnosis) (K21.9) Gastroesophageal reflux disease, unspecified whether esophagitis present (R10.13) Epigastric pain 1. Acute pancreatitis with uninfected necrosis, unspecified pancreatitis type -- Patient overall recovering well. Denies any residual abdominal pain today. -- She is going to reach out to Dr. Gill in regards to updated imaging. 2. Gastroesophageal reflux disease, unspecified whether esophagitis present -- Notes long hx of GERD, on Protonix 40 mg daily with some break through. -- Can add OTC Pepcid PRN -- EGD for further evaluation - EGD DIAGNOSTIC; Future 3. Epigastric pain -- This has improved since her hospital stay -- Continue on Protonix as prescribed. -- EGD for further evaluation - EGD DIAGNOSTIC; Future Follow up in office PRN. Recommended to please call office/go to ER if fever, chills, chest pain, SOB, diarrhea, nausea, emesis, worsening abdominal pain, dehydration occurs I spent a total of 20 minutes on the date of the service which included preparing to see the patient, [id number] patient care, completing clinical documentation, obtaining and/or reviewing separately obtained history, performing a medically appropriate examination, counseling and educating the patient/family/caregiver, and ordering medications, tests, or procedures. Rhonda Bocanegra PA-C February 20, 2023 11:15 AM documented in this encounter [facility] 01-26-2023 Miscellaneous Notes Left message informing patient, phone number to reach the office was left for any questions or concerns. Ema Murray MA ----- Message from Alisha Betancur APRN.MINUTE CLERK sent at 01/26/2023 5:05 PM EDT ----- CBC and TSH were normal. CMP showed BS was 104 which is only slightly elevated but decreased from her previous check. Will continue to monitor. Lipase has decreased significantly and is only slightly above normal range. Continue care with GI. documented in this encounter [facility] 01-08-2023 History of Present illness Narrative Images from the original note were not included. [facility] Alisha Betancur APRN-MINUTE CLERK [address] [place] [address] Dept Dept. Visit Date: January 08, 2023 Ms.Ashley Bell Date of : 1985 MRN/E #: [id number] Chief Complaint: Patient presents with: Pancreatitis: In October went to the ED and found out that the pancreas split and a sac in the middle. Spoke with the Surgeon had CT and nothing they can do at this time just letting it work on its own Establish Care History of Present Illness Ariela Bell is a 37 year old female here today to establish care and for a hospitalization for acute pancreatitis in October. I reviewed past medical, surgical, social, and family histories today and updated chart. Allergies, chronic medications, and supplements were also reviewed. PMH of a cholecystectomy in 2021. Copied from Discharge Summary 11/02/22: SUMMARY OF WHAT HAPPENED WHILE I WAS IN THE HOSPITAL: Patient was admitted for Pancreatitis. This is a 37 year old female with past medical history of cholecystectomy in 2021 who presents with abdominal pain. CT abdomen on admission with edematous acute pancreatitis with fluid collection surrounding the pancreas but without abscess. Common bile duct was dilated at 1 cm without specific stone.leukocytosis of 25 and a lipase greater than 3000 with elevated LFTs. Underwent ERCP with no stone .Repeated images during hospital stay with no significant changes. Fever and leukocytosis likely due to inflammation. She completed her course of abx and was able to be discharged home OTHER PROBLEMS/DIAGNOSIS: Principal Problem: 1. Acute pancreatitis with necrosis 2. Leukocytosis 3. Dilated CBD 4. Lactic acidosis 5. Elevated LFTs 6. Anemia 7. Hypokalemia 8. Hypomagnesemia HPI: She reports that she still has some upper abdominal pain intermittently. She has been modifying her diet to avoid spicy and fatty foods and breads. She denies smoking or any alcohol use. She isn't taking any NSAIDS. She denies any N/V, diarrhea, constipation. LMP: 12/31/22-01/05/23 PAST MEDICAL HISTORY Diagnosis Date Motion sickness When a passenger Pancreatitis PAST SURGICAL HISTORY Procedure Laterality Date SECTION HX N/A 2016 [place] SECTION HX LAPAROSCOPIC CHOLECYSTECTOMY 2021 LIGATE FALLOPIAN TUBE TUBAL LIGATION HX Social History Tobacco Use Smoking status: Never Smokeless tobacco: Never Substance Use Topics Alcohol use: Not Currently Drug use: Never Social History Social History Narrative Merged History Encounter Family History Reviewed Including Cardiac Diseases, Psychiatric Diseases, & Substance Abuse Problem: Cancer Relation: Maternal Grandfather Age of Onset: (Not Specified) Problem: Diabetes Relation: Paternal Grandmother Age of Onset: (Not Specified) Problem: Glaucoma Relation: Paternal Grandfather Age of Onset: (Not Specified) Problem: Diabetes Relation: Paternal Grandfather Age of Onset: (Not Specified) ALLERGIES Allergen Reactions Penicillins Hives Plus throat swelling Penicillins Hives Current Outpatient Medications Medication Sig pantoprazole DR (PROTONIX) 40 mg tablet Take 1 tablet by mouth once daily. pantoprazole DR (PROTONIX) 40 mg tablet 40 mg. No current facility-administered medications for this visit. Review of Systems Review of Systems Constitutional: Negative for activity change, appetite change, chills, diaphoresis, fatigue, fever and unexpected weight change. Eyes: Negative for visual disturbance. Respiratory: Negative. Cardiovascular: Negative. Gastrointestinal: Positive for abdominal pain. Negative for abdominal distention, blood in stool, constipation, diarrhea, nausea and vomiting. GERD symptoms Endocrine: Negative. Genitourinary: Negative. Skin: Negative. Neurological: Positive for light-headedness (happens randomly). Negative for dizziness, seizures, syncope, weakness, numbness and headaches. Hematological: Negative. Vital Signs BP 118/68 Pulse 76 Temp 98.7 Resp 18 Ht 5' 3 (1.60m) Wt 189 lb (85.7kg) SpO2 98% LMP 10/09/2022 BMI 33.49 kg/(m^2). Physical Exam Vitals and nursing note reviewed. Constitutional: Appearance: She is well-developed. She is obese. HENT: Head: Normocephalic. Nose: Nose normal. Mouth/Throat: Lips: [place]. Mouth: Mucous membranes are moist. Pharynx: Oropharynx is clear. Eyes: General: Vision grossly intact. Conjunctiva/sclera: Conjunctivae normal. Pupils: Pupils are equal, round, and reactive to light. Neck: Thyroid: No thyroid mass or thyromegaly. Cardiovascular: Rate and Rhythm: Normal rate and regular rhythm. Pulses: Normal pulses. Heart sounds: Normal heart sounds, S1 normal and S2 normal. Pulmonary: Effort: Pulmonary effort is normal. Breath sounds: Normal breath sounds and air entry. Abdominal: General: Bowel sounds are normal. There is no distension. Palpations: Abdomen is soft. There is no hepatomegaly or splenomegaly. Tenderness: There is abdominal tenderness in the epigastric area. Musculoskeletal: Cervical back: Neck supple. Right lower leg: No edema. Left lower leg: No edema. Lymphadenopathy: Cervical: No cervical adenopathy. Skin: General: Skin is warm and dry. Neurological: Mental Status: She is alert and oriented to person, place, and time. Psychiatric: Mood and Affect: Mood and affect normal. Behavior: Behavior normal. Cognition and Memory: Cognition normal. Judgment: Judgment normal. Reviewed recent hospitalization including labs, notes, and imaging. Visit Diagnoses (K85.91) Acute pancreatitis with uninfected necrosis, unspecified pancreatitis type (primary encounter diagnosis) (K27.9) Peptic ulcer disease (Z90.49) History of cholecystectomy (E66.9, Z68.33) Class 1 obesity without serious comorbidity with body mass index (BMI) of 33.0 to 33.9 in adult, unspecified obesity type (Z13.31) Screening for depression Assessment and Plan 1. Acute pancreatitis with uninfected necrosis, unspecified pancreatitis type - ICD9: 577.0, ICD10: K85.91 (primary diagnosis) - Recheck labs - She has seen the general surgeon that was following her in the hospital and was continued on Protonix and referred to GI for further evaluation. Has an appointment in February. - COMP METABOLIC PANEL - CBC - LIPASE BLD - TSH BLD 2. Peptic ulcer disease - ICD9: 533.90, ICD10: K27.9 - Continue Protonix and diet modifications 3. History of cholecystectomy - ICD9: V45.79, ICD10: Z90.49 4. Class 1 obesity without serious comorbidity with body mass index (BMI) of 33.0 to 33.9 in adult, unspecified obesity type - ICD9: 278.00, V85.33, ICD10: E66.9, Z68.33 Newly diagnosed - Behavioral intervention 5. Screening for depression - ICD9: V79.0, ICD10: Z13.31 - At risk, continue to monitor - DEPRESSION SCREENING/ASSESSMENT Discussed above plan with patient and is agreeable with above plan. Follow up visit Return for well adult exam in summer. Alisha Betancur APRN.MATTHEW, signed on January 08, 2023 1:32 PM documented in this encounter [facility] 12-19-2022 Instructions Dylan Gill MD - 12/19/2022 12:21 PM EST Please do not hesitate to call my office for any questions or concerns. documented in this encounter [facility] 12-19-2022 History of Present illness Narrative AMBULATORY TELEPHONE VISIT Ariela Bell has consented to this telephone encounter. Persons Present: patient Chief Complaint/Reason: Pancreatitis HPI: Ms Bell is a 37-year-old female who presented to our hospital recently for evaluation and management of episode of acute, severe, necrotizing pancreatitis. She was managed nonoperatively with nutritional supplementation, pain control and glycemic control. Thankfully she recovered well at that time and went home. At this time she presents to office with persistent abdominal pain. She also complains of early satiety. Some nausea. No vomiting. No jaundice. Urine and stool color are normal. Her evaluation includes a CT of the abdomen pelvis performed on 10/31/2022 showing progressive peripancreatic edema/inflammation, area of decreased enhancement within the junction of the neck and body suspicious for pancreatic necrosis, increasing bilateral pleural effusions. She underwent a repeat CT of the abdomen pelvis on 12/06/2022 which showed decreased fluid and edema around the pancreas, an area of necrosis involving the body of the pancreas extending to the root of the mesentery which appears stable without any complications. At this point in time her symptoms are improving. She no longer complains of early satiety. She still has reflux-like symptoms which is relatively well controlled with pantoprazole. Data Reviewed: Most recent labs and imaging results. Assessment: (K85.91) Pancreatitis, necrotizing (primary encounter diagnosis) (E66.9) Obesity, Class I, BMI 30-34.9 (Z90.49) S/P cholecystectomy (K27.9) Peptic ulcer disease Plan: I am happy with how well she is doing. She is going to maintain her nutrition. I would like her to see gastroenterology for possible peptic ulcer disease. I will refill her pantoprazole. She also requested a PCP referral if she does not have one. We talked about all the complications of pancreatitis to watch out for. All questions and concerns were addressed. She will come back to me as needed. Total Time Spent: 20 minutes Dylan Gill MD documented in this encounter [facility] 12-06-2022 Miscellaneous Notes Radiology Service Progress Note DATE OF SERVICE: December 06, 2022 TIME: 10:09 AM PATIENT IDENTITY VERIFICATION COMPLETED USING TWO (2) STANDARD IDENTIFIERS: Name and Date of confirmed by patient verbally. FALL SCREENING: Has the patient had 2 falls in the last year or 1 fall with injury or currently using an Ambulatory Assistive Device (Walker, Cane, Wheelchair, Crutches, etc.)? No PATIENT GENDER DATA: Female. status: : No status: NO. PATIENT RELEVANT IMPLANT DATA REVIEWED: Not Applicable ALLERGIES: Reviewed and unchanged CONTRAST ALLERGY: NO. EXAM: CT -CONTRAST INDUCED NEPHROPATHY RISK FACTORS: Not applicable CREATININE: Creatinine Date Value Ref Range Status 11/02/2022 0.32 (L) 0.58 - 0.96 mg/dL Final 11/01/2022 0.44 (L) 0.58 - 0.96 mg/dL Final 10/31/2022 0.44 (L) 0.58 - 0.96 mg/dL Final Estimated Glomerular Filtration Rate Date Value Ref Range Status 11/02/2022 139 >=60 mL/min/1.73m Final Comment: Estimated Glomerular Filtration Rate (eGFR) is calculated using the 2020 CKD-EPI creatinine equation. This equation utilizes serum creatinine, sex, and age as parameters. The creatinine assay has traceable calibration to isotope dilution-mass spectrometry. Refer to KDIGO guidelines for clinical interpretation. In patients with unstable renal function, e.g. those with acute kidney injury, the eGFR may not accurately reflect actual GFR. eGFR- Date Value Ref Range Status 12/15/2021 >60 Final P.O.C.T. RESULTS: POC done: Yes, See Lab Tab December 06, 2022 TREATMENT: N/A PERIPHERAL IV DATA: Ambulatory: A peripheral IV was started in the Left antecubital site with a Angio cath: 22 gauge. RADIOLOGY DEPARTMENT: CT; Exam(s) Completed: Abdomen/Pelvis SIGNATURE: RT Lewis(R) PATIENT NAME: Ariela Bell DATE: December 06, 2022 TIME: 10:09 AM documented in this encounter [facility] 11-24-2022 History of Present illness Narrative Patient referred by: Dr. Suki Johansen DO HPI: This is a follow-up patient visit from Dr. Johansen. Ms Bell is a 37-year-old female who presented to our hospital recently for evaluation and management of episode of acute, severe, necrotizing pancreatitis. She was managed nonoperatively with nutritional supplementation, pain control and glycemic control. Thankfully she recovered well at that time and went home. At this time she presents to office with persistent abdominal pain. She also complains of early satiety. Some nausea. No vomiting. No jaundice. Urine and stool color are normal. Her evaluation includes a CT of the abdomen pelvis performed on 10/31/2022 showing progressive peripancreatic edema/inflammation, area of decreased enhancement within the junction of the neck and body suspicious for pancreatic necrosis, increasing bilateral pleural effusions. PAST MEDICAL HISTORY Diagnosis Date Motion sickness When a passenger Pancreatitis PAST SURGICAL HISTORY Procedure Laterality Date SECTION HX LAPAROSCOPIC CHOLECYSTECTOMY 2021 LIGATE FALLOPIAN TUBE FAMILY HISTORY Problem Relation Age of Onset Cancer Maternal Grandfather Diabetes Paternal Grandmother Glaucoma Paternal Grandfather Diabetes Paternal Grandfather Social History Tobacco Use Smoking status: Never Smokeless tobacco: Never Substance Use Topics Alcohol use: Not Currently Drug use: Never Current Outpatient Medications Medication Sig pantoprazole DR (PROTONIX) 40 mg tablet Take 1 tablet by mouth once daily. No current facility-administered medications for this visit. ALLERGIES Allergen Reactions Penicillins Hives Plus throat swelling REVIEW OF SYSTEMS: Review of Systems Constitutional: Negative for chills, fever, malaise/fatigue and weight loss. Respiratory: Negative for cough, shortness of breath and wheezing. Cardiovascular: Negative for chest pain, orthopnea and leg swelling. Gastrointestinal: Positive for abdominal pain and nausea. Negative for blood in stool, constipation, diarrhea, heartburn, melena and vomiting. Early satiety Genitourinary: Negative for dysuria and frequency. Musculoskeletal: Negative for falls and myalgias. Skin: Negative for rash. Neurological: Negative for dizziness, tingling, tremors and weakness. Endo/Heme/Allergies: Does not bruise/bleed easily. Psychiatric/Behavioral: Negative for depression, substance abuse and suicidal ideas. The patient is not nervous/anxious and does not have insomnia. PHYSICAL EXAM: Ht 5' 3 (1.60m) Wt 190 lb (86.2kg) LMP 10/09/2022 BMI 33.67 kg/(m^2). Last 2 Encounter Wt Readings: Date: Wt: 11/22/2022 86.2 kg (190 lb) 10/24/2022 87.7 kg (193 lb 5.5 oz) Physical Exam Vitals reviewed. Constitutional: General: She is not in acute distress. Appearance: She is not diaphoretic. HENT: Head: Normocephalic. Eyes: General: No scleral icterus. Conjunctiva/sclera: Conjunctivae normal. Pupils: Pupils are equal, round, and reactive to light. Neck: Thyroid: No thyromegaly. Trachea: No tracheal deviation. Cardiovascular: Rate and Rhythm: Regular rhythm. Pulmonary: Effort: Pulmonary effort is normal. No respiratory distress. Breath sounds: No wheezing. Chest: Chest wall: No tenderness. Abdominal: General: There is no distension. Palpations: There is no mass. Tenderness: There is abdominal tenderness. There is no guarding or rebound. Hernia: No hernia is present. Musculoskeletal: General: No tenderness or deformity. Normal range of motion. Cervical back: Normal range of motion and neck supple. Lymphadenopathy: Cervical: No cervical adenopathy. Skin: General: Skin is warm and dry. Coloration: Skin is not pale. Findings: No erythema or rash. Neurological: Mental Status: She is alert and oriented to person, place, and time. Coordination: Coordination normal. Psychiatric: Mood and Affect: Mood and affect normal. DATA: Diagnostic tests reviewed for today's visit Most recent labs Most recent imaging I spent a total of 55 minutes on the date of the service which included preparing to see the patient, [id number] patient care, completing clinical documentation, obtaining and/or reviewing separately obtained history, performing a medically appropriate examination, counseling and educating the patient/family/caregiver, ordering medications, tests, or procedures, communicating with other HCPs (not separately reported), and independently interpreting results (not separately reported). ASSESSMENT / PLAN: Problem List Items Addressed This Visit Other Obesity, Class I, BMI 30-34.9 Other Visit Diagnoses Pancreatitis, necrotizing - Primary Relevant Orders CT ABD/PEL W IVCON Early satiety Medical Decision Making: Problems: Moderate: New problem with uncertain prognosis Data: Unique source(s) for external note(s) reviewed: 3+ Unique test result(s) reviewed: 2 Unique test(s) ordered: 1 Discussed management or test w/ external physician/QHCP/source Risk: High: High risk from testing/treatment Medical Decision Making Level: 5 - High In summary, this is a 37-year-old female who presented to our hospital recently for evaluation and management of episode of acute, severe, necrotizing pancreatitis. She was managed nonoperatively with nutritional supplementation, pain control and glycemic control. Thankfully she recovered well at that time and went home. At this time she represents with persistent abdominal pain and signs and symptoms of early satiety. Her imaging previously had shown signs of pancreatic necrosis, particularly at the junction of the neck and body of the pancreas. Given her current symptoms I am concerned that she may have a disconnected duct and may be accumulating a peripancreatic fluid collection or a walled off pancreatic necrosis or a pancreatic pseudocyst in the lesser sac. I would like to evaluate her for all of the above. I had a lengthy discussion with the patient about the short-term and long-term complications of such severe episodes of pancreatitis. We talked about all the diagnostic and therapeutic options going forward. For now I will bring her back to the office once her CT scan is done. All questions and concerns were addressed. She showed good understanding and agreed to proceed. Dylan Gill MD documented in this encounter [facility] 11-22-2022 Instructions Dylan Gill MD - 11/22/2022 12:10 PM EST My office will call you with scheduling and details about your next appointments and tests. documented in this encounter [facility] 11-22-2022 Nurse Note Hosp follow up pancreatitis. She still it having a lot of abdominal pain, worse after she eats. Good bowels, good appetite. documented in this encounter [facility] 03-08-2022 Hospital Discharge instructions Patient Education 03/08/2022 20:09:27 External Ear Infection (Adult) External Ear Infection (Adult) External otitis (also called swimmer s ear ) is an infection in the ear canal. It is often caused by bacteria or fungus. It can occur a few days after water gets trapped in the ear canal (from swimming or bathing). It can also occur after cleaning too deeply in the ear canal with a cotton swab or other object. Sometimes, hair care products get into the ear canal and cause this problem. Symptoms can include pain, fever, itching, redness, drainage, or swelling of the ear canal. Temporary hearing loss may also occur. Home care Do not try to clean the ear canal. This can push pus and bacteria deeper into the canal. Use prescribed ear drops as directed. These help reduce swelling and fight the infection. If an ear wick was placed in the ear canal, apply drops right onto the end of the wick. The wick will draw the medicine into the ear canal even if it is swollen closed. A cotton ball may be loosely placed in the outer ear to absorb any drainage. You may use acetaminophen or ibuprofen to control pain, unless another medicine was prescribed. Note: If you have chronic liver or kidney disease or ever had a stomach ulcer or GI bleeding, talk to your healthcare provider before taking any of these medicines. Do not allow water to get into your ear when bathing. Also, don't swim until the infection has cleared. Prevention Keep your ears dry. This helps lower the risk of infection. Dry your ears with a towel or wheelchair van driver after getting wet. Also, use ear plugs when swimming. Do not stick any objects in the ear to remove wax. If you feel water trapped in your ear, use ear drops right away. You can get these drops over the counter at most drugstores. They work by removing water from the ear canal. Follow-up care Follow up with your healthcare provider in 1 week, or as advised. When to seek medical advice Call your healthcare provider right away if any of these occur: Ear pain becomes worse or doesn t improve after 3 days of treatment Redness or swelling of the outer ear occurs or gets worse Headache Painful or stiff neck Drowsiness or confusion Fever of 100.4 F (38 C) or higher, or as directed by your healthcare provider Seizure [id number] [employer]. [address] [place] [address]. All rights reserved. This information is not intended as a substitute for professional medical care. Always follow your healthcare professional's instructions. Follow Up Care 03/08/2022 19:56:25 With:RHIANNA CARDENAS MD Address: [address] [place] [address] [place] [address]- When:2-4 days [facility] 01-02-2022 History of Present illness Narrative This Team Access Model visit is a phone encounter. It required patient-provider interaction for the medical decision making as documented below. Notation of pt consent to encounter via telephone: verbal consent obtained Name of all people present during telemedicine encounter and their role: Ariela Bell MICHELLE Alvarado APRN-UNDERWRITING SALES REPRESENTATIVE CC or reason for telephone encounter: post op follow up Relevant history, background and/or results: s/p lap maría 12/14/[address] Lucia. Discharged on POD 1 FINAL DIAGNOSIS A. Gallbladder, cholecystectomy: - Cholelithiasis and chronic cholecystitis. Assessment: recovering as expected. States appetite is getting better, has normal bowel function. Lap sites are healing well, no redness or drainage. Surgical glue peeling. Reports mild discomfort in rib cage area after lifting son, not requiring anything for pain. Plan and next steps: may resume normal activities, follow up prn Total time spent on medical discussion: 8 min [id number] 5-10 minutes [id number] 11-20 minutes [id number] 21-30 minutes If >30 minutes use two codes to cover time (45 minutes = [id number] + [id number]) Marilin Alvarado APRN.MARQUES documented in this encounter [facility] 12-08-2021 Note HNO ID: [id number] Author: Jean Pierre Hope MD Service: ? Author Type: Physician Type: Progress Notes Filed: 12/08/2021 4:52 PM Note Text: Ariela Bell is a 36 year old, White female who presents with complaints of Epigastric abdominal pain. Patient states that about a year and a half ago she had had occasional episodes of epigastric pain that would last for about 2 or 3 minutes. It would occasionally go through to her back as well as the right side of her abdomen. She was placed on a proton pump inhibitor and the pain improved. She got off the proton pump inhibitor and was doing well until about the last 2 weeks when she had a recurrence of her abdominal pain. Once again the pain is in the epigastric region as well as the right upper quadrant. She did have one episode of vomiting but denies significant nausea. The pain became progressive and she was seen in the emergency room. At that time she did have an ultrasound that showed gallstones. Her laboratory work was normal except for a mildly elevated lipase of 74 with a top maximum being 61. Her ultrasound did not show any wall thickening or pericholecystic fluid. Her common duct was 3 mm in size. She is here for evaluation of her gallstones. Since she left the emergency room she is back on a proton pump inhibitor and her symptoms have appeared to resolve. No past medical history on file. PAST SURGICAL HISTORY Procedure Laterality Date - TUBAL LIGATION HX Social History Tobacco Use - Smoking status: Not on file - Smokeless tobacco: Not on file Substance Use Topics - Alcohol use: Not on file - Drug use: Not on file No family history on file. ALLERGIES Allergen Reactions - Penicillins Hives Current Outpatient Medications Medication Sig - pantoprazole DR (PROTONIX) 40 mg tablet 40 mg. No current facility-administered medications for this visit. REVIEW OF SYSTEMS PAIN ASSESSMENT: Negative for pain, history of chronic pain, or current treatment for a chronic pain condition. GENERAL: No weight loss, malaise or fevers NECK: Negative for lumps, goiter, pain and significant neck swelling RESPIRATORY: Negative for cough, hemoptysis, wheezing, COPD, dyspnea or shortness of breath CARDIOVASCULAR: Negative for chest pain, leg swelling, hypertension, CHF or palpitations GI: No nausea, vomiting, or diarrhea : No history of dysuria, frequency or incontinence MUSCULOSKELETAL: back pain HEMATOLOGY/LYMPHOLOGY: Negative for prolonged bleeding, bruising easily or swollen nodes ENDOCRINE: Negative for cold or heat intolerance, polyuria, polydipsia and goiter PHYSICAL EXAM: There were no vitals taken for this visit. General Appearance: Well appearing, alert, in no acute distress, well-hydrated, well nourished.. Eyes: Normal sclera Skin: Skin texture and turgor normal, no suspicious rashes or lesions, Negative for jaundice or pallor. Neck: Supple, trachea midline Lungs: Lungs clear to auscultation. No wheezing, rhonchi, rales.. Heart: RRR without murmur, gallop, or rubs. No ectopy. Abdomen: Normal abdominal exam, Abdomen soft, non-tender. Bowel sounds normal. No masses, organomegaly. Musculoskeletal: No joint swelling, deformity, or tenderness. Lymph Nodes: No cervical lymphadenopathy and No supraclavicular lymphadenopathy. I spent a total of 34 minutes on the date of the service which included preparing to see the patient, [id number] patient care, completing clinical documentation, obtaining and/or reviewing separately obtained history, performing a medically appropriate examination, counseling and educating the patient/family/caregiver, ordering medications, tests, or procedures and communicating with other HCPs (not separately reported). Assessment and plan: The patient does have multiple gallstones. It is difficult to tell if she is having symptoms from her gallstones or it may be gastric irritation or ulceration. The fact that her symptoms have completely resolved on a proton pump inhibitor suggest that it is not her gallstones bladder. However the mildly elevated lipase may suggest it came from gallstones. I did discuss the significance against of gallstones and the difference between a symptomatic and asymptomatic patient. We talked about dissolution therapy versus surgery and I talked about surgical procedures risk complications and need for conversion. I did give him an information sheet in regards to gallstones as well as the surgery. Because she has improved on the PPH I would recommend just holding off on surgery at the present time. If she develops symptoms on the PPH then I think we need to revisit the possibility of symptoms from her gallstones. She may also need consideration for an upper GI endoscopy. The patient is going to call me if she develops a problem. Jean Pierre Hope M.D., [facility] Evaluation + Plan note No data available for this section [facility] Evaluation note Diagnosis S/P cholecystectomy- Primary Other acquired absence of organ [facility] Diagnosis Pancreatitis, necrotizing- Primary Acute pancreatitis Early satiety Obesity, Class I, BMI 30-34.9 Obesity, unspecified [facility] Diagnosis Pancreatitis, necrotizing Acute pancreatitis [facility]* Diagnosis Pancreatitis, necrotizing- Primary Acute pancreatitis Obesity, Class I, BMI 30-34.9 Obesity, unspecified S/P cholecystectomy Other acquired absence of organ Peptic ulcer disease Peptic ulcer, unspecified site, unspecified as acute or chronic, without mention of hemorrhage, perforation, or obstruction [facility] Diagnosis Acute pancreatitis with uninfected necrosis, unspecified pancreatitis type- Primary Peptic ulcer disease Peptic ulcer, unspecified site, unspecified as acute or chronic, without mention of hemorrhage, perforation, or obstruction History of cholecystectomy Other acquired absence of organ Class 1 obesity without serious comorbidity with body mass index (BMI) of 33.0 to 33.9 in adult, unspecified obesity type Screening for depression documented in this encounter [facility] note* Diagnosis Acute pancreatitis with uninfected necrosis, unspecified pancreatitis type- Primary Gastroesophageal reflux disease, unspecified whether esophagitis present Epigastric pain Abdominal pain, epigastric documented in this encounter [facility] noteNo assessment information availableWSycamore [facility] Work Phone: Evaluation note* Diagnosis Dizziness- Primary Dizziness and giddiness documented in this encounter [facility] note* Diagnosis Dizziness- Primary Dizziness and giddiness Low serum vitamin B12 documented in this encounter [facility] note* Diagnosis Left upper quadrant abdominal pain- Primary Peptic ulcer disease Peptic ulcer, unspecified site, unspecified as acute or chronic, without mention of hemorrhage, perforation, or obstruction Acute pancreatitis, unspecified complication status, unspecified pancreatitis type Abdominal distension (gaseous) Flatulence, eructation, and gas pain History of pancreatitis Personal history of other diseases of digestive system documented in this encounter [facility] note* Diagnosis Abdominal distension (gaseous) Flatulence, eructation, and gas pain Acute pancreatitis, unspecified complication status, unspecified pancreatitis type documented in this encounter [facility] note* Diagnosis Diarrhea, unspecified type- Primary Abnormal CT scan, colon Nonspecific (abnormal) findings on radiological and other examination of gastrointestinal tract [facility] Diagnosis Lower abdominal pain Abdominal pain, other specified site documented in this encounter [facility] note* Diagnosis Gastroesophageal reflux disease, unspecified whether esophagitis present Epigastric pain Abdominal pain, epigastric documented in this encounter [facility] note* Diagnosis Chronic elbow pain, left- Primary Chronic elbow pain, left documented in this encounter [facility] note* Diagnosis Chronic elbow pain, left documented in this encounter [facility] note* Diagnosis Lateral epicondylitis of left elbow- Primary Lateral epicondylitis of elbow Chronic elbow pain, left documented in this encounter [facility] note* Diagnosis Pain in left elbow- Primary Pain in joint, upper arm documented in this encounter [facility] note* Diagnosis Headaches- Primary Left upper quadrant abdominal pain History of pancreatitis Personal history of other diseases of digestive system Stress reaction Unspecified acute reaction to stress Feeling grief Adjustment disorder with depressed mood Vitamin D deficiency Unspecified vitamin D deficiency [facility] No data available for this section [facility] Reason for referral (narrative)* Outpatient Procedure (Routine) - Pending Review Specialty Diagnoses / Procedures Referred By Marisol nazario Referred To Contact [facility] [place] Diagnoses Gastroesophageal reflux disease, unspecified whether esophagitis present Epigastric pain Procedures EGD DIAGNOSTIC ESOPHAGOGASTRODUODENOSC OPY TRANSORAL DIAGNOSTIC Rhonda Bocanegra PA-C [address] [place] [address] [address] Referral ID Status Reason Start Date Expiration Date Visits Requested Visits Authorized [id number] Pending Review Auto-Generat ed Referral 02/20/2023 02/21/2024 1 1 [facility] for referral (narrative)* Outpatient Procedure (Routine) - Pending Review Specialty Diagnoses / Procedures Referred By Marisol nazario Referred To Contact [facility] [place] Diagnoses Diarrhea, unspecified type Abnormal CT scan, colon Procedures COLONOSCOPY DIAGNOSTIC COLONOSCOPY FLX DX W/COLLJ SPEC WHEN PFRMD Rhonda Vallecillo PA-C [address] [place] [address] [address] Referral ID Status Reason Start Date Expiration Date Visits Requested Visits Authorized [id number] Pending Review Auto-Generat ed Referral 12/18/2023 12/18/2024 1 1 [facility] for referral (narrative)* Outpatient Procedure (Routine) - Closed Specialty Diagnoses / Procedures Referred By Marisol nazario Referred To Contact ENDOSCOPY Diagnoses Gastroesophageal reflux disease, unspecified whether esophagitis present Epigastric pain Procedures EGD DIAGNOSTIC ESOPHAGOGASTRODUODENOSCOPY TRANSORAL DIAGNOSTIC Rhonda Vallecillo PA-C [address] [place] [address] [facility] [address] [place] [address] Referral ID Status Reason Start Date Expiration Date V isits Requested Visits Authorized [id number] Closed Auto-Generate d Referral 02/20/2023 02/21/2024 1 1 [facility] for referral (narrative)* Diagnostic Procedure Only (Routine) - Closed Specialty Diagnoses / Procedures Referred By Contac t Referred To Contact XR IMAGING Diagnoses Chronic elbow pain, left Procedures XR ELBOW GENERAL 2V AP/LAT LEFT RADEX ELBOW 2 VIEWS Alisha Betancur APRN.MINUTE CLERK [address] [place] [address] [place] [address] Referral ID Status Reason Start Date Expiration Date V isits Requested Visits Authorized [id number] Closed Auto-Generate d Referral 10/30/2024 11/29/2025 1 1 * Consult, Test, Treat (Routine) - Authorized Specialty Diagnoses / Procedures Referred By Contac t Referred To Contact Orthopedics / [facility] DEPARTMENT Diagnoses Chronic elbow pain, left Procedures CONSULT TO ORTHOPAEDIC SURGERY OFFICE/OUTPATIENT [facility] 60 MINUTES Alisha Betancur APRN.MINUTE CLERK [address] [place] [address] Dann Dockery MD [address] [address] Referral ID Status Reason Start Date Expiration Date Visits Requested Visits Authorized [id number] Authorized PCP Requested Referral 10/30/2024 10/30/2025 1 1 [facility] for referral (narrative)* Diagnostic Procedure Only (Routine) - Closed Specialty Diagnoses / Procedures Referred By Contac t Referred To Contact XR IMAGING Diagnoses Chronic elbow pain, left Procedures XR ELBOW GENERAL 2V AP/LAT LEFT RADEX ELBOW 2 VIEWS Alisha Betancur APRN.CNP [address] [place] [address] [place] [address] Referral ID Status Reason Start Date Expiration Date V isits Requested Visits Authorized [id number] Closed Auto-Generate d Referral 10/30/2024 11/29/2025 1 1 [facility] for visit Narrative* Outpatient Procedure (Routine) - Closed Specialty Diagnoses / Procedures [facility]erred To Contact [facility] Diagnoses Diarrhea, unspecified type Abnormal CT scan, colon Procedures COLONOSCOPY DIAGNOSTIC COLONOSCOPY FLX DX W/COLLJ SPEC WHEN PFRMD Rhonda Vallecillo PA-C [address] [place] [address] [facility] [address] [place] [address] Referral ID Status Reason Start Date Expiration Date V isits Requested Visits Authorized [id number] Closed Auto-Generate d Referral 12/18/2023 12/18/2024 1 1 [facility] for visit Narrative* Outpatient Procedure (Routine) - Closed Specialty Diagnoses / Procedures [facility] Referred To Contact ENDOSCOPY Diagnoses Gastroesophageal reflux disease, unspecified whether esophagitis present Epigastric pain Procedures EGD DIAGNOSTIC ESOPHAGOGASTRODUODENOSCOPY TRANSORAL DIAGNOSTIC Rhonda Vallecillo PA-C [address] [address] [facility] [address] [address] Referral ID Status Reason Start Date Expiration Date V isits Requested Visits Authorized [id number] Closed Auto-Generate d Referral 02/20/2023 02/21/2024 1 1 [facility] for visit Narrative* Diagnostic Procedure Only (Routine) - Closed Specialty Diagnoses / Procedures [facility] Referred To Contact XR IMAGING Diagnoses Chronic elbow pain, left Procedures XR ELBOW GENERAL 2V AP/LAT LEFT RADEX ELBOW 2 VIEWS Alisha Betancur, ROOF FIXER.MINUTE CLERK [address] [place] [address] [place] [address] Referral ID Status Reason Start Date Expiration Date V isits Requested Visits Authorized [id number] Closed Auto-Generate d Referral 10/30/2024 11/29/2025 1 1 [facility] Summary Purpose Family History No Family History Records FoundNo Family History Records FoundNo Family History Records FoundNo Family History Records FoundNo Family History Records FoundNo Family History Records FoundNo Family History Records Found Advance Directives Documents on File Type Date Recorded Patient Spray Painting Machine Operator Expl anation Advance Directive(s) 12/13/2021 10:40 PM Advance Directive(s) 12/05/2021 10:05 PM Latest Code Status on File Code Status Date Activated Date Inactivated Comments Full Code 10/24/2022 9:10 AM 11/02/2022 7:05 PM Full Code Order Discussed With: Patient Latest Code Status on File Code Status Date Activated Date Inactivated Comments Full Code 10/24/2022 9:10 AM 11/02/2022 7:05 PM Advance Directive Response Recorded Date/ Time Living Will No April 14, 2023 7:33am Power of Computer Patternmaker No April 14 7:33am Latest Code Status on File Code Status Date Activated Date Inactivated Comments Full Code 10/24/2022 9:10 AM 11/02/2022 7:05 PM Question Answer Comments Full Code Order Discussed With: Patient Latest Code Status on File Code Status Date Activated Date Inactivated Comments Full Code 10/24/2022 9:10 AM 11/02/2022 7:05 PM Question Answer Comments Full Code Order Discussed With: Patient Date Activated Date Inactivated Comments 10/24/2022 9:10 AM 11/02/2022 7:05 PM Question Answer Comments Full Code Order Discussed With: Patient Date Activated Date Inactivated Comments 10/24/2022 9:10 AM 11/02/2022 7:05 PM Question Answer Comments Full Code Order Discussed With: Patient Discharge Instructions * Instructions* Stephen Schmitz MD - 06/22/2019 Drink plenty of fluids. Return to the Emergency Department if symptoms change or worsen. * Attachments The following attachments cannot be sent through Care Everywhere. * UTI (Urinary Tract Infection): Female (Armenian) documented in this encounter Assessments Diagnosis Acute cystitis without hematuria- Primary Acute cystitis Reason for Referral Specialty Diagnoses / Procedures Referred By Contac t Referred To Contact Diagnoses Lateral epicondylitis of left elbow Chronic elbow pain, left Procedures CONSULT TO OCCUPATIONAL THERAPY/HAND THERAPY (AG) Khushi Buckley PA-C [address] [facility] [address] [place] [address] Referral ID Status Reason Start Date Expiration Date Visits Requested Visits Authorized [id number] Authorized PCP Requested Referral 11/05/2024 02/03/2025 1 1 Specialty Diagnoses / Procedures Referred By Contac t Referred To Contact CT IMAGING Diagnoses Abdominal distension (gaseous) Acute pancreatitis, unspecified complication status, unspecified pancreatitis type Procedures CT ABD/PEL W IVCON CT ABD & PELVIS W/CONTRAST Alisha Betancur, ROOF FIXER.MINUTE CLERK [address] [place] [address] [place] [address] Referral ID Status Reason Start Date Expiration Date V isits Requested Visits Authorized [id number] Closed Auto-Generat ed Referral Patient Cleared - Admin/Chairm an/Director advise to proceed or did not respond 12/06/2023 06/02/2024 1 1 Specialty Diagnoses / Procedures Referred By Contac t Referred To Contact Diagnoses Pancreatitis, necrotizing Obesity, Class I, BMI 30-34.9 S/P cholecystectomy Peptic ulcer disease Procedures CONSULT TO PRIMARY CARE MEDICINE Dylan Gill MD [address] [address] Referral ID Status Reason Start Date Expiration Date Visits Requested Visits Authorized [id number] Ref Not Required PCP Requested Referral 12/19/2022 03/19/2023 1 1 Specialty Diagnoses / Procedures Referred By Contac t Referred To Contact CT IMAGING Diagnoses Pancreatitis, necrotizing Procedures CT ABD/PEL W IVCON CT ABD & PELVIS W/CONTRAST Dylan Gill MD [address] [facility] [address] [place] [address] Ct Imaging Referral ID Status Reason Start Date Expiration Date V isits Requested Visits Authorized [id number] Open Auto-Generate d Referral 11/22/2022 12/22/2023 1 1 Chief Complaint and Reason for Visit Chief Complaint SORE THROAT Additional Source Comments INFORMATION SOURCE (unrecogn ized section and content) DATE CREATED AUTHOR 08/02/2019 [facility] DATE CREATED AUTHOR AUTHOR'S ORGANIZ ATION 07/23/2020 [facility] DATE CREATED AUTHOR AUTHOR'S ORGANIZ ATION 09/19/2020 [facility] DATE CREATED AUTHOR AUTHOR'S ORGANIZ ATION 12/09/2021 [facility] DATE CREATED AUTHOR AUTHOR'S ORGANIZ ATION 04/18/2023 [facility] DATE CREATED AUTHOR AUTHOR'S ORGANIZ ATION 01/11/2024 [facility] DATE CREATED AUTHOR AUTHOR'S ORGANIZ ATION 02/08/2025 [facility] Reason for Visit (unrecogniz ed section and content) Reason Comments Abdominal Pain Lower abdominal pain that started yesterday that radiates to her back. Urinary Tract Infection Pain with urinat ion Reason Comments Post Op Reason Comments Refill Request Reason Comments Follow Up Hosp follow up Specialty Diagnoses / Procedures Referred By Marisol t Referred To Contact CT IMAGING Diagnoses Pancreatitis, necrotizing Procedures CT ABD/PEL W IVCON CT ABD & PELVIS W/CONTRAST Dylan Gill MD [address] [facility] [facility] [address] [place] [address] Ct Imaging Referral ID Status Reason Start Date Expiration Date V isits Requested Visits Authorized [id number] Closed Auto-Generate d Referral 11/29/2022 12/29/2022 1 1 Reason Comments Results Reason Comments Pancreatitis In October went to [facility] ED and found out that the pancreas split and a sac in the middle. Spoke with the Surgeon had CT and nothing they can do at this time just letting it work on its own Establish Care Reason Comments Results Reason Comments Hospital F/U Pancreatitis Reason Comments No Show First no show in 365 days. Reason Onset Date Comments ED OUTREACH 04/17/2023 ED OUTREACH Reason Comments Dizziness Gets dizzy couple ti mes per week 2-3She feels fatigueDenies any nausea, vomiting, numbness, and tingling Reason Comments Appointment The patient has resc heduled. Reason Comments 2 follow up Reason Comments Abdominal Pain Location: upper midd le and tender on left upper Pain scale: 3 Duration: 1 monthDescription: Constant pain that especially after she eats. It doesn't matter what she eats she gets discomfort. Acid reflux Treatment: pepto, tums Specialty Diagnoses / Procedures Referred By Marisol nazario Referred To Contact CT IMAGING Diagnoses Abdominal distension (gaseous) Acute pancreatitis, unspecified complication status, unspecified pancreatitis type Procedures CT ABD/PEL W IVCON CT ABD & PELVIS W/CONTRAST Alisha Betancur, GERTRUDE.MINUTE CLERK [address] [place] [address] [place] [id number] Referral ID Status Reason Start Date Expiration Date V isits Requested Visits Authorized [id number] Closed Auto-Generat ed Referral Patient Cleared - Admin/Chairm an/Director advise to proceed or did not respond 12/06/2023 06/02/2024 [address] Scan- needs Colonoscopy Was hassan ving abdominal pain, acid reflux. Went on a clear liquid diet and it helped. Then a few days later started having diarrhea. Tender on the left side Reason Comments Pain (Elbow Pain) Left elbow pain x 1 year off and on. Getting worse for the past 2 weeks. Pain is at a 1 when she doesn't move it. And 9 when moving. Pain goes down arm., stops at hand. Can't bend elbow. Shooting pain. 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 The pain is sharp she has had pancreas issues in the pastTreatment: warm bath, heating pad, motrin Reason Onset Date Comments Results 02/06/2025 Source Comments (unrecognize d section and content) In the event this informatio n is protected by the Federal Confidentiality of Alcohol and Drug Abuse Patient Records regulations: The Federal rules restrict any use of the information to criminally investigate or prosecute any alcohol or drug abuse patient.[facility] the event this information is protected by the Federal Confidentiality of Alcohol and Drug Abuse Patient Records regulations: The Federal rules restrict any use of the information to criminally investigate or prosecute any alcohol or drug abuse patient.[facility] the event this information is protected by the Federal Confidentiality of Alcohol and Drug Abuse Patient Records regulations: The Federal rules restrict any use of the information to criminally investigate or prosecute any alcohol or drug abuse patient.[facility]In the event this information is protected by the Federal Confidentiality of Alcohol and Drug Abuse Patient Records regulations: The Federal rules restrict any use of the information to criminally investigate or prosecute any alcohol or drug abuse patient.[facility] HospitalIn the event this information is protected by the Federal Confidentiality of Alcohol and Drug Abuse Patient Records regulations: The Federal rules restrict any use of the information to criminally investigate or prosecute any alcohol or drug abuse patient.[facility]In the event this information is protected by the Federal Confidentiality of Alcohol and Drug Abuse Patient Records regulations: The Federal rules restrict any use of the information to criminally investigate or prosecute any alcohol or drug abuse patient.[facility] HospitalIn the event this information is protected by the Federal Confidentiality of Alcohol and Drug Abuse Patient Records regulations: The Federal rules restrict any use of the information to criminally investigate or prosecute any alcohol or drug abuse patient.[facility]In the event this information is protected by the Federal Confidentiality of Alcohol and Drug Abuse Patient Records regulations: The Federal rules restrict any use of the information to criminally investigate or prosecute any alcohol or drug abuse patient.[facility] HospitalIn the event this information is protected by the Federal Confidentiality of Alcohol and Drug Abuse Patient Records regulations: The Federal rules restrict any use of the information to criminally investigate or prosecute any alcohol or drug abuse patient.[facility] HospitalIn the event this information is protected by the Federal Confidentiality of Alcohol and Drug Abuse Patient Records regulations: The Federal rules restrict any use of the information to criminally investigate or prosecute any alcohol or drug abuse patient.[facility] HospitalIn the event this information is protected by the Federal Confidentiality of Alcohol and Drug Abuse Patient Records regulations: The Federal rules restrict any use of the information to criminally investigate or prosecute any alcohol or drug abuse patient.[facility] HospitalIn the event this information is protected by the Federal Confidentiality of Alcohol and Drug Abuse Patient Records regulations: The Federal rules restrict any use of the information to criminally investigate or prosecute any alcohol or drug abuse patient.[facility] HospitalIn the event this information is protected by the Federal Confidentiality of Alcohol and Drug Abuse Patient Records regulations: The Federal rules restrict any use of the information to criminally investigate or prosecute any alcohol or drug abuse patient.[facility] HospitalIn the event this information is protected by the Federal Confidentiality of Alcohol and Drug Abuse Patient Records regulations: The Federal rules restrict any use of the information to criminally investigate or prosecute any alcohol or drug abuse patient.[facility] HospitalIn the event this information is protected by the Federal Confidentiality of Alcohol and Drug Abuse Patient Records regulations: The Federal rules restrict any use of the information to criminally investigate or prosecute any alcohol or drug abuse patient.[facility] HospitalIn the event this information is protected by the Federal Confidentiality of Alcohol and Drug Abuse Patient Records regulations: The Federal rules restrict any use of the information to criminally investigate or prosecute any alcohol or drug abuse patient.[facility] HospitalIn the event this information is protected by the Federal Confidentiality of Alcohol and Drug Abuse Patient Records regulations: The Federal rules restrict any use of the information to criminally investigate or prosecute any alcohol or drug abuse patient.[facility] HospitalIn the event this information is protected by the Federal Confidentiality of Alcohol and Drug Abuse Patient Records regulations: The Federal rules restrict any use of the information to criminally investigate or prosecute any alcohol or drug abuse patient.[facility] HospitalIn the event this information is protected by the Federal Confidentiality of Alcohol and Drug Abuse Patient Records regulations: The Federal rules restrict any use of the information to criminally investigate or prosecute any alcohol or drug abuse patient.[facility] HospitalIn the event this information is protected by the Federal Confidentiality of Alcohol and Drug Abuse Patient Records regulations: The Federal rules restrict any use of the information to criminally investigate or prosecute any alcohol or drug abuse patient.[facility] HospitalIn the event this information is protected by the Federal Confidentiality of Alcohol and Drug Abuse Patient Records regulations: The Federal rules restrict any use of the information to criminally investigate or prosecute any alcohol or drug abuse patient.[facility] HospitalIn the event this information is protected by the Federal Confidentiality of Alcohol and Drug Abuse Patient Records regulations: The Federal rules restrict any use of the information to criminally investigate or prosecute any alcohol or drug abuse patient.[facility] HospitalIn the event this information is protected by the Federal Confidentiality of Alcohol and Drug Abuse Patient Records regulations: The Federal rules restrict any use of the information to criminally investigate or prosecute any alcohol or drug abuse patient.[facility]In the event this information is protected by the Federal Confidentiality of Alcohol and Drug Abuse Patient Records regulations: The Federal rules restrict any use of the information to criminally investigate or prosecute any alcohol or drug abuse patient.[facility] HospitalIn the event this information is protected by the Federal Confidentiality of Alcohol and Drug Abuse Patient Records regulations: The Federal rules restrict any use of the information to criminally investigate or prosecute any alcohol or drug abuse patient.[facility]In the event this information is protected by the Federal Confidentiality of Alcohol and Drug Abuse Patient Records regulations: The Federal rules restrict any use of the information to criminally investigate or prosecute any alcohol or drug abuse patient.[facility] HospitalIn the event this information is protected by the Federal Confidentiality of Alcohol and Drug Abuse Patient Records regulations: The Federal rules restrict any use of the information to criminally investigate or prosecute any alcohol or drug abuse patient.[facility] HospitalIn the event this information is protected by the Federal Confidentiality of Alcohol and Drug Abuse Patient Records regulations: The Federal rules restrict any use of the information to criminally investigate or prosecute any alcohol or drug abuse patient.[facility] HospitalIn the event this information is protected by the Federal Confidentiality of Alcohol and Drug Abuse Patient Records regulations: The Federal rules restrict any use of the information to criminally investigate or prosecute any alcohol or drug abuse patient.[facility] HospitalIn the event this information is protected by the Federal Confidentiality of Alcohol and Drug Abuse Patient Records regulations: The Federal rules restrict any use of the information to criminally investigate or prosecute any alcohol or drug abuse patient.[facility] Care Team (unrecognized sect ion and content) Associate Professor Of Library Media Relationship Specialty Start Date End Date Pcp, No PCP - General 2/1/23 Associate Professor Of Library Media Relationship Specialty Start Date End Date Pcp, No PCP - General 11/22/22 Associate Professor Of Library Media Relationship Specialty Start Date End Date Pcp, No PCP - General 11/22/22 06/21/23 Associate Professor Of Library Media Relationship Specialty Start Date End Date Alihsa Betancur, ROOF FIXER.MINUTE CLERK [address] [place] [address] PCP - General Family Medicine 01/08/23 Rhianna Cardenas [address] [place] [address] Family Medicine 11/22/22 Associate Professor Of Library Media Relationship Specialty Start Date End Date Alisha Betancur ROOF FIXER.MINUTE CLERK [address] [place] [address] PCP - General Family Medicine 01/08/23 Rhianna Cardenas [address] [place] [address] Family Medicine 11/22/22 Associate Professor Of Library Media Relationship Specialty Start Date End Date Alisha Betancur, ROOF FIXER.MINUTE CLERK [address] [place] [address] PCP - General Family Medicine 01/08/23 Rhianna Cardenas [address] [place] [address] Family Medicine 11/22/22 Associate Professor Of Library Media Relationship Specialty Start Date End Date Alisha Betancur ROOF FIXER.MINUTE CLERK [address] [place] [address] PCP - General Family Medicine 01/08/23 Rhianna Cardenas [address] [place] [address] Family Medicine 11/22/22 Team Status: Active Member Role Status Dates Alisha Betancur OUTPATIENT COORDINATOR, OUTPATIENT COORDINATOR-C Primary Care Provider Active Team Status: Inactive Member Role Status Dates Dr. Luis Armando Keene , DO Emergency Provider Active Alisha Betancur OUTPATIENT COORDINATOR, OUTPATIENT COORDINATOR-C Primary Care Provider Active Associate Professor Of Library Media Relationship Specialty Start Date End Date Alisha Betancur, ROOF FIXER.MINUTE CLERK [address] [facility], [place] [id number] PCP - General Family Medicine 01/08/23 Rhianna Cardenas [address] [place], [place] [address] Family Medicine 11/22/22 Associate Professor Of Library Media Relationship Specialty Start Date End Date Alisha Betancur, ROOF FIXER.MINUTE CLERK [address] [facility], [place] [id number] PCP - General Family Medicine 01/08/23 Rhianna Cardenas [address] [place] [address] Family Medicine 11/22/22 Associate Professor Of Library Media Relationship Specialty Start Date End Date Alisha Betancur, ROOF FIXER.MINUTE CLERK [address] [facility], [place] [id number] PCP - General Family Medicine 01/08/23 Rhianna Cardenas [address] [place] [address] Family Medicine 11/22/22 Associate Professor Of Library Media Relationship Specialty Start Date End Date Alisha Betancur, ROOF FIXER.MINUTE CLERK [address] [place] [place] [address] PCP - General Family Medicine 01/08/23 Rhianna Cardenas MD [address] [place] [address] Family Medicine 11/22/22 Associate Professor Of Library Media Relationship Specialty Start Date End Date Alisha Betancur, ROOF FIXER.MINUTE CLERK [address] [place] [address] PCP - General Family Medicine 01/08/23 Rhianna Cardenas MD [address] [place], [place] [address] [place] [address] Family Medicine 11/22/22 Associate Professor Of Library Media Relationship Specialty Start Date End Date Alisha Betancur, ROOF FIXER.MINUTE CLERK [address] [place] [address] PCP - General Family Medicine 01/08/23 Rhianna Cardenas MD [address] [place], [place] [address] [address] Family Medicine 11/22/22 Associate Professor Of Library Media Relationship Specialty Start Date End Date Alisha Betancur, ROOF FIXER.MINUTE CLERK [address] [place] [address] PCP - General Family Medicine 01/08/23 Rhianna Cardenas MD [address] [place] [address] Family Medicine 11/22/22 Associate Professor Of Library Media Relationship Specialty Start Date End Date Alisha Betancur, ROOF FIXER.MINUTE CLERK [address] [place] [address] PCP - General Family Medicine 01/08/23 Rhianna Cardenas MD [address] [place], [place] [address] Family Medicine 11/22/22 Associate Professor Of Library Media Relationship Specialty Start Date End Date Alisha Betancur, ROOF FIXER.MINUTE CLERK [address] [place] [address] PCP - General Family Medicine 01/08/23 Rhianna Cardenas MD [employer] [address] [place], [place] [address] Family Medicine 11/22/22 Associate Professor Of Library Media Relationship Specialty Start Date End Date Alisha Betancur, ROOF FIXER.MINUTE CLERK [address] [place] [address] PCP - General Family Medicine 01/08/23 Rhianna Cardenas MD [employer] [place] [address] Family Medicine 11/22/22 Associate Professor Of Library Media Relationship Specialty Start Date End Date Alisha Betancur, ROOF FIXER.MINUTE CLERK [address] [place] [address] PCP - General Family Medicine 01/08/23 Rhianna Cardenas MD [address] [place], [place] [address] Family Medicine 11/22/22 Associate Professor Of Library Media Relationship Specialty Start Date End Date Alisha Betancur, ROOF FIXER.MINUTE CLERK [address] [place], [place] [id number] PCP - General Family Medicine 3/20/23 Rhianna Cardenas MD [address] [place], [place] [address] Family Medicine 11/22/22 Associate Professor Of Library Media Relationship Specialty Start Date End Date Alisha Betancur, ROOF FIXER.MINUTE CLERK [address] [place], [place] [id number] PCP - General Family Medicine 01/08/23 Rhianna Cardenas MD [employer] [place] [address] Family Medicine 11/22/22 Associate Professor Of Library Media Relationship Specialty Start Date End Date Alisha Betancur, ROOF FIXER.MINUTE CLERK [address] [place], [place] [id number] PCP - General Family Medicine 01/08/23 Rhianna Cardenas MD [address] [place], [place] [address] [place], [place] [address] Family Medicine 11/22/22 Associate Professor Of Library Media Relationship Specialty Start Date End Date Alisha Betancur, ROOF FIXER.MINUTE CLERK [address] [place], [place] [id number] PCP - General Family Medicine 01/08/23 Rhianna Cardenas MD [employer] [address] [place], [place] [address] Family Medicine 11/22/22 Associate Professor Of Library Media Relationship Specialty Start Date End Date Alisha Betancur, ROOF FIXER.MINUTE CLERK [address] [place], [place] [id number] PCP - General Family Medicine 01/08/23 Rhianna Cardenas MD [address] [place], [place] [address] Family [facility] 11/22/22 Associate Professor Of Library Media Relationship Specialty Start Date End Date Alisha Betancur ROOF FIXER.MINUTE CLERK [address] [place] [id number] PCP - General Family Medicine 01/08/23 Rhianna Cardenas MD [address] [place], [place] [address] Family Medicine 11/22/22 Associate Professor Of Library Media Relationship Specialty Start Date End Date Alisha Betancur, ROOF FIXER.MINUTE CLERK [address] [place] [address] PCP - General Family Medicine 01/08/23 Rhianna Cardenas MD [address] [place] [address] Family [facility] 11/22/22 Associate Professor Of Library Media Relationship Specialty Start Date End Date Alisha Betancur, ROOF FIXER.MINUTE CLERK [address] [place] [address] PCP - General Family Medicine 01/08/23 Rhianna Cardenas MD [address] [place], [place] [id number] Family [facility] 11/22/22 Goals (unrecognized section and content) Goals may be documented in a n alternate section FOR RECORDS PERTAINING TO PATIENTS WHO ARE OR HAVE BEEN ENROLLED IN A CHEMICAL DEPENDENCY/SUBSTANCEABUSE PROGRAM, SOME INFORMATION MAY BE OMITTED. This clinical summary was aggregated from multiple sources. Caution should be exercised in using it in the provision of clinical care. This summary normalizes information from multiple sources, and as a consequence, information in this document may materially change the coding, format and clinical context of patient data. In addition, data may be omitted in some cases. CLINICAL DECISIONS SHOULD BE BASED ON THE PRIMARY CLINICAL RECORDS. [facility] CenterTaking Point [facility]. provides no warranty or guarantee of the accuracy or completeness of information in this document.
[2025-05-03 02:59] VITALS: BP 137/93; PULSE 87; RESP 18; TEMP 36.7; O2SAT 97
== END 2025-05-03 03:01 | disposition home or self-care (01) ==
PROVIDERS: Emergency Provider Surgery; PCP Nurse Practitioner Family; Visit Provider Surgery
DX: N39.0 Urinary tract infection, site not specified (principal); Z98.51 Tubal ligation status
CPT/HCPCS: 81001; 81025; 87086; 87088; 99283; A4216